=== PATIENT | male | born 1960 | race Caucasian/White ===

== ENCOUNTER → 2017-06-29 | Outpatient (CLI) | payer OTHER ==
[~2017-06-29] MED LIST: ASPI-435 PO; LOSA1TAB PO; MULTTAB45 PO; OMEG1CAP84 PO; QUET1TAB37 PO; SINCALIDE INJ 1.8 MCG in SODIUM CHLORIDE 0.9% 100ML 100 ML IV ONE
--- NOTE | 2017-06-29 15:47 | DIAGNOSTIC IMAGING REPORT ---
NUCLEAR MEDICINE HEPATOBILIARY SCAN WITH GALLBLADDER EJECTION FRACTION CLINICAL HISTORY: Right lower quadrant pain. Atypical chest pain. COMPARISON: None TECHNIQUE: 5.5 mCi of technetium 99m Choletec IV was injected at 1:00 PM on June 29, 2017. Immediately following injection, imaging of the abdomen was carried out for 60 minutes in the anterior projection. At this time, 1.8 mcg of Sincalide was injected IV as per protocol. Imaging was performed for an additional 45 minutes to estimate a gallbladder ejection fraction. FINDINGS: Hepatic uptake of radiotracer is prompt and homogeneous. Activity is identified within the common bile duct and the gallbladder at 10 minutes. Small bowel activity is also noted at 10 minutes. Following injection of sincalide, normal gallbladder emptying was noted with an ejection fraction of 96%. Normal is greater than 30-35%. IMPRESSION: 1. Normal hepatobiliary scan. No evidence for acute or chronic cholecystitis. 2. Normal gallbladder ejection fraction of 96%. Electronically signed by: Sigifredo Lucero M.D. 06/29/2017 3:45 PM Dictated Date/Time: 06/29/2017 3:44 PM
== END | disposition home or self-care (01) ==
LOC: C.NUCL 12:38
PROVIDERS: ATTEND Surgery
DX: R07.89 Other chest pain (principal); R10.31 Right lower quadrant pain

== ENCOUNTER 2019-11-07 09:22 | Inpatient (IN) ==
[2019-11-07] MEDS ORDERED: MULTI-VITAMIN INFUSION 10 ML, THIAMINE HCL 100 MG, FOLIC ACID 1 MG in SODIUM CHLORIDE 0... IV ONE (09:59)
--- NOTE | 2019-11-07 10:06 | Emergency Department Note ---
Impression & Plan SOB (shortness of breath), Anemia, Weakness, Acute hyperkalemia, Acute hyperglycemia, Abdominal contusion ED Provider Note NAME: ARABELLA HUBBARD AGE: 59 SEX: M : 1960 ARRIVES VIA: Walk-In INFORMANT: [Patient] ED PROVIDER(S): [Suman Otero MD] CHIEF COMPLAINT: Bruising, short of breath HISTORY OF PRESENT ILLNESS: The patient is a 59-year-old male who states that over the last week, he has had increasing bruising across the abdomen and both legs. He fell 3 days ago onto his knees but states that the bruising was present before the fall. The patient states that in addition, for the last 4 days or so, he has noticed that he is short of breath. He is weak. Standing makes him feel faint. He states exertion makes his shortness of breath worse. There has been no chest pain, no vomiting or diarrhea. He has not noticed any bloody stool, his stool is always black because he uses Pepto-Bismol a lot. The patient has not had fever. He has not had cough or congestion. He has no history of coagulopathy. He is not any blood thinners. This mercado never happened to him before. Of note, the patient does drink about 12 beers a day. He states he has not had a drink of alcohol today. The patient was seen at the [facility] outpatient office and referred to the ED given his findings. REVIEW OF SYSTEMS: See HPI for pertinent positives and negatives. A total of ten systems were reviewed and were otherwise negative. PMHx/PSHx: See Below SOCIAL HISTORY: See Below. PHYSICAL EXAM: GENERAL: Patient is in no acute distress. HEENT: No acute trauma, normocephalic atraumatic, mucous membranes moist, no nasal congestion, no scleral icterus. NECK: No stridor, no adenopathy, no meningismus, trachea is midline. LUNGS: Clear to auscultation bilaterally, no wheeze, no rhonchi, breath sounds equal. HEART: Very mildly tachycardic, regular rhythm, no murmurs. ABDOMEN: Soft, nontender, bowel sounds positive, no hernias, no peritonitis. EXTREMITIES: No cyanosis. Moderate bilateral pedal edema with contusions from the thighs to the ankles. There is some slight erythema to the right dorsal foot. NEUROLOGIC: Oriented x 3, no acute motor or sensory deficits, no focal weakness. SKIN: The patient has contusions about the anterior abdomen and to both lower extremities. DIFFERENTIAL DIAGNOSIS: Infection, dehydration, metabolic abnormality, hypo/hyperglycemia, coagulopathy, intra-abdominal or intracranial bleeding, liver disease, thrombocytopenia, electrolyte disturbance, anemia, hypoxia, cardiac sources, intracerebral event, toxicologic, neurologic, as well as other pathologies. EMERGENCY DEPARTMENT COURSE/PROCEDURES: ECG: Indication was shortness of breath. The ECG shows a sinus tachycardia with a rate of 101. The QTc is 446. There is no ST elevation, no PVCs. Continuous Cardiac Monitoring: An order was placed for continuous cardiac monitoring. The monitor shows a rate of 92 with normal sinus rhythm. Critical Care Note: I have personally spent greater than 52 minutes of critical care time in the direct management of this patient. This includes bedside care, interpretation of diagnostic studies, and testing, discussion with consultants, patient, and family members, and other required patient management activities. This 52 minutes is in excess of all separately billable procedures. MEDICAL DECISION MAKING: There is a mild leukocytosis, this is consistent with potential infection. Hemoglobin was low at 8.8. There was a normal platelet count. An INR elevation was noted, this suggests a coagulopathy-of note, the patient is not on Coumadin. Sodium was low in the 120s. There was an elevation to the creatinine consistent with dehydration/renal insufficiency. Glucose was quite high in the 300s. Potassium was quite high at 6.5-this was a critical value. There were s ome liver enzyme elevations present. ECG showed a sinus tachycardia, no acute ischemia. Cardiac enzyme testing x1 was not consistent with acute cardiac injury. BNP was not elevated. Chest film did not show pneumonia or CHF. No evidence for pancreatitis. TSH was slightly high, the T4 was normal. Blood type returned at O+. Brain CT showed no acute bleed or mass-effect. Abdominal and pelvis CT did not show any evidence for intra-abdominal hematoma or bleeding. On my exam, the patient was tachycardic. He had contusions across the anterior abdominal wall and both lower extremities. He seemed slightly short of breath. The patient was aggressively managed given his findings. He did receive a DuoNeb to try and reduce his potassium. He was given IV insulin to lower the blood sugar and to reduce the potassium. He received IV saline for hydration and to reduce potassium. He was given IV saline with multivitamins, thiamine and folate. He received a dose of IV Ativan when he began to demonstrate some early alcohol withdrawal. The patient's heart rate has improved, he seems more comfortable. He does require a hospital stay. He is quite anemic, this has led to his shortness of breath and dyspnea. He is hyperkalemic, hyperglycemic. His sodium is low. He has a coagulopathy which has led to the spontaneous soft tissue bleeding. During his ER stay, the patient began to demonstrate some mild alcohol withdrawal. The patient is aware of the need for hospitalization. I did speak with case management. The on-call hospitalist was consulted. Past Med/Surg History Medical History Depression Diabetes mellitus, type 2 DIET MANAGED-TAKEn OFF MEDS GERD (gastroesophageal reflux disease) Hypertension UNDER CONTROL-NO MEDS CURRENTLY Sleep apnea CPAP Surgical History History of bowel resection WITH COLOSTOMY-AND REVERSED History of open reduction and internal fixation (ORIF) procedure LEFT ANKLE Family History Mother Pancreatic cancer Father Coronary heart disease CHF (congestive heart failure) AAA (abdominal aortic aneurysm) Social History Smoking Status: Former smoker Tobacco Type: Cigarettes Second Hand Exposure: No; Do You Dip or Chew Tobacco: No; Tobacco Cessation Education Requested by Patient: No Hx Alcohol Use: Yes Alcohol type: beer Alcohol Intake Frequency: 4 or More x per/Week Alcohol Intake Frequency Comment: 12 beers daily Hx Substance Use: Yes Last Used Substance Other:: 10-15 years ago Preferred Language: Russian 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 Ability: 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 Required: No Beliefs That Will Affect Care: None Current Living Situation: Alone current occupational status: unemployed Other Information That Helps Us Care for You: No Feels Safe at Home: Yes Safety Concerns: Feels Safe At This Time Allergies Allergies Allergy/AdvReac Type Severity Reaction Status Date / Time esomeprazole [From Nexium] AdvReac Unknown RINGING IN Verified 11/07/19 10:26 EARS losartan AdvReac Unknown CONFUSED Verified 11/07/19 10:26 ,CHEST PAIN metformin AdvReac Unknown TONGUE Verified 11/07/19 10:26 SWELLING-PER MEDICAL RECORD omeprazole AdvReac Unknown RINGING IN Verified 11/07/19 10:26 EARS pantoprazole AdvReac Unknown RINGING IN Verified 11/07/19 10:26 EARS ranitidine AdvReac Unknown RINGING IN Verified 11/07/19 10:26 EARS Home Meds Home Medications Medication Instructions Recorded Confirmed quetiapine [Seroquel] 400 mg PO HS 09/20/18 11/07/19 Results & Data (ED) Vital Signs Vital Signs - 24 hr 11/07/19 09:30 11/07/19 11:00 11/07/19 11:02 Temperature Source Oral Pulse Rate 114 H 107 H Pulse Rate [Apical] Pulse Rate from SpO2 Sensor 106 H Respiratory Rate 24 26 H Respiratory Effort / Characteristics Blood Pressure 111/70 114/85 Blood Pressure Mean 83 90 Pulse Oximetry 97 95 Oxygen Delivery Method Room Air Room Air Room Air Sepsis Recent Fever Within 48 Hours No Sepsis New/Unexplained Change in Mental Status N/A Sepsis Action Taken by Nursing No Action Required 11/07/19 11:47 11/07/19 12:05 Temperature Source Pulse Rate 103 H Pulse Rate [Apical] 106 H Pulse Rate from SpO2 Sensor 104 H Respiratory Rate 16 21 Respiratory Effort / Characteristics Non-Labored Spontaneous Blood Pressure 128/103 H Blood Pressure Mean 108 Pulse Oximetry 99 99 Oxygen Delivery Method Room Air Room Air Sepsis Recent Fever Within 48 Hours Sepsis New/Unexplained Change in Mental Status Sepsis Action Taken by Usp Medications Current Medication List: was personally reviewed by me Laboratory Data Attestation: I reviewed the patient's lab results. Result diagrams: 11/07/19 16:45 11/07/19 16:45 Lab Results 11/07/19 11/07/19 11/07/19 Range/Units 10:10 10:10 10:10 WBC (4.8-10.8) K/uL RBC (4.7-6.1) M/uL Hgb (14.0-18.0) g/dL Hct (42-52) % MCV (80-100) fL MCH (25-34) pg MCHC (32-36) g/dL RDW Std Deviation (36.4-46.3) fL RDW Coeff of Brigida (11.5-14.5) % Plt Count (130-400) K/uL MPV (7.4-10.4) fL Immature Gran % (Auto) % Neut % (Auto) % Lymph % (Auto) % Gila % (Auto) % Eos % (Auto) % Baso % (Auto) % Neut # (Auto) (1.4-6.5) K/uL Lymph # (Auto) (1.2-3.4) K/uL Gila # (Auto) (0.11-0.59) K/uL Eos # (Auto) (0-0.5) K/uL Baso # (Auto) (0-0.2) K/uL Immature Gran # (Auto) (0.00-0.02) K/uL Absolute Nucleated RBC (0-0) K/uL Nucleated RBC % (auto) % PT 20.1 H (9.0-12.0) Seconds INR 2.0 H (0.9-1.1) APTT 33.0 H (21.0-31.0) Seconds PTT Ratio 1.2 Sodium 124 L (136-145) mmol/L Potassium 6.5 H* (3.5-5.1) mmol/L Chloride 97 L (98-107) mmol/L Carbon Dioxide 18 L (21-32) mmol/L Anion Gap 10.0 (3-11) BUN 25 H (7-18) mg/dl Creatinine 1.97 H (0.6-1.4) mg/dl Est Cr Clr Drug Dosing Not Reportable Est GFR ( Amer) 41.9 Est GFR (Non-Af Amer) 36.1 BUN/Creatinine Ratio 12.5 (10-20) Glucose 354 H* (70-99) mg/dl POC Glucose (70-99) mg/dl Osmolality (280-300) mOsm/kg Calcium 8.6 (8.5-10.1) mg/dl Magnesium 2.3 (1.8-2.4) mg/dl Total Bilirubin 2.7 H (0.2-1) mg/dl AST 50 H (15-37) U/L ALT 35 (12-78) U/L Alkaline Phosphatase 79 (45-117) U/L Total Creatine Kinase 469 H (39-308) U/L Troponin I < 0.015 (0-0.045) ng/ml NT-Pro-B Natriuret Pep 201 (0-900) pg/ml Total Protein 6.9 (6.4-8.2) gm/dl Albumin 2.9 L (3.4-5.0) gm/dl Globulin 4.0 (2.5-4.0) gm/dl Albumin/Globulin Ratio 0.7 L (0.9-2) Beta-Hydroxybutyric Acd 11.66 H (0.2-2.81) mg/dl TSH 6.190 H (0.300-4.500) uIu/ml Free T4 0.85 (0.8-1.6) ng/dl Specimen Hemolysis Blood Type O Positive Antibody Screen NEGATIVE Crossmatch See Detail 11/07/19 11/07/19 11/07/19 Range/Units 10:10 10:19 11:38 WBC 11.85 H (4.8-10.8) K/uL RBC 2.70 L (4.7-6.1) M/uL Hgb 8.8 L (14.0-18.0) g/dL Hct 26.1 L (42-52) % MCV 96.7 (80-100) fL MCH 32.6 (25-34) pg MCHC 33.7 (32-36) g/dL RDW Std Deviation 52.5 H (36.4-46.3) fL RDW Coeff of Brigida 15.7 H (11.5-14.5) % Plt Count 177 (130-400) K/uL MPV 10.9 H (7.4-10.4) fL Immature Gran % (Auto) 0.8 % Neut % (Auto) 81.8 % Lymph % (Auto) 8.9 % Gila % (Auto) 7.8 % Eos % (Auto) 0.4 % Baso % (Auto) 0.3 % Neut # (Auto) 9.69 H (1.4-6.5) K/uL Lymph # (Auto) 1.06 L (1.2-3.4) K/uL Gila # (Auto) 0.92 H (0.11-0.59) K/uL Eos # (Auto) 0.05 (0-0.5) K/uL Baso # (Auto) 0.04 (0-0.2) K/uL Immature Gran # (Auto) 0.09 H (0.00-0.02) K/uL Absolute Nucleated RBC 0.12 H (0-0) K/uL Nucleated RBC % (auto) 1.0 % PT (9.0-12.0) Seconds INR (0.9-1.1) APTT (21.0-31.0) Seconds PTT Ratio Sodium (136-145) mmol/L Potassium (3.5-5.1) mmol/L Chloride (98-107) mmol/L Carbon Dioxide (21-32) mmol/L Anion Gap (3-11) BUN (7-18) mg/dl Creatinine (0.6-1.4) mg/dl Est Cr Clr Drug Dosing Est GFR ( Amer) Est GFR (Non-Af Amer) BUN/Creatinine Ratio (10-20) Glucose (70-99) mg/dl POC Glucose 311 H* (70-99) mg/dl Osmolality 285 (280-300) mOsm/kg Calcium (8.5-10.1) mg/dl Magnesium (1.8-2.4) mg/dl Total Bilirubin (0.2-1) mg/dl AST (15-37) U/L ALT (12-78) U/L Alkaline Phosphatase (45-117) U/L Total Creatine Kinase (39-308) U/L Troponin I (0-0.045) ng/ml NT-Pro-B Natriuret Pep (0-900) pg/ml Total Protein (6.4-8.2) gm/dl Albumin (3.4-5.0) gm/dl Globulin (2.5-4.0) gm/dl Albumin/Globulin Ratio (0.9-2) Beta-Hydroxybutyric Acd (0.2-2.81) mg/dl TSH (0.300-4.500) uIu/ml Free T4 (0.8-1.6) ng/dl Specimen Hemolysis Blood Type Antibody Screen Crossmatch Administered Medications Folic Acid (Folic Acid 1 Mg Tab) 1 mg PO QAM [facility] Stop: 12/07/19 14:59 Last Admin: 11/07/19 16:05 Dose: 1 mg Documented by: [id number] Sodium Bicarbonate 75 meq/ (Sodium Chloride) 1,075 mls @ 80 mls/hr IV .[id number] [facility] Stop: 12/07/19 14:38 Last Admin: 11/07/19 16:04 Dose: 80 mls/hr Documented by: [id number] Insulin Aspart (Insulin Aspart 100 Units/Ml 3 Ml Pen) 0 units SC ACHS [facility] Stop: 12/07/19 16:29 Last Admin: 11/07/19 17:14 Dose: 10 units Documented by: [id number] Cosigned by: [id number] Thiamine HCl (Thiamine Hcl 100 Mg Tab) 100 mg PO QAM [place] Stop: 12/07/19 14:59 Last Admin: 11/07/19 16:06 Dose: 100 mg Documented by: [id number] Discontinued Medications Albuterol (Albut/Ipratrop 3mg/0.5mg Neb 3 Ml Vial) 3 ml NEB NOW STA Stop: 11/07/19 11:06 Last Admin: 11/07/19 11:45 Dose: 3 ml Documented by: [id number] Gabapentin (Gabapentin 600 Mg Tab) 1,200 mg PO NOW ONE Stop: 11/07/19 16:01 Last Admin: 11/07/19 16:05 Dose: 1,200 mg Documented by: [id number] Multivitamins 10 ml/ Thiamine HCl 100 mg/ Folic Acid 1 mg/Sodium Chloride 1,011.2 mls @ 1,011.2 mls/hr IV .Q1H ONE Stop: 11/07/19 10:58 Last Infusion: 11/07/19 12:30 Dose: 0 mls/hr Documented by: [id number] Admin: 11/07/19 10:43 Dose: 1,011.2 mls/hr Documented by: [id number] Lorazepam (Ativan) 1 mg in 2 mls @ 2 mls/min IV NOW STA Stop: 11/07/19 11:46 Last Admin: 11/07/19 12:02 Dose: 2 mls/min Documented by: [id number] Insulin Glargine (Insulin Glargine Solostar 100 Units/Ml 3 Ml Pen) 25 units SC TODAY@1600 ONE; Protocol Stop: 11/07/19 16:01 Last Admin: 11/07/19 17:13 Dose: 25 units Documented by: [id number] Cosigned by: [id number] Insulin Human Regular (Novolin-R Insulin Per Unit Charge) 10 units IV NOW STA Stop: 11/07/19 11:06 Last Admin: 11/07/19 11:13 Dose: 10 units Documented by: [id number] Cosigned by: [id number] Morphine Sulfate (Morphine Sulfate 4 Mg/Ml 1 Ml Carp\Vial) 4 mg IV NOW STA Stop: 11/07/19 12:31 Last Admin: 11/07/19 12:37 Dose: 4 mg Documented by: [id number] Imaging Data Radiologist's Impression: XR chest 1V portable CLINICAL HISTORY: weakness dyspnea COMPARISON STUDY: 06/01/2014 FINDINGS: The bones soft tissues and hemidiaphragms are normal. The cardiomediastinal silhouette is normal. The lungs are clear. The pulmonary vasculature is normal. IMPRESSION: Negative chest. CT head/brain wo con CT DOSE: HISTORY: Trauma. Pain. Mental status change. falling, bruising TECHNIQUE: Multiaxial CT images of the head were performed without the use of intravenous contrast. A dose lowering technique was utilized adhering to the principles of ALARA. Comparison: 06/01/2014 Findings: The paranasal sinuses and mastoid air cells are clear. The calvarium and skull base are intact. The ventricles and sulci are within normal limits. There is no mass, hematoma, midline shift, or acute infarct. Impression: No acute intracranial abnormality. CT SCAN OF THE ABDOMEN AND PELVIS WITHOUT IV CONTRAST CLINICAL HISTORY: Generalized weakness. Abdominal bruising. COMPARISON STUDY: Nuclear hepatobiliary scan dated 06/29/2017. TECHNIQUE: CT scan of the abdomen and pelvis is performed from the lung bases to the proximal femora. Images are reviewed in the axial, sagittal, and coronal planes. IV contrast was not administered for this examination as per the referring clinician. A dose lowering technique was utilized adhering to the principles of ALARA. CT DOSE: 2827.21 mGy.cm FINDINGS: Lung bases: The heart is normal in size and without pericardial effusion. There are coronary artery calcifications. A small hiatal hernia is noted. A 4 mm pleural-based nodule in the right lower lobe as seen on image #46. The lung bases are otherwise clear. Liver: The unenhanced liver is enlarged, measuring 24.6 cm in length. The liver demonstrates diffusely diminished attenuation consistent with hepatic steatosis. There is no intrahepatic biliary ductal dilatation. Gallbladder: Gallstones are suspected. There is no CT evidence of acute cholecystitis. Spleen: Normal in size and attenuation. Pancreas: The unenhanced pancreas is moderately atrophic and grossly unremarkable. Adrenal glands: Unremarkable. Kidneys: The unenhanced kidneys demonstrate mild cortical atrophy and are without hydronephrosis. There is a punctate nonobstructing left renal calculus. No right renal calculi are identified. There is no evidence of contour deforming renal mass lesion. There is a circumaortic left renal vein. Abdominal vasculature: The abdominal aorta is normal in course and caliber noting mild atherosclerotic calcification. Bowel: Residual enteric contrast is noted in the colon. No bowel obstruction is seen. The appendix is well-visualized and normal. Peritoneum/retroperitoneum: There is no intraperitoneal free air or abdominal ascites. There is no intraperitoneal or retroperitoneal hemorrhage. There is a fat-containing umbilical hernia. Induration is noted within the right ventral abdominal wall. Question a small intramuscular hemorrhage within the right lateral abdominal wall musculature anterior to the iliac crest seen on image #386. No organized soft tissue hematoma is identified. Lymphadenopathy: None. Pelvic viscera: The prostate gland is diminutive. The bladder and seminal vesicles are normal as imaged. Skeletal structures: No lytic or blastic lesions are seen. IMPRESSION: 1. There is induration identified within the subcutaneous fat of the right lower quadrant abdominal wall. This is consistent with the reported clinical history of bruising. No organized hematoma is identified. 2. Suspect a small intramuscular hemorrhage within the right lateral abdominal wall musculature anterior to the iliac crest. 3. No intraperitoneal or retroperitoneal hemorrhage is seen. 5. Hepatomegaly and severe hepatic steatosis. 6. Suspect cholelithiasis. 7. Additional findings as above. Blood Pressure Blood Pressure Findings: Elevated blood pressure Blood Pressure Disposition: further management by hospitalist Discharge Plan Visit Data Chief Complaint: Referred by Doctor Stated Complaint: RETAIN FLUID ED Provider: Suman Otero Discharge Problem: SOB (shortness of breath), Anemia, Weakness, Acute hyperkalemia, Acute hyperglycemia, Abdominal contusion Patient Disposition: Admitted As Inpatient Condition: Serious Discharge Instructions Interventions: ED Discharge Assessment Last Done: 11/07/19 12:58 Discharge Problem: Anemia Qualifiers: Anemia type: unspecified type Qualified Code(s): D64.9 - Anemia, unspecified Abdominal contusion Qualifiers: Encounter type: initial encounter Qualified Code(s): S30.1XXA - Contusion of abdominal wall, initial encounter
[2019-11-07 10:34] LABS: Basophils # (auto) 0.04 K/uL (0-0.2); Basophils % (auto) 0.3 %; Eosinophils # (auto) 0.05 K/uL (0-0.5); Eosinophils % (auto) 0.4 %; Hematocrit (blood only) 26.1 % (42-52); Hemoglobin 8.8 g/dL (14.0-18.0); Immature Granulocytes # (auto) 0.09 K/uL (0.00-0.02); Immature Granulocytes % (auto) 0.8 %; Lymphocytes # (auto) 1.06 K/uL (1.2-3.4); Lymphocytes % (auto) 8.9 %; Mean Corpuscular Hemoglobin 32.6 pg (25-34); Mean Corpuscular Hgb Conc 33.7 g/dL (32-36); Mean Corpuscular Volume 96.7 fL (80-100); Mean Platelet Volume 10.9 fL (7.4-10.4); Monocytes # (auto) 0.92 K/uL (0.11-0.59); Monocytes % (auto) 7.8 %; Neutrophils # (auto) 9.69 K/uL (1.4-6.5); Neutrophils % (auto) 81.8 %; Nucleated RBC # (auto) 0.12 K/uL (0-0); Platelet Count 177 K/uL (130-400); RDW Coefficient of Variation 15.7 % (11.5-14.5); RDW Standard Deviation 52.5 fL (36.4-46.3); White Blood Count 11.85 K/uL (4.8-10.8)
[2019-11-07 10:47] LABS: Partial Thromboplastin Ratio 1.2; Prothrombin Time 20.1 Seconds (9.0-12.0)
[2019-11-07 10:59] LABS: Alanine Aminotransferase 35 U/L (12-78); Albumin Level 2.9 gm/dl (3.4-5.0); Aspartate Aminotransferase 50 U/L (15-37); BUN Creatinine Ratio 12.5 (10-20); Blood Urea Nitrogen 25 mg/dl (7-18); Calcium 8.6 mg/dl (8.5-10.1); Carbon Dioxide 18 mmol/L (21-32); Chloride 97 mmol/L (98-107); Est GFR (African American) 41.9; Est GFR (Non-African American) 36.1; Glucose 354 mg/dl (70-99); Magnesium 2.3 mg/dl (1.8-2.4); Potassium 6.5 mmol/L (3.5-5.1); Sodium 124 mmol/L (136-145)
[2019-11-07] MEDS ORDERED: NovoLIN-R INSULIN PER UNIT CHARGE IV STA (11:05)
[2019-11-07] MEDS ORDERED: ALBUT/IPRATROP 3MG/0.5MG NEB 3 ML VIAL NEB STA (11:05)
[2019-11-07 11:08] LABS: Albumin Globulin Ratio 0.7 (0.9-2); Alkaline Phosphatase 79 U/L (45-117); Bilirubin,Total 2.7 mg/dl (0.2-1); Creatine Kinase 469 U/L (39-308); NT Pro B Type Natriuretic Pept 201 pg/ml (0-900); Total Protein 6.9 gm/dl (6.4-8.2); Troponin I < 0.015 ng/ml (0-0.045)
--- NOTE | 2019-11-07 11:08 | XRay Report ---
XR chest 1V portable CLINICAL HISTORY: weakness dyspnea COMPARISON STUDY: 06/01/2014 FINDINGS: The bones soft tissues and hemidiaphragms are normal. The cardiomediastinal silhouette is n ormal. The lungs are clear. The pulmonary vasculature is normal. IMPRESSION: Negative chest. ACT 112: Negative or not required by law. The above report was generated using voice recognition software. It may contain grammatical, syntax or spelling errors. Electronically signed by: Rashad Alvarez M.D. 11/07/2019 11:07 AM
[2019-11-07 11:17] LABS: Beta-Hydroxybutyrate 11.66 mg/dl (0.2-2.81)
[2019-11-07 11:24] LABS: T4 Free Thyroxine 0.85 ng/dl (0.8-1.6)
--- NOTE | 2019-11-07 11:35 | CT Scan Report ---
CT head/brain wo con CT DOSE: HISTORY: Trauma. Pain. Mental status change. falling, bruising TECHNIQUE: Multiaxial CT images of the head were performed without the use of intravenous contrast. A dose lowering technique was utilized adhering to the principles of ALARA. Comparison: 06/01/2014 Findings: The paranasal sinuses and mastoid air cells are clear. The calvarium and skull base are int act. The ventricles and sulci are within normal limits. There is no mass, hematoma, midline shift, or acute infarct. Impression: No acute intracranial abnormality. ACT 112: Negative or not required by law. The above report was generated using voice recognition software. It may contain grammatical, syntax or spelling errors. Electronically signed by: Rashad Alvarez M.D. 11/07/2019 11:34 AM
[2019-11-07] MEDS ORDERED: LORazepam 1 MG/2 ML VIAL IV STA (11:45)
--- NOTE | 2019-11-07 11:56 | CT Scan Report ---
CT SCAN OF THE ABDOMEN AND PELVIS WITHOUT IV CONTRAST CLINICAL HISTORY: Generalized weakness. Abdominal bruising. COMPARISON STUDY: Nuclear hepatobiliary scan dated 06/29/2017. TECHNIQUE: CT scan of the abdomen and pelvis is performed from the lung bases to the proximal femora. Images are reviewed in the axial, sagittal, and coronal planes. IV contrast was not administered for this examination as per the referring clinician. A dose lowering technique was utilized adhering to the principles of ALARA. CT DOSE: 2827.21 mGy.cm FINDINGS: Lung bases: The heart is normal in size and without pericardial effusion. There are coronary artery c alcifications. A small hiatal hernia is noted. A 4 mm pleural-based nodule in the right lower lobe as seen on image #46. The lung bases are otherwise clear. Liver: The unenhanced liver is enlarged, measuring 24.6 cm in length. The liver demonstrates diffusel y diminished attenuation consistent with hepatic steatosis. There is no intrahepatic biliary ductal d ilatation. Gallbladder: Gallstones are suspected. There is no CT evidence of acute cholecystitis. Spleen: Normal in size and attenuation. Pancreas: The unenhanced pancreas is moderately atrophic and grossly unremarkable. Adrenal glands: Unremarkable. Kidneys: The unenhanced kidneys demonstrate mild cortical atrophy and are without hydronephrosis. The re is a punctate nonobstructing left renal calculus. No right renal calculi are identified. There is no evidence of contour deforming renal mass lesion. There is a circumaortic left renal vein. Abdominal vasculature: The abdominal aorta is normal in course and caliber noting mild atheroscleroti c calcification. Bowel: Residual enteric contrast is noted in the colon. No bowel obstruction is seen. The appendix is well-visualized and normal. Peritoneum/retroperitoneum: There is no intraperitoneal free air or abdominal ascites. There is no in traperitoneal or retroperitoneal hemorrhage. There is a fat-containing umbilical hernia. Induration i s noted within the right ventral abdominal wall. Question a small intramuscular hemorrhage within the right lateral abdominal wall musculature anterior to the iliac crest seen on image #[id number]. No organize d soft tissue hematoma is identified. Lymphadenopathy: None. Pelvic viscera: The prostate gland is diminutive. The bladder and seminal vesicles are normal as imag ed. Skeletal structures: No lytic or blastic lesions are seen. IMPRESSION: 1. There is induration identified within the subcutaneous fat of the right lower quadrant abdominal w all. This is consistent with the reported clinical history of bruising. No organized hematoma is iden tified. 2. Suspect a small intramuscular hemorrhage within the right lateral abdominal wall musculature anter ior to the iliac crest. 3. No intraperitoneal or retroperitoneal hemorrhage is seen. 5. Hepatomegaly and severe hepatic steatosis. 6. Suspect cholelithiasis. 7. Additional findings as above. ACT 112: Negative or not required by law. Electronically signed by: Suman Escalante M.D. 11/07/2019 11:55 AM
[2019-11-07] MEDS ORDERED: MoRPHine SULFATE 4 MG/ML 1 ML CARP\\VIAL IV STA (12:30)
--- NOTE | 2019-11-07 12:57 | History & Physical Report ---
Date of Service November 07, 2019 Assessment & Plan (1) Spontaneous hematoma of abdominal wall: (2) Anemia: This is a 59 yr old M who has significant PMH of documented schizoaffective disorder, bipolar type, HTN, HLD, T2DM, GERD who presents to ED 2/2 2 and bruising to abdomen and lower extremities x3 days with associated dyspnea with exertion and weakness. In ED patient remained hemodynamically stable, but was mildly tachycardic. Significant lab abnormalities include H&H 8.8 and 26.1, WBC 11.85k, INR 2.0, corrected sodium 128, potassium 6.5, CO2 18, BUN 25, creatinine 1.97, glucose 354, total bili 2.7, AST 50, CK [address] were unremarkable. CT A/P: small intramuscular hemorrhage within the right lateral abdominal wall musculature anterior to the iliac crest, severe hepatic steatosis. In ED he received a banana bag, 1g IV lorazepam, 10mg IV Regular Insulin, and albuterol neb tx. admit to PCU Anemia likely in setting of blood loss from spontaneous hematoma with INR 2.[address] Paulino to discuss with Dr. Grant/Dr. Dominguez monitor h/h, transfuse hgb < 8.0 ? coagulopathy vs plt dysfxn vs blood dsycrasia pt with excessive pepto bismal use ? if adverse reaction playing role due to excessive use (3) Ecchymosis: pt with severe ecchymosis to abd wall and b/l lower extremity CT head and A/P + abd wall hematoma INR 2.0, ? coagulopathy vs platelet dysfunction in setting of alcohol use vs blood dyscrasia Pt reports excessive Pepto bismal use of 1 bottle + per day consult GI Dr. Paulino to discuss with hematology and pathology peripheral smear fibrinogen level, platelet analysis, salicylate level, ESR/CRP, EBC, CMV, APAP, Hep Panel, Lipase, drug tox supplement vit C bid (4) MAIRA (acute kidney injury): Baseline cr 1.0, last noted in EPIC 06/2017 bun/cr 25 and 1.97 consult nephrology repeat bmp q4h IVF 80cc/hr 1/2 NS + 75meq bicarb (5) Hyperkalemia: K 6.5, specimen hemolyzed repeat bmp received 10 units IV insulin in ED along with neb tx may be in setting of bleeding, MAIRA consult nephrology for electrolyte disturbance and MAIRA (6) Hyponatremia: corrected for hyperglycemia, 128 obtain serum osm, urine osm, urine na may be in setting of etoh abuse Received banana bag in ED continue IVF (7) Right knee pain: pt with severe R knee pain, reports fall to Knee ~ 1 week ago significant ecchymosis and swelling to R knee obtain xray ICE prn low threshold to consult ortho (8) Diabetes mellitus, type 2: with Hyperglycemia Last A1C in EPIC 04/23/17 5.6, prior high as 6.6 repeat a1c allergy to metformin place on Lantus/novolog per protocol consult glycemic pharmacy - appreciate their input (9) Alcohol abuse: pt drinks 12 beers daily AWSS protocol, Gabapentin taper, Prn IV Lorazepam encourage alcohol cessation (10) Elevated LFTs: GI consulted AST 50, total bili 2.1, INR 2.0, low albumin obtain dedicated RUQ liver US with venous doppler pt with noted hepatic steatosis and etoh abuse, MELD 28 (11) Tinnitus: pt reports severe tinnitus states made worse with PPI pt is taking significant amounts of pepto bismal which is also noted to cause tinnitus would recommend discontinuing pepto bismal (12) DVT prophylaxis: contraindicated in setting of severe ecchymosis and concern for coagulopathy auto anticoagulated with INR of 2.0 Disposition: admit to PCU Follow up: PCP Dr. Osorio upon discharge Pt was seen and examined in collaboration with Dr. Paulino, please see attending addendum for further details regarding physical exam findings and plan History of Present Illness Chief Complaint: Bruising to abdominal and legs x 3 days with associated SOB w/ exertion and weakness. Primary Care Provider: Robbi Osorio MD This is a 59 yr old M who has significant PMH of documented schizoaffective disorder, bipolar type, HTN, HLD, T2DM, GERD who presents to ED 2/2 2 and bruising to abdomen and lower extremities x3 days with associated dyspnea with exertion and weakness. Patient has been in his normal state of health until the past 3 days. Bruising initially started on anterior proximal thigh extending down bilateral lower legs and a significant bruise to his intra-abdominal wall. He also complains of significant right knee pain and difficulty walking and bending of the knee. He does admit to falling approximately 1 week ago onto her right knee but denies any other trauma or fall. He denies similar symptoms in the past. He also admits to feeling feverish and chilled, but no documented fever. Complains of lightheadedness with standing/movement, tinnitus, severe acid reflux for which he takes 1 bottle of pepto bismal daily. He does not tolerate PPI or [id number] due to tinnitus so states, "I drink pepto like water." He denies and URI sx including cough, rhinorrhea, sneezing. Further denies N/V/D, abdominal pain, melena, hematochezia, gum bleeding, hematuria or epistaxis. He only takes Seroquel at HS for, "sleep." He denies any psychiatric illness and does not see a psychologist. Per [facility] a dx of schizoaffective disorder is on his chart. He has known hx of HLD and T2DM in which pt has been "diet controlling" for past few years. Neighbor is at his bedside. He does not work, or use tobacco/drug products. He drinks 1/2 case a beer daily and has for many years. Prior hx of withdrawal after being in hospital and undergoing EGD. States he was tachycardiac. Appetite has been poor past 2-3 days due to severe reflux. Patient was seen and evaluated by PCP who referred to ED. In ED patient remained hemodynamically stable, but was mildly tachycardic. Significant lab abnormalities include H&H 8.8 and 26.1, WBC 11.85k, INR 2.0, corrected sodium 128, potassium 6.5, CO2 18, BUN 25, creatinine 1.97, glucose 354, total bili 2.7, AST 50, CK [address] were unremarkable. CT A/P: small intramuscular hemorrhage within the right lateral abdominal wall musculature anterior to the iliac crest, severe hepatic steatosis. In ED he received a banana bag, 1g IV lorazepam, 10mg IV Regular Insulin, and albuterol neb tx. Allergies Allergy/AdvReac Type Severity Reaction Status Date / Time esomeprazole [From Nexium] AdvReac Unknown RINGING IN Verified 11/07/19 10:26 EARS losartan AdvReac Unknown CONFUSED Verified 11/07/19 10:26 ,CHEST PAIN metformin AdvReac Unknown TONGUE Verified 11/07/19 10:26 SWELLING-PER MEDICAL RECORD omeprazole AdvReac Unknown RINGING IN Verified 11/07/19 10:26 EARS pantoprazole AdvReac Unknown RINGING IN Verified 11/07/19 10:26 EARS ranitidine AdvReac Unknown RINGING IN Verified 11/07/19 10:26 EARS Home Medications Home Medications Medication Instructions Recorded Confirmed Type quetiapine [Seroquel] 400 mg PO HS 09/20/18 11/07/19 History Past Med/Surg History Medical History Depression Diabetes mellitus, type 2 DIET MANAGED-TAKEn OFF MEDS GERD (gastroesophageal reflux disease) Hypertension UNDER CONTROL-NO MEDS CURRENTLY Sleep apnea CPAP Surgical History History of bowel resection WITH COLOSTOMY-AND REVERSED History of open reduction and internal fixation (ORIF) procedure LEFT ANKLE Family History Mother Pancreatic cancer Father Coronary heart disease CHF (congestive heart failure) AAA (abdominal aortic aneurysm) Social History Smoking Status: Former smoker Tobacco Type: Cigarettes Second Hand Exposure: No; Do You Dip or Chew Tobacco: No; Tobacco Cessation Education Requested by Patient: No Hx Alcohol Use: Yes Alcohol type: beer Alcohol Intake Frequency: 4 or More x per/Week Alcohol Intake Frequency Comment: 12 beers daily Hx Substance Use: Yes Last Used Substance Other:: 10-15 years ago Preferred Language: Divehi 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 Ability: Effective Paper Box Maker Required: No Beliefs That Will Affect Care: None Current Living Situation: Alone current occupational status: unemployed Other Information That Helps Us Care for You: No Feels Safe at Home: Yes Safety Concerns: Feels Safe At This Time Review of Systems Review of Systems: All systems reviewed & are unremarkable except as noted in HPI & below Physical Exam Physical Exam: Constitutional: Morbidly obese, M, vitals as above, appears uncomfortable, sitting up in bed, pleasant, conversing easily Head: Normocephalic, Atraumatic Eyes: PERRL, conjunctivae normal, anicteric sclerae ENMT: external ear and nose normal, oropharynx normal Neck: trachea midline, no thyromegaly normal visual inspection Respiratory: normal respiratory effort, Defer to attending addendum Cardiovascular: defer to attending addendum Chest: normal inspection of chest Abdomen: Anterior abdominal wall ecchymosis extending from epigastrum to suprapubic region, defer rest of exam to attending addendum Musculoskeletal: no cyanosis or clubbing, Decreased flex/ext to R knee, b/l anterior lower ext diffuse ecchymosis extended to dorsal aspect of feet Skin: warm and dry normal turgor Neurologic: PERRL, EOMI, accommodation nl, no face palsy, no dysarthria CN's II-XI intact bilaterally and moves all extremities Psychiatric: A+Ox3, euthymic affect Lymphatic: no cervical or axillary lymphadenopathy : deferred Results & Data Results & Data ([facility]) Vital Signs (Past 12 Hours) Vital Signs Pulse Pulse Resp BP Pulse Ox 11/07/19 11:47 106 H 16 99 11/07/19 11:02 107 H 26 H 114/85 95 11/07/19 09:30 114 H 24 111/70 97 Laboratory Results Short CBC 11/07/19 Range/Units 10:10 WBC 11.85 H (4.8-10.8) K/uL Hgb 8.8 L (14.0-18.0) g/dL Hct 26.1 L (42-52) % Plt Count 177 (130-400) K/uL BMP 11/07/19 10:10 Sodium 124 L Potassium 6.5 H* Chloride 97 L Carbon Dioxide 18 L BUN 25 H Creatinine 1.97 H Glucose 354 H* Calcium 8.6 Cardiac Enzymes 11/07/19 Range/Units 10:10 Total Creatine Kinase 469 H (39-308) U/L Troponin I < 0.015 (0-0.045) ng/ml Liver Function 11/07/19 Range/Units 10:10 Total Bilirubin 2.7 H (0.2-1) mg/dl AST 50 H (15-37) U/L ALT 35 (12-78) U/L Alkaline Phosphatase 79 (45-117) U/L Albumin 2.9 L (3.4-5.0) gm/dl Diagnostic Findings CT Abd/Pelvis: IMPRESSION: 1. There is induration identified within the subcutaneous fat of the right lower quadrant abdominal wall. This is consistent with the reported clinical history of bruising. No organized hematoma is identified. 2. Suspect a small intramuscular hemorrhage within the right lateral abdominal wall musculature anterior to the iliac crest. 3. No intraperitoneal or retroperitoneal hemorrhage is seen. 5. Hepatomegaly and severe hepatic steatosis. 6. Suspect cholelithiasis. 7. Additional findings as above. CXR: FINDINGS: The bones soft tissues and hemidiaphragms are normal. The cardiomediastinal silhouette is normal. The lungs are clear. The pulmonary vasculature is normal. IMPRESSION: Negative chest. Head CT: Impression: No acute intracranial abnormality. Medications Administered Discontinued Medications Albuterol (Albut/Ipratrop 3mg/0.5mg Neb 3 Ml Vial) 3 ml NEB NOW STA Stop: 11/07/19 11:06 Last Admin: 11/07/19 11:45 Dose: 3 ml Documented by: [id number] Multivitamins 10 ml/ Thiamine HCl 100 mg/ Folic Acid 1 mg/Sodium Chloride 1,011.2 mls @ 1,011.2 mls/hr IV .Q1H ONE Stop: 11/07/19 10:58 Last Infusion: 11/07/19 12:30 Dose: 0 mls/hr Documented by: [id number] Admin: 11/07/19 10:43 Dose: 1,011.2 mls/hr Documented by: [id number] Lorazepam (Ativan) 1 mg in 2 mls @ 2 mls/min IV NOW STA Stop: 11/07/19 11:46 Last Admin: 11/07/19 12:02 Dose: 2 mls/min Documented by: [id number] Insulin Human Regular (Novolin-R Insulin Per Unit Charge) 10 units IV NOW STA Stop: 11/07/19 11:06 Last Admin: 11/07/19 11:13 Dose: 10 units Documented by: [id number] Cosigned by: [id number] Morphine Sulfate (Morphine Sulfate 4 Mg/Ml 1 Ml Carp\\Vial) 4 mg IV NOW STA Stop: 11/07/19 12:31 Last Admin: 11/07/19 12:37 Dose: 4 mg Documented by: [id number] ECG Rhythm: sinus tachycardia Code Status & VTE Plan Code Status Full Code VTE Prophylaxis Plan VTE Prophylaxis will be ordered: No Supervising Physician Co-Signing Physician Notes I have seen and examined the patient and have discussed the case with the provider above. I agree with the assessment and plan as stated. 59 yo alcoholic man presented with 3 days of ecchymosis and autoanticoagulation with an INR of 2.0. Ecchymosis is significant involving abdomen, and the length of both legs. He is an alcoholic who also drinks Pepto-Bismol "like water" on a daily basis. 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 He denies eating normally and reports this is because he feels satiety early. My physical exam was in agreement of the exam noted above. No asterixis was present. Active issues: Autoanticoagulated with active bruising not on blood thinners Anemia-multifactorial including acute blood loss anemia in setting of bruising. Iron panel is normal, Retic count elevated, LDH is pending, H/H is stable. Bleeding/bruising-declines any issues with bleeding in the past. Reports no issues post-op in previous incidences. Discussed with Hematolgist that despite normal PLT numbers, Pepto- Bismol is a thrombocyte inhibitor and may be causing platelet dysfunction. Vitamin K given IV (5mg) to correct INR with possible vitamin K deficiency. Vitamin C supplements were started. Additionally, a PT mixing study normalized which prompts additional conversation with Dr. 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 Discussed the case with Dr. Grant. Alcohol abuse high risk for WD-alcohol withdraw protocol with Ativan PRN and gabapentin. DMII-uncontrolled. Placed on basal bolus insulin while hospitalized. Will nee to be placed on something at discharge. Hyponatremia- likely related to malnutrition 2/2 alcoholism. Nephro consulted Hyperkalemia-improved after intravenous insulin. Consult Nephro MAIRA and metabolic acidosis- defer management to Nephro. Tinnitis-stopped pepto and started TUMS PRN. 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 Per GI recs, currently he does not appear to have acute liver failure. However, should he become confused, somnolent or change status, develop additional lab abnormalities, it is prudent to consider immediate transfer to a liver transplant service at an outside hospital. Tierra Paulino DO [facility]
[2019-11-07 13:26] LABS: Basophils # (auto) 0.03 K/uL (0-0.2); Basophils % (auto) 0.3 %; Eosinophils # (auto) 0.06 K/uL (0-0.5); Eosinophils % (auto) 0.5 %; Hematocrit (blood only) 23.8 % (42-52); Hemoglobin 8.1 g/dL (14.0-18.0); Immature Granulocytes # (auto) 0.07 K/uL (0.00-0.02); Immature Granulocytes % (auto) 0.6 %; Lymphocytes # (auto) 1.48 K/uL (1.2-3.4); Lymphocytes % (auto) 12.9 %; Mean Corpuscular Hemoglobin 32.8 pg (25-34); Mean Corpuscular Volume 96.4 fL (80-100); Mean Platelet Volume 10.6 fL (7.4-10.4); Monocytes # (auto) 0.89 K/uL (0.11-0.59); Monocytes % (auto) 7.8 %; Neutrophils # (auto) 8.95 K/uL (1.4-6.5); Neutrophils % (auto) 77.9 %; Nucleated RBC # (auto) 0.13 K/uL (0-0); Nucleated RBC % (auto) 1.2 %; Platelet Count 146 K/uL (130-400); RDW Coefficient of Variation 15.6 % (11.5-14.5); RDW Standard Deviation 52.2 fL (36.4-46.3); Red Blood Count 2.47 M/uL (4.7-6.1); White Blood Count 11.48 K/uL (4.8-10.8)
[2019-11-07 13:33] LABS: Fibrinogen 424 mg/dl (184-400)
[2019-11-07] MEDS ORDERED: SODIUM CHLORIDE 0.9% 250 ML IV PRN (13:42)
[2019-11-07 13:44] LABS: Alanine Aminotransferase 33 U/L (12-78); Albumin Globulin Ratio 0.7 (0.9-2); Albumin Level 2.7 gm/dl (3.4-5.0); Alkaline Phosphatase 73 U/L (45-117); Aspartate Aminotransferase 47 U/L (15-37); Bilirubin,Total 2.4 mg/dl (0.2-1); Blood Urea Nitrogen 26 mg/dl (7-18); C Reactive Protein 4.06 mg/dl (0-0.29); Calcium 8.4 mg/dl (8.5-10.1); Carbon Dioxide 19 mmol/L (21-32); Chloride 100 mmol/L (98-107); Creatine Kinase 431 U/L (39-308); Est GFR (African American) 48.3; Est GFR (Non-African American) 41.7; Globulin 3.7 gm/dl (2.5-4.0); Glucose 238 mg/dl (70-99); Lipase 212 U/L (73-393); Potassium 5.3 mmol/L (3.5-5.1); Sodium 127 mmol/L (136-145); Total Protein 6.4 gm/dl (6.4-8.2)
[2019-11-07 13:52] LABS: Estimated Average Glucose 171 mg/dl; Hemoglobin A1C 7.6 % (4.5-5.6)
[2019-11-07 14:02] LABS: Hepatitis B Surface Antigen Neg (Neg)
[2019-11-07 14:04] LABS: Polychromasia 1+
--- NOTE | 2019-11-07 14:07 | Ultrasound Report ---
US abdomen limited HISTORY: Pain. Nausea. RUQ, liver. COMPARISON: None. FINDINGS: Pancreas: Poorly seen Liver: Fatty infiltration Gallbladder: No gallbladder wall thickening. No gallstones. CBD: 5 mm Right kidney: No hydronephrosis. IMPRESSION: 1. Fatty infiltration of liver. 2. Poor visibility of the pancreas due to overlying bowel content. 3. Otherwise normal exam. ACT 112: Negative or not required by law. The above report was generated using voice recognition software. It may contain grammatical, syntax or spelling errors. Electronically signed by: Rashad Alvarez M.D. 11/07/2019 2:06 PM
--- NOTE | 2019-11-07 14:08 | Ultrasound Report ---
US duplex portal hepatic veins CLINICAL HISTORY: r/o portal vein thrombosis COMPARISON STUDY: Abdomen and pelvis CT 11/07/2019. FINDINGS: Normal direction and flow of the hepatic and portal veins. The IVC is also patent. Splenic vein and superior mesenteric vein are not visualized due to overlying bowel gas. Hepatic artery demon strates normal velocities. IMPRESSION: Patent portal vein. ACT 112: Negative or not required by law. Electronically signed by: Srinivas Mandujano M.D. 11/07/2019 2:07 PM
[2019-11-07] MEDS ORDERED: CALCIUM CARBONATE 500 MG CHEWABLE TAB PO PRN ×2 (14:16→14:39)
--- NOTE | 2019-11-07 14:17 | XRay Report ---
XR knee RT 1 or 2V routine HISTORY: 59 years-old Male pain acute right knee pain COMPARISON: None TECHNIQUE: 2 views of the right knee FINDINGS: Mild medial and patella femoral compartment osteoarthritis. Probable trace joint effusion. No acute f racture, dislocation or opaque foreign body. No osteochondral defect. Arterial calcifications. Latera l soft tissue swelling. IMPRESSION: Lateral soft tissue swelling without acute fracture or dislocation. ACT 112: Negative or not required by law. The above report was generated using voice recognition software. It may contain grammatical, syntax o r spelling errors. Electronically signed by: Wilfredo Pyle M.D. 11/07/2019 2:16 PM
--- NOTE | 2019-11-07 14:21 | Gastrointestinal Consultation ---
Date of Consultation November 07, 2019 Assessment & Plan (1) Ecchymosis: (2) Elevated LFTs: (3) GERD (gastroesophageal reflux disease): (4) Alcohol abuse: (5) Anemia: Pt is a 59 y/o male presented to ED w bruising on abd and LE, admitted to having a fall last week, trauma to knee. On eval he is anemic, has signs of coagulopathy and several electrolyte derangement, signs of MAIRA, elevated LFTs w imaging studies showing fatty liver and hepatomegaly. Hx of ETOH abuse. No signs of biliary disease. Suspect his issues are mostly related to clotting disorders and some underlying ETOH liver disease. MELD: 29; Maddrey score: 39 - Recommend venous duplex study to r/o DVT on R leg - Pt is agreeable to retry Protonix 40mg IV BID - Trend LFTs. Consider Prednisolone administration for suspected ETOH hepatitis if LFTs do not trend down especially if worsening INR, Tbili, renal function and changes in mental status - Acute hepatitis panel, viral serologies pending. Will add autoimmune liver dz panel but suspect it'll likely be normal. - Consider Vit K to help w coagulopathy. Blood smear ordered by primary team and they are planning to discuss w Hematology to r/o blood dyscrasias issues. Correct electrolytes - Obtain urine drug profile, ETOH level, Acetaminophen level - Defer endoscopic evals for now but monitor s/s of GI bleeding and if any is present will consider EGD/Colonoscopy - ETOH cessation advised Supervising Physician Co-Signing Physician Notes I saw and evaluated the patient. Patient presented with several days of worsening shortness of breath and bruising. The patient has a history of alco holism drinking somewhere between 12 and 24 beers in a day. He denies having dark sticky stool, hematemesis or coffee-ground emesis. The patient denies having fevers chills sweats or Rigors Physical examination: Patient somewhat tremulous, obese Bilateral lower extremity edema noted derm: Diffuse bruising of the lower extremities bilaterally and on the abdomen Impression: Patient with a history of worsening shortness of breath in the setting of alcohol abuse. Wonder if the patient's anemia and elevated bilirubin is related to his diffuse bruising as noted throughout his body. Certainly p ossible that the patient has underlying liver disease given his history of alcohol abuse. We would recommend a dose of vitamin K in addition to watching for signs and symptoms of withdrawal. We would highly recommend replacement of B12 and folate as well. Recommendations Vitamin K 10 mg x 1 Daily CMP, consider a haptoglobin and LDH Consider replacement of Thiamine and Folate monitor magneisum levels watch for signs of alcohhol withdrawl Avoid use of NSAIDS History of Present Illness Reason for Consultation: Hepatic steatosis, elevated LFTs, INR Requesting Physician: Rona Levy PA-C Attending Physician: Dr. Derrick Franklin History of Present Illness Pt is a 59 y/o male w PMHx of schizoaffective disorder, bipolar, HTN, HLD, DM II, GERD who presented to ED w c/o bruising to abd, LE areas, also weakness, MCKEON for 3 days now. Hx of falling 1 week ago on R knee, and difficulty walking, and limited ROM on that knee. He admits to feeling feverish and having chills but afebrile. + light headedness. He reports issues w acid reflux, previously tried PPIx and H2 blockers w worsening of tinnitus and now taking Peptobismol consistently. He denies abd pain, n/v, changes in his bowel habits. Denies any signs of GI bleeding. Noted in ED he is tachycardic, BP w elevated DBP in 90s-100s. BP and HR improved now. He received banana bag, Lorazepam, insulin and Albuterol treatement in ED. Labs notable for mild leukocytosis 11K, H/H 8.8/26. Plt is normal at 146. PT/INR up 20/2.0. Na 126, K 6 -> 5.3. BUN/Cr up 26/1.7. TSH 6, CK 431, LFTs: Tbili 2.4, AST 47, ALT 33, Alk phose 73. - CT abd/pelvis showed signs of hepatic steatosis and hepatomegaly. There is induration identified within the subcutaneous fat of the right lower quadrant abdominal wall consistent with bruising but no hematoma. There is a also a suspected small intramuscular hemorrhage within the right lateral abdominal wall musculature anterior to the iliac crest. No intraperitoneal or retroperitoneal hemorrhage is seen. + cholelithiasis but no cholecystitis - Abd u/s w/o signs of biliary dilation , + fatty liver - Portal vein u/s: patent portal vein He drinks 1/2 case of beer daily. Denies APAP, NSAIDs. Denies tobacco. Hx of meth use 15 yrs ago. + tattoos Hx of abd surgery and colostomy creation/reversal from traumatic injury Denies family hx of AIH, Hemochromatosis or [place]'. Allergies Allergy/AdvReac Type Severity Reaction Status Date / Time esomeprazole [From Nexium] AdvReac Unknown RINGING IN Verified 11/07/19 10:26 EARS losartan AdvReac Unknown CONFUSED Verified 11/07/19 10:26 ,CHEST PAIN metformin AdvReac Unknown TONGUE Verified 11/07/19 10:26 SWELLING-PER MEDICAL RECORD omeprazole AdvReac Unknown RINGING IN Verified 11/07/19 10:26 EARS pantoprazole AdvReac Unknown RINGING IN Verified 11/07/19 10:26 EARS ranitidine AdvReac Unknown RINGING IN Verified 11/07/19 10:26 EARS Home Medications Home Medications Medication Instructions Recorded Confirmed Type quetiapine [Seroquel] 400 mg PO HS 09/20/18 11/07/19 History Patient History Medical History Depression Diabetes mellitus, type 2 DIET MANAGED-TAKEn OFF MEDS GERD (gastroesophageal reflux disease) Hypertension UNDER CONTROL-NO MEDS CURRENTLY Sleep apnea CPAP Surgical History History of bowel resection WITH COLOSTOMY-AND REVERSED History of open reduction and internal fixation (ORIF) procedure LEFT ANKLE Family History Mother Pancreatic cancer Father Coronary heart disease CHF (congestive heart failure) AAA (abdominal aortic aneurysm) Social History Smoking Status: Former smoker Tobacco Type: Cigarettes Second Hand Exposure: No; Do You Dip or Chew Tobacco: No; Tobacco Cessation Education Requested by Patient: No Hx Alcohol Use: Yes Alcohol type: beer Alcohol Intake Frequency: 4 or More x per/Week Alcohol Intake Frequency Comment: 12 beers daily Hx Substance Use: Yes Last Used Substance Other:: 10-15 years ago Preferred Language: Indonesian 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 Ability: Effective 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 Beliefs That Will Affect Care: None Current Living Situation: Alone current occupational status: unemployed Other Information That Helps Us Care for You: No Feels Safe at Home: Yes Safety Concerns: Feels Safe At This Time Review of Systems Review of Systems: All systems reviewed & are unremarkable except as noted in HPI & below Physical Exam Constitutional: WD/WN, vitals as above well groomed, cooperative and comfortable Eyes: PERRL, conjunctivae normal, anicteric sclerae ENMT: external ear and nose normal, oropharynx normal Respiratory: normal respiratory effort, lungs clear to auscultation Cardiovascular: RRR, no murmur, no edema Gastrointestinal (Abdomen): normal bowel sounds, soft, nontender, no hepatosplenomegaly Musculoskeletal: R leg swelling, warm to touch and calf tenderness present Skin: no jaundice Large brusing to abd area, and bilateral LE. Neurologic: Motor/Sensory: no asterixis Psychiatric: A+Ox3, euthymic affect Lymphatic: no lymphedema Results & Data ([facility]) Vital Signs (Past 12 Hours) Vital Signs Pulse Pulse Resp BP Pulse Ox 11/07/19 13:01 101 H 19 131/73 98 11/07/19 12:58 105 H 20 146/74 H 11/07/19 12:40 103 H 24 146/74 H 98 11/07/19 12:05 103 H 21 128/103 H 99 11/07/19 11:47 106 H 16 99 11/07/19 11:02 107 H 26 H 114/85 95 11/07/19 09:30 114 H 24 111/70 97
[2019-11-07 14:31] LABS: Hepatitis C IgG 13Yrs+Old_Rflx Neg (Neg)
[2019-11-07] MEDS ORDERED: GABAPENTIN 1200MG ALCOHOL WITHDRAWAL LOAD PO STA (14:39)
[2019-11-07] MEDS ORDERED: DEXTROSE 50% 50 ML SYRINGE IV PRN (14:39)
[2019-11-07] MEDS ORDERED: ONDANSETRON INJ 2 MG/ML 2 ML VIAL IV PRN (14:39)
[2019-11-07] MEDS ORDERED: POLYETHYLENE (MIRALAX) 17 GM PACK PO PRN (14:39)
[2019-11-07] MEDS ORDERED: LORazepam 1 MG/2 ML VIAL IV PRN (14:39)
[2019-11-07] MEDS ORDERED: GLUCOSE 10 TABS/TUBE PO PRN (14:39)
[2019-11-07] MEDS ORDERED: ATIVAN IV ALCOHOL WITHDRAWL IV PRN (14:39)
[2019-11-07] MEDS ORDERED: GLUCAGON FOR INJ 1 MG VIAL SQ PRN (14:39)
[2019-11-07] MEDS ORDERED: LORazepam 3 MG/6 ML VIAL IV PRN (14:39)
[2019-11-07] MEDS ORDERED: CARBOHYDRATES FOR HYPOGLYCEMIA PO PRN (14:39)
[2019-11-07] MEDS ORDERED: LORazepam 2 MG/4 ML VIAL IV PRN (14:39)
[2019-11-07] MEDS ORDERED: GLUCOSE 40% GEL 15 GM TUBE PO PRN (14:39)
[2019-11-07] MEDS ORDERED: PHARMACY GLYCEMIC MGMT CONSULT PRN (14:47)
[2019-11-07] MEDS ORDERED: PATIENT'S HEIGHT AND/OR WEIGHT NEEDED SCH (15:00)
--- NOTE | 2019-11-07 15:06 | Pharmacy Report ---
Glycemic Control Consultation - Date of Service November 07, 2019 - Scope Scope: Glycemic Pharmacist consulted for glycemic control and to write orders per [facility] inpatient glycemic control protocol. - Objective Weight: 117.6 kg Accuchecks BSG (last 24hrs): 11/07/19 11/07/19 11/07/19 10:10 11:38 12:22 Glucose 354 H* POC Glucose 311 H* 274 H 11/07/19 13:01 Glucose 238 H POC Glucose Laboratory Data (last 24hrs): 11/07/19 11/07/19 11/07/19 10:10 10:19 13:01 Potassium 6.5 H* 5.3 H D Carbon Dioxide 18 L 19 L Anion Gap 10.0 8.0 Creatinine 1.97 H 1.75 H Est Cr Clr Drug Dosing Not Reportable Not Reportable Osmolality 285 Beta-Hydroxybutyric Acd 11.66 H HbA1c: Hemoglobin A1c 7.6 % (4.5-5.6) H 11/07/19 13:01 - Recent Pertinent Medications Outpatient Anti-diabetic Regimen: * n/a * Diet controlled? - Assessment & Plan Assessment & Plan: ASSESSMENT: * 59yo T2DM male with near adequate outpatient control. Goal A1c based on age/co-morbidities is <7% Patient will likely need an oral antidiabetic agent at [place] to achieve this. * Pt admitted with severe hyperglycemia. Will initiate on weight based SQ basal bolus insulin regimen. Will start with slightly conservative dosing d/t MAIRA and liver dysfunction. Will use weight/stress of 2 * Titrate insulin based on BSG trends. * Goal is to maintain BSGs in the 110-140mg/dl range PLAN FOR INPATIENT GLYCEMIC CONTROL: * Basal insulin * Lantus 25 units SQ x 1 dose AMEYA, then, Lantus BID based on BSG scale * BSG < 140 --> 10 units * BSG 140-180 --> 15 units * BSG > 180 --> 20 units * Bolus insulin * NovoLog per scale ACHS or Q6hrs while NPO * Goal Range: Low 110 mg/dL - High 140 mg/dL * Correction Factor: 20 mg/dL/unit * Nutritional / Prandial insulin per carb ratio of 1 unit per 7 grams CHO consumed * Please note that the plan above was derived based on current level of insulin resistance and hospital stress. These recommendations are appropriate for inpatient admission only. Plan of care upon discharge will need to be reassessed to avoid potential outpatient hypo/hyperglycemia. Thank you.
[2019-11-07] MEDS ORDERED: INSULIN GLARGINE SOLOSTAR 100 UNITS/ML 3 ML PEN SC ONE (16:00)
[2019-11-07] MEDS ORDERED: GABAPENTIN 600 MG TAB PO ONE (16:00)
[2019-11-07] MEDS: SODIUM BICARBONATE 8.4% 75 MEQ in SODIUM CHLORIDE 0.45 % 1,000 ML IV SCH (16:04)
[2019-11-07] MEDS: FOLIC ACID 1 MG TAB PO SCH (16:05)
[2019-11-07] MEDS: THIAMINE HCL 100 MG TAB PO SCH (16:06)
[2019-11-07 17:05] LABS: Hematocrit (blood only) 24.2 % (42-52); Hemoglobin 8.1 g/dL (14.0-18.0); Reticulocyte % 11.1 % (0.5-2.0); Reticulocytes # 0.27 10^6/uL (0.02-0.10)
--- NOTE | 2019-11-07 17:10 | Ultrasound Report ---
RIGHT LOWER EXTREMITY VENOUS DOPPLER HISTORY: Right leg edema, pain COMPARISON STUDY: None. FINDINGS: There is normal compressibility, flow, and augmentation within the right lower extremity de ep venous system. IMPRESSION: No DVT within the right lower extremity ACT 112: Negative or not required by law. Electronically signed by: Srinivas Mandujano M.D. 11/07/2019 5:09 PM
[2019-11-07] MEDS: INSULIN ASPART 100 UNITS/ML 3 ML PEN SC SCH ×2 (17:14→22:16)
[2019-11-07 17:19] LABS: INR 1.7 (0.9-1.1); Partial Thromboplastin Ratio 1.1; Partial Thromboplastin Time 30.5 Seconds (21.0-31.0); Prothrombin Time 17.2 Seconds (9.0-12.0)
[2019-11-07 17:24] LABS: BUN Creatinine Ratio 15.6 (10-20); Calcium 8.2 mg/dl (8.5-10.1); Creatinine Clr Calc Pharmacy 53.9 ml/min; Est GFR (African American) 47.3; Est GFR (Non-African American) 40.8
[2019-11-07] MEDS ORDERED: PHYTONADIONE 5 MG in SODIUM CHLORIDE 0.9% 50 ML IV SCH (17:45)
[2019-11-07 20:00] LABS: Ferritin 313.6 ng/ml (8-388)
--- NOTE | 2019-11-07 20:15 | Nephrology Consultation ---
Date of Consultation November 07, 2019 Assessment & Plan (1) MAIRA (acute kidney injury): presenting creatinine on 11/06 2.0; down to 1.9 this evening. no clear cause for this but worrisome for ATN or prerenal process. also with both acute and chronic liver disease; no evidence of HRS currently though. mild volume overload and extensive bizaare /unexplained bruising without trauma. bp ok as are other hemodynamics for now. significant anemia and elevated INR; no thrombocytopenia. no acute indication for dialysis. not a coherent clinical picture yet. -strict I/O -repeat bmp 2300 then in am -despite bland sediment check urine prot/creat ordered -check PVR -f/u periph smear Present on Admission?: Yes (2) Hyperkalemia: presenting K 6.5; had IV insulin and down to 5 now. No clear cause for this elevation on his brief med list. ck not elevated -given his bruising and hx of a fall will check phos -recheck K ordered for 2300 -low K diet to continue Present on Admission?: Yes (3) Hyponatremia: 124 on presentation with BG 354, up to 128 on last check at 1700 wtih BG in 240s. suspect volume overload related to liver disease most likely. -would not use lasix here > monitor Present on Admission?: Yes History of Present Illness Reason for Consultation: Acute kidney injury and electrolyte disorders Requesting Physician: Dr Paulino Attending Physician: Tierra Paulino, DO History of Present Illness 59-year-old alcoholic with bipolar disorder, hypertension, diabetes, GERD presented to the ER for evaluation of bilateral lower extremity ecchymoses along with abdominal ecchymosis and some generalized weakness and exertional dyspnea whom I am asked to see for acute renal failure and hyperkalemia. He tells me that he fell a few days back on both knees but that his right knee has been particularly sore, "like an ice pick is in it". He drinks half case of beer daily. Drinks also he told the admitting team a bottle of Pepto-Bismol daily. Denies NSAID use. Should note that he takes only Seroquel as an outpatient and that his hypertension and diabetes are essentially untreated. His potassium was 6.5 on presentation with a creatinine of 2. He received IV insulin. Hemoglobin was 8.8 with platelets 146 at INR of 2.0. Also with elevated LFTs on presentation. He is following closely. Hepatitis panel sent along with urine drug profile and other toxin screens. Allergies Allergy/AdvReac Type Severity Reaction Status Date / Time esomeprazole [From Nexium] AdvReac Unknown RINGING IN Verified 11/07/19 10:26 EARS losartan AdvReac Unknown CONFUSED Verified 11/07/19 10:26 ,CHEST PAIN metformin AdvReac Unknown TONGUE Verified 11/07/19 10:26 SWELLING-PER MEDICAL RECORD omeprazole AdvReac Unknown RINGING IN Verified 11/07/19 10:26 EARS pantoprazole AdvReac Unknown RINGING IN Verified 11/07/19 10:26 EARS ranitidine AdvReac Unknown RINGING IN Verified 11/07/19 10:26 EARS Home Medications Home Medications Medication Instructions Recorded Confirmed Type quetiapine [Seroquel] 400 mg PO HS 09/20/18 11/07/19 History Patient History Medical History Depression Diabetes mellitus, type 2 DIET MANAGED-TAKEn OFF MEDS GERD (gastroesophageal reflux disease) Hypertension UNDER CONTROL-NO MEDS CURRENTLY Sleep apnea CPAP Surgical History History of bowel resection WITH COLOSTOMY-AND REVERSED History of open reduction and internal fixation (ORIF) procedure LEFT ANKLE Family History Mother Pancreatic cancer Father Coronary heart disease CHF (congestive heart failure) AAA (abdominal aortic aneurysm) Social History Smoking Status: Former smoker Tobacco Type: Cigarettes Second Hand Exposure: No; Do You Dip or Chew Tobacco: No; Tobacco Cessation Education Requested by Patient: No Hx Alcohol Use: Yes Alcohol type: beer Alcohol Intake Frequency: 4 or More x per/Week Alcohol Intake Frequency Comment: 12 beers daily Hx Substance Use: Yes Last Used Substance Other:: 10-15 years ago Preferred Language: Maltese 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 Ability: Effective 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 Beliefs That Will Affect Care: None Current Living Situation: Alone current occupational status: unemployed Other Information That Helps Us Care for You: No Feels Safe at Home: Yes Safety Concerns: Feels Safe At This Time Review of Systems Review of Systems: All systems reviewed & are unremarkable except as noted in HPI & below Gastrointestinal: no abdominal pain, no vomiting and no change in bowel habits Genitourinary: no dysuria and no difficulty urinating Musculoskeletal: + joint pain (Right knee) and + problem reported (Challenging to walk) Hematologic / Lymphatic: as per Subjective / HPI, + easy bruising and + coagulopathy Physical Exam Constitutional: well developed and + morbidly obese; no acute distress Eyes: EOM intact bilaterally ENMT: Ears: no external ear abnormality Nose: no external nose abnormality Mouth: + dry oral mucous membranes Neck: no nuchal rigidity Respiratory: normal respiratory effort Auscultation: + diminished lung sounds Cardiovascular: Rate/Rhythm: regular rate and regular rhythm Extremities: + edema (1-2+) Gastrointestinal (Abdomen): Inspection/Auscultation: normal bowel sounds and + abdominal wall ecchymosis (extensive most of R side) Percussion/Palpation: abdomen soft; abdomen nontender Musculoskeletal: Extremities: strength 5/5 throughout Skin: + rash (pustular L flank) and + ecchymosis (extensive BLE and R abd) Neurologic: li, fluent though limited speech, some tremor Psychiatric: Orientation: alert and oriented x 3 Affect: + flat affect Results & Data ([facility]) Vital Signs (Past 12 Hours) Vital Signs Temp Pulse Pulse Pulse Resp BP BP 11/07/19 19:26 36.3 C L 92 H 17 109/65 11/07/19 15:46 36.6 C 92 H 18 146/89 H 11/07/19 14:40 36.5 C 94 H 20 147/79 H 11/07/19 13:01 101 H 19 131/73 11/07/19 12:58 105 H 20 146/74 H 11/07/19 12:40 103 H 24 146/74 H 11/07/19 12:05 103 H 21 128/103 H 11/07/19 11:47 106 H 16 11/07/19 11:02 107 H 26 H 114/85 11/07/19 09:30 114 H 24 111/70 Pulse Ox 11/07/19 19:26 96 11/07/19 15:46 96 11/07/19 14:40 97 11/07/19 13:01 98 11/07/19 12:58 11/07/19 12:40 98 11/07/19 12:05 99 11/07/19 11:47 99 11/07/19 11:02 95 11/07/19 09:30 97 Laboratory Results 11/07/19 16:45 11/07/19 16:45 Diagnostic Findings doppler RLE > no dvt portal vein u/s > patent PV abd u/s/ . Fatty infiltration of liver. 2. Poor visibility of the pancreas due to overlying bowel content. 3. Otherwise normal exam CT abd/pelvis non con Lung bases: The heart is normal in size and without pericardial effusion. There are coronary artery calcifications. A small hiatal hernia is noted. A 4 mm pleural-based nodule in the right lower lobe as seen on image #46. The lung bases are otherwise clear. Liver: The unenhanced liver is enlarged, measuring 24.6 cm in length. The liver demonstrates diffusely diminished attenuation consistent with hepatic steatosis. There is no intrahepatic biliary ductal dilatation. Gallbladder: Gallstones are suspected. There is no CT evidence of acute cholecystitis. Spleen: Normal in size and attenuation. Pancreas: The unenhanced pancreas is moderately atrophic and grossly unremarkable. Adrenal glands: Unremarkable. Kidneys: The unenhanced kidneys demonstrate mild cortical atrophy and are without hydronephrosis. There is a punctate nonobstructing left renal calculus. No right renal calculi are identified. There is no evidence of contour deforming renal mass lesion. There is a circumaortic left renal vein. Abdominal vasculature: The abdominal aorta is normal in course and caliber noting mild atherosclerotic calcification. Bowel: Residual enteric contrast is noted in the colon. No bowel obstruction is seen. The appendix is well-visualized and normal. Peritoneum/retroperitoneum: There is no intraperitoneal free air or abdominal ascites. There is no intraperitoneal or retroperitoneal hemorrhage. There is a fat-containing umbilical hernia. Induration is noted within the right ventral abdominal wall. Question a small intramuscular hemorrhage within the right lateral abdominal wall musculature anterior to the iliac crest seen on image #[id number]. No organized soft tissue hematoma is identified. Lymphadenopathy: None. Pelvic viscera: The prostate gland is diminutive. The bladder and seminal vesicles are normal as imaged. Skeletal structures: No lytic or blastic lesions are seen. IMPRESSION: 1. There is induration identified within the subcutaneous fat of the right lower quadrant abdominal wall. This is consistent with the reported clinical history of bruising. No organized hematoma is identified. 2. Suspect a small intramuscular hemorrhage within the right lateral abdominal wall musculature anterior to the iliac crest. 3. No intraperitoneal or retroperitoneal hemorrhage is seen. 5. Hepatomegaly and severe hepatic steatosis. 6. Suspect cholelithiasis. 7. Additional findings as above.
[2019-11-07] MEDS: PANTOprazole 40 MG in SYRINGE 0 ML IV SCH (22:12)
[2019-11-07] MEDS: GABAPENTIN 600 MG TAB PO SCH (22:13)
[2019-11-07] MEDS: ASCORBIC ACID 500 MG TAB PO SCH (22:16)
[2019-11-07] MEDS: QUETIAPINE FUMARATE 200 MG TAB PO SCH (22:29)
[2019-11-07 22:45] LABS: Appearance Urine Clear (Clear); Blood Urine Negative (Negative); Color Urine Amber; Glucose Urine UA 1+ (Negative); Ketones Urine Trace (Negative); Leukocyte Esterase Urine Negative (Negative); Nitrite Urine Positive (Negative); Protein Urine Negative (Negative); Specific Gravity Urine 1.025 (1.000-1.030); Urobilinogen Urine Negative (Negative); pH Urine 5.5 (4.5-7.5)
[2019-11-07 22:51] LABS: Bilirubin Urine Negative (Negative); Ictotest Urine Negative (Negative)
[2019-11-07 23:06] LABS: Amphetamines+Metham, Urine Neg (Neg); Barbiturates, Urine Neg (Neg); Benzodiazepine, Urine Neg (Neg); Cocaine, Urine Neg (Neg); MDMA (Ecstacy), Urine Neg (Neg); Methadone, Urine Neg (Neg); Opiate, Urine Pos (Neg); Phencyclidine, Urine Neg (Neg)
[2019-11-07 23:07] LABS: Protein Creatinine Ratio Urine 0.1 (0-0.2)
[2019-11-07 23:09] LABS: Calcium 7.4 mg/dl (8.5-10.1); Creatinine Clr Calc Pharmacy 56.1 ml/min; Est GFR (African American) 49.7; Est GFR (Non-African American) 42.9; Potassium 4.3 mmol/L (3.5-5.1)
[2019-11-07 23:14] LABS: Epithelial Cell Urine 0-5 /lpf (0-5); RBC Urine 0-4 /hpf (0-4)
[2019-11-07 23:15] LABS: Bacteria Urine 1+ (Negative); WBC Urine 0-5 /hpf (0-5)
[2019-11-08] MEDS: GABAPENTIN 600 MG TAB PO SCH ×3 (04:23→19:49)
[2019-11-08] MEDS: SODIUM BICARBONATE 8.4% 75 MEQ in SODIUM CHLORIDE 0.45 % 1,000 ML IV SCH ×2 (04:24→17:11)
--- NOTE | 2019-11-08 06:58 | Electrocardiogram Report ---
Test Reason : Blood Pressure : / mmHG Vent. Rate : 101 BPM Atrial Rate : 101 BPM P-R Int : 150 ms QRS Dur : 098 ms QT Int : 344 ms P-R-T Axes : 045 029 088 degrees QTc Int : 446 ms Sinus tachycardia Nonspecific T wave abnormality When compared with ECG of 01-JUN-2014 10:45, No significant change was found Confirmed by Nic Jennings ([id number]) on 11/08/2019 6:57:53 AM Referred By: REFERRED SELF Confirmed By:Nic Jennings
[2019-11-08 07:42] LABS: Basophils # (auto) 0.02 K/uL (0-0.2); Basophils % (auto) 0.3 %; Eosinophils # (auto) 0.09 K/uL (0-0.5); Eosinophils % (auto) 1.5 %; Hemoglobin 7.7 g/dL (14.0-18.0); Immature Granulocytes # (auto) 0.05 K/uL (0.00-0.02); Immature Granulocytes % (auto) 0.9 %; Lymphocytes # (auto) 1.32 K/uL (1.2-3.4); Lymphocytes % (auto) 22.7 %; Mean Corpuscular Hemoglobin 33.3 pg (25-34); Mean Corpuscular Hgb Conc 33.5 g/dL (32-36); Mean Corpuscular Volume 99.6 fL (80-100); Mean Platelet Volume 10.4 fL (7.4-10.4); Monocytes # (auto) 0.43 K/uL (0.11-0.59); Monocytes % (auto) 7.4 %; Neutrophils % (auto) 67.2 %; Nucleated RBC # (auto) 0.15 K/uL (0-0); Nucleated RBC % (auto) 2.5 %; Platelet Count 117 K/uL (130-400); RDW Standard Deviation 54.9 fL (36.4-46.3); Red Blood Count 2.31 M/uL (4.7-6.1); White Blood Count 5.81 K/uL (4.8-10.8)
[2019-11-08 08:02] LABS: INR 1.2 (0.9-1.1); Prothrombin Time 12.6 Seconds (9.0-12.0)
[2019-11-08 08:08] LABS: Albumin Level 2.6 gm/dl (3.4-5.0); BUN Creatinine Ratio 19.7 (10-20); Calcium 8.2 mg/dl (8.5-10.1); Creatinine Clr Calc Pharmacy 60.4 ml/min; Est GFR (African American) 54.7; Est GFR (Non-African American) 47.2; Magnesium 2.5 mg/dl (1.8-2.4); Potassium 4.7 mmol/L (3.5-5.1)
[2019-11-08 08:10] LABS: Albumin Globulin Ratio 0.8 (0.9-2); Bilirubin,Total 2.8 mg/dl (0.2-1); Globulin 3.4 gm/dl (2.5-4.0)
[2019-11-08 08:15] LABS: Polychromasia 1+
[2019-11-08] MEDS: INSULIN ASPART 100 UNITS/ML 3 ML PEN SC SCH ×4 (08:47→20:16)
[2019-11-08] MEDS: INSULIN GLARGINE SOLOSTAR 100 UNITS/ML 3 ML PEN SC SCH ×2 (08:48→20:16)
[2019-11-08] MEDS: PANTOprazole 40 MG in SYRINGE 0 ML IV SCH ×2 (08:49→19:49)
[2019-11-08] MEDS: THIAMINE HCL 100 MG TAB PO SCH (08:49)
[2019-11-08] MEDS: FOLIC ACID 1 MG TAB PO SCH (08:49)
[2019-11-08] MEDS: ASCORBIC ACID 500 MG TAB PO SCH ×2 (08:49→19:49)
[2019-11-08] MEDS: TRAMADOL HCL 50 MG TABLET PO PRN (11:51)
--- NOTE | 2019-11-08 12:22 | Hospitalist Progress Note ---
Date of Service November 08, 2019 Assessment & Plan (1) Spontaneous hematoma of abdominal wall: (2) Anemia: This is a 59 yr old M who has significant PMH of documented schizoaffective disorder, bipolar type, HTN, HLD, T2DM, GERD who presents to ED 2/2 2 and bruising to abdomen and lower extremities x3 days with associated dyspnea with exertion and weakness. Lab on admission 8.8 and 26.1, WBC 11.85k, INR 2.0, corrected sodium 128, potassium 6.5, CO2 18, BUN 25, creatinine 1.97, glucose 354, total bili 2.7, AST 50, CK 469 CT abd/pelvis showed small intramuscular hemorrhage within the right lateral abdominal wall musculature anterior to the iliac crest, severe hepatic steatosis. In ED he received a banana bag, 1g IV lorazepam, 10mg IV Regular Insulin, and albuterol neb tx. Hgb dropped to 7.7 today Mixing study done and PT corrected - suggested a factor deficiency Received Vit K on admission Case discussed with Dr. Dominguez that recommended to continue monitor No need for transfusion for now since pt is stable as per hematologyu If hgb continue to drop, will transfuse. Continue monitor closely (3) Elevated INR: (4) Ecchymosis: Severe ecchymosis to abd wall and b/l lower extremity CT abd/pelvis showed abd wall hematoma Possible related to excessive amount Pepto bismal and and alcohol Mixing study done- PT corrected Received VIt K, INR 1.2 today Elevated LDH, Fibrinogen and CRP level case discussed with hematology- No evidence of DIC Peripheral smear showed no evidence of platelet abnormality (5) MAIRA (acute kidney injury): Baseline cr 1.0, last noted in [facility] 06/2017 Creatinine 1.9 on admission consult nephrology Received IVF, creatinine improved to 1.5 today IVF 80cc/hr 1/2 NS + 75meq bicarb Continue monitor BMP (6) Hyperkalemia: K 6.5, specimen hemolyzed Received 10 units IV insulin in ED On IVF with bicarb Potassium 4.7 today Continue monitor electrolytes (7) Hyponatremia: Na 124 on admission with Corrected for hyperglycemia, 128 Na 130 today Continue IVF Monitor BMP (8) Right knee pain: R knee xray showed lateral soft tissue swelling without acute fracture or dislocation. Continue tramadol for pain (9) Diabetes mellitus, type 2: Most recent Hba1c 7.6 Allergy to metformin Pharmacy on board for glycemic management On Lantus/novolog per protocol Continue monitor BS (10) Alcohol abuse: pt drinks 12 beers daily Continue alcohol withdrawal protocol with gabapentin and ativan Continue thiamine and folic acid Counseling on alcohol cessation Will continue monitor closely for withdrawal (11) Elevated LFTs: Mosty related to alcohol abuse Abd u/s showed fatty infiltration of liver. Poor visibility of the pancreas due to overlying bowel content. Portal Vein US showed Patent portal vein. AST 50, total bili 2.1, INR 2.0, low albumin on admisison Gastro on board AST 46, ALT 31 today No further testing needed as per GI (12) Edema: Doppler of LE showed No edema will monitor (13) Tinnitus: pt is taking significant amounts of pepto bismal which is also noted to cause tinnitus pepto bismal discontinued CT head No acute intracranial abnormality. (14) DVT prophylaxis: contraindicated in setting of severe ecchymosis and concern for coagulopathy auto anticoagulated with INR of 2.0 on admission Received Vit K, with INR 1.[address] [facility] Admission and Anticipated Discharge Date Admission Date: November 07, 2019 Subjective Pt was seen and examined Lying in bed with no distress Pt said that he is having right knee tenderness Pt said that he drinks about 12 beers daily Denies any chest pain, palpitation, dizziness and SOB Physical Exam Physical Exam: General- No acute distress Head- atraumatic Eyes- PERRL, EOMI, ENT- oropharynx clear Neck- supple, no JVD Lungs- clear to auscultation Heart- regular rhythm; no murmur Abdomen- normal bowel sounds, soft, nontender Extremities- no calf tenderness, +edema Neuro- alert, oriented x 3; PERRL, EOMI; no facial palsy; no dysarthria Skin- warm & dry, ecchymoses in abdominal wall, extremities Results & Data Results & Data ([facility]) Vital Signs (Past 12 Hours) Vital Signs Temp Pulse Pulse Pulse Resp BP Pulse Ox 11/08/19 12:00 36.5 C 107 H 20 123/70 95 11/08/19 09:08 99 H 11/08/19 07:12 36.8 C 98 H 20 121/71 97 11/08/19 03:35 36.3 C L 105 H 20 121/76 97 11/08/19 03:16 99 H 18 92 08/15/20 02:12 92
--- NOTE | 2019-11-08 15:29 | Nephrology Progress Note ---
Date of Service November 08, 2019 Assessment & Plan (1) MAIRA (acute kidney injury): presenting creatinine on 11/06 2.0; down to 1.6 this AM. most consistent with prerenal process. also with both acute and chronic liver disease; no evidence of HRS currently though. mild volume overload and extensive bizaare /unexplained bruising without trauma -- factor deficiency/liver synthetic malfunction. bp ok as are other hemodynamics for now. significant anemia and elevated INR; no thrombocytopenia. no acute indication for dialysis. not a coherent clinical picture yet. No proteinuria but 1+ glucose and trace ketones. Baseline creatinine 06/2018 is 1.1 -strict I/O -repeat bmp in am -cont current IVF >> permissive hypercarbia to keep K controlled (2) Hyperkalemia: presenting K 6.5; had IV insulin; on bicarb rich fluids and and down to 4.7 now. No clear cause for this elevation on his brief med list. ck not elevated -low K diet to continue (3) Hyponatremia: 124 on presentation with BG 354, up to 128 on last check at 1700 wtih BG in 240s. suspected at first volume overload related to liver disease most likely but he actually behaves clinically as hypervolemic hyponatremia. -IVF as above Admission and Anticipated Discharge Date Admission Date: November 07, 2019 Subjective sob with getting up to bathroom else no sob; mild edema not worsening; knee pain; no voiding concerns except endorses dark urin Review of Systems Review of Systems: All systems reviewed & are unremarkable except as noted in HPI & below Physical Exam Constitutional: well developed and + morbidly obese; no acute distress Eyes: EOM intact bilaterally ENMT: Ears: no external ear abnormality Nose: no external nose abnormality Mouth: + dry oral mucous membranes Neck: no nuchal rigidity Respiratory: normal respiratory effort Auscultation: + diminished lung sounds Cardiovascular: Rate/Rhythm: regular rate and regular rhythm Extremities: + edema (1-2+) Gastrointestinal (Abdomen): Inspection/Auscultation: normal bowel sounds and + abdominal wall ecchymosis (extensive most of R side) Percussion/Palpation: abdomen soft; abdomen nontender Musculoskeletal: Extremities: strength 5/5 throughout Skin: + ecchymosis (extensive BLE and R abd) Psychiatric: Orientation: alert and oriented x 3 Affect: + flat affect Results & Data ([facility]) Vital Signs (Past 12 Hours) Vital Signs Temp Pulse Pulse Pulse Resp BP Pulse Ox 11/08/19 12:00 36.5 C 107 H 20 123/70 95 11/08/19 09:08 99 H 11/08/19 07:12 36.8 C 98 H 20 121/71 97 11/08/19 03:35 36.3 C L 105 H 20 121/76 97 Laboratory Results 11/08/19 07:25 11/08/19 07:25
--- NOTE | 2019-11-08 16:24 | Gastroenterology Progress Note ---
Date of Service November 08, 2019 Assessment & Plan Admission and Anticipated Discharge Date Admission Date: November 07, 2019 Subjective I have seen and examined the patient today, he feels well, denies any abdominal pain. On exam abdomen is soft. Labs reviewed: Kidney function improved, Sodium normal INR 1.2 after Vitamin K. LFTs unchanged consistent with Alcoholic liver disease. Recommend: Diet as tolerated. Thiamin/ folic acid Alcohol cessation. Follow up as OP in GI office for liver disease. Recall GI if needed. Results & Data ([facility]) Vital Signs (Past 12 Hours) Vital Signs Temp Pulse Pulse Pulse Resp BP Pulse Ox 11/08/19 15:27 92 H 11/08/19 12:00 36.5 C 107 H 20 123/70 95 11/08/19 09:08 99 H 11/08/19 07:12 36.8 C 98 H 20 121/71 97
--- NOTE | 2019-11-08 18:58 | Consultation Report ---
DATE OF CONSULTATION: 11/08/2019 HISTORY OF PRESENT ILLNESS: This is a 59-year-old gentleman who was admitted to the hospital under medical service with multiple medical comorbidities and alcoholism. The patient had a fall on his knee and he had complaints of right knee pain and Orthopedics was consulted. The patient has no significant history of knee trauma or knee injury or knee surgery. He admits to falling on the knee with a hyperflexion type injury when he felt unsteady and dizzy. PAST MEDICAL HISTORY: Depression, diabetes mellitus type 2, gastroesophageal reflux disease, hypertension, morbid obesity, sleep apnea - uses a CPAP daily, alcoholism and psychiatric history. PAST SURGICAL HISTORY: History of bowel resection with colostomy and reversal, history of open reduction internal fixation left ankle. ALLERGIES: TO NEXIUM, RINGING IN THE EARS; LOSARTAN, CONFUSION AND CHEST PAIN; METFORMIN, TONGUE SWELLING PER MEDICAL RECORD; OMEPRAZOLE, RINGING IN EARS; PANTOPRAZOLE, RINGING IN EARS; RANITIDINE, RINGING IN EARS. MEDICATIONS: Seroquel 400 mg p.o. at bedtime. SOCIAL HISTORY: Former smoker of cigarettes. Denies chewing tobacco. He drinks approximately 12 beers daily. Denies any current substance abuse. He is unemployed. He lives alone and he is disabled. 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 PHYSICAL EXAMINATION: This is a 59-year-old gentleman lying supine in his hospital room bed with his sister present at bedside. He is awake and alert x3. Speech is clear and fluent. Affect is appropriate. He answers questions appropriately. Examination of the right knee demonstrates significant ecchymosis both proximal and distal to the knee joint with a moderate effusion of the right knee. He has tenderness to palpation over the medial collateral ligament and the posterior popliteal fossa as well as the medial joint line. He has minimal tenderness of the lateral collateral ligament. Ligamentous exam demonstrates no instability of the medial collateral, lateral collateral, ACL or PCL. He has discomfort with Mayco's testing; however, there is no catching, clicking or locking. Anterior drawer and posterior drawer testing is stable. No mid flexion instability. The extensor mechanism is intact. Diffuse nonspecific swelling in bilateral lower extremities, slightly more pronounced on the right and the periarticular region of the right knee. Radiographs reviewed demonstrating no obvious fractures, soft tissue swelling and moderate effusion is appreciated. No soft tissue defects. No evidence of chondrocalcinosis. IMPRESSION: 1. Right knee medial collateral ligament sprain, status post mechanical fall. 2. Moderate effusion. 3. Contusion. 4. Ecchymosis. RECOMMENDATION: Ice to the knee, use of a hinged knee brace which may be obtained from the Orthotics Department here at the hospital, use of a walker until mentation and metabolic derangement is stabilized here in the hospital and follow up as an outpatient in approximately [address] Melgar as necessary. Should symptoms resolve, he may follow up on a p.r.n. basis. Thank you for the opportunity to consult in care of this patient.
[2019-11-08] MEDS: QUETIAPINE FUMARATE 200 MG TAB PO SCH (19:49)
[2019-11-09] MEDS ORDERED: INSULIN ASPART 100 UNITS/ML 3 ML PEN SC SCH
[2019-11-09] MEDS: GABAPENTIN 600 MG TAB PO SCH ×2 (03:59→17:11)
[2019-11-09] MEDS: SODIUM BICARBONATE 8.4% 75 MEQ in SODIUM CHLORIDE 0.45 % 1,000 ML IV SCH (05:08)
[2019-11-09] MEDS: TRAMADOL HCL 50 MG TABLET PO PRN ×2 (06:22→22:19)
[2019-11-09] MEDS: FOLIC ACID 1 MG TAB PO SCH (08:08)
[2019-11-09] MEDS: PANTOprazole 40 MG in SYRINGE 0 ML IV SCH ×2 (08:08→20:43)
[2019-11-09] MEDS: ASCORBIC ACID 500 MG TAB PO SCH ×2 (08:08→20:43)
[2019-11-09] MEDS: THIAMINE HCL 100 MG TAB PO SCH (08:08)
[2019-11-09] MEDS: INSULIN GLARGINE SOLOSTAR 100 UNITS/ML 3 ML PEN SC SCH ×2 (08:08→20:45)
[2019-11-09] MEDS: INSULIN ASPART 100 UNITS/ML 3 ML PEN SC SCH ×4 (08:09→20:45)
[2019-11-09 09:16] LABS: Hematocrit (blood only) 21.2 % (42-52); Hemoglobin 7.2 g/dL (14.0-18.0); Mean Corpuscular Hemoglobin 33.6 pg (25-34); Mean Corpuscular Volume 99.1 fL (80-100); Mean Platelet Volume 10.2 fL (7.4-10.4); Nucleated RBC % (auto) 4.8 %; Platelet Count 113 K/uL (130-400); RDW Coefficient of Variation 16.2 % (11.5-14.5); RDW Standard Deviation 54.8 fL (36.4-46.3); Red Blood Count 2.14 M/uL (4.7-6.1); White Blood Count 4.26 K/uL (4.8-10.8)
[2019-11-09 09:54] LABS: Albumin Globulin Ratio 0.8 (0.9-2); Albumin Level 2.4 gm/dl (3.4-5.0); BUN Creatinine Ratio 17.4 (10-20); Bilirubin,Total 3.9 mg/dl (0.2-1); Calcium 7.5 mg/dl (8.5-10.1); Creatinine Clr Calc Pharmacy 82.6 ml/min; Est GFR (African American) 79.4; Est GFR (Non-African American) 68.5; Globulin 3.2 gm/dl (2.5-4.0); Total Protein 5.6 gm/dl (6.4-8.2)
[2019-11-09] MEDS ORDERED: SODIUM CHLORIDE 0.9% 250 ML IV PRN (12:32)
--- NOTE | 2019-11-09 13:44 | Nephrology Progress Note ---
Date of Service November 09, 2019 Assessment & Plan (1) MAIRA (acute kidney injury): prerenal MAIRA stage 1 in setting of prerenal and heavy salicylate use (had been drinking bottle of pepto bismol daily prior to admission); nonoliguric and improving. presenting creatinine on 11/06 2.0; down to 1.2 this AM. also with both acute and chronic liver disease; no evidence of HRS currently though. mild volume overload and extensive bizaare /unexplained bruising without trauma -- factor deficiency/liver synthetic malfunction. bp ok as are other hemodynamics for now. significant anemia worse today and for pRBC and at admission with elevated INR; no thrombocytopenia. no acute indication for dialysis. No proteinuria but 1+ glucose and trace ketones. Baseline creatinine 06/2018 is 1.1 -strict I/O -repeat bmp in am -stopped IVF > recommend f/u in CKD clinic [facility] Dr Castillo or CHARLES Albarran 1-2 weeks after hospital discharge, in person or video (d/c document updated) (2) Hyperkalemia: presenting K 6.5; had IV insulin; on bicarb rich fluids and and down to 4.7 now. No clear cause for this elevation on his brief med list. ck not elevated -stopped IVF and low K diet (3) Hyponatremia: 124 on presentation with BG 354, up to 134 today. suspected at first volume overload related to liver disease most likely but he actually behaves clinically as hypovolemic hyponatremia. -monitor; no specific therapy needed at this time Admission and Anticipated Discharge Date Admission Date: November 07, 2019 Subjective feeling mostly better but still with posterior calf swelling. no sob; no n/v; notes urinary frequency but not bothered by it Review of Systems Review of Systems: All systems reviewed & are unremarkable except as noted in HPI & below Physical Exam Constitutional: well developed and + morbidly obese; no acute distress lying flat on RA Eyes: EOM intact bilaterally ENMT: Ears: no external ear abnormality Nose: no external nose abnormality Mouth: + dry oral mucous membranes Neck: no nuchal rigidity Respiratory: normal respiratory effort Auscultation: + diminished lung sounds Cardiovascular: Rate/Rhythm: regular rate and regular rhythm Extremities: + edema (1-2+) Gastrointestinal (Abdomen): Inspection/Auscultation: normal bowel sounds and + abdominal wall ecchymosis (extensive most of R side) Percussion/Palpation: abdomen soft; abdomen nontender Musculoskeletal: Extremities: strength 5/5 throughout Skin: + ecchymosis (extensive BLE and R abd) Neurologic: li, fluent speech Psychiatric: Orientation: alert and oriented x 3 Affect: + flat affect Results & Data ([facility]) Vital Signs (Past 12 Hours) Vital Signs Temp Pulse Pulse Resp BP Pulse Ox 11/09/19 11:47 36.4 C L 94 H 17 116/64 96 11/09/19 08:15 36.6 C 94 H 18 110/58 L 96 11/09/19 03:53 36.5 C 99 H 19 135/79 94 Laboratory Results 11/09/19 06:58 11/09/19 06:58
[2019-11-09 14:23] LABS: Hematocrit (blood only) 23.4 % (42-52); Hemoglobin 7.8 g/dL (14.0-18.0)
--- NOTE | 2019-11-09 18:13 | Hospitalist Progress Note ---
Date of Service November 09, 2019 Assessment & Plan (1) Spontaneous hematoma of abdominal wall: (2) Anemia: This is a 59 yr old M who has significant PMH of documented schizoaffective disorder, bipolar type, HTN, HLD, T2DM, GERD who presents to ED 2/2 2 and bruising to abdomen and lower extremities x3 days with associated dyspnea with exertion and weakness. Lab on admission 8.8 and 26.1, WBC 11.85k, INR 2.0, corrected sodium 128, potassium 6.5, CO2 18, BUN 25, creatinine 1.97, glucose 354, total bili 2.7, AST 50, CK 469 CT abd/pelvis showed small intramuscular hemorrhage within the right lateral abdominal wall musculature anterior to the iliac crest, severe hepatic steatosis. In ED he received a banana bag, 1g IV lorazepam, 10mg IV Regular Insulin, and albuterol neb tx. Hgb dropped to 7.2 this morning but repeat hgb this afternoon 7.8 Mixing study done and PT corrected - suggested a factor deficiency Received Vit K on admission Case discussed with Dr. Dominguez that recommended to continue monitor No need for transfusion for now since pt is stable as per hematologyu Will transfuse if hgb drops below 7 Type and cross done and PRBC placed on hold Continue monitor closely (3) Elevated INR: (4) Ecchymosis: Severe ecchymosis to abd wall and b/l lower extremity CT abd/pelvis showed abd wall hematoma Possible related to excessive amount Pepto bismal and and alcohol Mixing study done- PT corrected Received VIt K, INR 1.2 Elevated LDH, Fibrinogen and CRP level case discussed with hematology- No evidence of DIC Peripheral smear showed no evidence of platelet abnormality (5) MAIRA (acute kidney injury): Baseline cr 1.0, last noted in EPIC 06/2017 Creatinine 1.9 on admission consult nephrology Received IVF, creatinine improved to 1.5 today IVF 80cc/hr 1/2 NS + 75meq bicarb, will d/c Continue monitor BMP (6) Hyperkalemia: K 6.5, specimen hemolyzed Received 10 units IV insulin in ED On IVF with bicarb Potassium 4.0 today Continue monitor electrolytes (7) Hyponatremia: Na 124 on admission with Corrected for hyperglycemia, 128 Na 134 today Continue IVF Monitor BMP (8) Right knee pain: R knee xray showed lateral soft tissue swelling without acute fracture or dislocation. Continue tramadol for pain Ortho on board recommended to apply Ice to the knee, use of a hinged knee brace Will consult orthotic Will need to use of a walker until stabilized here in the hospital (9) Diabetes mellitus, type 2: Most recent Hba1c 7.6 Allergy to metformin Pharmacy on board for glycemic management On Lantus/novolog per protocol Continue monitor BS (10) Alcohol abuse: pt drinks 12 beers daily Continue alcohol withdrawal protocol with gabapentin and ativan Continue thiamine and folic acid Counseling on alcohol cessation Will continue monitor closely for withdrawal (11) Elevated LFTs: Mosty related to alcohol abuse Abd u/s showed fatty infiltration of liver. Poor visibility of the pancreas due to overlying bowel content. Portal Vein US showed Patent portal vein. AST 50, total bili 2.1, INR 2.0, low albumin on admisison Gastro on board LFT normalized No further testing needed as per GI (12) Edema: Doppler of LE showed No edema will monitor (13) Tinnitus: pt is taking significant amounts of pepto bismal which is also noted to cause tinnitus pepto bismal discontinued CT head No acute intracranial abnormality. (14) DVT prophylaxis: contraindicated in setting of severe ecchymosis and concern for coagulopathy auto anticoagulated with INR of 2.0 on admission Received Vit K, with INR 1.2 Continue [facility] Admission and Anticipated Discharge Date Admission Date: November 07, 2019 Subjective Pt was seen and examined Lying in bed with no distress Pt said that pain slightly improves in the right knee He said that yesterday that he had a dark stool episode No BM so far today Denies any chest pain, palpitation, dizziness and SOB Physical Exam Physical Exam: General- No acute distress Head- atraumatic Eyes- PERRL, EOMI, ENT- oropharynx clear Neck- supple, no JVD Lungs- clear to auscultation Heart- regular rhythm; no murmur Abdomen- normal bowel sounds, soft, nontender Extremities- no calf tenderness, +edema Neuro- alert, oriented x 3; PERRL, EOMI; no facial palsy; no dysarthria Skin- warm & dry, ecchymoses in abdominal wall, extremities Results & Data Results & Data ([facility]) Vital Signs (Past 12 Hours) Vital Signs Temp Pulse Pulse Resp BP Pulse Ox 11/09/19 15:51 36.5 C 90 18 124/69 96 08/16/20 11:47 36.4 C L 94 H 17 116/64 96 11/09/19 08:15 36.6 C 94 H 18 110/58 L 96
[2019-11-09] MEDS: QUETIAPINE FUMARATE 200 MG TAB PO SCH (20:43)
[2019-11-10] MEDS: OXYCODONE HCL IR 5 MG TAB (IMMEDIATE RELEASE) PO PRN ×3 (01:46→22:54)
[2019-11-10] MEDS: GABAPENTIN 600 MG TAB PO SCH (03:53)
[2019-11-10 07:33] LABS: Codeine Urine NEGATIVE ng/mL (<50); Hydrocodone Urine NEGATIVE ng/mL (<50); Hydromor Urine NEGATIVE ng/mL (<50); Morphine Urine 3450 ng/mL (<50); Norhydrocodone Conf Ur NEGATIVE ng/mL (<50); Noroxycodone Urine NEGATIVE ng/mL (<50); Oxycodone Urine NEGATIVE ng/mL (<50); Oxymorph Urine NEGATIVE ng/mL (<50)
[2019-11-10 07:53] LABS: Hematocrit (blood only) 22.5 % (42-52); Hemoglobin 7.5 g/dL (14.0-18.0); Mean Corpuscular Hemoglobin 33.6 pg (25-34); Mean Corpuscular Hgb Conc 33.3 g/dL (32-36); Mean Corpuscular Volume 100.9 fL (80-100); Nucleated RBC % (auto) 2.7 %; Platelet Count 113 K/uL (130-400); RDW Coefficient of Variation 17.4 % (11.5-14.5); RDW Standard Deviation 57.9 fL (36.4-46.3); Red Blood Count 2.23 M/uL (4.7-6.1); White Blood Count 3.82 K/uL (4.8-10.8)
[2019-11-10 07:58] LABS: INR 1.1 (0.9-1.1); Prothrombin Time 11.7 Seconds (9.0-12.0)
[2019-11-10] MEDS: ASCORBIC ACID 500 MG TAB PO SCH ×2 (08:18→20:11)
[2019-11-10] MEDS: FOLIC ACID 1 MG TAB PO SCH (08:19)
[2019-11-10] MEDS: THIAMINE HCL 100 MG TAB PO SCH (08:19)
[2019-11-10] MEDS: PANTOprazole 40 MG in SYRINGE 0 ML IV SCH ×2 (08:19→20:12)
[2019-11-10] MEDS: INSULIN GLARGINE SOLOSTAR 100 UNITS/ML 3 ML PEN SC SCH ×2 (08:21→20:20)
[2019-11-10] MEDS: INSULIN ASPART 100 UNITS/ML 3 ML PEN SC SCH ×4 (08:22→20:20)
--- NOTE | 2019-11-10 10:54 | Nephrology Progress Note ---
Date of Service November 10, 2019 Assessment & Plan (1) MAIRA (acute kidney injury): prerenal MAIRA stage 1 in setting of prerenal and heavy salicylate use (had been drinking bottle of pepto bismol daily prior to admission); nonoliguric and improving. presenting creatinine on 11/06 2.0; down to 1.1 this AM. also with both acute and chronic liver disease; no evidence of HRS currently though. mild volume overload and extensive bruising in setting of falling at home. bp ok as are other hemodynamics for now. Baseline creatinine 06/2018 is 1.1 -strict I/O > recommend f/u in CKD clinic [facility] Dr Castillo or CHARLES Albarran 1-2 weeks after hospital discharge, in person or video (d/c document updated) (2) Hyperkalemia: presenting K 6.5; had IV insulin; K improved to 4 today. (3) Hyponatremia: 124 on presentation with BG 354, up to 134 today. suspected at first volume overload related to liver disease most likely but he actually behaves clinically as hypovolemic hyponatremia. -monitor; no specific therapy needed at this time Admission and Anticipated Discharge Date Admission Date: November 07, 2019 Subjective Patient feels better today denies any shortness of breath. Still has signifi cant bruises on the legs. He was doing physical therapy at the time of my visit. Review of Systems Review of Systems: All systems reviewed & are unremarkable except as noted in HPI & below Physical Exam Physical Exam: General exam: Appears comfortable, no acute distress HEENT: Pupils are equal and reactive to light Neck: No JVD, neck is supple trachea is midline Respiratory system: Clear breath sounds bilaterally. Gastrointestinal: Abdomen is soft, non distended, non tender, bowel sounds are present CVS: Regular rate and rhythm. No murmurs, rubs or gallops Musculoskeletal: No joint or muscle tenderness Extremities: Non tender, no edema, peripheral pulses are present Neuro: Oriented, no tremors, no focal neurological deficits Skin: No rashes, bruising on the abdomen, thighs and legs Results & Data ([facility]) Vital Signs (Past 12 Hours) Vital Signs Temp Pulse Resp BP Pulse Ox 11/10/19 08:12 36.5 C 99 H 20 127/72 97 11/10/19 03:40 37.0 C 80 19 130/67 96 Laboratory Results 11/09/19 06:58 11/10/19 07:01 WBC 3.82 L RBC 2.23 L MCV 100.9 H MCH 33.6 MCHC 33.3 RDW Std Deviation 57.9 H RDW Coeff of Brigida 17.4 H Plt Count 113 L MPV 10.0
[2019-11-10 13:28] LABS: EBV Virus Capsid Ag IgG Ab >750.00 U/mL
--- NOTE | 2019-11-10 13:41 | Hospitalist Progress Note ---
Date of Service November 10, 2019 Assessment & Plan (1) Spontaneous hematoma of abdominal wall: (2) Anemia: This is a 59 yr old M who has significant PMH of documented schizoaffective disorder, bipolar type, HTN, HLD, T2DM, GERD who presents to ED 2/2 2 and bruising to abdomen and lower extremities x3 days with associated dyspnea with exertion and weakness. Lab on admission 8.8 and 26.1, WBC 11.85k, INR 2.0, corrected sodium 128, potassium 6.5, CO2 18, BUN 25, creatinine 1.97, glucose 354, total bili 2.7, AST 50, CK 469 CT abd/pelvis showed small intramuscular hemorrhage within the right lateral abdominal wall musculature anterior to the iliac crest, severe hepatic steatosis. In ED he received a banana bag, 1g IV lorazepam, 10mg IV Regular Insulin, and albuterol neb tx. Hgb dropped to 7.2 this morning but repeat hgb this yesterday 7.8 Mixing study done and PT corrected - suggested a factor deficiency Received Vit K on admission Case discussed with Dr. Dominguez that recommended to continue monitor No need for transfusion for now since pt is stable as per hematology Hgb 7.5 today, will repeat hgb later Will transfuse if hgb drops below 7 Type and cross done and PRBC placed on hold Continue monitor closely (3) Elevated INR: (4) Ecchymosis: Severe ecchymosis to abd wall and b/l lower extremity CT abd/pelvis showed abd wall hematoma Possible related to excessive amount Pepto bismal and and alcohol Mixing study done- PT corrected Received VIt K, INR 1.2 Elevated LDH, Fibrinogen and CRP level case discussed with hematology- No evidence of DIC Peripheral smear showed no evidence of platelet abnormality (5) MAIRA (acute kidney injury): Baseline cr 1.0, last noted in EPIC 06/2017 Creatinine 1.9 on admission consult nephrology Received IVF, creatinine improved to 1.1 Continue monitor BMP (6) Hyperkalemia: K 6.5, specimen hemolyzed Received 10 units IV insulin in ED On IVF with bicarb Potassium 4.0 Continue monitor electrolytes (7) Hyponatremia: Na 124 on admission with Corrected for hyperglycemia, 128 Na 134 today IVF discontinued Monitor BMP (8) Right knee pain: R knee xray showed lateral soft tissue swelling without acute fracture or dislocation. Continue tramadol for pain Ortho on board recommended to apply Ice to the knee, use of a hinged knee brace Orthotic consulted for knee brace Continue to use of a walker until stabilized here in the hospital (9) Diabetes mellitus, type 2: Most recent Hba1c 7.6 Allergy to metformin Pharmacy on board for glycemic management On Lantus/novolog per protocol Continue monitor BS (10) Alcohol abuse: pt drinks 12 beers daily Continue alcohol withdrawal protocol with gabapentin and ativan Continue thiamine and folic acid Counseling on alcohol cessation Will continue monitor closely for withdrawal Consider alcohol rehab treatment (11) Elevated LFTs: Mosty related to alcohol abuse Abd u/s showed fatty infiltration of liver. Poor visibility of the pancreas due to overlying bowel content. Portal Vein US showed Patent portal vein. AST 50, total bili 2.1, INR 2.0, low albumin on admisison Gastro on board LFT normalized No further testing needed as per GI (12) Edema: Doppler of LE showed No edema will monitor (13) Tinnitus: pt is taking significant amounts of pepto bismal which is also noted to cause tinnitus pepto bismal discontinued CT head No acute intracranial abnormality. (14) DVT prophylaxis: contraindicated in setting of severe ecchymosis and concern for coagulopathy auto anticoagulated with INR of 2.0 on admission Received Vit K, with INR 1.2 Continue [facility] Admission and Anticipated Discharge Date Admission Date: November 07, 2019 Subjective Pt was seen and examined Sitting in bed with no distress eating lunch Pt said that he continues to have tenderness in his right knee Pt used a walker to ambulate with therapy today Pt is not interested inpatient alcohol rehab Denies any chest pain, palpitation, dizziness and SOB Physical Exam Physical Exam: General- No acute distress Head- atraumatic Eyes- PERRL, EOMI, ENT- oropharynx clear Neck- supple, no JVD Lungs- clear to auscultation Heart- regular rhythm; no murmur Abdomen- normal bowel sounds, soft, nontender Extremities- no calf tenderness, +edema Neuro- alert, oriented x 3; PERRL, EOMI; no facial palsy; no dysarthria Skin- warm & dry, ecchymoses in abdominal wall, extremities Results & Data Results & Data ([facility]) Vital Signs (Past 12 Hours) Vital Signs Temp Pulse Resp BP Pulse Ox 11/10/19 12:04 36.8 C 103 H 18 163/69 H 95 11/10/19 08:12 36.5 C 99 H 20 127/72 97 11/10/19 03:40 37.0 C 80 19 130/67 96
--- NOTE | 2019-11-10 15:40 | Pharmacy Report ---
Pharmacy Glycemic Short Note 2 - Date of Service November 10, 2019 - Glycemic Short BSG Results (Last 24 hours): 11/09/19 11/09/19 11/10/19 16:19 20:42 07:37 POC Glucose 174 H 135 H 182 H 11/10/19 11:32 POC Glucose 154 H ASSESSMENT: 11/09: * Patient received total of 44 units of insulin yesterday, of which 25 were basal insulin * BSGs throughout day slightly elevated / plan to adjust CF * Continue scale for Lantus BID PLAN FOR INPATIENT GLYCEMIC CONTROL: * Basal insulin * Lantus 20 this AM, then BID per scale 10-20 units * Bolus insulin * NovoLog per scale ACHS or Q6hrs while NPO * Goal Range: Low 110 mg/dL - High 140 mg/dL * Correction Factor: 12 mg/dL/unit * Nutritional / Prandial insulin per carb ratio of 1 unit per 7 grams CHO consumed PLAN FOR DISCHARGE: * A1C of 7.6% on admission, however may be unreliable due to various disease states (ex anemia) * Would recommend addition of an oral diabetic agent on discharge. Would avoid metformin due to allergy listed/also history of increased alcohol use * Also recommend self monitoring of BSGs on discharge 2-3xday to ensure BSGs not elevated / would recommend follow up with outpatient provider if BSGs trending up
[2019-11-10 17:11] LABS: Hematocrit (blood only) 25.1 % (42-52); Hemoglobin 8.3 g/dL (14.0-18.0)
[2019-11-10] MEDS: QUETIAPINE FUMARATE 200 MG TAB PO SCH (20:11)
[2019-11-11] MEDS ORDERED: GABAPENTIN 600 MG TAB PO SCH (04:00)
[2019-11-11] MEDS: OXYCODONE HCL IR 5 MG TAB (IMMEDIATE RELEASE) PO PRN ×3 (07:42→23:28)
[2019-11-11] MEDS: PANTOprazole 40 MG in SYRINGE 0 ML IV SCH ×2 (07:44→20:20)
[2019-11-11] MEDS: ASCORBIC ACID 500 MG TAB PO SCH ×2 (07:44→20:21)
[2019-11-11] MEDS: THIAMINE HCL 100 MG TAB PO SCH (07:45)
[2019-11-11] MEDS: FOLIC ACID 1 MG TAB PO SCH (07:45)
[2019-11-11] MEDS: INSULIN ASPART 100 UNITS/ML 3 ML PEN SC SCH ×4 (08:14→20:51)
[2019-11-11] MEDS: INSULIN GLARGINE SOLOSTAR 100 UNITS/ML 3 ML PEN SC SCH ×2 (08:15→20:53)
[2019-11-11 09:11] LABS: Hematocrit (blood only) 22.9 % (42-52); Hemoglobin 7.5 g/dL (14.0-18.0); Mean Corpuscular Hemoglobin 33.6 pg (25-34); Mean Corpuscular Hgb Conc 32.8 g/dL (32-36); Mean Corpuscular Volume 102.7 fL (80-100); Mean Platelet Volume 9.8 fL (7.4-10.4); Nucleated RBC # (auto) 0.03 K/uL (0-0); Platelet Count 105 K/uL (130-400); RDW Coefficient of Variation 18.4 % (11.5-14.5); RDW Standard Deviation 64.7 fL (36.4-46.3); Red Blood Count 2.23 M/uL (4.7-6.1); White Blood Count 3.35 K/uL (4.8-10.8)
[2019-11-11 09:32] LABS: Albumin Level 2.6 gm/dl (3.4-5.0); Calcium 8.2 mg/dl (8.5-10.1); Creatinine Clr Calc Pharmacy 101.5 ml/min; Est GFR (African American) 102.4; Est GFR (Non-African American) 88.4; Potassium 3.7 mmol/L (3.5-5.1)
[2019-11-11 09:36] LABS: Albumin Globulin Ratio 0.8 (0.9-2); Bilirubin,Total 3.1 mg/dl (0.2-1); Globulin 3.4 gm/dl (2.5-4.0)
--- NOTE | 2019-11-11 10:44 | Pharmacy Report ---
Pharmacy Glycemic Short Note 2 - Date of Service November 11, 2019 - Glycemic Short BSG Results (Last 24 hours): 11/10/19 11/10/19 11/10/19 11:32 16:28 20:17 Glucose POC Glucose 154 H 134 H 118 H 11/11/19 11/11/19 07:17 08:54 Glucose 167 H POC Glucose 139 H ASSESSMENT: 11/10: * Pt has received 52 units of insulin over the past 24hrs * 30 units of basal (Lantus) * 22 units of bolus (NovoLog) * BSGs [phone] * AM fasting BSG is in goal range at 139 mg/dl this AM --> no changes needed to basal insulin dosing; basal needs are likely around 30-35 units/day - will adjust BSG dosing scale to achieve this * Post prandial BSGs in goal range --> no changes needed to CF/CR;however, am going to remove the lowest option of the basal insulin dosing, therefore, less CF insulin will likely be needed. Will loosen CF slightly 11/09: * Patient received total of 44 units of insulin yesterday, of which 25 were basal insulin * BSGs throughout day slightly elevated / plan to adjust CF * Continue scale for Lantus BID PLAN FOR INPATIENT GLYCEMIC CONTROL: * Basal insulin * Lantus 15 this AM, then BID per scale 15-20 units * Bolus insulin * NovoLog per scale ACHS or Q6hrs while NPO * Goal Range: Low 110 mg/dL - High 140 mg/dL * Correction Factor: 15 mg/dL/unit * Nutritional / Prandial insulin per carb ratio of 1 unit per 7 grams CHO consumed PLAN FOR DISCHARGE: * A1C of 7.6% on admission, however may be unreliable due to various disease states (ex anemia) * Would recommend addition of an oral diabetic agent on discharge. Would avoid metformin due to allergy listed/also history of increased alcohol use * Also recommend self monitoring of BSGs on discharge 2-3xday to ensure BSGs not elevated / would recommend follow up with outpatient provider if BSGs trending up
[2019-11-11 14:11] LABS: CMV IgG Antibody <0.60 U/mL; CMV IgM Antibody <30.00 AU/mL; Hepatitis A Antibody IgM NON-REACTIVE (NON-REACTIVE); Hepatitis B Core Antibody IgM NON-REACTIVE (NON-REACTIVE)
--- NOTE | 2019-11-11 15:09 | Nephrology Progress Note ---
Date of Service November 11, 2019 Assessment & Plan (1) MAIRA (acute kidney injury): prerenal MAIRA stage 1 in setting of prerenal and heavy salicylate use (had been drinking bottle of pepto bismol daily prior to admission); nonoliguric and improving. presenting creatinine on 11/06 2.0; down to baseline. also with both acute and chronic liver disease; no evidence of HRS currently though. mild volume overload and extensive bruising in setting of falling at home. bp ok as are other hemodynamics for now. Baseline creatinine 06/2018 is 1.1 -strict I/O > recommend f/u in CKD clinic [facility] Dr Castillo or CHARLES Albarran 1-2 weeks after hospital discharge, in person or video (d/c document updated) (2) Hyperkalemia: presenting K 6.5; had IV insulin; K improved to 3.7 today. (3) Hyponatremia: 124 on presentation with BG 354, up to 135 today. suspected at first volume overload related to liver disease most likely but he actually behaves clinically as hypovolemic hyponatremia. -monitor; no specific therapy needed at this time -Renal will sign off. Please call if additional questions or concerns Admission and Anticipated Discharge Date Admission Date: November 07, 2019 Subjective Patient feels better today. No shortness of breath. Still has right knee pain. Able to ambulate with the knee brace. Sodium is better at 135 Review of Systems Review of Systems: All systems reviewed & are unremarkable except as noted in HPI & below Physical Exam Physical Exam: General exam: Appears comfortable, no acute distress HEENT: Pupils are equal and reactive to light Neck: No JVD, neck is supple trachea is midline Respiratory system: Clear breath sounds bilaterally. Gastrointestinal: Abdomen is soft, non distended, non tender, bowel sounds are present CVS: Regular rate and rhythm. No murmurs, rubs or gallops Musculoskeletal: No joint or muscle tenderness Extremities: Non tender, no edema, peripheral pulses are present Neuro: Oriented, no tremors, no focal neurological deficits Skin: No rashes, bruises on both legs and abdomen Results & Data ([facility]) Vital Signs (Past 12 Hours) Vital Signs Temp Pulse Resp BP BP Pulse Ox 11/11/19 12:02 36.7 C 90 18 124/66 96 11/11/19 08:26 36.4 C L 105 H 20 129/55 L 95 Laboratory Results 11/11/19 08:54 11/11/19 11/11/19 08:54 08:54 WBC 3.35 L RBC 2.23 L MCV 102.7 H MCH 33.6 MCHC 32.8 RDW Std Deviation 64.7 H RDW Coeff of Brigida 18.4 H Plt Count 105 L MPV 9.8 Albumin 2.6 L
[2019-11-11 16:03] LABS: Alpha 1 Antitrypsin 222 mg/dL (83-199); Anti Nuclear Antibody Screen NEGATIVE (NEGATIVE); Ceruloplasmin 35 mg/dL (18-36); Smooth Muscle Antibody POSITIVE (NEGATIVE)
--- NOTE | 2019-11-11 19:00 | Hospitalist Progress Note ---
Date of Service November 11, 2019 Assessment & Plan (1) Spontaneous hematoma of abdominal wall: (2) Anemia: This is a 59 yr old M who has significant PMH of documented schizoaffective disorder, bipolar type, HTN, HLD, T2DM, GERD who presents to ED 2/2 2 and bruising to abdomen and lower extremities x3 days with associated dyspnea with exertion and weakness. Lab on admission 8.8 and 26.1, WBC 11.85k, INR 2.0, corrected sodium 128, potassium 6.5, CO2 18, BUN 25, creatinine 1.97, glucose 354, total bili 2.7, AST 50, CK 469 CT abd/pelvis showed small intramuscular hemorrhage within the right lateral abdominal wall musculature anterior to the iliac crest, severe hepatic steatosis. In ED he received a banana bag, 1g IV lorazepam, 10mg IV Regular Insulin, and albuterol neb tx. Hgb 15.3 on 06/2018 Hgb dropped to 7.2 this morning but repeat hgb this yesterday 7.8 Mixing study done and PT corrected - suggested a factor deficiency Received Vit K on admission Case discussed with Dr. Dominguez that recommended to continue monitor No need for transfusion for now since pt is stable as per hematology Hgb 7.5 today, will repeat hgb in am Will transfuse if hgb drops below 7 Type and cross done and PRBC placed on hold Follow up with hematology outpatient Continue monitor closely (3) Elevated INR: (4) Ecchymosis: Severe ecchymosis to abd wall and b/l lower extremity CT abd/pelvis showed abd wall hematoma Possible related to excessive amount Pepto bismal and and alcohol Mixing study done- PT corrected Received VIt K, INR 1.1 Elevated LDH, Fibrinogen and CRP level case discussed with hematology- No evidence of DIC Peripheral smear showed no evidence of platelet abnormality Stable (5) MAIRA (acute kidney injury): Baseline cr 1.0, last noted in EPIC 06/2017 Creatinine 1.9 on admission consult nephrology Received IVF, creatinine improved to 0.94 Follow up nephrology outpatient with Avis in 1-2 weeks (6) Hyperkalemia: K 6.5, specimen hemolyzed Received 10 units IV insulin in ED received IV bicarb Potassium 3.7 today Continue monitor electrolytes (7) Hyponatremia: Na 124 on admission with Corrected for hyperglycemia, 128 Na 135 today IVF discontinued Monitor BMP (8) Right knee pain: R knee xray showed lateral soft tissue swelling without acute fracture or dislocation. Continue tramadol for pain Ortho on board recommended to apply Ice to the knee, use of a hinged knee brace Orthotic consulted for knee brace Continue to use of a walker until stabilized here in the hospital Continue to wear the knee brace Follow up with ortho outpatient (9) Diabetes mellitus, type 2: Most recent Hba1c 7.6 Allergy to metformin Pharmacy on board for glycemic management On Lantus/novolog per protocol Will start on glipizide on discharge tobacco educator on board and glucometer given Will give a Rx for OneTouch Verio test strips to check 1x/day and OneTouch Delica lancets to check 1x/day. Advised pt to continue monitor his BS and limited concentrated sweet intake Pt was advised to bring his BS log at his next appointment with his PCP (10) Alcohol abuse: pt drinks 12 beers daily Continue alcohol withdrawal protocol with gabapentin and ativan Continue thiamine and folic acid Counseling on alcohol cessation Will continue monitor closely for withdrawal Consider alcohol rehab treatment, but pt refused Stable (11) Elevated LFTs: Mosty related to alcohol abuse Abd u/s showed fatty infiltration of liver. Poor visibility of the pancreas due to overlying bowel content. Portal Vein US showed Patent portal vein. AST 57, total bili 2.1, INR 2.0, low albumin on admission Gastro on board No further testing needed as per GI Counseling on alcohol cessation (12) Edema: Doppler of LE showed No edema Advised pt to his leg elevate and follow a low salt diet (13) Tinnitus: pt is taking significant amounts of pepto bismal which is also noted to cause tinnitus pepto bismal discontinued CT head No acute intracranial abnormality. (14) DVT prophylaxis: contraindicated in setting of severe ecchymosis and concern for coagulopathy auto anticoagulated with INR of 2.0 on admission Received Vit K, with INR 1.1 Continue SCDs Disposition Discharge home tomorrow if hgb improves Admission and Anticipated Discharge Date Admission Date: November 07, 2019 Subjective Pt was seen and examined Lying in bed with no distress Pt said that he feels much better He said that he used the brace to walk today He said that he continues to have some pain in his right knee Updated provided to his sister in [place] Denies any chest pain, palpitation, dizziness and SOB Physical Exam Physical Exam: General- No acute distress Head- atraumatic Eyes- PERRL, EOMI, ENT- oropharynx clear Neck- supple, no JVD Lungs- clear to auscultation Heart- regular rhythm; no murmur Abdomen- normal bowel sounds, soft, nontender Extremities- no calf tenderness, +edema Neuro- alert, oriented x 3; PERRL, EOMI; no facial palsy; no dysarthria Skin- warm & dry, ecchymoses in abdominal wall, extremities Results & Data Results & Data ([facility]) Vital Signs (Past 12 Hours) Vital Signs Temp Pulse Resp BP BP Pulse Ox 11/11/19 15:33 36.6 C 84 18 119/68 96 11/11/19 12:02 36.7 C 90 18 124/66 96 11/11/19 08:26 36.4 C L 105 H 20 129/55 L 95
[2019-11-11] MEDS: QUETIAPINE FUMARATE 200 MG TAB PO SCH (20:21)
[2019-11-12] MEDS: TRAMADOL HCL 50 MG TABLET PO PRN (04:06)
[2019-11-12 06:41] LABS: Hematocrit (blood only) 23.3 % (42-52); Hemoglobin 7.6 g/dL (14.0-18.0); Mean Corpuscular Hemoglobin 33.6 pg (25-34); Mean Corpuscular Hgb Conc 32.6 g/dL (32-36); Mean Corpuscular Volume 103.1 fL (80-100); Mean Platelet Volume 9.8 fL (7.4-10.4); Nucleated RBC # (auto) 0.03 K/uL (0-0); Nucleated RBC % (auto) 0.9 %; Platelet Count 113 K/uL (130-400); RDW Coefficient of Variation 18.4 % (11.5-14.5); Red Blood Count 2.26 M/uL (4.7-6.1); White Blood Count 2.94 K/uL (4.8-10.8)
[2019-11-12] MEDS: PANTOprazole 40 MG in SYRINGE 0 ML IV SCH (08:04)
[2019-11-12] MEDS: THIAMINE HCL 100 MG TAB PO SCH (08:05)
[2019-11-12] MEDS: FOLIC ACID 1 MG TAB PO SCH (08:05)
[2019-11-12] MEDS: ASCORBIC ACID 500 MG TAB PO SCH (08:05)
[2019-11-12] MEDS: INSULIN ASPART 100 UNITS/ML 3 ML PEN SC SCH (08:07)
[2019-11-12] MEDS: INSULIN GLARGINE SOLOSTAR 100 UNITS/ML 3 ML PEN SC SCH (08:08)
[2019-11-12] MEDS: OXYCODONE HCL IR 5 MG TAB (IMMEDIATE RELEASE) PO PRN (08:19)
--- NOTE | 2019-11-12 08:26 | Pharmacy Report ---
Pharmacy Glycemic Short Note 2 - Date of Service November 12, 2019 - Glycemic Short BSG Results (Last 24 hours): 11/11/19 11/11/19 11/11/19 08:54 11:22 16:32 Glucose 167 H POC Glucose 168 H 137 H 11/11/19 11/12/19 20:17 07:26 Glucose POC Glucose 142 H 144 H ASSESSMENT: * Patient received 50 units of insulin yesterday * 30 units of basal, 20 units of prandial/correctional * BSGs very well-controlled, ranging 137-168 mg/dL over past 24 hours * Anticipating no changes needed to current basal/bolus regimen for today PLAN FOR INPATIENT GLYCEMIC CONTROL: * Basal insulin - continue * Lantus 15 this AM, then BID per scale 15-20 units * Bolus insulin - continue * NovoLog per scale ACHS or Q6hrs while NPO * Goal Range: Low 110 mg/dL - High 140 mg/dL * Correction Factor: 15 mg/dL/unit * Nutritional / Prandial insulin per carb ratio of 1 unit per 7 grams CHO consumed PLAN FOR DISCHARGE: * A1C of 7.6% on admission, however may be unreliable due to various disease states (ex anemia) * Would recommend addition of an oral diabetic agent on discharge. Would avoid metformin due to allergy listed/also history of increased alcohol use * No obvious compelling indications for a specific oral agent, MAIRA has resolved and should not be restricted by renal function * Agree with elementary educator assessment to consider initiation of sulfonylurea due to low cost * Suggest glipizide 2.5 mg PO daily 30 minutes before breakfast, may increase in 2.5-5 mg increments every couple of days (as determined by outpatient provider) * Recommend self monitoring of BSGs on discharge and would recommend prompt follow up with outpatient provider if BSGs trending up * Support Patient Self-Management * Healthy Lifestyle (diet, exercise, and smoking cessation) * Disease self-management (SMBG as mentioned above) * Prevention of complications (BP, Lipid goals, Immunizations) * Consider outpatient Diabetes Self-Management Education & Support
--- NOTE | 2019-11-12 09:45 | Hospitalist Progress Note ---
Date of Service November 12, 2019 Assessment & Plan (1) Spontaneous hematoma of abdominal wall: (2) Anemia: This is a 59 yr old M who has significant PMH of documented schizoaffective disorder, bipolar type, HTN, HLD, T2DM, GERD who presents to ED 2/2 2 and bruising to abdomen and lower extremities x3 days with associated dyspnea with exertion and weakness. Lab on admission 8.8 and 26.1, WBC 11.85k, INR 2.0, corrected sodium 128, potassium 6.5, CO2 18, BUN 25, creatinine 1.97, glucose 354, total bili 2.7, AST 50, CK 469 CT abd/pelvis showed small intramuscular hemorrhage within the right lateral abdominal wall musculature anterior to the iliac crest, severe hepatic steatosis. In ED he received a banana bag, 1g IV lorazepam, 10mg IV Regular Insulin, and albuterol neb tx. Hgb 15.3 on 06/2018 Hgb dropped to 7.2 this morning but repeat hgb this yesterday 7.8 Mixing study done and PT corrected - suggested a factor deficiency Received Vit K on admission Elevated LDH, Fibrinogen and CRP level Peripheral smear showed no evidence of platelet abnormality case discussed with hematology- No evidence of DIC Case discussed with Dr. Anupam Dominguez of hematology by Dr. Smith His Hemoglobin stabilized as 7.5 to 7.6 Patient also advised to follow with hematology [facility] [address], [place] [address] because of ecchymosis and anemia (3) Ecchymosis: Severe ecchymosis to abdominal wall and b/l lower extremity on admission with admission CT abd/pelvis showed abd wall hematoma Possible related to excessive amount Pepto bismal and and alcohol Hgb stabilized as above management as above (4) Elevated INR: auto anticoagulated with INR of 2.0 on admission Received Vit K on this admission and INR normalized (5) Elevated LFTs: related to alcohol abuse Abdominal ultrasound showed fatty infiltration of liver. Poor visibility of the pancreas due to overlying bowel content. Portal Vein US showed Patent portal vein. AST 57, total bili 2.1, INR 2.0, low albumin on admission No further testing needed as per Gastroenterology, patient was counseling on alcohol use (6) MAIRA (acute kidney injury): Baseline cr 1.0, last noted in EPIC 06/2017 Creatinine 1.9 on admission consult nephrology Received IVF on this admission and creatinine is baseline (7) Hyperkalemia: K 6.5, specimen hemolyzed Received 10 units IV insulin in ED received IV bicarb resolved on this admission with normalized serum potassium (8) Hyponatremia: Na 124 on admission with Corrected for hyperglycemia, 128 resolved on this admission with normalized serum sodium (9) Alcohol abuse: pt drinks 12 beers daily while in the hospital patient was on alcohol withdrawal protocol with gabapentin and ativan (no signs of delirium tremens), thiamine and folic acid patient advised to cut down on alcohol use to prevent futher liver porblems (10) Diabetes mellitus, type 2: Most recent Hba1c 7.6 Allergy to metformin Pharmacy on board for glycemic management while inpatient On Lantus/novolog per protocol was given on glipizide on discharge diabetes educator on board and glucometer given Will give a Rx for OneTouch Verio test strips to check 1x/day and OneTouch Delica lancets to check 1x/day. outpatient followup (11) Right knee pain: -In regard to the knee pain, patient was seen by orthopedics consult on 11/08/2019 -1.Right knee medial collateral ligament sprain, status post mechanical fall. 2. Moderate effusion. 3. Contusion. 4. Ecchymosis. RECOMMENDATION: "Ice to the knee, use of a hinged knee brace which may be obtained from the Orthotics Department here at the hospital, use of a walker until mentation and metabolic derangement is stabilized here in the hospital and follow up as an outpatient in approximately [address] Melgar as necessary. Should symptoms resolve, he may follow up on a p.r.n. basis." -[facility] is [address] [place] [address], [place] [address] and patient can call (12) Edema: No DVT within the right lower extremity Advised pt to his leg elevate and follow a low salt diet do no appreciate much edema on discharge day (13) Tinnitus: pt is taking significant amounts of pepto bismal which is also noted to cause tinnitus pepto bismal discontinued CT head No acute intracranial abnormality. (14) DVT prophylaxis: was given SCDs in the hospital as DVT prophylaxis Admission and Anticipated Discharge Date Admission Date: November 07, 2019 Subjective Patient reports the ecchymosis has improved. He feels ready to be discharged to home. no acute pain currently. The right leg in brace. he denies other symptoms Review of Systems Review of Systems: All systems reviewed & are unremarkable except as noted in Subjective Physical Exam Constitutional: + obese Eyes: PERRL, conjunctivae normal, anicteric sclerae EOM intact bilaterally ENMT: external ear and nose normal, oropharynx normal Neck: trachea midline, no thyromegaly normal visual inspection Respiratory: normal respiratory effort, lungs clear to auscultation Gastrointestinal (Abdomen): Inspection/Auscultation: normal bowel sounds Percussion/Palpation: abdomen soft Musculoskeletal: Head/Neck/Chest: normocephalic Knee: + knee abnormal to inspection (right leg in brace) Skin: + ecchymosis Neurologic: PERRL, EOMI, accommodation nl, no face palsy, no dysarthria CN's II-XI intact bilaterally Psychiatric: Orientation: alert, oriented x 3 and cooperative Results & Data Results & Data ([facility]) Vital Signs (Past 12 Hours) Vital Signs Temp Pulse Pulse Pulse Resp BP BP 11/12/19 08:04 36.4 C L 95 H 20 121/70 11/12/19 04:49 36.6 C 90 20 155/77 H 11/12/19 00:00 90 11/11/19 23:54 36.8 C 93 H 20 133/74 Pulse Ox 11/12/19 08:04 97 11/12/19 04:49 95 11/12/19 00:00 11/11/19 23:54 94
--- NOTE | 2019-11-12 10:03 | Discharge Summary ---
Date of Service November 12, 2019 Admission HPI Per Admitting Provider This is a 59 yr old M who has significant PMH of documented schizoaffective disorder, bipolar type, HTN, HLD, T2DM, GERD who presents to ED 2/2 2 and bruising to abdomen and lower extremities x3 days with associated dyspnea with exertion and weakness. Patient has been in his normal state of health until the past 3 days. Bruising initially started on anterior proximal thigh extending down bilateral lower legs and a significant bruise to his intra-abdominal wall. He also complains of significant right knee pain and difficulty walking and bending of the knee. He does admit to falling approximately 1 week ago onto her right knee but denies any other trauma or fall. He denies similar symptoms in the past. He also admits to feeling feverish and chilled, but no documented fever. Complains of lightheadedness with standing/movement, tinnitus, severe acid reflux for which he takes 1 bottle of pepto bismal daily. He does not tolerate PPI or [id number] due to tinnitus so states, "I drink pepto like water." He denies and URI sx including cough, rhinorrhea, sneezing. Further denies N/V/D, abdominal pain, melena, hematochezia, gum bleeding, hematuria or epistaxis. He only takes Seroquel at HS for, "sleep." He denies any psychiatric illness and does not see a psychologist. Per [facility] a dx of schizoaffective disorder is on his chart. He has known hx of HLD and T2DM in which pt has been "diet controlling" for past few years. Neighbor is at his bedside. He does not work, or use tobacco/drug products. He drinks 1/2 case a beer daily and has for many years. Prior hx of withdrawal after being in hospital and undergoing EGD. States he was tachycardiac. Appetite has been poor past 2-3 days due to severe reflux. Patient was seen and evaluated by PCP who referred to ED. In ED patient remained hemodynamically stable, but was mildly tachycardic. Significant lab abnormalities include H&H 8.8 and 26.1, WBC 11.85k, INR 2.0, corrected sodium 128, potassium 6.5, CO2 18, BUN 25, creatinine 1.97, glucose 354, total bili 2.7, AST 50, CK [address] were unremarkable. CT A/P: small intramuscular hemorrhage within the right lateral abdominal wall musculature anterior to the iliac crest, severe hepatic steatosis. In ED he received a banana bag, 1g IV lorazepam, 10mg IV Regular Insulin, and albuterol neb tx. Principal Diagnosis Spontaneous hematoma of abdominal wall: Elevated INR (resolved) Ecchymosis Anemia Hyperkalemia (resolved) Hyponatremia (resolved) Acute Kidney Injury (resolved) elevated liver function enzymes Diabetes mellitus type 2 without usp current use of insulin alcohol abuse history of Tinnitus Right knee pain Discharge Exam Constitutional + obese Eyes PERRL, conjunctivae normal, anicteric sclerae EOM intact bilaterally ENMT external ear and nose normal, oropharynx normal Neck trachea midline, no thyromegaly normal visual inspection Respiratory normal respiratory effort, lungs clear to auscultation Gastrointestinal (Abdomen) Inspection/Auscultation: normal bowel sounds Percussion/Palpation: abdomen soft Musculoskeletal Head/Neck/Chest: normocephalic Knee: + knee abnormal to inspection (right leg in brace) Skin + ecchymosis Neurologic PERRL, EOMI, accommodation nl, no face palsy, no dysarthria CN's II-XI intact bilaterally Psychiatric Orientation: alert, oriented x 3 and cooperative Discharge Data Allergies Allergy/AdvReac Type Severity Reaction Status Date / Time esomeprazole [From Nexium] AdvReac Unknown RINGING IN Verified 11/07/19 10:26 EARS losartan AdvReac Unknown CONFUSED Verified 11/07/19 10:26 ,CHEST PAIN metformin AdvReac Unknown TONGUE Verified 11/07/19 10:26 SWELLING-PER MEDICAL RECORD omeprazole AdvReac Unknown RINGING IN Verified 11/07/19 10:26 EARS pantoprazole AdvReac Unknown RINGING IN Verified 11/07/19 10:26 EARS ranitidine AdvReac Unknown RINGING IN Verified 11/07/19 10:26 EARS Consultations 11/07/19 11:22 ED Decision to Admit Stat 11/07/19 12:25 Consult Gastroenterology Routine Consult Nephrology Routine 11/07/19 14:39 Consult Case Management - Discharge Planning Routine Consult Orthopedic Surgery Routine Ordered Studies 11/07/19 09:59 CT head/brain wo con Stat 11/07/19 11:21 CT abd pelvis wo con Stat 11/07/19 12:21 US abdomen limited Stat 11/07/19 12:41 US duplex portal hepatic veins Stat 11/07/19 15:58 US venous doppler LE RT Urgent Hospital Course (1) Spontaneous hematoma of abdominal wall: (2) Anemia: This is a 59 yr old M who has significant PMH of documented schizoaffective disorder, bipolar type, HTN, HLD, T2DM, GERD who presents to ED 2/2 2 and bruising to abdomen and lower extremities x3 days with associated dyspnea with exertion and weakness. Lab on admission 8.8 and 26.1, WBC 11.85k, INR 2.0, corrected sodium 128, potassium 6.5, CO2 18, BUN 25, creatinine 1.97, glucose 354, total bili 2.7, AST 50, CK 469 CT abd/pelvis showed small intramuscular hemorrhage within the right lateral abdominal wall musculature anterior to the iliac crest, severe hepatic steatosis. In ED he received a banana bag, 1g IV lorazepam, 10mg IV Regular Insulin, and albuterol neb tx. Hgb 15.3 on 06/2018 Hgb dropped to 7.2 this morning but repeat hgb this yesterday 7.8 Mixing study done and PT corrected - suggested a factor deficiency Received Vit K on admission Elevated LDH, Fibrinogen and CRP level Peripheral smear showed no evidence of platelet abnormality case discussed with hematology- No evidence of DIC Case discussed with Dr. Anupam Dominguez of hematology by Dr. Smith His Hemoglobin stabilized as 7.5 to 7.6 Patient also advised to follow with hematology Dr. Anupam Dominguez [facility] [address], [place] [address] because of ecchymosis and anemia (3) Ecchymosis: Severe ecchymosis to abdominal wall and b/l lower extremity on admission with admission CT abd/pelvis showed abd wall hematoma Possible related to excessive amount Pepto bismal and and alcohol Hgb stabilized as above management as above (4) Elevated INR: auto anticoagulated with INR of 2.0 on admission Received Vit K on this admission and INR normalized (5) Elevated LFTs: related to alcohol abuse Abdominal ultrasound showed fatty infiltration of liver. Poor visibility of the pancreas due to overlying bowel content. Portal Vein US showed Patent portal vein. AST 57, total bili 2.1, INR 2.0, low albumin on admission No further testing needed as per Gastroenterology, patient was counseling on alcohol use (6) MAIRA (acute kidney injury): Baseline cr 1.0, last noted in EPIC 06/2017 Creatinine 1.9 on admission consult nephrology Received IVF on this admission and creatinine is baseline (7) Hyperkalemia: K 6.5, specimen hemolyzed Received 10 units IV insulin in ED received IV bicarb resolved on this admission with normalized serum potassium (8) Hyponatremia: Na 124 on admission with Corrected for hyperglycemia, 128 resolved on this admission with normalized serum sodium (9) Alcohol abuse: pt drinks 12 beers daily while in the hospital patient was on alcohol withdrawal protocol with gabapentin and ativan (no signs of delirium tremens), thiamine and folic acid patient advised to cut down on alcohol use to prevent futher liver porblems (10) Diabetes mellitus, type 2: Most recent Hba1c 7.6 Allergy to metformin Pharmacy on board for glycemic management while inpatient On Lantus/novolog per protocol was given on glipizide on discharge nurse informatics educator on board and glucometer given Will give a Rx for OneTouch Verio test strips to check 1x/day and OneTouch Delica lancets to check 1x/day. outpatient followup (11) Right knee pain: -In regard to the knee pain, patient was seen by orthopedics consult on 11/08/2019 -1.Right knee medial collateral ligament sprain, status post mechanical fall. 2. Moderate effusion. 3. Contusion. 4. Ecchymosis. RECOMMENDATION: "Ice to the knee, use of a hinged knee brace which may be obtained from the Orthotics Department here at the hospital, use of a walker until mentation and metabolic derangement is stabilized here in the hospital and follow up as an outpatient in approximately [address] Melgar as necessary. Should symptoms resolve, he may follow up on a p.r.n. basis." -[facility] is [address] [facility], [place] [address] and patient can call (12) Edema: No DVT within the right lower extremity Advised pt to his leg elevate and follow a low salt diet do no appreciate much edema on discharge day (13) Tinnitus: pt is taking significant amounts of pepto bismal which is also noted to cause tinnitus pepto bismal discontinued CT head No acute intracranial abnormality. (14) DVT prophylaxis: was given SCDs in the hospital as DVT prophylaxis Total Time Total Time Spent Total Time Spent (In Minutes): 40 minutes Total Time Includes: Examination of the Patient, Discharge Planning, Medication Reconciliation and 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 With Other Providers Discharge Plan Discharge Items Patient Disposition: Home - Self-Care Reason For Visit: MAIRA,HYPERKALEMIA,ANEMIA,COAGULOPATHY Discharge Diagnosis: Spontaneous hematoma of abdominal wall: Elevated INR (resolved) Ecchymosis Anemia Hyperkalemia (resolved) Hyponatremia (resolved) Acute Kidney Injury (resolved) elevated liver function enzymes Diabetes mellitus type 2 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 insulin alcohol abuse history of Tinnitus Right knee pain Condition on Discharge: Good Activity: Resume your previous activity Non-emergency contact: Primary Care Provider and Special Needs Babysitter Call non-emergency contact if: you have any medication questions Follow-up/Referrals: Robbi Osorio MD [Primary Care Provider] - 11/18/19 11:20 am Diet: Carb Consistent or DM2 and Low Sodium (2gm) Addtl Attending Provider Instructions: glipizide for diabetes are sent electronically [facility] [address] [place] [address] and patient was also provided diabetes testing supplies, also 5 day as needed prescription for acetaminophen for knee pain patient is advised to avoid alcohol. Patient should have follow up labs with outpatient doctors (hemoglobin is stable as 7.5 to 7.6 in recent hospital days, elevated creatinine and potassium and elevated INR are resolved on this admission, low serum sodium resolved on this admission) appointments 11/18/2019 11:20 AM Provider Robbi Osorio MD Department Internal Medicine [facility] 11/21/2019 2:20 PM Provider Shawn Padilla MD Department Nephrology, [facility] 01/22/2020 8:00 AM Provider Robbi Osorio MD Department Internal Medicine [facility] Patient also advised to follow with hematology Dr. Anupam Patino [address] , [place] [address] because of ecchymosis and anemia Addtl Head Cleaning Porter Provider Instructions: In regard to the knee pain, patient was seen by orthopedics consult on 11/08/2019 1.Right knee medial collateral ligament sprain, status post mechanical fall. 2. Moderate effusion. 3. Contusion. 4. Ecchymosis. RECOMMENDATION: "Ice to the knee, use of a hinged knee brace which may be obtained from the Orthotics Department here at the hospital, use of a walker until mentation and metabolic derangement is stabilized here in the hospital and follow up as an outpatient in approximately [address] Melgar as necessary. Should symptoms resolve, he may follow up on a p.r.n. basis." [facility] is [address] [facility], [place] [address] and patient can call Pending Studies at Discharge: No Stand-Alone Forms: My [facility] trinket, Smoking Cessation Medications and DC Order Prescriptions: New glipizide 5 mg tablet extended release 24hr 5 mg PO DAILY Qty: 30 RF: 0 acetaminophen 325 mg tablet 325 mg PO Q6H PRN (Reason: fever or pain) 5 Days Qty: 20 RF: 0 Continued quetiapine [Seroquel] 400 mg Tablet 400 mg PO HS RF: 0 Discharge Orders: Discharge Order (Routine); Ordered 11/12/19 Ordered By: Kristopher Pelletier Admission Data Admit Date/Time: 11/07/19 12:19 Attending Provider: Kristopher Pelletier Admit Provider: Tierra Paulino Primary Care Provider: Robbi Osorio Other Providers: Tierra Paulino ; Ricardo Melgar ; Yadira Castillo ; Ernesto Santizo
[2019-11-12] MEDS ORDERED: glipiZIDE 5 MG TAB PO ONE (11:57)
== END 2019-11-12 12:15 | disposition home or self-care (01) | DRG 813 ==
LOC: ED 09:22 → SUATTDRO 12:19 → 2S 12:19

== ENCOUNTER 2021-02-24 10:33 | Inpatient (IN) ==
--- NOTE | 2021-02-24 10:39 | Emergency Department Note ---
Impression & Plan Alcoholic liver failure, Hypertension, Alcohol abuse, Elevated LFTs, Pancytopenia, Hyponatremia, Hypokalemia, Hypomagnesemia, Coagulopathy, Diabetes mellitus, type 2 ED Provider Note NAME: ARABELLA HUBBARD AGE: 60 SEX: M : 1960 ARRIVES VIA: Ambulance INFORMANT: Patient, ED PROVIDER(S): Efrían Gonzalez MD Chief Complaint: Weakness, falls HPI: Patient does present due to concern for weakness falls and shortness of breath. The patient states he has been feeling weaker over the last weeks to months but this is gotten even worse. The patient is vaccinated for COVID-19 but does complain of orthopnea and dyspnea on exertion. Patient is a non-smoker but has significant drinking history drinking a case a day for many many years and most recently over the last 6 to 7 months was drinking about a half a bottle of vodka but recently stopped a month ago. Patient has had a recurrence of falls due to ambulatory dysfunction and weakness. The patient denies any head strike or LOC. The patient has a contusion to the right upper abdomen but has no pain. Patient states that he was checked before and had thin blood due to some bruising over the abdomen in the past. Patient denies any back or chest pa in. The patient denies any current abdominal pain or extremity pain. Patient denies any head or neck pain. Patient does not use blood thinners. ROS: See HPI for pertinent positives and negatives. A total of 10 systems were reviewed and otherwise negative. Past medical history: See below Surgical history: See below Social history: See below Physical Exam: GENERAL: Fatigued in appearance, significantly jaundiced. EYE EXAM: Jaundice conjunctive a. PERRL, no anisocoria and EOM's grossly intact w/o pain. NECK: Supple, no nuchal rigidity, no adenopathy, non-tender. No signs of meningismus. LUNGS: Clear to auscultation. Normal chest wall mechanics. HEART: NSR, no MRG. ABDOMEN: Abdomen soft, non-tender, normo-active bowel sounds, no masses, no rebound or guarding. BACK: No CVA TTP. SKIN: Ecchymosis to the right upper abdomen, significant jaundice. UPPER EXTREMITIES: Upper extremities are grossly normal. LOWER EXTREMITIES: Grossly normal, no edema. NEURO EXAM: A&O x3, cranial nerves II-XII grossly intact, normal speech, moves all 4 extremities on command w/o issue. Differential diagnoses: Infection, dehydration, metabolic abnormality, hypo/hyperglycemia, electrolyte disturbance, anemia, hypoxia, cardiac sources, intracerebral event, toxicologic, neurologic, as well as other pathologies. Course: Patient was seen and evaluated the bedside. Full history physical exam was performed. EKG interpreted by me Sinus, rate of 85, normal intervals, normal axis, no obvious ST changes. Imaging Studies: See Below Cardiac monitoring: An order was placed for continuous cardiac monitoring. The monitor shows a rate of 82 with sinus rhythm. MDM: Patient was seen due to concern for weakness and falls. Patient's blood work did show pancytopenia. Patient's hemoglobin is about baseline. Thrombocytopenia. New compared to prior but leukopenia is chronic. Patient does have an INR 1.6. The patient does have elevated bilirubin at 24 with elevated AST ALT and alk phos. I did speak with the on-call supervisor lump room Richard who recommended adding a Tylenol level and alcohol but the patient could be admitted here. I did speak with the on-call hospitalist SHARRON Mckinnon. Will add a lipase and CT abdomen pelvis. Patient CT head negative. Chest x-ray does not show any acute findings. CT abdomen pelvis does show hepatomegaly and severe hepatic steatosis with splenomegaly. May have some gallbladder sludge but no evidence of acute cholecystitis. Past Med/Surg History Medical History Depression Diabetes mellitus, type 2 DIET MANAGED-TAKEn OFF MEDS GERD (gastroesophageal reflux disease) Hypertension UNDER CONTROL-NO MEDS CURRENTLY Sleep apnea CPAP Spontaneous hematoma of abdominal wall Surgical History History of bowel resection WITH COLOSTOMY-AND REVERSED History of open reduction and internal fixation (ORIF) procedure LEFT ANKLE Family History Mother Pancreatic cancer Father Coronary heart disease CHF (congestive heart failure) AAA (abdominal aortic aneurysm) Social History Smoking Status: Never smoker Tobacco Type: Cigarettes Second Hand Exposure: No; Hx Alcohol Use: Yes Alcohol type: beer Alcohol Intake Frequency: 4 or More x per/Week Alcohol Intake Frequency Comment: 12 beers daily Hx Substance Use: Yes Last Used Substance Other:: 10-15 years ago Preferred Language: Slovak 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 Ability: Effective Political Organizer Required: No Beliefs That Will Affect Care: None marital status: Single Current Living Situation: Alone current occupational status: unemployed Feels Safe at Home: Yes Assistive Devices: Brace/Splint/Immobilizer Allergies Allergies Allergy/AdvReac Type Severity Reaction Status Date / Time esomeprazole [From Nexium] AdvReac Unknown RINGING IN Verified 02/24/21 12:34 EARS losartan AdvReac Unknown CONFUSED Verified 02/24/21 12:34 ,CHEST PAIN metformin AdvReac Unknown TONGUE Verified 02/24/21 12:34 SWELLING-PER MEDICAL RECORD omeprazole AdvReac Unknown RINGING IN Verified 02/24/21 12:34 EARS pantoprazole AdvReac Unknown RINGING IN Verified 02/24/21 12:34 EARS ranitidine AdvReac Unknown RINGING IN Verified 02/24/21 12:34 EARS Home Meds Home Medications Medication Instructions Recorded Confirmed quetiapine 400 mg tablet (Seroquel) 400 mg PO HS 09/20/18 02/24/21 Results & Data (ED) Vital Signs Vital Signs - 24 hr 02/24/21 10:47 02/24/21 10:48 02/24/21 10:50 Temperature 37.0 C Temperature Source Oral Pulse Rate 83 87 Pulse Rate [Right Finger] 84 Pulse Rhythm Regular Pulse Rhythm [Right Finger] Regular Pulse Strength [Right Finger] Normal Respiratory Rate 20 20 18 Respiratory Effort / Characteristics Non-Labored Respiratory Depth Normal Respiratory Pattern Regular Blood Pressure 107/62 Blood Pressure [Right Radial Artery] 107/62 Blood Pressure Mean 77 Blood Pressure Mean [Right Radial Artery] 77 Blood Pressure Position [Right Radial Artery] Lying Pulse Oximetry 96 96 97 Oxygen Delivery Method Room Air Room Air Room Air Sepsis Recent Fever Within 48 Hours No Sepsis New/Unexplained Change in Mental Status N/A Sepsis Action Taken by Nursing No Action Required 02/24/21 12:48 Temperature Temperature Source Pulse Rate Pulse Rate [Right Finger] 83 Pulse Rhythm Pulse Rhythm [Right Finger] Pulse Strength [Right Finger] Respiratory Rate 22 Respiratory Effort / Characteristics Non-Labored Respiratory Depth Normal Respiratory Pattern Regular Blood Pressure Blood Pressure [Right Radial Artery] 132/79 Blood Pressure Mean Blood Pressure Mean [Right Radial Artery] 96 Blood Pressure Position [Right Radial Artery] Lying Pulse Oximetry 95 Oxygen Delivery Method Room Air Sepsis Recent Fever Within 48 Hours Sepsis New/Unexplained Change in Mental Status Sepsis Action Taken by Longterm Medications Current Medication List: was personally reviewed by me Laboratory Data Attestation: I reviewed the patient's lab results. Result diagrams: 02/24/21 11:00 02/24/21 11:00 Lab Results 02/24/21 02/24/21 02/24/21 Range/Units 11:00 11:00 11:00 WBC (4.8-10.8) K/uL RBC (4.7-6.1) M/uL Hgb (14.0-18.0) g/dL Hct (42-52) % MCV (80-100) fL MCH (25-34) pg MCHC (32-36) g/dL RDW Std Deviation (36.4-46.3) fL RDW Coeff of Brigida (11.5-14.5) % Plt Count (130-400) K/uL MPV (7.4-10.4) fL Immature Gran % (Auto) % Neut % (Auto) % Lymph % (Auto) % [place] % (Auto) % Eos % (Auto) % Baso % (Auto) % Neut # (Auto) (1.4-6.5) K/uL Lymph # (Auto) (1.2-3.4) K/uL [place] # (Auto) (0.11-0.59) K/uL Eos # (Auto) (0-0.5) K/uL Baso # (Auto) (0-0.2) K/uL Immature Gran # (Auto) (0.00-0.02) K/uL Absolute Nucleated RBC (0-0) K/uL Nucleated RBC % (auto) % Platelet Estimate (Normal) Polychromasia Hypochromasia Microcytosis Spherocytes Schistocytes PT (9.0-12.0) Seconds INR (0.9-1.1) APTT (21.0-31.0) Seconds PTT Ratio Sodium 120 L (136-145) mmol/L Potassium 2.8 L (3.5-5.1) mmol/L Chloride 81 L (98-107) mmol/L Carbon Dioxide 27 (21-32) mmol/L Anion Gap 12.0 H (3-11) BUN 28 H (7-18) mg/dl Creatinine (0.6-1.4) mg/dl Est Cr Clr Drug Dosing Not Reportable Est GFR ( Amer) Not Reportable Est GFR (Non-Af Amer) Not Reportable BUN/Creatinine Ratio Not Reportable Glucose 154 H (70-99) mg/dl Calcium 7.5 L (8.5-10.1) mg/dl Magnesium 1.7 L (1.8-2.4) mg/dl Total Bilirubin 24.5 H (0.2-1) mg/dl AST 298 H (15-37) U/L ALT 140 H (12-78) U/L Alkaline Phosphatase 310 H (45-117) U/L Ammonia 24.0 (11-32) umol/L Troponin I < 0.015 (0-0.045) ng/ml Total Protein (6.4-8.2) gm/dl Albumin 1.6 L (3.4-5.0) gm/dl Globulin Not Reportable Albumin/Globulin Ratio Not Reportable Lipase (73-393) U/L TSH 5.680 H (0.300-4.500) uIu/ml Free T4 0.70 L (0.8-1.6) ng/dl Acetaminophen Ethyl Alcohol mg/dL (0-3) mg/dl SARS-CoV-2, RNA, NAAT (NEGATIVE) Blood Type O Positive Antibody Screen NEGATIVE 02/24/21 02/24/21 02/24/21 Range/Units 11:00 11:00 11:00 WBC 4.45 L (4.8-10.8) K/uL RBC 2.09 L (4.7-6.1) M/uL Hgb 7.0 L (14.0-18.0) g/dL Hct 19.7 L* (42-52) % MCV 94.3 (80-100) fL MCH 33.5 (25-34) pg MCHC 35.5 (32-36) g/dL RDW Std Deviation 50.9 H (36.4-46.3) fL RDW Coeff of Brigida 15.0 H (11.5-14.5) % Plt Count 33 L (130-400) K/uL MPV 11.9 H (7.4-10.4) fL Immature Gran % (Auto) 2.0 % Neut % (Auto) 82.1 % Lymph % (Auto) 12.4 % [place] % (Auto) 2.0 % Eos % (Auto) 1.1 % Baso % (Auto) 0.4 % Neut # (Auto) 3.65 (1.4-6.5) K/uL Lymph # (Auto) 0.55 L (1.2-3.4) K/uL [place] # (Auto) 0.09 L (0.11-0.59) K/uL Eos # (Auto) 0.05 (0-0.5) K/uL Baso # (Auto) 0.02 (0-0.2) K/uL Immature Gran # (Auto) 0.09 H (0.00-0.02) K/uL Absolute Nucleated RBC 0.06 H (0-0) K/uL Nucleated RBC % (auto) 1.3 % Platelet Estimate SIGNIFIC DECREASED (Normal) Polychromasia 1+ Hypochromasia Present Microcytosis Present Spherocytes 1+ Schistocytes 1+ PT 15.8 H (9.0-12.0) Seconds INR 1.6 H (0.9-1.1) APTT 34.7 H (21.0-31.0) Seconds PTT Ratio 1.3 Sodium (136-145) mmol/L Potassium (3.5-5.1) mmol/L Chloride (98-107) mmol/L Carbon Dioxide (21-32) mmol/L Anion Gap (3-11) BUN (7-18) mg/dl Creatinine (0.6-1.4) mg/dl Est Cr Clr Drug Dosing Est GFR ( Amer) Est GFR (Non-Af Amer) BUN/Creatinine Ratio Glucose (70-99) mg/dl Calcium (8.5-10.1) mg/dl Magnesium (1.8-2.4) mg/dl Total Bilirubin (0.2-1) mg/dl AST (15-37) U/L ALT (12-78) U/L Alkaline Phosphatase (45-117) U/L Ammonia (11-32) umol/L Troponin I (0-0.045) ng/ml Total Protein (6.4-8.2) gm/dl Albumin (3.4-5.0) gm/dl Globulin Albumin/Globulin Ratio Lipase 239 (73-393) U/L TSH (0.300-4.500) uIu/ml Free T4 (0.8-1.6) ng/dl Acetaminophen Ethyl Alcohol mg/dL (0-3) mg/dl SARS-CoV-2, RNA, NAAT (NEGATIVE) Blood Type Antibody Screen 02/24/21 02/24/21 02/24/21 Range/Units 12:05 12:50 12:50 WBC (4.8-10.8) K/uL RBC (4.7-6.1) M/uL Hgb (14.0-18.0) g/dL Hct (42-52) % MCV (80-100) fL MCH (25-34) pg MCHC (32-36) g/dL RDW Std Deviation (36.4-46.3) fL RDW Coeff of Brigida (11.5-14.5) % Plt Count (130-400) K/uL MPV (7.4-10.4) fL Immature Gran % (Auto) % Neut % (Auto) % Lymph % (Auto) % [place] % (Auto) % Eos % (Auto) % Baso % (Auto) % Neut # (Auto) (1.4-6.5) K/uL Lymph # (Auto) (1.2-3.4) K/uL [place] # (Auto) (0.11-0.59) K/uL Eos # (Auto) (0-0.5) K/uL Baso # (Auto) (0-0.2) K/uL Immature Gran # (Auto) (0.00-0.02) K/uL Absolute Nucleated RBC (0-0) K/uL Nucleated RBC % (auto) % Platelet Estimate (Normal) Polychromasia Hypochromasia Microcytosis Spherocytes Schistocytes PT (9.0-12.0) Seconds INR (0.9-1.1) APTT (21.0-31.0) Seconds PTT Ratio Sodium (136-145) mmol/L Potassium (3.5-5.1) mmol/L Chloride (98-107) mmol/L Carbon Dioxide (21-32) mmol/L Anion Gap (3-11) BUN (7-18) mg/dl Creatinine (0.6-1.4) mg/dl Est Cr Clr Drug Dosing Est GFR ( Amer) Est GFR (Non-Af Amer) BUN/Creatinine Ratio Glucose (70-99) mg/dl Calcium (8.5-10.1) mg/dl Magnesium (1.8-2.4) mg/dl Total Bilirubin (0.2-1) mg/dl AST (15-37) U/L ALT (12-78) U/L Alkaline Phosphatase (45-117) U/L Ammonia (11-32) umol/L Troponin I (0-0.045) ng/ml Total Protein (6.4-8.2) gm/dl Albumin (3.4-5.0) gm/dl Globulin Albumin/Globulin Ratio Lipase (73-393) U/L TSH (0.300-4.500) uIu/ml Free T4 (0.8-1.6) ng/dl Acetaminophen Cancelled Ethyl Alcohol mg/dL < 3.0 (0-3) mg/dl SARS-CoV-2, RNA, NAAT NEGATIVE (NEGATIVE) Blood Type Antibody Screen Administered Medications Ondansetron HCl (Ondansetron Inj 2 Mg/Ml 2 Ml Vial) 4 mg IV Q6H PRN PRN Reason: nausea Stop: 03/26/21 13:57 Last Admin: 02/24/21 16:09 Dose: 4 mg Documented by: [id number] Discontinued Medications Potassium Chloride (K Baudilio / Wtr) 10 meq in 100 mls @ 100 mls/hr IV Q1H BAYRON Stop: 02/24/21 17:54 Last Admin: 02/24/21 17:26 Dose: 100 mls/hr Documented by: [id number] Infusion: 02/24/21 17:09 Dose: 100 mls/hr Documented by: [id number] Admin: 02/24/21 16:09 Dose: 100 mls/hr Documented by: [id number] Magnesium Sulfate/Dextrose (Magnesium Sulfate / D5w) 1 gm in 100 mls @ 50 mls/hr IV ONE ONE Stop: 02/24/21 15:54 Last Admin: 02/24/21 16:10 Dose: 50 mls/hr Documented by: [id number] Potassium Chloride (Potassium Chloride Crtab 20 Meq Tabcr) 40 meq PO Q4H BAYRON Stop: 02/24/21 18:01 Last Admin: 02/24/21 17:27 Dose: Not Given Documented by: [id number] Imaging Data Radiologist's Impression: Head CT 02/24/21 10:46 CT head/brain wo con CLINICAL HISTORY: falls, liver dysfunction COMPARISON STUDY: 11/07/2019 CT DOSE: 687.98 mGy.cm TECHNIQUE: Standard CT of the Brain was performed without IV contrast. A dose lowering technique was utilized adhering to the principles of ALARA. FINDINGS: Extraaxial space: There is no evidence for subdural hematoma. There are no extra-axial fluid collections. Ventricles and cisterns: The ventricles are normal in size and configuration. There is no evidence for midline shift or mass effect. Parenchyma: There is no subarachnoid or intraparenchymal hemorrhage. There is no evidence for an acute infarct or cerebral edema. There is homogeneous attenuation of the brain parenchyma. There are no gross mass lesions. Osseous structures: There is no evidence for an acute fracture. The visualized paranasal sinuses are clear. The mastoid air cells are clear bilaterally. Soft tissues: There is no evidence for focal soft tissue swelling. IMPRESSION: No acute intracerebral pathology. ACT 112: Negative or not required by law. Electronically signed by: Siva Faye M.D. 02/24/2021 11:48 AM Chest X-Ray 02/24/21 10:47 XR chest 1V portable CLINICAL HISTORY: weakness. Evaluate cardiopulmonary status COMPARISON STUDY: No previous studies for comparison. TECHNIQUE: 1 view of the chest FINDINGS: Single frontal view of the chest demonstrates the cardiomediastinal silhouette to be within normal limits. There is a decreased inspiratory effort with elevation of the hemidiaphragms and crowding of the bronchovascular markings at the lung bases and centrally. The lungs are clear of alveolar opacities. There is no evidence for pleural effusion. There is no evidence for vascular congestion. There is no acute osseous pathology. IMPRESSION: There is a decreased inspiratory effort with otherwise no acute chest disease. ACT 112: Negative or not required by law. Electronically signed by: Siva Faye M.D. 02/24/2021 11:[address] 02/24/21 10:46 CT head/brain wo con CLINICAL HISTORY: falls, liver dysfunction COMPARISON STUDY: 11/07/2019 CT DOSE: 687.98 mGy.cm TECHNIQUE: Standard CT of the Brain was performed without IV contrast. A dose lowering technique was utilized adhering to the principles of ALARA. FINDINGS: Extraaxial space: There is no evidence for subdural hematoma. There are no extra-axial fluid collections. Ventricles and cisterns: The ventricles are normal in size and configuration. There is no evidence for midline shift or mass effect. Parenchyma: There is no subarachnoid or intraparenchymal hemorrhage. There is no evidence for an acute infarct or cerebral edema. There is homogeneous attenuation of the brain parenchyma. There are no gross mass lesions. Osseous structures: There is no evidence for an acute fracture. The visualized paranasal sinuses are clear. The mastoid air cells are clear bilaterally. Soft tissues: There is no evidence for focal soft tissue swelling. IMPRESSION: No acute intracerebral pathology. ACT 112: Negative or not required by law. Electronically signed by: Siva Faye M.D. 02/24/2021 11:48 AM Chest X-Ray 02/24/21 10:47 XR chest 1V portable CLINICAL HISTORY: weakness. Evaluate cardiopulmonary status COMPARISON STUDY: No previous studies for comparison. TECHNIQUE: 1 view of the chest FINDINGS: Single frontal view of the chest demonstrates the cardiomediastinal silhouette to be within normal limits. There is a decreased inspiratory effort with elevation of the hemidiaphragms and crowding of the bronchovascular markings at the lung bases and centrally. The lungs are clear of alveolar opacities. There is no evidence for pleural effusion. There is no evidence for vascular congestion. There is no acute osseous pathology. IMPRESSION: There is a decreased inspiratory effort with otherwise no acute chest disease. ACT 112: Negative or not required by law. Electronically signed by: Siva Faye M.D. 02/24/2021 11:[address] SCAN OF THE ABDOMEN AND PELVIS WITHOUT IV CONTRAST CLINICAL HISTORY: Liver failure. Generalized weakness. Fatigue. COMPARISON STUDY: Abdominal CT dated 11/07/2019. TECHNIQUE: CT scan of the abdomen and pelvis is performed from the lung bases to the proximal femora. Images are reviewed in the axial, sagittal, and coronal planes. IV contrast was not administered for this examination. Note that the examination was performed in suboptimal fashion without oral and IV contrast. A dose lowering technique was utilized adhering to the principles of ALARA. CT DOSE: 1115.62 mGycm FINDINGS: Lung bases: The heart is normal in size and without pericardial effusion. The coronary arteries are densely calcified. The lung bases are clear noting bibasilar scarring/atelectasis. There is a tiny hiatal hernia. Liver: The unenhanced liver is enlarged, measuring 27.6 cm in length. The liver demonstrates diffusely diminished attenuation consistent with severe hepatic st eatosis. More focal fatty infiltration is seen adjacent to the hilum. There is no intrahepatic biliary ductal dilatation. Gallbladder: The liver is filled with hyperdense material which may likely re presents gallstones and sludge. There is no CT evidence of acute cholecystitis. Spleen: The spleen is enlarged measuring 16.4 cm in length. Pancreas: Unremarkable. Adrenal glands: Unremarkable. Kidneys: The unenhanced kidneys are normal in size and without hydronephrosis. There is a punctate nonobstructing left renal calculus. No right renal calculi are identified. There is no evidence of contour deforming renal mass lesion. A circumaortic left renal vein is incidentally noted. Abdominal vasculature: The abdominal aorta is normal in course and caliber noting moderate to advanced atherosclerotic calcification. Bowel: There is mild to moderate colonic fecal retention. No bowel obstruction is seen. The appendix is well-visualized and normal. Peritoneum: There is trace perihepatic ascites. No intraperitoneal free air is seen. There is a fat-containing umbilical hernia. Lymphadenopathy: Mildly enlarged upper abdominal lymph nodes are nonspecific and likely related to chronic liver disease. A portacaval node on image #[id number] measures 2.6 cm in short axis. Gastrohepatic nodes measure up to 10 mm in short axis. Pelvic viscera: The prostate gland is diminutive and heterogeneous. The bladder is normal as visualized. Skeletal structures: No lytic or blastic lesions are seen. Soft tissues: Mild body wall edema. IMPRESSION: 1. Marked hepatomegaly and severe hepatic steatosis. 2. Splenomegaly. 3. Hyperdense material within the gallbladder likely represents stones/sludge. There is no CT evidence of acute cholecystitis. 4. Punctate nonobstructing left renal calculus. 5. Advanced coronary artery calcification. 6. Mildly enlarged upper abdominal lymph nodes are nonspecific and likely related to chronic liver disease. 7. Additional findings as above. ACT 112: Negative or not required by law. Electronically signed by: Suman Escalante M.D. 02/24/2021 2:32 PM Dictated:[id number]/[id number] Transcribed: 02/24/211424 Discharge Plan Visit Data Chief Complaint: Weakness Stated Complaint: WEAKNESS, UNABLE TO AMBULATE, SOB ED Provider: Efraín Gonzalez Discharge Problem: Alcoholic liver failure, Hypertension, Alcohol abuse, Elevated LFTs, Pancytopenia, Hyponatremia, Hypokalemia, Hypomagnesemia, Coagulopathy, Diabetes mellitus, type 2 Patient Disposition: Admitted As Inpatient Discharge Instructions Interventions: ED Discharge Assessment Last Done: 02/24/21 15:10
[2021-02-24 11:25] LABS: INR 1.6 (0.9-1.1); Partial Thromboplastin Ratio 1.3; Partial Thromboplastin Time 34.7 Seconds (21.0-31.0); Prothrombin Time 15.8 Seconds (9.0-12.0)
--- NOTE | 2021-02-24 11:49 | CT Scan Report ---
CT head/brain wo con CLINICAL HISTORY: falls, liver dysfunction COMPARISON STUDY: 11/07/2019 CT DOSE: 687.98 mGy.cm TECHNIQUE: Standard CT of the Brain was performed without IV contrast. A dose lowering technique was utilized adhering to the principles of ALARA. FINDINGS: Extraaxial space: There is no evidence for subdural hematoma. There are no extra-axial fluid collecti ons. Ventricles and cisterns: The ventricles are normal in size and configuration. There is no evidence f or midline shift or mass effect. Parenchyma: There is no subarachnoid or intraparenchymal hemorrhage. There is no evidence for an acu te infarct or cerebral edema. There is homogeneous attenuation of the brain parenchyma. There are no gross mass lesions. Osseous structures: There is no evidence for an acute fracture. The visualized paranasal sinuses are clear. The mastoid air cells are clear bilaterally. Soft tissues: There is no evidence for focal soft tissue swelling. IMPRESSION: No acute intracerebral pathology. ACT 112: Negative or not required by law. Electronically signed by: Siva Faye M.D. 02/24/2021 11:48 AM
--- NOTE | 2021-02-24 11:50 | XRay Report ---
XR chest 1V portable CLINICAL HISTORY: weakness. Evaluate cardiopulmonary status COMPARISON STUDY: No previous studies for comparison. TECHNIQUE: 1 view of the chest FINDINGS: Single frontal view of the chest demonstrates the cardiomediastinal silhouette to be within normal li mits. There is a decreased inspiratory effort with elevation of the hemidiaphragms and crowding of th e bronchovascular markings at the lung bases and centrally. The lungs are clear of alveolar opacities . There is no evidence for pleural effusion. There is no evidence for vascular congestion. There is n o acute osseous pathology. IMPRESSION: There is a decreased inspiratory effort with otherwise no acute chest disease. ACT 112: Negative or not required by law. Electronically signed by: Siva Faye M.D. 02/24/2021 11:49 AM
[2021-02-24 11:51] LABS: Mean Corpuscular Hgb Conc 35.5 g/dL (32-36)
[2021-02-24 12:15] LABS: Alanine Aminotransferase 140 U/L (12-78); Albumin Level 1.6 gm/dl (3.4-5.0); Alkaline Phosphatase 310 U/L (45-117); Aspartate Aminotransferase 298 U/L (15-37); Basophils # (auto) 0.02 K/uL (0-0.2); Basophils % (auto) 0.4 %; Bilirubin,Total 24.5 mg/dl (0.2-1); Blood Urea Nitrogen 28 mg/dl (7-18); Calcium 7.5 mg/dl (8.5-10.1); Carbon Dioxide 27 mmol/L (21-32); Chloride 81 mmol/L (98-107); Eosinophils # (auto) 0.05 K/uL (0-0.5); Eosinophils % (auto) 1.1 %; Glucose 154 mg/dl (70-99); Hematocrit (blood only) 19.7 % (42-52); Hypochromasia Present; Immature Granulocytes # (auto) 0.09 K/uL (0.00-0.02); Lymphocytes # (auto) 0.55 K/uL (1.2-3.4); Lymphocytes % (auto) 12.4 %; Magnesium 1.7 mg/dl (1.8-2.4); Mean Corpuscular Hemoglobin 33.5 pg (25-34); Mean Corpuscular Volume 94.3 fL (80-100); Mean Platelet Volume 11.9 fL (7.4-10.4); Microcytosis Present; Monocytes # (auto) 0.09 K/uL (0.11-0.59); Neutrophils # (auto) 3.65 K/uL (1.4-6.5); Neutrophils % (auto) 82.1 %; Nucleated RBC # (auto) 0.06 K/uL (0-0); Nucleated RBC % (auto) 1.3 %; Platelet Count 33 K/uL (130-400); Platelet Estimate SIGNIFIC DECREASED (Normal); Polychromasia 1+; Potassium 2.8 mmol/L (3.5-5.1); RDW Standard Deviation 50.9 fL (36.4-46.3); Red Blood Count 2.09 M/uL (4.7-6.1); Schistocytes 1+; Sodium 120 mmol/L (136-145); Spherocytes 1+; Troponin I < 0.015 ng/ml (0-0.045); White Blood Count 4.45 K/uL (4.8-10.8)
[2021-02-24] MEDS ORDERED: MAGNESIUM SULFATE / D5W 1 GM/100 ML BAG IV ONE (13:55)
--- NOTE | 2021-02-24 14:09 | History & Physical Report ---
Date of Service February 24, 2021 Assessment & Plan (1) Coagulopathy: (2) Elevated LFTs: Plan: -Admit to telemetry -Patient presenting from home with reports of generalized weakness and falls x 1 month -Patient with a longstanding history of alcohol abuse, last drink about 1 month ago -In the ED, found to have severe transaminitis with T bili 24.5, AST 298, ALT 140, alk phos 310. INR 1.6. -Suspect decompensation due to alcoholic cirrhosis, CT ABD/pelvis negative for obstructive causes. Check MRCP for further investigation. -Does not appear encephalopathic. Abdomen is distended but soft, no obvious ascites. -Hepatitis panel -DF score 42, per GI would hold on steroids until all infectious causes have been ruled out. Consider starting NAC. -GI consult, case discussed with Leeann MCDERMOTT (3) Hyponatremia: Plan: -Na+ 120 -Likely chronic/due to underlying liver disease -Patient reports drinking a large amount of water recently -will trial fluid restriction -Check urine and serum osmolality -Serial BMP -Nephrology consult (4) Anemia: (5) Thrombocytopenia: Plan: -Hgb 7.0, platelet 33K -Likely due to underlying liver disease, no obvious signs of bleeding. Does have scattered petechiae. -Would not transfuse unless Hgb <7.0 or symptomatic/bleeding (6) Alcohol abuse: Plan: -Patient reports longstanding history of alcohol abuse, last drink 1 month ago -Alcohol withdrawal protocol w/ prn Ativan for now (7) GERD (gastroesophageal reflux disease): Plan: -Patient reports increased reflux symptoms -will start PPI (8) Hypokalemia: (9) Hypomagnesemia: Plan: -Replace, follow electrolytes (10) DVT prophylaxis: Plan: -SCDs due to anemia, thrombocytopenia History of Present Illness Chief Complaint: Generalized weakness Primary Care Provider: Robbi Osorio MD 60-year-old male with PMH bipolar disorder, alcohol abuse, history of colostomy s/p reversal and other problems to below who presents to the ED for evaluation of generalized weakness. Patient reports that he has not felt well for the past 1 month. He has had progressive generalized weakness and has had a few falls. He has been lightheaded and dizzy however no syncopal event. Patient reports not drinking alcohol for the past 1 month, previously was drinking a half a bottle of vodka per day. Patient reports a longstanding history of alcohol abuse. Patient denies chest pain and shortness of breath. He has had a very poor appetite and reports increased reflux symptoms. No vomiting. Denies abdom inal pain or worsening abdominal distention. Patient is unsure of change in color stool. Reports urine has been brown. Denies dysuria. No fevers or chills. Patient is severely jaundiced however reports that he has not noticed. In the ED, labs show Hgb 7.0, platelets 33K, INR 1.6, sodium 120, K+ 2.8, transaminitis with total bilirubin 24.5, AST 298, ALT 140, alk phos 310. Alcohol level negative. Head CT negative for acute findings. Allergies Allergy/AdvReac Type Severity Reaction Status Date / Time esomeprazole [From Nexium] AdvReac Unknown RINGING IN Verified 02/24/21 12:34 EARS losartan AdvReac Unknown CONFUSED Verified 02/24/21 12:34 ,CHEST PAIN metformin AdvReac Unknown TONGUE Verified 02/24/21 12:34 SWELLING-PER MEDICAL RECORD omeprazole AdvReac Unknown RINGING IN Verified 02/24/21 12:34 EARS pantoprazole AdvReac Unknown RINGING IN Verified 02/24/21 12:34 EARS ranitidine AdvReac Unknown RINGING IN Verified 02/24/21 12:34 EARS Home Medications Medication Instructions Recorded Confirmed Type quetiapine 400 mg tablet (Seroquel) 400 mg PO HS 09/20/18 02/24/21 History Past Med/Surg History Medical History Depression Diabetes mellitus, type 2 DIET MANAGED-TAKEn OFF MEDS GERD (gastroesophageal reflux disease) Hypertension UNDER CONTROL-NO MEDS CURRENTLY Sleep apnea CPAP Spontaneous hematoma of abdominal wall Surgical History History of bowel resection WITH COLOSTOMY-AND REVERSED History of open reduction and internal fixation (ORIF) procedure LEFT ANKLE Family History Mother Pancreatic cancer Father Coronary heart disease CHF (congestive heart failure) AAA (abdominal aortic aneurysm) Social History Smoking Status: Never smoker Tobacco Type: Cigarettes Second Hand Exposure: No; Hx Alcohol Use: Yes Alcohol type: beer Alcohol Intake Frequency: 4 or More x per/Week Alcohol Intake Frequency Comment: 12 beers daily Hx Substance Use: Yes Last Used Substance Other:: 10-15 years ago Preferred Language: Martiniquais 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 Ability: Effective 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 Beliefs That Will Affect Care: None marital status: Single Current Living Situation: Alone current occupational status: unemployed Feels Safe at Home: Yes Assistive Devices: Brace/Splint/Immobilizer Review of Systems Review of Systems: ROS per HPI, all other systems reviewed and negative Physical Exam Constitutional: WD/WN, vitals as above + ill appearing; no acute distress Eyes: PERRL; no conjunctival abnormality Sclera icteric ENMT: external ear and nose normal, oropharynx normal Respiratory: normal respiratory effort, lungs clear to auscultation Cardiovascular: Rate/Rhythm: regular rate and regular rhythm Vessels: normal peripheral pulses Extremities: no edema Gastrointestinal (Abdomen): Inspection/Auscultation: + abdomen distended Percussion/Palpation: abdomen soft; abdomen nontender and no hepatosplenomegaly Musculoskeletal: no cyanosis or clubbing, extremities motor strength 5/5 Skin: no rashes, warm and dry + jaundice (Severe) Scattered petechiae; abrasions noted to left elbow and right knee Neurologic: PERRL, EOMI, accommodation nl, no face palsy, no dysarthria Psychiatric: Orientation: alert and oriented x 3 Affect: + depressed affect Results & Data Results & Data ([facility]) Vital Signs (Past 12 Hours) Vital Signs Temp Pulse Pulse Resp BP BP Pulse Ox 02/24/21 12:48 83 22 132/79 95 02/24/21 10:50 37.0 C 87 18 107/62 97 02/24/21 10:48 84 20 107/62 96 02/24/21 10:47 83 20 96 Laboratory Results Short CBC 02/24/21 02/24/21 02/24/21 Range/Units 11:00 11:00 11:00 WBC (4.8-10.8) K/uL RBC (4.7-6.1) M/uL Hgb (14.0-18.0) g/dL Hct (42-52) % MCV (80-100) fL MCH (25-34) pg MCHC (32-36) g/dL RDW Std Deviation (36.4-46.3) fL RDW Coeff of Brigida (11.5-14.5) % Plt Count (130-400) K/uL MPV (7.4-10.4) fL Immature Gran % (Auto) % Neut % (Auto) % Lymph % (Auto) % [place] % (Auto) % Eos % (Auto) % Baso % (Auto) % Neut # (Auto) (1.4-6.5) K/uL Lymph # (Auto) (1.2-3.4) K/uL [place] # (Auto) (0.11-0.59) K/uL Eos # (Auto) (0-0.5) K/uL Baso # (Auto) (0-0.2) K/uL Immature Gran # (Auto) (0.00-0.02) K/uL Absolute Nucleated RBC (0-0) K/uL Nucleated RBC % (auto) % Platelet Estimate (Normal) Polychromasia Hypochromasia Microcytosis Spherocytes Schistocytes PT (9.0-12.0) Seconds INR (0.9-1.1) APTT (21.0-31.0) Seconds PTT Ratio Sodium 120 L (136-145) mmol/L Potassium 2.8 L (3.5-5.1) mmol/L Chloride 81 L (98-107) mmol/L Carbon Dioxide 27 (21-32) mmol/L Anion Gap 12.0 H (3-11) BUN 28 H (7-18) mg/dl Creatinine (0.6-1.4) mg/dl Est Cr Clr Drug Dosing Not Reportable Est GFR ( Amer) Not Reportable Est GFR (Non-Af Amer) Not Reportable BUN/Creatinine Ratio Not Reportable Glucose 154 H (70-99) mg/dl Calcium 7.5 L (8.5-10.1) mg/dl Magnesium 1.7 L (1.8-2.4) mg/dl Total Bilirubin 24.5 H (0.2-1) mg/dl AST 298 H (15-37) U/L ALT 140 H (12-78) U/L Alkaline Phosphatase 310 H (45-117) U/L Ammonia 24.0 (11-32) umol/L Troponin I < 0.015 (0-0.045) ng/ml Total Protein (6.4-8.2) gm/dl Albumin 1.6 L (3.4-5.0) gm/dl Globulin Not Reportable Albumin/Globulin Ratio Not Reportable Lipase (73-393) U/L TSH 5.680 H (0.300-4.500) uIu/ml Free T4 0.70 L (0.8-1.6) ng/dl Acetaminophen Ethyl Alcohol mg/dL (0-3) mg/dl SARS-CoV-2, RNA, NAAT (NEGATIVE) Blood Type O Positive Antibody Screen NEGATIVE 02/24/21 02/24/21 02/24/21 Range/Units 11:00 11:00 11:00 WBC 4.45 L (4.8-10.8) K/uL RBC 2.09 L (4.7-6.1) M/uL Hgb 7.0 L (14.0-18.0) g/dL Hct 19.7 L* (42-52) % MCV 94.3 (80-100) fL MCH 33.5 (25-34) pg MCHC 35.5 (32-36) g/dL RDW Std Deviation 50.9 H (36.4-46.3) fL RDW Coeff of Brigida 15.0 H (11.5-14.5) % Plt Count 33 L (130-400) K/uL MPV 11.9 H (7.4-10.4) fL Immature Gran % (Auto) 2.0 % Neut % (Auto) 82.1 % Lymph % (Auto) 12.4 % [place] % (Auto) 2.0 % Eos % (Auto) 1.1 % Baso % (Auto) 0.4 % Neut # (Auto) 3.65 (1.4-6.5) K/uL Lymph # (Auto) 0.55 L (1.2-3.4) K/uL [place] # (Auto) 0.09 L (0.11-0.59) K/uL Eos # (Auto) 0.05 (0-0.5) K/uL Baso # (Auto) 0.02 (0-0.2) K/uL Immature Gran # (Auto) 0.09 H (0.00-0.02) K/uL Absolute Nucleated RBC 0.06 H (0-0) K/uL Nucleated RBC % (auto) 1.3 % Platelet Estimate SIGNIFIC DECREASED (Normal) Polychromasia 1+ Hypochromasia Present Microcytosis Present Spherocytes 1+ Schistocytes 1+ PT 15.8 H (9.0-12.0) Seconds INR 1.6 H (0.9-1.1) APTT 34.7 H (21.0-31.0) Seconds PTT Ratio 1.3 Sodium (136-145) mmol/L Potassium (3.5-5.1) mmol/L Chloride (98-107) mmol/L Carbon Dioxide (21-32) mmol/L Anion Gap (3-11) BUN (7-18) mg/dl Creatinine (0.6-1.4) mg/dl Est Cr Clr Drug Dosing Est GFR ( Amer) Est GFR (Non-Af Amer) BUN/Creatinine Ratio Glucose (70-99) mg/dl Calcium (8.5-10.1) mg/dl Magnesium (1.8-2.4) mg/dl Total Bilirubin (0.2-1) mg/dl AST (15-37) U/L ALT (12-78) U/L Alkaline Phosphatase (45-117) U/L Ammonia (11-32) umol/L Troponin I (0-0.045) ng/ml Total Protein (6.4-8.2) gm/dl Albumin (3.4-5.0) gm/dl Globulin Albumin/Globulin Ratio Lipase 239 (73-393) U/L TSH (0.300-4.500) uIu/ml Free T4 (0.8-1.6) ng/dl Acetaminophen Ethyl Alcohol mg/dL (0-3) mg/dl SARS-CoV-2, RNA, NAAT (NEGATIVE) Blood Type Antibody Screen 02/24/21 02/24/21 02/24/21 Range/Units 12:05 12:50 12:50 WBC (4.8-10.8) K/uL RBC (4.7-6.1) M/uL Hgb (14.0-18.0) g/dL Hct (42-52) % MCV (80-100) fL MCH (25-34) pg MCHC (32-36) g/dL RDW Std Deviation (36.4-46.3) fL RDW Coeff of Brigida (11.5-14.5) % Plt Count (130-400) K/uL MPV (7.4-10.4) fL Immature Gran % (Auto) % Neut % (Auto) % Lymph % (Auto) % [place] % (Auto) % Eos % (Auto) % Baso % (Auto) % Neut # (Auto) (1.4-6.5) K/uL Lymph # (Auto) (1.2-3.4) K/uL [place] # (Auto) (0.11-0.59) K/uL Eos # (Auto) (0-0.5) K/uL Baso # (Auto) (0-0.2) K/uL Immature Gran # (Auto) (0.00-0.02) K/uL Absolute Nucleated RBC (0-0) K/uL Nucleated RBC % (auto) % Platelet Estimate (Normal) Polychromasia Hypochromasia Microcytosis Spherocytes Schistocytes PT (9.0-12.0) Seconds INR (0.9-1.1) APTT (21.0-31.0) Seconds PTT Ratio Sodium (136-145) mmol/L Potassium (3.5-5.1) mmol/L Chloride (98-107) mmol/L Carbon Dioxide (21-32) mmol/L Anion Gap (3-11) BUN (7-18) mg/dl Creatinine (0.6-1.4) mg/dl Est Cr Clr Drug Dosing Est GFR ( Amer) Est GFR (Non-Af Amer) BUN/Creatinine Ratio Glucose (70-99) mg/dl Calcium (8.5-10.1) mg/dl Magnesium (1.8-2.4) mg/dl Total Bilirubin (0.2-1) mg/dl AST (15-37) U/L ALT (12-78) U/L Alkaline Phosphatase (45-117) U/L Ammonia (11-32) umol/L Troponin I (0-0.045) ng/ml Total Protein (6.4-8.2) gm/dl Albumin (3.4-5.0) gm/dl Globulin Albumin/Globulin Ratio Lipase (73-393) U/L TSH (0.300-4.500) uIu/ml Free T4 (0.8-1.6) ng/dl Acetaminophen Cancelled Ethyl Alcohol mg/dL < 3.0 (0-3) mg/dl SARS-CoV-2, RNA, NAAT NEGATIVE (NEGATIVE) Blood Type Antibody Screen [facility] 02/24/21 11:00 Sodium 120 L Potassium 2.8 L Chloride 81 L Carbon Dioxide 27 BUN 28 H Creatinine Glucose 154 H Calcium 7.5 L Cardiac Enzymes 02/24/21 Range/Units 11:00 Troponin I < 0.015 (0-0.045) ng/ml Liver Function 02/24/21 Range/Units 11:00 Total Bilirubin 24.5 H (0.2-1) mg/dl AST 298 H (15-37) U/L ALT 140 H (12-78) U/L Alkaline Phosphatase 310 H (45-117) U/L Albumin 1.6 L (3.4-5.0) gm/dl Diagnostic Findings Head CT 02/24/21 10:46 CT head/brain wo con CLINICAL HISTORY: falls, liver dysfunction COMPARISON STUDY: 11/07/2019 CT DOSE: 687.98 mGy.cm TECHNIQUE: Standard CT of the Brain was performed without IV contrast. A dose lowering technique was utilized adhering to the principles of ALARA. FINDINGS: Extraaxial space: There is no evidence for subdural hematoma. There are no ext ra-axial fluid collections. Ventricles and cisterns: The ventricles are normal in size and configuration. There is no evidence for midline shift or mass effect. Parenchyma: There is no subarachnoid or intraparenchymal hemorrhage. There is no evidence for an acute infarct or cerebral edema. There is homogeneous attenuation of the brain parenchyma. There are no gross mass lesions. Osseous structures: There is no evidence for an acute fracture. The visualized paranasal sinuses are clear. The mastoid air cells are clear bilaterally. Soft tissues: There is no evidence for focal soft tissue swelling. IMPRESSION: No acute intracerebral pathology. ACT 112: Negative or not required by law. Electronically signed by: Siva Faye M.D. 02/24/2021 11:48 AM Chest X-Ray 02/24/21 10:47 XR chest 1V portable CLINICAL HISTORY: weakness. Evaluate cardiopulmonary status COMPARISON STUDY: No previous studies for comparison. TECHNIQUE: 1 view of the chest FINDINGS: Single frontal view of the chest demonstrates the cardiomediastinal silhouette to be within normal limits. There is a decreased inspiratory effort with elevation of the hemidiaphragms and crowding of the bronchovascular markings at the lung bases and centrally. The lungs are clear of alveolar opacities. There is no evidence for pleural effusion. There is no evidence for vascular congestion. There is no acute osseous pathology. IMPRESSION: There is a decreased inspiratory effort with otherwise no acute chest disease. ACT 112: Negative or not required by law. Electronically signed by: Siva Faye M.D. 02/24/2021 11:49 AM Code Status & VTE Plan Code Status Patient is a DNR as per my discussion with him. VTE Prophylaxis Plan VTE Prophylaxis will be ordered: Yes Supervising Physician Co-Signing Physician Notes Attending addendum: The patient was seen and examined in the emergency room He is a 60-year-old obese patient with history of alcoholism, bipolar disorder and type 2 diabetes was brought into the emergency room with increasing weakness for the last month Apparently he is a heavy drinker and quit drinking for the last 1 month to Noted to be very jaundiced in the emergency room with a bilirubin of 24 He denies any fever and no chills, any nausea or vomiting and does not have any significant swelling of the legs On examination He has yellow discoloration of the whole body Hemodynamically stable Chestclear to auscultate bilaterally HeartS1, S2 regular Abdomendistended, tympanic, nontender, soft and bowel sounds present Extremities-trace edema bilaterally 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 Generally weak but no focal neuro deficit His admission labs, EKG and imaging studies reviewed Has obstructive liver disease likely secondary to cirrhosis due to heavy alcoholism Hyponatremia likely dilutional Pancytopenia with thrombocytopenia secondary to cirrhosis GI has been consulted Agree with assessment and plan as outlined above by Cristiana Vasques (1) Anemia Anemia type: unspecified type Qualified Code(s): D64.9 - Anemia, unspecified
--- NOTE | 2021-02-24 14:34 | Electrocardiogram Report ---
Test Reason : Blood Pressure : / mmHG Vent. Rate : 085 BPM Atrial Rate : 085 BPM P-R Int : 162 ms QRS Dur : 108 ms QT Int : 394 ms P-R-T Axes : 041 004 010 degrees QTc Int : 468 ms Sinus rhythm with Premature atrial complexes with Aberrant conduction Nonspecific T wave abnormality Prolonged QT Abnormal ECG When compared with ECG of 07-NOV-2019 10:10, Aberrant conduction is now Present Nonspecific T wave abnormality now evident in Inferior leads Nonspecific T wave abnormality, worse in Lateral leads Confirmed by Oniel Cornejo ([id number]) on 02/24/2021 2:34:16 PM Referred By: Confirmed By:Dontae Cornejo
--- NOTE | 2021-02-24 14:34 | CT Scan Report ---
CT SCAN OF THE ABDOMEN AND PELVIS WITHOUT IV CONTRAST CLINICAL HISTORY: Liver failure. Generalized weakness. Fatigue. COMPARISON STUDY: Abdominal CT dated 11/07/2019. TECHNIQUE: CT scan of the abdomen and pelvis is performed from the lung bases to the proximal femora. Images are reviewed in the axial, sagittal, and coronal planes. IV contrast was not administered for this examination. Note that the examination was performed in suboptimal fashion without oral and IV contrast. A dose lowering technique was utilized adhering to the principles of ALARA. CT DOSE: 1115.62 mGycm FINDINGS: Lung bases: The heart is normal in size and without pericardial effusion. The coronary arteries are d ensely calcified. The lung bases are clear noting bibasilar scarring/atelectasis. There is a tiny hia shay hernia. Liver: The unenhanced liver is enlarged, measuring 27.6 cm in length. The liver demonstrates diffusel y diminished attenuation consistent with severe hepatic steatosis. More focal fatty infiltration is s een adjacent to the hilum. There is no intrahepatic biliary ductal dilatation. Gallbladder: The liver is filled with hyperdense material which may likely represents gallstones and sludge. There is no CT evidence of acute cholecystitis. Spleen: The spleen is enlarged measuring 16.4 cm in length. Pancreas: Unremarkable. Adrenal glands: Unremarkable. Kidneys: The unenhanced kidneys are normal in size and without hydronephrosis. There is a punctate no nobstructing left renal calculus. No right renal calculi are identified. There is no evidence of cont our deforming renal mass lesion. A circumaortic left renal vein is incidentally noted. Abdominal vasculature: The abdominal aorta is normal in course and caliber noting moderate to advance d atherosclerotic calcification. Bowel: There is mild to moderate colonic fecal retention. No bowel obstruction is seen. The appendix is well-visualized and normal. Peritoneum: There is trace perihepatic ascites. No intraperitoneal free air is seen. There is a fat-c ontaining umbilical hernia. Lymphadenopathy: Mildly enlarged upper abdominal lymph nodes are nonspecific and likely related to ch ronic liver disease. A portacaval node on image #[id number] measures 2.6 cm in short axis. Gastrohepatic nod es measure up to 10 mm in short axis. Pelvic viscera: The prostate gland is diminutive and heterogeneous. The bladder is normal as visualiz ed. Skeletal structures: No lytic or blastic lesions are seen. Soft tissues: Mild body wall edema. IMPRESSION: 1. Marked hepatomegaly and severe hepatic steatosis. 2. Splenomegaly. 3. Hyperdense material within the gallbladder likely represents stones/sludge. There is no CT evidenc e of acute cholecystitis. 4. Punctate nonobstructing left renal calculus. 5. Advanced coronary artery calcification. 6. Mildly enlarged upper abdominal lymph nodes are nonspecific and likely related to chronic liver di sease. 7. Additional findings as above. ACT 112: Negative or not required by law. Electronically signed by: Suman Escalante M.D. 02/24/2021 2:32 PM
--- NOTE | 2021-02-24 15:04 | Gastrointestinal Consultation ---
Date of Consultation February 24, 2021 Assessment & Plan (1) Elevated LFTs: 60 year old male admitted w/ painless jaundice and weakness - Elevated LFTs - ETOH level neg - Send Tylenol level - Acute hep panel, CMV, EBV, GREG, AMA, ASMA - CTAP reviewed - MRCP recommended - Clinical concern for decompensated cirrhosis vs ETOH hep - HX etoh abuse, none in 1 month - OP records with normal LFTS, no reported history of cirrhosis - Would hold on steroids at this point - Infectious workup including blood cultures - Ok to use NAC - Trend MELD labs - If rising INR or clancy in mental status, concern transfer to tertiary care center given etiology of hepatic impairement unknown at this time - This was discussed with patient who notes he is unsure how aggressive he wants to be if his hepatic disease progresses Thank you for allowing us to participate in the care of this patient. Please call with any acute changes, questions or concerns. Please see addendum below with additional recommendation from my supervising physician. Supervising Physician Co-Signing Physician Notes Late entry: Patient was seen and examine don 02/24 with SHARRON Bolden whose note reflects our findings and plan. History of Present Illness Reason for Consultation: jaundice Requesting Physician: Layo Attending Physician: Baljeet Vasques MD History of Present Illness 60 year old male with history of dyslipidemia, Perez's, HTN, DM and others below presenting to the ED with weakness - GI asked to evaluation for jaundice. Pt was seen and evaluated in the ED. Chart reviewed. Notes that he has been using ETOH heavily for about 6 months. He suggests he started using ETOH after the of his dog. Suggests this was about 1/2 liter of liquor daily. Stopped using alcohol 1 month ago because he was feeling weak and dizzy. About 2 weeks ago started to notice dark urine and decreased appetite. No abd pain. No nausea, No vomiting. Bad GERD. Denies black or bloody stools. No fever, chills, CP, SOB. No ETOH in 1 month No herbals No new meds Denies other drug use Vitals stable PLT 33 INR 1.6 LFTs in 2019 WNL Now w/ TB 24, AST, 298, ALT 140, ALKP 310 Lipase WNL ETOH level negative CTAP reviewed. Hepatosplenomegaly. Fatty liver. Gallstones. Constipation. EGD 2019: Z-line regular, 40 cm from the incisors. - Normal esophagus. - Gastritis. - Normal duodenal bulb and second portion of the duodenum. - The ANDERSON pH capsule was positioned 34 cm from the incisors, which was 6 cm proximal to the GE junction. - No specimens collected EUS 2018: There was no sign of significant pathology in the entire pancreas. - There was no sign of significant pathology in the common bile duct. - The celiac trunk was endosonographically normal. - Hyperechoic material consistent with sludge was visualized endosonographically in the gallbladder body. - There was no evidence of significant pathology in the left lobe of the liver. - No specimens collected.: Allergies Allergy/AdvReac Type Severity Reaction Status Date / Time esomeprazole [From Nexium] AdvReac Unknown RINGING IN Verified 02/24/21 12:34 EARS losartan AdvReac Unknown CONFUSED Verified 02/24/21 12:34 ,CHEST PAIN metformin AdvReac Unknown TONGUE Verified 02/24/21 12:34 SWELLING-PER MEDICAL RECORD omeprazole AdvReac Unknown RINGING IN Verified 02/24/21 12:34 EARS pantoprazole AdvReac Unknown RINGING IN Verified 02/25/21 06:09 EARS ranitidine AdvReac Unknown RINGING IN Verified 02/24/21 12:34 EARS Home Medications Medication Instructions Recorded Confirmed Type quetiapine 400 mg tablet (Seroquel) 400 mg PO HS 09/20/18 02/24/21 History Patient History Medical History Depression Diabetes mellitus, type 2 DIET MANAGED-TAKEn OFF MEDS GERD (gastroesophageal reflux disease) Hypertension UNDER CONTROL-NO MEDS CURRENTLY Sleep apnea CPAP Spontaneous hematoma of abdominal wall Surgical History History of bowel resection WITH COLOSTOMY-AND REVERSED History of open reduction and internal fixation (ORIF) procedure LEFT ANKLE Family History Mother Pancreatic cancer Father Coronary heart disease CHF (congestive heart failure) AAA (abdominal aortic aneurysm) Social History Smoking Status: Former smoker Tobacco Type: Cigarettes Second Hand Exposure: No; Hx Alcohol Use: Yes Alcohol type: beer and hard liquor Alcohol Intake Frequency: 4 or More x per/Week Alcohol Intake Frequency Comment: 12 beers daily Hx Substance Use: Yes Last Used Substance Other:: 10-15 years ago Preferred Language: Kiswahili 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 Ability: Effective Rec Therapist Required: No Beliefs That Will Affect Care: None marital status: Single Current Living Situation: Alone current occupational status: unemployed Feels Safe at Home: Yes Safety Concerns: Feels Safe At This Time Assistive Devices: Walker Review of Systems Review of Systems: All systems reviewed & are unremarkable except as noted in HPI & below Physical Exam Constitutional: WD/WN, vitals as above Eyes: + scleral icterus Respiratory: normal respiratory effort, lungs clear to auscultation Cardiovascular: Rate/Rhythm: regular rate and regular rhythm Gastrointestinal (Abdomen): normal bowel sounds, soft, nontender, no hepatosplenomegaly Skin: + jaundice Results & Data ([facility]) Vital Signs (Past 12 Hours) Vital Signs Temp Pulse Pulse Resp BP BP Pulse Ox 02/24/21 12:48 83 22 132/79 95 02/24/21 10:50 37.0 C 87 18 107/62 97 02/24/21 10:48 84 20 107/62 96 02/24/21 10:47 83 20 96 Laboratory Results 02/24/21 02/24/21 02/24/21 Range/Units 12:50 12:50 12:50 WBC (4.8-10.8) K/uL RBC (4.7-6.1) M/uL Hgb (14.0-18.0) g/dL Hct (42-52) % MCV (80-100) fL MCH (25-34) pg MCHC (32-36) g/dL RDW Std Deviation (36.4-46.3) fL RDW Coeff of Brigida (11.5-14.5) % Plt Count (130-400) K/uL MPV (7.4-10.4) fL Immature Gran % (Auto) % Neut % (Auto) % Lymph % (Auto) % Talbot % (Auto) % Eos % (Auto) % Baso % (Auto) % Neut # (Auto) (1.4-6.5) K/uL Lymph # (Auto) (1.2-3.4) K/uL Talbot # (Auto) (0.11-0.59) K/uL Eos # (Auto) (0-0.5) K/uL Baso # (Auto) (0-0.2) K/uL Immature Gran # (Auto) (0.00-0.02) K/uL Absolute Nucleated RBC (0-0) K/uL Nucleated RBC % (auto) % Platelet Estimate (Normal) Polychromasia Hypochromasia Microcytosis Spherocytes Schistocytes PT (9.0-12.0) Seconds INR (0.9-1.1) APTT (21.0-31.0) Seconds PTT Ratio Sodium (136-145) mmol/L Potassium (3.5-5.1) mmol/L Chloride (98-107) mmol/L Carbon Dioxide (21-32) mmol/L Anion Gap (3-11) BUN (7-18) mg/dl Creatinine (0.6-1.4) mg/dl Est Cr Clr Drug Dosing Est GFR ( Amer) Est GFR (Non-Af Amer) BUN/Creatinine Ratio Glucose (70-99) mg/dl Calcium (8.5-10.1) mg/dl Magnesium (1.8-2.4) mg/dl Total Bilirubin (0.2-1) mg/dl AST (15-37) U/L ALT (12-78) U/L Alkaline Phosphatase (45-117) U/L Ammonia (11-32) umol/L Troponin I (0-0.045) ng/ml Total Protein (6.4-8.2) gm/dl Albumin (3.4-5.0) gm/dl Globulin Albumin/Globulin Ratio Lipase (73-393) U/L TSH (0.300-4.500) uIu/ml Free T4 (0.8-1.6) ng/dl Acetaminophen Cancelled Ethyl Alcohol mg/dL < 3.0 (0-3) mg/dl SARS-CoV-2, RNA, NAAT (NEGATIVE) Miscellaneous Test Pending Miscellaneous Test 2 Blood Type Antibody Screen 02/24/21 02/24/21 02/24/21 Range/Units 12:05 11:00 11:00 WBC (4.8-10.8) K/uL RBC (4.7-6.1) M/uL Hgb (14.0-18.0) g/dL Hct (42-52) % MCV (80-100) fL MCH (25-34) pg MCHC (32-36) g/dL RDW Std Deviation (36.4-46.3) fL RDW Coeff of Brigida (11.5-14.5) % Plt Count (130-400) K/uL MPV (7.4-10.4) fL Immature Gran % (Auto) % Neut % (Auto) % Lymph % (Auto) % Talbot % (Auto) % Eos % (Auto) % Baso % (Auto) % Neut # (Auto) (1.4-6.5) K/uL Lymph # (Auto) (1.2-3.4) K/uL Talbot # (Auto) (0.11-0.59) K/uL Eos # (Auto) (0-0.5) K/uL Baso # (Auto) (0-0.2) K/uL Immature Gran # (Auto) (0.00-0.02) K/uL Absolute Nucleated RBC (0-0) K/uL Nucleated RBC % (auto) % Platelet Estimate (Normal) Polychromasia Hypochromasia Microcytosis Spherocytes Schistocytes PT (9.0-12.0) Seconds INR (0.9-1.1) APTT (21.0-31.0) Seconds PTT Ratio Sodium (136-145) mmol/L Potassium (3.5-5.1) mmol/L Chloride (98-107) mmol/L Carbon Dioxide (21-32) mmol/L Anion Gap (3-11) BUN (7-18) mg/dl Creatinine (0.6-1.4) mg/dl Est Cr Clr Drug Dosing Est GFR ( Amer) Est GFR (Non-Af Amer) BUN/Creatinine Ratio Glucose (70-99) mg/dl Calcium (8.5-10.1) mg/dl Magnesium (1.8-2.4) mg/dl Total Bilirubin (0.2-1) mg/dl AST (15-37) U/L ALT (12-78) U/L Alkaline Phosphatase (45-117) U/L Ammonia (11-32) umol/L Troponin I (0-0.045) ng/ml Total Protein (6.4-8.2) gm/dl Albumin (3.4-5.0) gm/dl Globulin Albumin/Globulin Ratio Lipase 239 (73-393) U/L TSH (0.300-4.500) uIu/ml Free T4 (0.8-1.6) ng/dl Acetaminophen Ethyl Alcohol mg/dL (0-3) mg/dl SARS-CoV-2, RNA, NAAT NEGATIVE (NEGATIVE) Miscellaneous Test Pending Miscellaneous Test 2 Pending Blood Type Antibody Screen 02/24/21 02/24/21 02/24/21 Range/Units 11:00 11:00 11:00 WBC 4.45 L (4.8-10.8) K/uL RBC 2.09 L (4.7-6.1) M/uL Hgb 7.0 L (14.0-18.0) g/dL Hct 19.7 L* (42-52) % MCV 94.3 (80-100) fL MCH 33.5 (25-34) pg MCHC 35.5 (32-36) g/dL RDW Std Deviation 50.9 H (36.4-46.3) fL RDW Coeff of Brigida 15.0 H (11.5-14.5) % Plt Count 33 L (130-400) K/uL MPV 11.9 H (7.4-10.4) fL Immature Gran % (Auto) 2.0 % Neut % (Auto) 82.1 % Lymph % (Auto) 12.4 % Talbot % (Auto) 2.0 % Eos % (Auto) 1.1 % Baso % (Auto) 0.4 % Neut # (Auto) 3.65 (1.4-6.5) K/uL Lymph # (Auto) 0.55 L (1.2-3.4) K/uL Talbot # (Auto) 0.09 L (0.11-0.59) K/uL Eos # (Auto) 0.05 (0-0.5) K/uL Baso # (Auto) 0.02 (0-0.2) K/uL Immature Gran # (Auto) 0.09 H (0.00-0.02) K/uL Absolute Nucleated RBC 0.06 H (0-0) K/uL Nucleated RBC % (auto) 1.3 % Platelet Estimate SIGNIFIC DECREASED (Normal) Polychromasia 1+ Hypochromasia Present Microcytosis Present Spherocytes 1+ Schistocytes 1+ PT 15.8 H (9.0-12.0) Seconds INR 1.6 H (0.9-1.1) APTT 34.7 H (21.0-31.0) Seconds PTT Ratio 1.3 Sodium (136-145) mmol/L Potassium (3.5-5.1) mmol/L Chloride (98-107) mmol/L Carbon Dioxide (21-32) mmol/L Anion Gap (3-11) BUN (7-18) mg/dl Creatinine (0.6-1.4) mg/dl Est Cr Clr Drug Dosing Est GFR ( Amer) Est GFR (Non-Af Amer) BUN/Creatinine Ratio Glucose (70-99) mg/dl Calcium (8.5-10.1) mg/dl Magnesium (1.8-2.4) mg/dl Total Bilirubin (0.2-1) mg/dl AST (15-37) U/L ALT (12-78) U/L Alkaline Phosphatase (45-117) U/L Ammonia 24.0 (11-32) umol/L Troponin I (0-0.045) ng/ml Total Protein (6.4-8.2) gm/dl Albumin (3.4-5.0) gm/dl Globulin Albumin/Globulin Ratio Lipase (73-393) U/L TSH (0.300-4.500) uIu/ml Free T4 (0.8-1.6) ng/dl Acetaminophen Ethyl Alcohol mg/dL (0-3) mg/dl SARS-CoV-2, RNA, NAAT (NEGATIVE) Miscellaneous Test Miscellaneous Test 2 Blood Type Antibody Screen 02/24/21 02/24/21 Range/Units 11:00 11:00 WBC (4.8-10.8) K/uL RBC (4.7-6.1) M/uL Hgb (14.0-18.0) g/dL Hct (42-52) % MCV (80-100) fL MCH (25-34) pg MCHC (32-36) g/dL RDW Std Deviation (36.4-46.3) fL RDW Coeff of Brigida (11.5-14.5) % Plt Count (130-400) K/uL MPV (7.4-10.4) fL Immature Gran % (Auto) % Neut % (Auto) % Lymph % (Auto) % Talbot % (Auto) % Eos % (Auto) % Baso % (Auto) % Neut # (Auto) (1.4-6.5) K/uL Lymph # (Auto) (1.2-3.4) K/uL Talbot # (Auto) (0.11-0.59) K/uL Eos # (Auto) (0-0.5) K/uL Baso # (Auto) (0-0.2) K/uL Immature Gran # (Auto) (0.00-0.02) K/uL Absolute Nucleated RBC (0-0) K/uL Nucleated RBC % (auto) % Platelet Estimate (Normal) Polychromasia Hypochromasia Microcytosis Spherocytes Schistocytes PT (9.0-12.0) Seconds INR (0.9-1.1) APTT (21.0-31.0) Seconds PTT Ratio Sodium 120 L (136-145) mmol/L Potassium 2.8 L (3.5-5.1) mmol/L Chloride 81 L (98-107) mmol/L Carbon Dioxide 27 (21-32) mmol/L Anion Gap 12.0 H (3-11) BUN 28 H (7-18) mg/dl Creatinine (0.6-1.4) mg/dl Est Cr Clr Drug Dosing Not Reportable Est GFR ( Amer) Not Reportable Est GFR (Non-Af Amer) Not Reportable BUN/Creatinine Ratio Not Reportable Glucose 154 H (70-99) mg/dl Calcium 7.5 L (8.5-10.1) mg/dl Magnesium 1.7 L (1.8-2.4) mg/dl Total Bilirubin 24.5 H (0.2-1) mg/dl AST 298 H (15-37) U/L ALT 140 H (12-78) U/L Alkaline Phosphatase 310 H (45-117) U/L Ammonia (11-32) umol/L Troponin I < 0.015 (0-0.045) ng/ml Total Protein (6.4-8.2) gm/dl Albumin 1.6 L (3.4-5.0) gm/dl Globulin Not Reportable Albumin/Globulin Ratio Not Reportable Lipase (73-393) U/L TSH 5.680 H (0.300-4.500) uIu/ml Free T4 0.70 L (0.8-1.6) ng/dl Acetaminophen Ethyl Alcohol mg/dL (0-3) mg/dl SARS-CoV-2, RNA, NAAT (NEGATIVE) Miscellaneous Test Miscellaneous Test 2 Blood Type O Positive Antibody Screen NEGATIVE
[2021-02-24 15:54] LABS: Appearance Urine Clear (Clear); Bacteria Urine Automated Negative (Negative); Bilirubin Urine 3+ (Negative); Blood Urine Negative (Negative); Color Urine Dark Yellow; Epithelial Cell Urine Auto 0-5 /lpf (0-5); Glucose Urine UA Negative (Negative); Ketones Urine Negative (Negative); Leukocyte Esterase Urine Trace (Negative); Nitrite Urine Positive (Negative); Protein Urine Trace (Negative); RBC Urine Automated 0-4 /hpf (0-4); Specific Gravity Urine 1.012 (1.000-1.030); Urobilinogen Urine Negative (Negative)
[2021-02-24] MEDS: ONDANSETRON INJ 2 MG/ML 2 ML VIAL IV PRN (16:09)
[2021-02-24] MEDS: POTASSIUM CHLORIDE / WTR 10 MEQ/100 ML PLCT IV SCH ×4 (16:09→19:59)
[2021-02-24 16:44] LABS: Hepatitis B Surf Ag Rflx Conf Neg (Neg); Hepatitis C IgG 13Yrs+Old_Rflx Neg (Neg)
[2021-02-24] MEDS: POTASSIUM CHLORIDE CRTAB 20 MEQ TABCR PO SCH ×2 (17:27→19:11)
[2021-02-24] MEDS ORDERED: ACETYLCYSTEINE IV SCH ×2 (18:30→22:30)
[2021-02-24] MEDS ORDERED: DEXTROSE 5% IV SCH ×2 (18:30→22:30)
[2021-02-24] MEDS ORDERED: FLUARIX QUADRIVALENT 0.5 ML SYR IM ONE (18:41)
[2021-02-24 20:34] LABS: Blood Urea Nitrogen 25 mg/dl (7-18); Calcium 7.1 mg/dl (8.5-10.1); Carbon Dioxide 27 mmol/L (21-32); Chloride 85 mmol/L (98-107); Glucose 136 mg/dl (70-99); Potassium 3.2 mmol/L (3.5-5.1); Sodium 124 mmol/L (136-145)
[2021-02-25] MEDS: DEXTROSE 5% IV SCH ×2 (00:13→16:40)
[2021-02-25] MEDS: ACETYLCYSTEINE IV SCH ×2 (00:13→16:40)
[2021-02-25] MEDS: POTASSIUM CHLORIDE / WTR 10 MEQ/100 ML PLCT IV SCH ×7 (00:14→22:38)
[2021-02-25] MEDS: DICLOFENAC SOD 1% GEL 100 GM TUBE EXT SCH ×3 (00:14→20:04)
[2021-02-25] MEDS: QUEtiapine FUMARATE 200 MG TAB PO SCH ×2 (00:15→20:04)
[2021-02-25] MEDS ORDERED: ALBUMIN 25% 100 mL 25 GM/100 ML VIAL IV ONE (03:35)
[2021-02-25] MEDS ORDERED: ALBUMIN HUMAN 25% 12.5 GM/50 ML VIAL IV ONE (03:38)
--- NOTE | 2021-02-25 03:41 | 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 Note ---
Date of Service: February 25, 2021 Code torrie called around 3:50 AM. Patient became unresponsive on being seated up in preparation for transport down to MRI for MRCP. SBP 90s Patient subsequently responsive. No witnessed seizures. No chest pain, no S OB, no abdominal pain. IV albumin 1 dose given. Cefepime started for possible complicated UTI. Hg down to 6.7 from 7 admission. Rectal exam dark yellow stool heme positive. AP UGIB Cirrhotic patient IV PPI (trial dose to be given initially with history tinnitus ADR to Rx) Transfuse PRBC to maintain hemoglobin above 7 Transfuse platelets to maintain count greater than 50,000 K Will relay to AM provider.
[2021-02-25 03:46] LABS: INR 1.8 (0.9-1.1); Prothrombin Time 17.7 Seconds (9.0-12.0)
[2021-02-25] MEDS ORDERED: CEFEPIME 2,000 MG in SYRINGE 0 ML IV ONE (04:00)
[2021-02-25] MEDS ORDERED: THIAMINE HCL 100 MG in SYRINGE 9 ML IV ONE (04:00)
[2021-02-25 04:17] LABS: Alanine Aminotransferase 124 U/L (12-78); Albumin Level 1.3 gm/dl (3.4-5.0); Alkaline Phosphatase 261 U/L (45-117); Aspartate Aminotransferase 236 U/L (15-37); Bilirubin,Total 21.9 mg/dl (0.2-1); Blood Urea Nitrogen 27 mg/dl (7-18); Carbon Dioxide 27 mmol/L (21-32); Chloride 85 mmol/L (98-107); Glucose 152 mg/dl (70-99); Magnesium 1.8 mg/dl (1.8-2.4); Potassium 3.1 mmol/L (3.5-5.1); Sodium 123 mmol/L (136-145)
[2021-02-25 04:42] LABS: Hematocrit (blood only) 18.6 % (42-52); Hemoglobin 6.7 g/dL (14.0-18.0); Mean Corpuscular Hemoglobin 33.5 pg (25-34); Mean Platelet Volume 11.3 fL (7.4-10.4); Nucleated RBC # (auto) 0.09 K/uL (0-0); Nucleated RBC % (auto) 2.2 %; Platelet Count 26 K/uL (130-400); RDW Coefficient of Variation 15.1 % (11.5-14.5); RDW Standard Deviation 49.9 fL (36.4-46.3); White Blood Count 3.91 K/uL (4.8-10.8)
[2021-02-25 04:48] LABS: Basophils # (auto) 0.03 K/uL (0-0.2); Basophils % (auto) 0.8 %; Dohle Bodies 1+; Eosinophils # (auto) 0.05 K/uL (0-0.5); Eosinophils % (auto) 1.3 %; Immature Granulocytes # (auto) 0.09 K/uL (0.00-0.02); Immature Granulocytes % (auto) 2.3 %; Lymphocytes # (auto) 0.74 K/uL (1.2-3.4); Lymphocytes % (auto) 18.9 %; Monocytes # (auto) 0.15 K/uL (0.11-0.59); Monocytes % (auto) 3.8 %; Neutrophils # (auto) 2.85 K/uL (1.4-6.5); Neutrophils % (auto) 72.9 %; Platelet Estimate SIGNIFIC DECREASED (Normal); Poikilocytosis Present
[2021-02-25] MEDS ORDERED: SODIUM CHLORIDE 0.9% 250 ML IV PRN (05:44)
[2021-02-25] MEDS ORDERED: PHYTONADIONE 10 MG in SODIUM CHLORIDE 0.9% 50 ML IV ONE (06:00)
[2021-02-25] MEDS ORDERED: PANTOprazole 40 MG in SYRINGE 0 ML IV ONE (06:00)
[2021-02-25] MEDS ORDERED: POTASSIUM CHLORIDE CRTAB 20 MEQ TABCR PO ONE ×2 (06:10→19:50)
[2021-02-25] MEDS: PANTOprazole 40 MG in DEXTROSE 5% 100 ML IV SCH ×4 (06:42→21:47)
--- NOTE | 2021-02-25 08:57 | Gastroenterology Progress Note ---
Date of Service February 25, 2021 Assessment & Plan (1) Elevated LFTs: Plan: 60 year old male admitted w/ painless jaundice and weakness - Elevated LFTs - ETOH level neg - Send Tylenol level - Acute hep panel, CMV, EBV, GREG, AMA, ASMA - CTAP reviewed - MRCP recommended - Clinical concern for decompensated cirrhosis vs ETOH hep - HX etoh abuse, none in 1 month - OP records with normal LFTS, no reported history of cirrhosis - Would hold on steroids at this point - Infectious workup including blood cultures - Ok to use NAC - Trend MELD labs - If rising INR or clancy in mental status, concern transfer to tertiary care center given etiology of hepatic impairment unknown at this time - This was discussed with patient who notes he is unsure how aggressive he wants to be if his hepatic disease progresses Thank you for allowing us to participate in the care of this patient. Please call with any acute changes, questions or concerns. Please see addendum below with additional recommendation from my supervising physician. Admission and Anticipated Discharge Date Admission Date: February 24, 2021 Supervising Physician Co-Signing Physician Notes Late entry: Patient was seen and examine don 02/25 with SHARRON Bolden whose note reflects our findings and plan. Subjective Pt was seen and evaluated, chart reviewed. Sleepy today but answering questions appropriately. Denies abd pain, nausea, vomiting. No diarrhea,constipation. Denies having any coffee ground emesis, hematemesis, hematochezia or melena. MELD cannot be calculated due to inability to report DATA TRANSCRIBER DF 41.5 -->48 Review of Systems Review of Systems: All systems reviewed & are unremarkable except as noted in HPI & below Physical Exam Constitutional: WD/WN, vitals as above Respiratory: normal respiratory effort, lungs clear to auscultation Cardiovascular: Rate/Rhythm: regular rate and regular rhythm Gastrointestinal (Abdomen): normal bowel sounds, soft, nontender, no hepatosplenomegaly Results & Data ([facility]) Vital Signs (Past 12 Hours) Vital Signs Temp Pulse Pulse Resp BP BP BP 02/25/21 08:15 36.7 C 90 16 125/68 02/25/21 07:37 37 C 91 H 16 117/68 02/25/21 07:07 36.3 C L 91 H 16 122/69 02/25/21 06:52 36.3 C L 90 16 118/66 02/25/21 06:47 36.6 C 94 H 20 125/71 02/25/21 06:36 36.8 C 95 H 20 129/73 02/25/21 04:11 88 22 100/59 L 02/25/21 03:17 37.1 C 90 24 96/56 L 02/25/21 00:11 37.1 C 91 H 20 108/65 02/24/21 23:00 121/60 02/24/21 22:30 02/24/21 22:00 02/24/21 21:30 02/24/21 21:00 89 20 107/53 L Pulse Ox 02/25/21 08:15 94 02/25/21 07:37 95 02/25/21 07:07 96 02/25/21 06:52 95 02/25/21 06:47 94 02/25/21 06:36 93 02/25/21 04:11 96 02/25/21 03:17 90 02/25/21 00:11 93 02/24/21 23:00 93 02/24/21 22:30 95 02/24/21 22:00 89 L 02/24/21 21:30 93 02/24/21 21:00 92 Laboratory Results 02/25/21 02/25/21 02/25/21 Range/Units 03:53 03:47 03:26 WBC 3.91 L (4.8-10.8) K/uL RBC 2.00 L (4.7-6.1) M/uL Hgb 6.7 L* (14.0-18.0) g/dL Hct 18.6 L* (42-52) % MCV 93.0 (80-100) fL MCH 33.5 (25-34) pg MCHC 36.0 (32-36) g/dL RDW Std Deviation 49.9 H (36.4-46.3) fL RDW Coeff of Brigida 15.1 H (11.5-14.5) % Plt Count 26 L* (130-400) K/uL MPV 11.3 H (7.4-10.4) fL Immature Gran % (Auto) 2.3 % Neut % (Auto) 72.9 % Lymph % (Auto) 18.9 % [place] % (Auto) 3.8 % Eos % (Auto) 1.3 % Baso % (Auto) 0.8 % Neut # (Auto) 2.85 (1.4-6.5) K/uL Lymph # (Auto) 0.74 L (1.2-3.4) K/uL [place] # (Auto) 0.15 (0.11-0.59) K/uL Eos # (Auto) 0.05 (0-0.5) K/uL Baso # (Auto) 0.03 (0-0.2) K/uL Immature Gran # (Auto) 0.09 H (0.00-0.02) K/uL Absolute Nucleated RBC 0.09 H (0-0) K/uL Nucleated RBC % (auto) 2.2 % Dohle Bodies 1+ Platelet Estimate SIGNIFIC DECREASED (Normal) Polychromasia Hypochromasia Poikilocytosis Present Microcytosis Spherocytes Schistocytes PT (9.0-12.0) Seconds INR (0.9-1.1) APTT (21.0-31.0) Seconds PTT Ratio Sodium (136-145) mmol/L Potassium (3.5-5.1) mmol/L Chloride (98-107) mmol/L Carbon Dioxide (21-32) mmol/L Anion Gap (3-11) BUN (7-18) mg/dl Creatinine (0.6-1.4) mg/dl Est Cr Clr Drug Dosing Est GFR ( Amer) Est GFR (Non-Af Amer) BUN/Creatinine Ratio Glucose (70-99) mg/dl POC Glucose 173 H (70-99) mg/dl Osmolality (280-300) mOsm/kg Lactate 1.4 (0.4-2.0) mmol/L Calcium (8.5-10.1) mg/dl Magnesium (1.8-2.4) mg/dl Total Bilirubin (0.2-1) mg/dl AST (15-37) U/L ALT (12-78) U/L Alkaline Phosphatase (45-117) U/L Ammonia (11-32) umol/L Troponin I (0-0.045) ng/ml Total Protein (6.4-8.2) gm/dl Albumin (3.4-5.0) gm/dl Globulin Albumin/Globulin Ratio Lipase (73-393) U/L TSH (0.300-4.500) uIu/ml Free T4 (0.8-1.6) ng/dl Urine Color Urine Appearance (Clear) Urine pH (4.5-7.5) Ur Specific [place] (1.000-1.030) Urine Protein (Negative) Urine Glucose (UA) (Negative) Urine Ketones (Negative) Urine Blood (Negative) Urine Nitrite (Negative) Urine Bilirubin (Negative) Urine Urobilinogen (Negative) Ur Leukocyte Esterase (Negative) Urine WBC (Auto) (0-5) /hpf Urine RBC (Auto) (0-4) /hpf U Hyaline Cast (Auto) (0-5) /lpf U Epithel Cells (Auto) (0-5) /lpf Urine Bacteria (Auto) (Negative) Urine Crystals Other Crystals (None Prsent) Urine Osmolality (500-800) mOsm/kg Acetaminophen Ethyl Alcohol mg/dL (0-3) mg/dl GREG Screen Anti-Mitochondrial Ab Anti-Smooth Muscle Ab CMV IgM Ab CMV IgG Ab/TORCH EBV Capsid Ag IgG Ab EBV Capsid Ag IgM Ab Hepatitis A IgM Ab Hep Bs Antigen (Neg) Hep B Core IgM Ab Hepatitis C Antibody (Neg) SARS-CoV-2, RNA, NAAT (NEGATIVE) Miscellaneous Test Miscellaneous Test 2 Blood Type Antibody Screen Crossmatch 02/25/21 02/25/21 02/25/21 Range/Units 03:02 03:02 03:02 WBC (4.8-10.8) K/uL RBC (4.7-6.1) M/uL Hgb (14.0-18.0) g/dL Hct (42-52) % MCV (80-100) fL MCH (25-34) pg MCHC (32-36) g/dL RDW Std Deviation (36.4-46.3) fL RDW Coeff of Brigida (11.5-14.5) % Plt Count (130-400) K/uL MPV (7.4-10.4) fL Immature Gran % (Auto) % Neut % (Auto) % Lymph % (Auto) % [place] % (Auto) % Eos % (Auto) % Baso % (Auto) % Neut # (Auto) (1.4-6.5) K/uL Lymph # (Auto) (1.2-3.4) K/uL [place] # (Auto) (0.11-0.59) K/uL Eos # (Auto) (0-0.5) K/uL Baso # (Auto) (0-0.2) K/uL Immature Gran # (Auto) (0.00-0.02) K/uL Absolute Nucleated RBC (0-0) K/uL Nucleated RBC % (auto) % Dohle Bodies Platelet Estimate (Normal) Polychromasia Hypochromasia Poikilocytosis Microcytosis Spherocytes Schistocytes PT 17.7 H (9.0-12.0) Seconds INR 1.8 H (0.9-1.1) APTT (21.0-31.0) Seconds PTT Ratio Sodium 123 L Cancelled (136-145) mmol/L Potassium 3.1 L Cancelled (3.5-5.1) mmol/L Chloride 85 L Cancelled (98-107) mmol/L Carbon Dioxide 27 Cancelled (21-32) mmol/L Anion Gap 11.0 Cancelled (3-11) BUN 27 H Cancelled (7-18) mg/dl Creatinine Cancelled (0.6-1.4) mg/dl Est Cr Clr Drug Dosing Not Reportable Cancelled Est GFR ( Amer) Not Reportable Cancelled Est GFR (Non-Af Amer) Not Reportable Cancelled BUN/Creatinine Ratio Not Reportable Cancelled Glucose 152 H Cancelled (70-99) mg/dl POC Glucose (70-99) mg/dl Osmolality (280-300) mOsm/kg Lactate (0.4-2.0) mmol/L Calcium 7.0 L Cancelled (8.5-10.1) mg/dl Magnesium 1.8 (1.8-2.4) mg/dl Total Bilirubin 21.9 H (0.2-1) mg/dl AST 236 H (15-37) U/L ALT 124 H (12-78) U/L Alkaline Phosphatase 261 H (45-117) U/L Ammonia (11-32) umol/L Troponin I (0-0.045) ng/ml Total Protein (6.4-8.2) gm/dl Albumin 1.3 L (3.4-5.0) gm/dl Globulin Not Reportable Albumin/Globulin Ratio Not Reportable Lipase (73-393) U/L TSH (0.300-4.500) uIu/ml Free T4 (0.8-1.6) ng/dl Urine Color Urine Appearance (Clear) Urine pH (4.5-7.5) Ur Specific [place] (1.000-1.030) Urine Protein (Negative) Urine Glucose (UA) (Negative) Urine Ketones (Negative) Urine Blood (Negative) Urine Nitrite (Negative) Urine Bilirubin (Negative) Urine Urobilinogen (Negative) Ur Leukocyte Esterase (Negative) Urine WBC (Auto) (0-5) /hpf Urine RBC (Auto) (0-4) /hpf U Hyaline Cast (Auto) (0-5) /lpf U Epithel Cells (Auto) (0-5) /lpf Urine Bacteria (Auto) (Negative) Urine Crystals Other Crystals (None Prsent) Urine Osmolality (500-800) mOsm/kg Acetaminophen Ethyl Alcohol mg/dL (0-3) mg/dl GREG Screen Anti-Mitochondrial Ab Anti-Smooth Muscle Ab CMV IgM Ab CMV IgG Ab/TORCH EBV Capsid Ag IgG Ab EBV Capsid Ag IgM Ab Hepatitis A IgM Ab Hep Bs Antigen (Neg) Hep B Core IgM Ab Hepatitis C Antibody (Neg) SARS-CoV-2, RNA, NAAT (NEGATIVE) Miscellaneous Test Miscellaneous Test 2 Blood Type Antibody Screen Crossmatch 02/24/21 02/24/21 02/24/21 Range/Units 19:20 19:19 19:19 WBC (4.8-10.8) K/uL RBC (4.7-6.1) M/uL Hgb (14.0-18.0) g/dL Hct (42-52) % MCV (80-100) fL MCH (25-34) pg MCHC (32-36) g/dL RDW Std Deviation (36.4-46.3) fL RDW Coeff of Brigida (11.5-14.5) % Plt Count (130-400) K/uL MPV (7.4-10.4) fL Immature Gran % (Auto) % Neut % (Auto) % Lymph % (Auto) % [place] % (Auto) % Eos % (Auto) % Baso % (Auto) % Neut # (Auto) (1.4-6.5) K/uL Lymph # (Auto) (1.2-3.4) K/uL [place] # (Auto) (0.11-0.59) K/uL Eos # (Auto) (0-0.5) K/uL Baso # (Auto) (0-0.2) K/uL Immature Gran # (Auto) (0.00-0.02) K/uL Absolute Nucleated RBC (0-0) K/uL Nucleated RBC % (auto) % Dohle Bodies Platelet Estimate (Normal) Polychromasia Hypochromasia Poikilocytosis Microcytosis Spherocytes Schistocytes PT (9.0-12.0) Seconds INR (0.9-1.1) APTT (21.0-31.0) Seconds PTT Ratio Sodium 124 L (136-145) mmol/L Potassium 3.2 L (3.5-5.1) mmol/L Chloride 85 L (98-107) mmol/L Carbon Dioxide 27 (21-32) mmol/L Anion Gap 13.0 H (3-11) BUN 25 H (7-18) mg/dl Creatinine (0.6-1.4) mg/dl Est Cr Clr Drug Dosing TNP Est GFR ( Amer) TNP Est GFR (Non-Af Amer) TNP BUN/Creatinine Ratio Glucose 136 H (70-99) mg/dl POC Glucose (70-99) mg/dl Osmolality (280-300) mOsm/kg Lactate (0.4-2.0) mmol/L Calcium 7.1 L (8.5-10.1) mg/dl Magnesium (1.8-2.4) mg/dl Total Bilirubin (0.2-1) mg/dl AST (15-37) U/L ALT (12-78) U/L Alkaline Phosphatase (45-117) U/L Ammonia (11-32) umol/L Troponin I (0-0.045) ng/ml Total Protein (6.4-8.2) gm/dl Albumin (3.4-5.0) gm/dl Globulin Albumin/Globulin Ratio Lipase (73-393) U/L TSH (0.300-4.500) uIu/ml Free T4 (0.8-1.6) ng/dl Urine Color Urine Appearance (Clear) Urine pH (4.5-7.5) Ur Specific [place] (1.000-1.030) Urine Protein (Negative) Urine Glucose (UA) (Negative) Urine Ketones (Negative) Urine Blood (Negative) Urine Nitrite (Negative) Urine Bilirubin (Negative) Urine Urobilinogen (Negative) Ur Leukocyte Esterase (Negative) Urine WBC (Auto) (0-5) /hpf Urine RBC (Auto) (0-4) /hpf U Hyaline Cast (Auto) (0-5) /lpf U Epithel Cells (Auto) (0-5) /lpf Urine Bacteria (Auto) (Negative) Urine Crystals Other Crystals (None Prsent) Urine Osmolality (500-800) mOsm/kg Acetaminophen Ethyl Alcohol mg/dL (0-3) mg/dl GREG Screen Pending Anti-Mitochondrial Ab Pending Anti-Smooth Muscle Ab Pending CMV IgM Ab Pending CMV IgG Ab/TORCH Pending EBV Capsid Ag IgG Ab Pending EBV Capsid Ag IgM Ab Pending Hepatitis A IgM Ab Hep Bs Antigen (Neg) Hep B Core IgM Ab Hepatitis C Antibody (Neg) SARS-CoV-2, RNA, NAAT (NEGATIVE) Miscellaneous Test Pending Miscellaneous Test 2 Blood Type Antibody Screen Crossmatch 02/24/21 02/24/21 02/24/21 Range/Units 15:28 15:28 15:11 WBC (4.8-10.8) K/uL RBC (4.7-6.1) M/uL Hgb (14.0-18.0) g/dL Hct (42-52) % MCV (80-100) fL MCH (25-34) pg MCHC (32-36) g/dL RDW Std Deviation (36.4-46.3) fL RDW Coeff of Brigida (11.5-14.5) % Plt Count (130-400) K/uL MPV (7.4-10.4) fL Immature Gran % (Auto) % Neut % (Auto) % Lymph % (Auto) % [place] % (Auto) % Eos % (Auto) % Baso % (Auto) % Neut # (Auto) (1.4-6.5) K/uL Lymph # (Auto) (1.2-3.4) K/uL [place] # (Auto) (0.11-0.59) K/uL Eos # (Auto) (0-0.5) K/uL Baso # (Auto) (0-0.2) K/uL Immature Gran # (Auto) (0.00-0.02) K/uL Absolute Nucleated RBC (0-0) K/uL Nucleated RBC % (auto) % Dohle Bodies Platelet Estimate (Normal) Polychromasia Hypochromasia Poikilocytosis Microcytosis Spherocytes Schistocytes PT (9.0-12.0) Seconds INR (0.9-1.1) APTT (21.0-31.0) Seconds PTT Ratio Sodium (136-145) mmol/L Potassium (3.5-5.1) mmol/L Chloride (98-107) mmol/L Carbon Dioxide (21-32) mmol/L Anion Gap (3-11) BUN (7-18) mg/dl Creatinine (0.6-1.4) mg/dl Est Cr Clr Drug Dosing Est GFR ( Amer) Est GFR (Non-Af Amer) BUN/Creatinine Ratio Glucose (70-99) mg/dl POC Glucose (70-99) mg/dl Osmolality (280-300) mOsm/kg Lactate (0.4-2.0) mmol/L Calcium (8.5-10.1) mg/dl Magnesium (1.8-2.4) mg/dl Total Bilirubin (0.2-1) mg/dl AST (15-37) U/L ALT (12-78) U/L Alkaline Phosphatase (45-117) U/L Ammonia (11-32) umol/L Troponin I (0-0.045) ng/ml Total Protein (6.4-8.2) gm/dl Albumin (3.4-5.0) gm/dl Globulin Albumin/Globulin Ratio Lipase (73-393) U/L TSH (0.300-4.500) uIu/ml Free T4 (0.8-1.6) ng/dl Urine Color Dark Yellow Urine Appearance Clear (Clear) Urine pH 6.0 (4.5-7.5) Ur Specific [place] 1.012 (1.000-1.030) Urine Protein Trace H (Negative) Urine Glucose (UA) Negative (Negative) Urine Ketones Negative (Negative) Urine Blood Negative (Negative) Urine Nitrite Positive A (Negative) Urine Bilirubin 3+ H (Negative) Urine Urobilinogen Negative (Negative) Ur Leukocyte Esterase Trace H (Negative) Urine WBC (Auto) 1-5 (0-5) /hpf Urine RBC (Auto) 0-4 (0-4) /hpf U Hyaline Cast (Auto) 1-5 (0-5) /lpf U Epithel Cells (Auto) 0-5 (0-5) /lpf Urine Bacteria (Auto) Negative (Negative) Urine Crystals Not Reportable Other Crystals Ammonium Biurate A (None Prsent) Urine Osmolality 265 L (500-800) mOsm/kg Acetaminophen Ethyl Alcohol mg/dL (0-3) mg/dl GREG Screen Anti-Mitochondrial Ab Anti-Smooth Muscle Ab CMV IgM Ab CMV IgG Ab/TORCH EBV Capsid Ag IgG Ab EBV Capsid Ag IgM Ab Hepatitis A IgM Ab Pending Hep Bs Antigen (Neg) Hep B Core IgM Ab Pending Hepatitis C Antibody (Neg) SARS-CoV-2, RNA, NAAT (NEGATIVE) Miscellaneous Test Miscellaneous Test 2 Blood Type Antibody Screen Crossmatch 02/24/21 02/24/21 02/24/21 Range/Units 15:11 15:11 15:11 WBC (4.8-10.8) K/uL RBC (4.7-6.1) M/uL Hgb (14.0-18.0) g/dL Hct (42-52) % MCV (80-100) fL MCH (25-34) pg MCHC (32-36) g/dL RDW Std Deviation (36.4-46.3) fL RDW Coeff of Brigida (11.5-14.5) % Plt Count (130-400) K/uL MPV (7.4-10.4) fL Immature Gran % (Auto) % Neut % (Auto) % Lymph % (Auto) % [place] % (Auto) % Eos % (Auto) % Baso % (Auto) % Neut # (Auto) (1.4-6.5) K/uL Lymph # (Auto) (1.2-3.4) K/uL [place] # (Auto) (0.11-0.59) K/uL Eos # (Auto) (0-0.5) K/uL Baso # (Auto) (0-0.2) K/uL Immature Gran # (Auto) (0.00-0.02) K/uL Absolute Nucleated RBC (0-0) K/uL Nucleated RBC % (auto) % Dohle Bodies Platelet Estimate (Normal) Polychromasia Hypochromasia Poikilocytosis Microcytosis Spherocytes Schistocytes PT (9.0-12.0) Seconds INR (0.9-1.1) APTT (21.0-31.0) Seconds PTT Ratio Sodium (136-145) mmol/L Potassium (3.5-5.1) mmol/L Chloride (98-107) mmol/L Carbon Dioxide (21-32) mmol/L Anion Gap (3-11) BUN (7-18) mg/dl Creatinine (0.6-1.4) mg/dl Est Cr Clr Drug Dosing Est GFR ( Amer) Est GFR (Non-Af Amer) BUN/Creatinine Ratio Glucose (70-99) mg/dl POC Glucose (70-99) mg/dl Osmolality 264 L (280-300) mOsm/kg Lactate (0.4-2.0) mmol/L Calcium (8.5-10.1) mg/dl Magnesium (1.8-2.4) mg/dl Total Bilirubin (0.2-1) mg/dl AST (15-37) U/L ALT (12-78) U/L Alkaline Phosphatase (45-117) U/L Ammonia (11-32) umol/L Troponin I (0-0.045) ng/ml Total Protein (6.4-8.2) gm/dl Albumin (3.4-5.0) gm/dl Globulin Albumin/Globulin Ratio Lipase (73-393) U/L TSH (0.300-4.500) uIu/ml Free T4 (0.8-1.6) ng/dl Urine Color Urine Appearance (Clear) Urine pH (4.5-7.5) Ur Specific [place] (1.000-1.030) Urine Protein (Negative) Urine Glucose (UA) (Negative) Urine Ketones (Negative) Urine Blood (Negative) Urine Nitrite (Negative) Urine Bilirubin (Negative) Urine Urobilinogen (Negative) Ur Leukocyte Esterase (Negative) Urine WBC (Auto) (0-5) /hpf Urine RBC (Auto) (0-4) /hpf U Hyaline Cast (Auto) (0-5) /lpf U Epithel Cells (Auto) (0-5) /lpf Urine Bacteria (Auto) (Negative) Urine Crystals Other Crystals (None Prsent) Urine Osmolality (500-800) mOsm/kg Acetaminophen Cancelled Ethyl Alcohol mg/dL (0-3) mg/dl GREG Screen Anti-Mitochondrial Ab Anti-Smooth Muscle Ab CMV IgM Ab CMV IgG Ab/TORCH EBV Capsid Ag IgG Ab EBV Capsid Ag IgM Ab Hepatitis A IgM Ab Hep Bs Antigen Neg (Neg) Hep B Core IgM Ab Hepatitis C Antibody Neg (Neg) SARS-CoV-2, RNA, NAAT (NEGATIVE) Miscellaneous Test Miscellaneous Test 2 Blood Type Antibody Screen Crossmatch 02/24/21 02/24/21 02/24/21 Range/Units 12:50 12:50 12:50 WBC (4.8-10.8) K/uL RBC (4.7-6.1) M/uL Hgb (14.0-18.0) g/dL Hct (42-52) % MCV (80-100) fL MCH (25-34) pg MCHC (32-36) g/dL RDW Std Deviation (36.4-46.3) fL RDW Coeff of Brigida (11.5-14.5) % Plt Count (130-400) K/uL MPV (7.4-10.4) fL Immature Gran % (Auto) % Neut % (Auto) % Lymph % (Auto) % [place] % (Auto) % Eos % (Auto) % Baso % (Auto) % Neut # (Auto) (1.4-6.5) K/uL Lymph # (Auto) (1.2-3.4) K/uL [place] # (Auto) (0.11-0.59) K/uL Eos # (Auto) (0-0.5) K/uL Baso # (Auto) (0-0.2) K/uL Immature Gran # (Auto) (0.00-0.02) K/uL Absolute Nucleated RBC (0-0) K/uL Nucleated RBC % (auto) % Dohle Bodies Platelet Estimate (Normal) Polychromasia Hypochromasia Poikilocytosis Microcytosis Spherocytes Schistocytes PT (9.0-12.0) Seconds INR (0.9-1.1) APTT (21.0-31.0) Seconds PTT Ratio Sodium (136-145) mmol/L Potassium (3.5-5.1) mmol/L Chloride (98-107) mmol/L Carbon Dioxide (21-32) mmol/L Anion Gap (3-11) BUN (7-18) mg/dl Creatinine (0.6-1.4) mg/dl Est Cr Clr Drug Dosing Est GFR ( Amer) Est GFR (Non-Af Amer) BUN/Creatinine Ratio Glucose (70-99) mg/dl POC Glucose (70-99) mg/dl Osmolality (280-300) mOsm/kg Lactate (0.4-2.0) mmol/L Calcium (8.5-10.1) mg/dl Magnesium (1.8-2.4) mg/dl Total Bilirubin (0.2-1) mg/dl AST (15-37) U/L ALT (12-78) U/L Alkaline Phosphatase (45-117) U/L Ammonia (11-32) umol/L Troponin I (0-0.045) ng/ml Total Protein (6.4-8.2) gm/dl Albumin (3.4-5.0) gm/dl Globulin Albumin/Globulin Ratio Lipase (73-393) U/L TSH (0.300-4.500) uIu/ml Free T4 (0.8-1.6) ng/dl Urine Color Urine Appearance (Clear) Urine pH (4.5-7.5) Ur Specific [place] (1.000-1.030) Urine Protein (Negative) Urine Glucose (UA) (Negative) Urine Ketones (Negative) Urine Blood (Negative) Urine Nitrite (Negative) Urine Bilirubin (Negative) Urine Urobilinogen (Negative) Ur Leukocyte Esterase (Negative) Urine WBC (Auto) (0-5) /hpf Urine RBC (Auto) (0-4) /hpf U Hyaline Cast (Auto) (0-5) /lpf U Epithel Cells (Auto) (0-5) /lpf Urine Bacteria (Auto) (Negative) Urine Crystals Other Crystals (None Prsent) Urine Osmolality (500-800) mOsm/kg Acetaminophen Cancelled Ethyl Alcohol mg/dL < 3.0 (0-3) mg/dl GREG Screen Anti-Mitochondrial Ab Anti-Smooth Muscle Ab CMV IgM Ab CMV IgG Ab/TORCH EBV Capsid Ag IgG Ab EBV Capsid Ag IgM Ab Hepatitis A IgM Ab Hep Bs Antigen (Neg) Hep B Core IgM Ab Hepatitis C Antibody (Neg) SARS-CoV-2, RNA, NAAT (NEGATIVE) Miscellaneous Test Pending Miscellaneous Test 2 Blood Type Antibody Screen Crossmatch 02/24/21 02/24/21 02/24/21 Range/Units 12:05 11:00 11:00 WBC (4.8-10.8) K/uL RBC (4.7-6.1) M/uL Hgb (14.0-18.0) g/dL Hct (42-52) % MCV (80-100) fL MCH (25-34) pg MCHC (32-36) g/dL RDW Std Deviation (36.4-46.3) fL RDW Coeff of Brigida (11.5-14.5) % Plt Count (130-400) K/uL MPV (7.4-10.4) fL Immature Gran % (Auto) % Neut % (Auto) % Lymph % (Auto) % [place] % (Auto) % Eos % (Auto) % Baso % (Auto) % Neut # (Auto) (1.4-6.5) K/uL Lymph # (Auto) (1.2-3.4) K/uL [place] # (Auto) (0.11-0.59) K/uL Eos # (Auto) (0-0.5) K/uL Baso # (Auto) (0-0.2) K/uL Immature Gran # (Auto) (0.00-0.02) K/uL Absolute Nucleated RBC (0-0) K/uL Nucleated RBC % (auto) % Dohle Bodies Platelet Estimate (Normal) Polychromasia Hypochromasia Poikilocytosis Microcytosis Spherocytes Schistocytes PT (9.0-12.0) Seconds INR (0.9-1.1) APTT (21.0-31.0) Seconds PTT Ratio Sodium (136-145) mmol/L Potassium (3.5-5.1) mmol/L Chloride (98-107) mmol/L Carbon Dioxide (21-32) mmol/L Anion Gap (3-11) BUN (7-18) mg/dl Creatinine (0.6-1.4) mg/dl Est Cr Clr Drug Dosing Est GFR ( Amer) Est GFR (Non-Af Amer) BUN/Creatinine Ratio Glucose (70-99) mg/dl POC Glucose (70-99) mg/dl Osmolality (280-300) mOsm/kg Lactate (0.4-2.0) mmol/L Calcium (8.5-10.1) mg/dl Magnesium (1.8-2.4) mg/dl Total Bilirubin (0.2-1) mg/dl AST (15-37) U/L ALT (12-78) U/L Alkaline Phosphatase (45-117) U/L Ammonia (11-32) umol/L Troponin I (0-0.045) ng/ml Total Protein (6.4-8.2) gm/dl Albumin (3.4-5.0) gm/dl Globulin Albumin/Globulin Ratio Lipase 239 (73-393) U/L TSH (0.300-4.500) uIu/ml Free T4 (0.8-1.6) ng/dl Urine Color Urine Appearance (Clear) Urine pH (4.5-7.5) Ur Specific [place] (1.000-1.030) Urine Protein (Negative) Urine Glucose (UA) (Negative) Urine Ketones (Negative) Urine Blood (Negative) Urine Nitrite (Negative) Urine Bilirubin (Negative) Urine Urobilinogen (Negative) Ur Leukocyte Esterase (Negative) Urine WBC (Auto) (0-5) /hpf Urine RBC (Auto) (0-4) /hpf U Hyaline Cast (Auto) (0-5) /lpf U Epithel Cells (Auto) (0-5) /lpf Urine Bacteria (Auto) (Negative) Urine Crystals Other Crystals (None Prsent) Urine Osmolality (500-800) mOsm/kg Acetaminophen Ethyl Alcohol mg/dL (0-3) mg/dl GREG Screen Anti-Mitochondrial Ab Anti-Smooth Muscle Ab CMV IgM Ab CMV IgG Ab/TORCH EBV Capsid Ag IgG Ab EBV Capsid Ag IgM Ab Hepatitis A IgM Ab Hep Bs Antigen (Neg) Hep B Core IgM Ab Hepatitis C Antibody (Neg) SARS-CoV-2, RNA, NAAT NEGATIVE (NEGATIVE) Miscellaneous Test Pending Miscellaneous Test 2 Pending Blood Type Antibody Screen Crossmatch 02/24/21 02/24/21 02/24/21 Range/Units 11:00 11:00 11:00 WBC 4.45 L (4.8-10.8) K/uL RBC 2.09 L (4.7-6.1) M/uL Hgb 7.0 L (14.0-18.0) g/dL Hct 19.7 L* (42-52) % MCV 94.3 (80-100) fL MCH 33.5 (25-34) pg MCHC 35.5 (32-36) g/dL RDW Std Deviation 50.9 H (36.4-46.3) fL RDW Coeff of Brigida 15.0 H (11.5-14.5) % Plt Count 33 L (130-400) K/uL MPV 11.9 H (7.4-10.4) fL Immature Gran % (Auto) 2.0 % Neut % (Auto) 82.1 % Lymph % (Auto) 12.4 % [place] % (Auto) 2.0 % Eos % (Auto) 1.1 % Baso % (Auto) 0.4 % Neut # (Auto) 3.65 (1.4-6.5) K/uL Lymph # (Auto) 0.55 L (1.2-3.4) K/uL [place] # (Auto) 0.09 L (0.11-0.59) K/uL Eos # (Auto) 0.05 (0-0.5) K/uL Baso # (Auto) 0.02 (0-0.2) K/uL Immature Gran # (Auto) 0.09 H (0.00-0.02) K/uL Absolute Nucleated RBC 0.06 H (0-0) K/uL Nucleated RBC % (auto) 1.3 % Dohle Bodies Platelet Estimate SIGNIFIC DECREASED (Normal) Polychromasia 1+ Hypochromasia Present Poikilocytosis Microcytosis Present Spherocytes 1+ Schistocytes 1+ PT 15.8 H (9.0-12.0) Seconds INR 1.6 H (0.9-1.1) APTT 34.7 H (21.0-31.0) Seconds PTT Ratio 1.3 Sodium (136-145) mmol/L Potassium (3.5-5.1) mmol/L Chloride (98-107) mmol/L Carbon Dioxide (21-32) mmol/L Anion Gap (3-11) BUN (7-18) mg/dl Creatinine (0.6-1.4) mg/dl Est Cr Clr Drug Dosing Est GFR ( Amer) Est GFR (Non-Af Amer) BUN/Creatinine Ratio Glucose (70-99) mg/dl POC Glucose (70-99) mg/dl Osmolality (280-300) mOsm/kg Lactate (0.4-2.0) mmol/L Calcium (8.5-10.1) mg/dl Magnesium (1.8-2.4) mg/dl Total Bilirubin (0.2-1) mg/dl AST (15-37) U/L ALT (12-78) U/L Alkaline Phosphatase (45-117) U/L Ammonia 24.0 (11-32) umol/L Troponin I (0-0.045) ng/ml Total Protein (6.4-8.2) gm/dl Albumin (3.4-5.0) gm/dl Globulin Albumin/Globulin Ratio Lipase (73-393) U/L TSH (0.300-4.500) uIu/ml Free T4 (0.8-1.6) ng/dl Urine Color Urine Appearance (Clear) Urine pH (4.5-7.5) Ur Specific [place] (1.000-1.030) Urine Protein (Negative) Urine Glucose (UA) (Negative) Urine Ketones (Negative) Urine Blood (Negative) Urine Nitrite (Negative) Urine Bilirubin (Negative) Urine Urobilinogen (Negative) Ur Leukocyte Esterase (Negative) Urine WBC (Auto) (0-5) /hpf Urine RBC (Auto) (0-4) /hpf U Hyaline Cast (Auto) (0-5) /lpf U Epithel Cells (Auto) (0-5) /lpf Urine Bacteria (Auto) (Negative) Urine Crystals Other Crystals (None Prsent) Urine Osmolality (500-800) mOsm/kg Acetaminophen Ethyl Alcohol mg/dL (0-3) mg/dl GREG Screen Anti-Mitochondrial Ab Anti-Smooth Muscle Ab CMV IgM Ab CMV IgG Ab/TORCH EBV Capsid Ag IgG Ab EBV Capsid Ag IgM Ab Hepatitis A IgM Ab Hep Bs Antigen (Neg) Hep B Core IgM Ab Hepatitis C Antibody (Neg) SARS-CoV-2, RNA, NAAT (NEGATIVE) Miscellaneous Test Miscellaneous Test 2 Blood Type Antibody Screen Crossmatch 02/24/21 02/24/21 Range/Units 11:00 11:00 WBC (4.8-10.8) K/uL RBC (4.7-6.1) M/uL Hgb (14.0-18.0) g/dL Hct (42-52) % MCV (80-100) fL MCH (25-34) pg MCHC (32-36) g/dL RDW Std Deviation (36.4-46.3) fL RDW Coeff of Brigida (11.5-14.5) % Plt Count (130-400) K/uL MPV (7.4-10.4) fL Immature Gran % (Auto) % Neut % (Auto) % Lymph % (Auto) % [place] % (Auto) % Eos % (Auto) % Baso % (Auto) % Neut # (Auto) (1.4-6.5) K/uL Lymph # (Auto) (1.2-3.4) K/uL [place] # (Auto) (0.11-0.59) K/uL Eos # (Auto) (0-0.5) K/uL Baso # (Auto) (0-0.2) K/uL Immature Gran # (Auto) (0.00-0.02) K/uL Absolute Nucleated RBC (0-0) K/uL Nucleated RBC % (auto) % Dohle Bodies Platelet Estimate (Normal) Polychromasia Hypochromasia Poikilocytosis Microcytosis Spherocytes Schistocytes PT (9.0-12.0) Seconds INR (0.9-1.1) APTT (21.0-31.0) Seconds PTT Ratio Sodium 120 L (136-145) mmol/L Potassium 2.8 L (3.5-5.1) mmol/L Chloride 81 L (98-107) mmol/L Carbon Dioxide 27 (21-32) mmol/L Anion Gap 12.0 H (3-11) BUN 28 H (7-18) mg/dl Creatinine (0.6-1.4) mg/dl Est Cr Clr Drug Dosing Not Reportable Est GFR ( Amer) Not Reportable Est GFR (Non-Af Amer) Not Reportable BUN/Creatinine Ratio Not Reportable Glucose 154 H (70-99) mg/dl POC Glucose (70-99) mg/dl Osmolality (280-300) mOsm/kg Lactate (0.4-2.0) mmol/L Calcium 7.5 L (8.5-10.1) mg/dl Magnesium 1.7 L (1.8-2.4) mg/dl Total Bilirubin 24.5 H (0.2-1) mg/dl AST 298 H (15-37) U/L ALT 140 H (12-78) U/L Alkaline Phosphatase 310 H (45-117) U/L Ammonia (11-32) umol/L Troponin I < 0.015 (0-0.045) ng/ml Total Protein (6.4-8.2) gm/dl Albumin 1.6 L (3.4-5.0) gm/dl Globulin Not Reportable Albumin/Globulin Ratio Not Reportable Lipase (73-393) U/L TSH 5.680 H (0.300-4.500) uIu/ml Free T4 0.70 L (0.8-1.6) ng/dl Urine Color Urine Appearance (Clear) Urine pH (4.5-7.5) Ur Specific [place] (1.000-1.030) Urine Protein (Negative) Urine Glucose (UA) (Negative) Urine Ketones (Negative) Urine Blood (Negative) Urine Nitrite (Negative) Urine Bilirubin (Negative) Urine Urobilinogen (Negative) Ur Leukocyte Esterase (Negative) Urine WBC (Auto) (0-5) /hpf Urine RBC (Auto) (0-4) /hpf U Hyaline Cast (Auto) (0-5) /lpf U Epithel Cells (Auto) (0-5) /lpf Urine Bacteria (Auto) (Negative) Urine Crystals Other Crystals (None Prsent) Urine Osmolality (500-800) mOsm/kg Acetaminophen Ethyl Alcohol mg/dL (0-3) mg/dl GREG Screen Anti-Mitochondrial Ab Anti-Smooth Muscle Ab CMV IgM Ab CMV IgG Ab/TORCH EBV Capsid Ag IgG Ab EBV Capsid Ag IgM Ab Hepatitis A IgM Ab Hep Bs Antigen (Neg) Hep B Core IgM Ab Hepatitis C Antibody (Neg) SARS-CoV-2, RNA, NAAT (NEGATIVE) Miscellaneous Test Miscellaneous Test 2 Blood Type O Positive Antibody Screen NEGATIVE Crossmatch See Detail
[2021-02-25] MEDS: MULTIVITAMIN TAB PO SCH (09:13)
[2021-02-25] MEDS: FOLIC ACID 1 MG TAB PO SCH (09:13)
--- NOTE | 2021-02-25 13:00 | Consultation Report ---
NEPHROLOGY CONSULTATION NOTE DATE OF SERVICE: 02/25/2021 REASON FOR CONSULTATION: Hyponatremia in a patient with acute hepatic failure. HISTORY OF PRESENT ILLNESS: The patient is a 60-year-old male who was admitted yesterday through the Emergency Department where he presented with generalized weakness. The patient was not feeling well for the last 1 month and was getting progressively weak and also had some falls at home. The patien t has a history of alcohol abuse, but has not been drinking alcohol for the last 1 month. His blood work came back very abnormal with extremely elevated bilirubin as well as acute hepatic failure and s odium was low as well as potassium. At the time of admission, potassium was 2.8 and sodium was 120. Since then, it has gone up to 123. His bilirubin is so high that we cannot even calculate creatinine . Hemoglobin is low and he is getting blood transfusion. The patient was not eating much solid food and was drinking lots of liquid at home, but he claims he was not drinking any alcohol. It also fred ears the patient has a history of chronic hyponatremia because even last year when he was admitted in the hospital, he had hyponatremia. ALLERGIES: ALLERGY LIST WAS REVIEWED AND IS PER THE RECONCILIATION LIST. MEDICATIONS: Home medication list was reviewed and only includes Seroquel 400 mg at bedtime. PAST MEDICAL AND SURGICAL HISTORY: Includes depression with bipolar; type 2 diabetes - managed with diet only, no medication; hypertension, under control without medication; history of sleep apnea, on CPAP; GERD; history of bowel resection with colostomy and reversal; history of open reduction and int ernal fixation of left ankle. FAMILY HISTORY: Positive for pancreatic cancer in his mother. Father had congestive heart failure a nd heart disease. SOCIAL HISTORY: Never smoked. Heavy alcohol intake in the past, but says none for the last 1 month. He lives alone. He is unemployed. He is single. REVIEW OF SYSTEMS: As detailed in HPI; unless stated otherwise, 12 systems reviewed and negative. T he patient is not a great historian and talks very minimal, but he denies having any obvious nausea, vomiting, diarrhea, constipation, shortness of breath or orthopnea. He does not have any ascites on exam or any lower extremity edema. PHYSICAL EXAMINATION: GENERAL: A middle-aged white male who appears to be very, very jaundiced and appears very yellow. He is awake, alert, oriented x3. HEENT: Mucous membranes are moist, but very icteric. CHEST: Clear to auscultation. CARDIOVASCULAR: S1 and S2, regular. ABDOMEN: Soft, nontender. Did not appreciate any ascites. EXTREMITIES: Show no edema at all. NEUROLOGIC: He is awake, alert and oriented. Normal speech. No obvious focal deficit. VITAL SIGNS: Blood pressure is 125/79, pulse rate 86, temperature 36.7, 94% on 2 liter nasal cannula . LABORATORY TEST: Includes serum sodium was 120 at the time of admission, most recent is 123, potassi um is now 3.1, hemoglobin 6.7 and he is getting blood transfusion, platelet count is only 26,000. Ur ine osmolality 265. CT abdomen and pelvis did not show any ascites. Reported as marked hepatomegaly and severe hepatic steatosis, splenomegaly. Punctate nonobstructing left renal calculus. ASSESSMENT AND PLAN: A 60-year-old male with hyponatremia in the setting of severe abnormality of li juan antonio function, especially extremely elevated bilirubin. I have been consulted for hyponatremia. Hyponatremia: This is in the setting of liver failure, which almost always cause abnormal serum sodi um. He has a history of hyponatremia even last year. For the last few weeks, he has not really been eating anything solid food and was predominantly drinking lots of liquid. This can cause a signific ant mismatch, especially in a susceptible patient with liver failure. I do not know his kidney funct ion status as we cannot calculate creatinine at this time. RECOMMENDATIONS: 1. Fluid restriction to 1500 mL per day. 2. Does not appear to be hypervolemic, so I would not use any Lasix. 3. He is getting good bit of IV fluids between various medications as well as blood transfusion. So , I do not think we need to add any IV fluids. 4. Given severely abnormal liver function, I would not give urea. 5. Reviewed GI note regarding possible need of transfer. I will defer to them. 6. It is very unlikely for his serum sodium to improve without significant improvement in his liver function. We will continue to follow. Job ID: [id number]
[2021-02-25 13:30] LABS: Hematocrit (blood only) 20.2 % (42-52); Hemoglobin 7.1 g/dL (14.0-18.0)
--- NOTE | 2021-02-25 14:12 | Hospitalist Progress Note ---
Date of Service February 25, 2021 Assessment & Plan (1) Coagulopathy: (2) Elevated LFTs: Plan: Painless Jaundice Elevated LFTs DD: Decompensated cirrhosis Vs alcoholic hepatitis H/O alcohol abuse, last drink 1 month ago DF score 42 -CT ABD:Marked hepatomegaly and severe hepatic steatosis. Splenomegaly. Hyperdense material within the gallbladder likely represents stones/sludge. There is no CT evidence of acute cholecystitis. Punctate nonobstructing left renal calculus. Advanced coronary artery calcification. Mildly enlarged upper abdominal lymph nodes are nonspecific and likely related to chronic liver disease. -Neurological work-up acute hepatitis panel, CMV, EBV, GREG, AMA, ASMA pending -Obtain MRCP as able -Appreciate GI input -Trend LFTs, INR -Continue acetylcysteine -Avoid Hepatotoxic agents -R/O infection Suspected UTI Blood, urine culture pending On empiric cefepime Pancytopenia Likely secondary to Alcoholism, Liver failure S/P PRBC, Platelets Monitor CBC Suspected GI bleeding +FOBT checked by Safe Technician No plan for scope currently as per GI unless patient has active bleed Continue PPI drip for 72 hours and then transition to p.o. twice daily Monitor H&H GI on board (3) Hyponatremia: Plan: -Sodium 120>>123 -Likely chronic/due to underlying liver disease Plan to place on fluid restriction 1500 mL/day when started on diet Monitor sodium levels Appreciate Nephrology input (4) Anemia: (5) Thrombocytopenia: Plan: -Likely due to underlying liver disease Transfuse as needed Monitor (6) Alcohol abuse: Plan: -longstanding history of alcohol abuse, last drink 1 month ago -Continue thiamine, folic acid and (7) GERD (gastroesophageal reflux disease): Plan: -Continue PPI (8) Hypokalemia: (9) Hypomagnesemia: Plan: -Replace, follow electrolytes (10) DVT prophylaxis: Plan: -SCDs Re: Anemia, thrombocytopenia Admission and Anticipated Discharge Date Admission Date: February 24, 2021 Subjective Patient is seen and examined at bedside States having significant generalized weakness and tiredness Feels that his mental status is more clear today Discussed with GI today Currently getting blood transfusion this morning Denies any chest pain, shortness of breath, abdominal pain, dizziness, nausea No bleeding issues this morning Review of Systems Review of Systems: All systems reviewed & are unremarkable except as noted in Subjective Physical Exam Physical Exam: Physical Exam: Vitals signs as noted above General Appearance:Moderately built and nourished, no apparent distress Head: normocephalic, Atraumatic Eyes: normal inspection, EOMI,+Icteric Neck: supple, Trachea midline Respiratory/Chest: Normal breath sounds, CTA, No accessory muscle use Cardiovascular: S1, S2, No murmur Abdomen/GI:Soft, Non tender, distended, Bowel sounds present Extremities/Musculoskeletal:normal inspection, no edema Neurologic/Psych:AAOX3, grossly no focal neurological deficits Skin: normal color, warm, +Jaundiced Results & Data Results & Data ([facility]) Vital Signs (Past 12 Hours) Vital Signs Temp Pulse Pulse Resp BP BP BP 02/25/21 12:11 36.7 C 86 16 125/79 02/25/21 11:10 36.3 C L 86 18 111/71 02/25/21 10:10 36.6 C 83 18 112/69 02/25/21 09:40 36.5 C 89 18 111/69 02/25/21 09:25 36.6 C 91 H 16 113/71 02/25/21 09:24 36.2 C L 90 16 114/69 02/25/21 09:09 36.6 C 92 H 16 119/72 02/25/21 08:58 36.5 C 92 H 18 119/72 02/25/21 08:15 36.7 C 90 16 125/68 02/25/21 08:00 89 02/25/21 07:37 37 C 91 H 16 117/68 02/25/21 07:07 36.3 C L 91 H 16 122/69 02/25/21 06:52 36.3 C L 90 16 118/66 02/25/21 06:47 36.6 C 94 H 20 125/71 02/25/21 06:36 36.8 C 95 H 20 129/73 02/25/21 04:11 88 22 100/59 L 02/25/21 03:17 37.1 C 90 24 96/56 L Pulse Ox 02/25/21 12:11 94 02/25/21 11:10 95 02/25/21 10:10 95 02/25/21 09:40 94 02/25/21 09:25 94 02/25/21 09:24 94 02/25/21 09:09 93 02/25/21 08:58 95 02/25/21 08:15 94 02/25/21 08:00 02/25/21 07:37 95 02/25/21 07:07 96 02/25/21 06:52 95 02/25/21 06:47 94 02/25/21 06:36 93 02/25/21 04:11 96 02/25/21 03:17 90 Laboratory Results Short CBC 02/25/21 02/25/21 Range/Units 03:47 12:59 WBC 3.91 L (4.8-10.8) K/uL Hgb 6.7 L* 7.1 L (14.0-18.0) g/dL Hct 18.6 L* 20.2 L* (42-52) % Plt Count 26 L* (130-400) K/uL BMP 02/24/21 02/25/21 02/25/21 19:19 03:02 03:02 Sodium 124 L Cancelled 123 L Potassium 3.2 L Cancelled 3.1 L Chloride 85 L Cancelled 85 L Carbon Dioxide 27 Cancelled 27 BUN 25 H Cancelled 27 H Creatinine Cancelled Glucose 136 H Cancelled 152 H Calcium 7.1 L Cancelled 7.0 L Liver Function 02/25/21 Range/Units 03:02 Total Bilirubin 21.9 H (0.2-1) mg/dl AST 236 H (15-37) U/L ALT 124 H (12-78) U/L Alkaline Phosphatase 261 H (45-117) U/L Albumin 1.3 L (3.4-5.0) gm/dl Urine 02/24/21 Range/Units 15:28 Urine Color Dark Yellow Urine Appearance Clear (Clear) Urine pH 6.0 (4.5-7.5) Ur Specific [place] 1.012 (1.000-1.030) Urine Protein Trace H (Negative) Urine Glucose (UA) Negative (Negative) (1) Anemia Anemia type: unspecified type Qualified Code(s): D64.9 - Anemia, unspecified
[2021-02-25] MEDS ORDERED: DEXTROSE 50% 50 ML SYRINGE IV PRN (14:49)
[2021-02-25] MEDS ORDERED: GLUCOSE 40% GEL 15 GM TUBE PO PRN (14:49)
[2021-02-25] MEDS ORDERED: GLUCAGON FOR INJ 1 MG VIAL SQ PRN (14:49)
[2021-02-25] MEDS ORDERED: GLUCOSE 10 TABS/TUBE PO PRN (14:49)
[2021-02-25] MEDS ORDERED: CARBOHYDRATES FOR HYPOGLYCEMIA PO PRN (14:49)
--- NOTE | 2021-02-25 15:33 | Magnetic Resonance Report ---
MRCP CLINICAL HISTORY: Elevated hepatic transaminases. COMPARISON STUDY: Abdominal CT dated 02/24/2021. TECHNIQUE: Abdominal MRCP is performed utilizing various T2-weighted sequences in the axial and coron al planes. IV contrast was not administered for this examination. 3-D reformats are created and asses sed. The examination is compromised by motion artifact. FINDINGS: The gallbladder is normal in appearance, with no gallstones identified. There is no intra or extrahep atic biliary ductal dilatation. The common bile duct measures up to 4 mm diameter. No intraluminal fi lling defects are seen to suggest choledocholithiasis. The pancreatic duct is normal in caliber. The liver is enlarged, measuring 27.8 cm in length. The recent CT scan showed severe hepatic steatosi s. The spleen is enlarged measuring 15.8 cm in length. There is trace perihepatic ascites. Prominent upper abdominal lymph nodes are likely related to chronic liver disease. The unenhanced pancreas, adr enal glands, and kidneys are grossly unremarkable. The abdominal aorta is normal in caliber. There is no evidence of bowel obstruction. Trace pleural effusions are seen at the lung bases with dependent atelectasis. IMPRESSION: 1. Normal MRCP. 2. Hepatomegaly and severe hepatic steatosis. 3. Splenomegaly. 4. Trace abdominal ascites and trace pleural effusions. Dictated: 02/25/2021 2:55 PM Transcribed: 02/25/2021 3:19 PM Naty [id number] [email or web address] Electronically signed by: Suman Escalante M.D. 02/25/2021 3:31 PM
[2021-02-25] MEDS: CEFEPIME 2,000 MG in SYRINGE 0 ML IV SCH (16:02)
[2021-02-25 16:53] LABS: Calcium 7.1 mg/dl (8.5-10.1); Potassium 2.8 mmol/L (3.5-5.1)
[2021-02-25 17:00] LABS: Hematocrit (blood only) 20.5 % (42-52); Hemoglobin 7.3 g/dL (14.0-18.0); Mean Corpuscular Hemoglobin 32.4 pg (25-34); Mean Corpuscular Hgb Conc 35.6 g/dL (32-36); Mean Corpuscular Volume 91.1 fL (80-100); Mean Platelet Volume 9.5 fL (7.4-10.4); Nucleated RBC # (auto) 0.06 K/uL (0-0); Nucleated RBC % (auto) 1.1 %; Platelet Count 32 K/uL (130-400); RDW Coefficient of Variation 15.5 % (11.5-14.5); Red Blood Count 2.25 M/uL (4.7-6.1); White Blood Count 4.91 K/uL (4.8-10.8)
[2021-02-25 17:05] LABS: Platelet Estimate Decreased (Normal)
[2021-02-25] MEDS: INSULIN ASPART 100 UNITS/ML 3 ML PEN SC SCH ×2 (17:56→21:45)
[2021-02-26] MEDS: POTASSIUM CHLORIDE / WTR 10 MEQ/100 ML PLCT IV SCH (00:10)
[2021-02-26 01:36] LABS: Hematocrit (blood only) 20.1 % (42-52); Hemoglobin 7.1 g/dL (14.0-18.0)
[2021-02-26] MEDS: PANTOprazole 40 MG in DEXTROSE 5% 100 ML IV SCH ×6 (02:32→23:03)
[2021-02-26] MEDS: CEFEPIME 2,000 MG in SYRINGE 0 ML IV SCH ×2 (03:47→16:47)
[2021-02-26 06:19] LABS: Hepatitis A Antibody IgM NON-REACTIVE (NON-REACTIVE); Hepatitis B Core Antibody IgM NON-REACTIVE (NON-REACTIVE)
[2021-02-26 06:35] LABS: Mean Corpuscular Volume 91.3 fL (80-100); Mean Platelet Volume 10.6 fL (7.4-10.4); Nucleated RBC # (auto) 0.04 K/uL (0-0); Nucleated RBC % (auto) 0.9 %; Platelet Count 32 K/uL (130-400); RDW Coefficient of Variation 16.3 % (11.5-14.5); RDW Standard Deviation 53.7 fL (36.4-46.3); Red Blood Count 2.19 M/uL (4.7-6.1); White Blood Count 4.83 K/uL (4.8-10.8)
[2021-02-26] MEDS ORDERED: POLYETHYLENE (MIRALAX) 17 GM PACK PO STA (06:37)
[2021-02-26] MEDS ORDERED: POLYETHYLENE (MIRALAX) 17 GM PACK PO PRN (06:37)
[2021-02-26 06:39] LABS: INR 1.3 (0.9-1.1); Prothrombin Time 12.7 Seconds (9.0-12.0)
[2021-02-26 07:18] LABS: Alanine Aminotransferase 112 (12-78); Albumin Level 1.4 gm/dl (3.4-5.0); Alkaline Phosphatase 228 U/L (45-117); Aspartate Aminotransferase 217 U/L (15-37); Bilirubin,Total 23.7 mg/dl (0.2-1); Blood Urea Nitrogen 22 mg/dl (7-18); Calcium 7.1 mg/dl (8.5-10.1); Carbon Dioxide 25 mmol/L (21-32); Chloride 91 mmol/L (98-107); Glucose 140 mg/dl (70-99); Magnesium 1.7 mg/dl (1.8-2.4); Potassium 3.2 mmol/L (3.5-5.1); Sodium 129 mmol/L (136-145)
[2021-02-26 08:21] LABS: Estimated Average Glucose 134 mg/dl; Hemoglobin A1C 6.3 % (4.5-5.6)
[2021-02-26] MEDS: FOLIC ACID 1 MG TAB PO SCH (08:43)
[2021-02-26] MEDS: THIAMINE HCL 100 MG TAB PO SCH (08:43)
[2021-02-26] MEDS: DOCUSATE SODIUM/SENNA 50/8.6MG TAB PO SCH ×2 (08:43→11:55)
[2021-02-26] MEDS: DICLOFENAC SOD 1% GEL 100 GM TUBE EXT SCH ×2 (08:45→20:05)
[2021-02-26] MEDS: POTASSIUM CHLORIDE CRTAB 20 MEQ TABCR PO SCH ×2 (09:00→20:06)
[2021-02-26] MEDS: MULTIVITAMIN TAB PO SCH (09:00)
[2021-02-26] MEDS ORDERED: MAGNESIUM SULFATE / D5W 1 GM/100 ML BAG IV ONE (10:30)
[2021-02-26] MEDS: INSULIN ASPART 100 UNITS/ML 3 ML PEN SC SCH ×4 (10:42→20:05)
[2021-02-26] MEDS: DEXTROSE 5% IV SCH (11:04)
[2021-02-26] MEDS: ACETYLCYSTEINE IV SCH (11:04)
--- NOTE | 2021-02-26 11:12 | Nephrology Progress Note ---
Date of Service February 26, 2021 Assessment & Plan (1) Hyponatremia: Plan: Patient with hyponatremia likely due to syndrome of inappropriate ADH. Patient with decompensated liver cirrhosis. Sodium of 129 today. -Fluid restriction of 1.2 L daily -Daily sodium (2) Hypokalemia: Plan: Potassium is 3.2 today. We will give potassium chloride 40 mEq twice daily Admission and Anticipated Discharge Date Admission Date: February 24, 2021 Subjective Seen in follow-up for hyponatremia. He complains of weakness and anxiety. No shortness of breath. Abdomen is distended no leg swelling. Review of Systems Review of Systems: All other systems were reviewed and negative except as noted in HPI Physical Exam Physical Exam: General exam: Appears comfortable, no acute distress HEENT: Pupils are equal and reactive to light, deep jaundice Neck: No JVD, neck is supple trachea is midline Respiratory system: Clear breath sounds bilaterally. Gastrointestinal: Abdomen is soft, moderately distended, non tender, bowel sounds are present CVS: Regular rate and rhythm. No murmurs, rubs or gallops Musculoskeletal: No joint or muscle tenderness Extremities: Non tender, no edema, peripheral pulses are present Neuro: Oriented, no tremors, no focal neurological deficits Skin: No rashes, deep jaundice Results & Data ([facility]) Vital Signs (Past 12 Hours) Vital Signs Temp Pulse Pulse Resp BP BP Pulse Ox 02/26/21 04:21 36.7 C 85 20 108/64 96 02/26/21 01:52 55 L 02/26/21 01:24 86 02/26/21 00:00 36.7 C 84 21 102/60 96 Laboratory Results 02/26/21 06:03 02/25/21 02/26/21 02/26/21 16:15 06:03 06:03 WBC 4.91 4.83 RBC 2.25 L 2.19 L MCV 91.1 91.3 MCH 32.4 32.0 MCHC 35.6 35.0 RDW Std Deviation 52.0 H 53.7 H RDW Coeff of Brigida 15.5 H 16.3 H Plt Count 32 L 32 L MPV 9.5 10.6 H Albumin 1.4 L
[2021-02-26 14:56] LABS: Hematocrit (blood only) 19.8 % (42-52); Hemoglobin 6.9 g/dL (14.0-18.0)
[2021-02-26] MEDS ORDERED: SODIUM CHLORIDE 0.9% 250 ML IV PRN (16:13)
--- NOTE | 2021-02-26 19:50 | Hospitalist Progress Note ---
Date of Service February 26, 2021 Assessment & Plan (1) Coagulopathy: (2) Elevated LFTs: Plan: Painless Jaundice Elevated LFTs DD: Decompensated cirrhosis Vs alcoholic hepatitis H/O alcohol abuse, last drink 1 month ago DF score 42 -CT ABD:Marked hepatomegaly and severe hepatic steatosis. Splenomegaly. Hyperdense material within the gallbladder likely represents stones/sludge. There is no CT evidence of acute cholecystitis. Punctate nonobstructing left renal calculus. Advanced coronary artery calcification. Mildly enlarged upper abdominal lymph nodes are nonspecific and likely related to chronic liver disease. -Neurological work-up acute hepatitis panel, CMV, EBV, GREG, AMA, ASMA pending -MRCP:Normal MRCP. Hepatomegaly and severe hepatic steatosis. Splenomegaly. Trace abdominal ascites and trace pleural effusions. -Appreciate GI input -Trend LFTs, INR -Continue acetylcysteine -Avoid Hepatotoxic agents -R/O infection: Blood, urine culture negative to date -Will complete Acetylcysteine course tomorrow Suspected UTI--Ruled out Blood culture Negative to date Urine Culture: Negative to date On empiric cefepime Pancytopenia Likely secondary to Alcoholism, Liver failure S/P PRBC, Platelets Monitor CBC H/O DM II as per records Update HbA1C:6.3 (? Falsely low due to liver disease ) Continue ISS Suspected GI bleeding +FOBT checked by Psychometrist No plan for scope currently as per GI unless patient has active bleed Continue PPI drip for 72 hours and then transition to p.o. twice daily Monitor H&H GI on board (3) Hyponatremia: Plan: -Sodium 120>>123>129 -Likely chronic/due to underlying liver disease fluid restriction Monitor sodium levels Appreciate Nephrology input (4) Anemia: (5) Thrombocytopenia: Plan: -Likely due to underlying liver disease Transfuse as needed Monitor (6) Alcohol abuse: Plan: -longstanding history of alcohol abuse, last drink 1 month ago -Continue thiamine, folic acid and (7) GERD (gastroesophageal reflux disease): Plan: -Continue PPI (8) Hypokalemia: (9) Hypomagnesemia: Plan: -Replace, follow electrolytes (10) DVT prophylaxis: Plan: -SCDs Re: Anemia, thrombocytopenia Admission and Anticipated Discharge Date Admission Date: February 24, 2021 Subjective Patient is seen and examined at bedside " I feel more clear mentally " No new complaints Hemoglobin dropped to 6.9 Denies any chest pain, shortness of breath, abdominal pain, dizziness, nausea Denies any bleeding issues Review of Systems Review of Systems: All systems reviewed & are unremarkable except as noted in Subjective Physical Exam Physical Exam: Physical Exam: Vitals signs as noted above General Appearance:Moderately built and nourished, no apparent distress Head: normocephalic, Atraumatic Eyes: normal inspection, EOMI,+Icteric Neck: supple, Trachea midline Respiratory/Chest: Normal breath sounds, CTA, No accessory muscle use Cardiovascular: S1, S2, No murmur Abdomen/GI:Soft, Non tender, distended, Bowel sounds present Extremities/Musculoskeletal:normal inspection, no edema Neurologic/Psych:AAOX3, grossly no focal neurological deficits Skin: normal color, warm, +Jaundiced Results & Data Results & Data ([facility]) Vital Signs (Past 12 Hours) Vital Signs Temp Pulse Pulse Resp BP BP BP 02/26/21 18:28 36.6 C 99 H 18 110/72 02/26/21 17:58 36.7 C 96 H 18 116/72 02/26/21 17:43 36.6 C 97 H 18 115/74 02/26/21 17:23 36.6 C 96 H 18 105/61 02/26/21 15:49 36.8 C 94 H 19 121/74 02/26/21 13:59 37 C 92 H 18 02/26/21 13:34 36.6 C 18 L 18 02/26/21 12:34 36.6 C 94 H 18 02/26/21 12:04 36.6 C 92 H 18 02/26/21 12:03 36.8 C 100 H 19 120/78 02/26/21 11:49 36.6 C 90 18 02/26/21 11:32 36.5 C 83 18 112/70 02/26/21 10:00 91 H 02/26/21 08:00 36.8 C 90 18 108/67 Pulse Ox 02/26/21 18:28 95 02/26/21 17:58 92 02/26/21 17:43 96 02/26/21 17:23 91 02/26/21 15:49 92 02/26/21 13:59 96 02/26/21 13:34 96 02/26/21 12:34 94 02/26/21 12:04 95 02/26/21 12:03 95 02/26/21 11:49 96 02/26/21 11:32 91 02/26/21 10:00 02/26/21 08:00 Laboratory Results Short CBC 02/25/21 02/26/21 02/26/21 Range/Units 23:51 06:03 14:41 WBC 4.83 (4.8-10.8) K/uL Hgb 7.1 L 7.0 L 6.9 L* (14.0-18.0) g/dL Hct 20.1 L* 20.0 L* 19.8 L* (42-52) % Plt Count 32 L (130-400) K/uL BMP 02/26/21 06:03 Sodium 129 L Potassium 3.2 L Chloride 91 L Carbon Dioxide 25 BUN 22 H Creatinine Glucose 140 H Calcium 7.1 L Liver Function 02/26/21 Range/Units 06:03 Total Bilirubin 23.7 H (0.2-1) mg/dl AST 217 H (15-37) U/L ALT 112 H (12-78) Alkaline Phosphatase 228 H (45-117) U/L Albumin 1.4 L (3.4-5.0) gm/dl (1) Anemia Anemia type: unspecified type Qualified Code(s): D64.9 - Anemia, unspecified
[2021-02-26] MEDS: QUEtiapine FUMARATE 200 MG TAB PO SCH (20:06)
[2021-02-26 22:44] LABS: Hemoglobin 8.1 g/dL (14.0-18.0)
[2021-02-27] MEDS: ACETYLCYSTEINE IV SCH (03:27)
[2021-02-27] MEDS: CEFEPIME 2,000 MG in SYRINGE 0 ML IV SCH ×2 (03:27→16:28)
[2021-02-27] MEDS: PANTOprazole 40 MG in DEXTROSE 5% 100 ML IV SCH ×4 (03:27→21:42)
[2021-02-27] MEDS: DEXTROSE 5% IV SCH (03:27)
[2021-02-27 06:21] LABS: Hemoglobin 8.1 g/dL (14.0-18.0); Mean Corpuscular Hemoglobin 31.4 pg (25-34); Mean Corpuscular Hgb Conc 35.2 g/dL (32-36); Mean Corpuscular Volume 89.1 fL (80-100); Nucleated RBC # (auto) 0.07 K/uL (0-0); Nucleated RBC % (auto) 1.1 %; RDW Coefficient of Variation 17.8 % (11.5-14.5); RDW Standard Deviation 57.4 fL (36.4-46.3); Red Blood Count 2.58 M/uL (4.7-6.1)
[2021-02-27 06:33] LABS: INR 1.4 (0.9-1.1); Prothrombin Time 13.5 Seconds (9.0-12.0)
[2021-02-27 06:48] LABS: Mean Platelet Volume 10.3 fL (7.4-10.4); Platelet Count 37 K/uL (130-400)
[2021-02-27 07:07] LABS: Alanine Aminotransferase 108 (12-78); Albumin Level 1.4 gm/dl (3.4-5.0); Alkaline Phosphatase 248 U/L (45-117); Aspartate Aminotransferase 209 U/L (15-37); Bilirubin,Total 23.2 mg/dl (0.2-1); Blood Urea Nitrogen 21 mg/dl (7-18); Calcium 6.9 mg/dl (8.5-10.1); Carbon Dioxide 24 mmol/L (21-32); Chloride 94 mmol/L (98-107); Glucose 153 mg/dl (70-99); Magnesium 1.7 mg/dl (1.8-2.4); Potassium 3.4 mmol/L (3.5-5.1); Sodium 129 mmol/L (136-145)
[2021-02-27] MEDS: INSULIN ASPART 100 UNITS/ML 3 ML PEN SC SCH ×4 (08:17→21:15)
[2021-02-27] MEDS: DICLOFENAC SOD 1% GEL 100 GM TUBE EXT SCH ×2 (08:18→21:14)
[2021-02-27] MEDS: MULTIVITAMIN TAB PO SCH (08:19)
[2021-02-27] MEDS: THIAMINE HCL 100 MG TAB PO SCH (08:19)
[2021-02-27] MEDS: POTASSIUM CHLORIDE CRTAB 20 MEQ TABCR PO SCH ×2 (08:19→21:15)
[2021-02-27] MEDS: FOLIC ACID 1 MG TAB PO SCH (08:19)
[2021-02-27] MEDS: DOCUSATE SODIUM/SENNA 50/8.6MG TAB PO SCH (08:19)
[2021-02-27] MEDS ORDERED: MAGNESIUM SULFATE / D5W 1 GM/100 ML BAG IV ONE (09:46)
--- NOTE | 2021-02-27 10:31 | Nephrology Progress Note ---
Date of Service February 27, 2021 Assessment & Plan (1) Hyponatremia: Plan: Patient with hyponatremia likely due to syndrome of inappropriate ADH. Patient with decompensated liver cirrhosis. Sodium of 129 today. -Ask pharmacy in [place]-acetylcysteine can be given in saline instead of D5. -Fluid restriction of 1.2 L daily -Daily sodium (2) Hypokalemia: Plan: Potassium is 3.4 today. We will give potassium chloride 40 mEq twice daily Admission and Anticipated Discharge Date Admission Date: February 24, 2021 Subjective Seen in follow-up for hyponatremia. He feels better today. No nausea or vomiting Review of Systems Review of Systems: All other systems were reviewed and negative except as noted in HPI Physical Exam Physical Exam: General exam: Appears comfortable, no acute distress HEENT: Pupils are equal and reactive to light, deep jaundice Neck: No JVD, neck is supple trachea is midline Respiratory system: Clear breath sounds bilaterally. Gastrointestinal: Abdomen is soft, moderately distended, non tender, bowel sounds are present CVS: Regular rate and rhythm. No murmurs, rubs or gallops Musculoskeletal: No joint or muscle tenderness Extremities: Non tender, no edema, peripheral pulses are present Neuro: Oriented, no tremors, no focal neurological deficits Skin: No rashes, deep jaundice Results & Data ([facility]) Vital Signs (Past 12 Hours) Vital Signs Temp Pulse Resp BP BP Pulse Ox 02/27/21 07:13 36.2 C L 93 H 129/72 93 02/27/21 03:29 36.8 C 95 H 18 133/82 92 02/26/21 23:04 36.7 C 102 H 20 113/64 92
--- NOTE | 2021-02-27 18:01 | Hospitalist Progress Note ---
Date of Service February 27, 2021 Assessment & Plan (1) Coagulopathy: (2) Elevated LFTs: Plan: Painless Jaundice Elevated LFTs DD: Decompensated cirrhosis Vs alcoholic hepatitis H/O alcohol abuse, last drink 1 month ago DF score 42 -CT ABD:Marked hepatomegaly and severe hepatic steatosis. Splenomegaly. Hyperdense material within the gallbladder likely represents stones/sludge. There is no CT evidence of acute cholecystitis. Punctate nonobstructing left renal calculus. Advanced coronary artery calcification. Mildly enlarged upper abdominal lymph nodes are nonspecific and likely related to chronic liver disease. -Immunological/Serological work-up CMV, EBV, GREG, AMA, ASMA pending -MRCP:Normal MRCP. Hepatomegaly and severe hepatic steatosis. Splenomegaly. Trace abdominal ascites and trace pleural effusions. -Acute hepatitis panel negative -Appreciate GI input -Trend LFTs, INR -Avoid Hepatotoxic agents -R/O infection: Blood, urine culture negative to date -Will complete Acetylcysteine course today -LFTs slowly trending down Suspected UTI--Ruled out Blood culture Negative to date Urine Culture: Negative to date On empiric cefepime Will discontinue antibiotics if cultures remain negative tomorrow Pancytopenia Likely secondary to Alcoholism, Liver failure S/P PRBC, Platelets Monitor CBC H/O DM II as per records Update HbA1C:6.3 (? Falsely low due to liver disease ) Continue ISS Suspected GI bleeding +FOBT checked by Abseiling Instructor No plan for scope currently as per GI unless patient has active bleed Continue PPI drip for 72 hours and then transition to p.o. twice daily Monitor H&H GI on board Hb stable (3) Hyponatremia: Plan: -Sodium 120>>123>129 -Likely chronic/due to underlying liver disease fluid restriction Monitor sodium levels Appreciate Nephrology input (4) Anemia: (5) Thrombocytopenia: Plan: -Likely due to underlying liver disease Transfuse as needed Monitor (6) Alcohol abuse: Plan: -longstanding history of alcohol abuse, last drink 1 month ago -Continue thiamine, folic acid and (7) GERD (gastroesophageal reflux disease): Plan: -Continue PPI (8) Hypokalemia: Plan: Replace electrolytes as needed (9) Hypomagnesemia: Plan: -Replace, follow electrolytes (10) DVT prophylaxis: Plan: -SCDs Re: Anemia, thrombocytopenia Admission and Anticipated Discharge Date Admission Date: February 24, 2021 Subjective Patient is seen and examined at bedside States feeling better today Appetite slowly improving Denies any bleeding issues Reports having 1 loose bowel movement this morning Denies any chest pain, shortness of breath, abdominal pain, dizziness, nausea Hb stable Review of Systems Review of Systems: All systems reviewed & are unremarkable except as noted in Subjective Physical Exam Physical Exam: Physical Exam: Vitals signs as noted above General Appearance:Moderately built and nourished, no apparent distress Head: normocephalic, Atraumatic Eyes: normal inspection, EOMI,+Icteric Neck: supple, Trachea midline Respiratory/Chest: Normal breath sounds, CTA, No accessory muscle use Cardiovascular: S1, S2, No murmur Abdomen/GI:Soft, Non tender, distended, Bowel sounds present Extremities/Musculoskeletal:normal inspection, no edema Neurologic/Psych:AAOX3, grossly no focal neurological deficits Skin: normal color, warm, +Jaundiced Results & Data Results & Data ([facility]) Vital Signs (Past 12 Hours) Vital Signs Temp Pulse Resp BP BP Pulse Ox 02/27/21 15:02 36.7 C 87 18 114/78 94 02/27/21 11:34 36.5 C 91 H 18 125/78 92 02/27/21 07:13 36.2 C L 93 H 129/72 93 Laboratory Results Short CBC 02/26/21 02/27/21 Range/Units 22:27 06:02 WBC 6.20 (4.8-10.8) K/uL Hgb 8.1 L 8.1 L (14.0-18.0) g/dL Hct 23.0 L 23.0 L (42-52) % Plt Count 37 L (130-400) K/uL BMP 02/27/21 06:02 Sodium 129 L Potassium 3.4 L Chloride 94 L Carbon Dioxide 24 BUN 21 H Creatinine Glucose 153 H Calcium 6.9 L Liver Function 02/27/21 Range/Units 06:02 Total Bilirubin 23.2 H (0.2-1) mg/dl AST 209 H (15-37) U/L ALT 108 H (12-78) Alkaline Phosphatase 248 H (45-117) U/L Albumin 1.4 L (3.4-5.0) gm/dl (1) Anemia Anemia type: unspecified type Qualified Code(s): D64.9 - Anemia, unspecified
[2021-02-27] MEDS: QUEtiapine FUMARATE 200 MG TAB PO SCH (21:15)
[2021-02-27] MEDS: MAGNESIUM CHLORIDE 64MG DELAYED REL TAB PO SCH (21:16)
[2021-02-28] MEDS: CEFEPIME 2,000 MG in SYRINGE 0 ML IV SCH ×2 (03:23→16:38)
[2021-02-28] MEDS: PANTOprazole 40 MG in DEXTROSE 5% 100 ML IV SCH (03:23)
[2021-02-28 05:59] LABS: INR 1.3 (0.9-1.1); Prothrombin Time 13.3 Seconds (9.0-12.0)
[2021-02-28 06:07] LABS: Hematocrit (blood only) 22.1 % (42-52); Hemoglobin 7.8 g/dL (14.0-18.0); Mean Corpuscular Hemoglobin 31.6 pg (25-34); Mean Corpuscular Hgb Conc 35.3 g/dL (32-36); Mean Corpuscular Volume 89.5 fL (80-100); Nucleated RBC # (auto) 0.02 K/uL (0-0); Nucleated RBC % (auto) 0.3 %; RDW Coefficient of Variation 18.4 % (11.5-14.5); RDW Standard Deviation 59.4 fL (36.4-46.3); Red Blood Count 2.47 M/uL (4.7-6.1); White Blood Count 6.49 K/uL (4.8-10.8)
[2021-02-28 06:17] LABS: Mean Platelet Volume 11.6 fL (7.4-10.4); Platelet Count 46 K/uL (130-400)
[2021-02-28 06:40] LABS: Alanine Aminotransferase 115 (12-78); Albumin Level 1.3 gm/dl (3.4-5.0); Alkaline Phosphatase 275 U/L (45-117); Aspartate Aminotransferase 209 U/L (15-37); Blood Urea Nitrogen 23 mg/dl (7-18); Calcium 6.9 mg/dl (8.5-10.1); Carbon Dioxide 22 mmol/L (21-32); Chloride 91 mmol/L (98-107); Glucose 192 mg/dl (70-99); Magnesium 1.8 mg/dl (1.8-2.4); Potassium 3.7 mmol/L (3.5-5.1)
[2021-02-28 06:42] LABS: Sodium 122 mmol/L (136-145)
[2021-02-28] MEDS: INSULIN ASPART 100 UNITS/ML 3 ML PEN SC SCH ×4 (08:20→21:10)
[2021-02-28] MEDS: FOLIC ACID 1 MG TAB PO SCH (08:21)
[2021-02-28] MEDS: DICLOFENAC SOD 1% GEL 100 GM TUBE EXT SCH ×2 (08:21→21:07)
[2021-02-28] MEDS: DOCUSATE SODIUM/SENNA 50/8.6MG TAB PO SCH (08:22)
[2021-02-28] MEDS: POTASSIUM CHLORIDE CRTAB 20 MEQ TABCR PO SCH ×2 (08:22→21:08)
[2021-02-28] MEDS: MULTIVITAMIN TAB PO SCH (08:22)
[2021-02-28] MEDS: PANTOprazole 40 MG TAB PO SCH ×2 (08:22→21:08)
[2021-02-28] MEDS: MAGNESIUM CHLORIDE 64MG DELAYED REL TAB PO SCH ×2 (08:22→22:08)
[2021-02-28] MEDS: THIAMINE HCL 100 MG TAB PO SCH (08:22)
--- NOTE | 2021-02-28 10:47 | XRay Report ---
XR KUB/Abdomen 1 view CLINICAL HISTORY: abdominal distension. Abdominal pain COMPARISON STUDY: CT the abdomen from 02/24/2021 TECHNIQUE: Single view of the abdomen. FINDINGS: Compared to the CT examination, there are now mildly dilated loops of small bowel seen within the mid to upper abdomen. The small bowel loops within the pelvis are decompressed. Findings most likely rep resent ileus versus gastroenteritis. However, early partial small bowel obstruction cannot be complet laura excluded. If the patient's pain persists, follow-up is recommended. There is no evidence for orga nomegaly or gross intra-abdominal mass. No abnormal calcifications are seen along the course of the u rinary tracts bilaterally. No acute osseous pathology. IMPRESSION: 1.Interval development of mildly dilated loops of small bowel as described. The findings are most lik laura related to ileus versus gastroenteritis. If pain persists, follow-up is recommended. ACT 112: Negative or not required by law. Electronically signed by: Siva Faye M.D. 02/28/2021 10:46 AM
--- NOTE | 2021-02-28 11:29 | Gastroenterology Progress Note ---
Date of Service February 28, 2021 Assessment & Plan (1) Elevated LFTs: (2) Jaundice: Plan: Pt is a 60 y/o male, followed for ETOH hepatitis vs decompensated cirrhosis (severe hepatic steatosis seen, though noted he is thrombocytopenic and coagulopathic). Received NAC, LFTs trending down. NAC completed, INR 1.3 MELD unable to be calculated due to Cr not quantifiable (icteric specimen) Maddreys Discriminant Function score: 28 - Diet as tolerated - Obtain KUB, u/s for ascites check - Start Pentoxifylline 400mg TID - Defer electrolyte correction (hyponatremia) to primary team - Will arrange GI f/u after his DC Admission and Anticipated Discharge Date Admission Date: February 24, 2021 Supervising Physician Co-Signing Physician Notes Patient is alert and oriented to person/place/time. PE - multiple tattoos noted on his arm, jaundice noted Labs reviewed - 6.5/7.8/22.1/plt 46 na 122/k 37/cl91/co2/22/bun 23/cr could not be, INR 1.3, Alb 1.3 Agree with further plan of care as above. Subjective Pt tolerating diet w/o n/v. Does c/o mild upper abd discomfort. Review of Systems Review of Systems: All systems reviewed & are unremarkable except as noted in HPI & below Constitutional: as per Subjective / HPI Physical Exam Constitutional: WD/WN, vitals as above cooperative and comfortable Eyes: PERRLA, EOMs intact, icteric sclera ENMT: external ear and nose normal, oropharynx normal Respiratory: normal respiratory effort, lungs clear to auscultation Cardiovascular: RRR, no murmur, no edema Gastrointestinal (Abdomen): BS hypoactive, mildly distended abd, non tender Skin: no rashes, warm and dry + jaundice Neurologic: Motor/Sensory: no asterixis Psychiatric: A+Ox3, euthymic affect Lymphatic: no lymphedema Results & Data ([facility]) Vital Signs (Past 12 Hours) Vital Signs Temp Pulse Resp BP Pulse Ox 02/28/21 06:58 36.4 C L 94 H 19 120/67 94 02/28/21 03:22 36.6 C 91 H 20 89/54 L 91 02/28/21 00:00 37.0 C 96 H 18 125/65 95
--- NOTE | 2021-02-28 12:32 | Ultrasound Report ---
US abdomen ltd ascites CLINICAL HISTORY: assess for ascites TECHNIQUE: Real-time grayscale sonographic images of the 4 quadrants of the abdomen were obtained. Comparison: None available at the time of this dictation. FINDINGS: Only a small amount ascites is seen within the right lower quadrant. No other pockets of fl uid are identified. IMPRESSION: Small amount of ascitic fluid within the right lower quadrant. ACT 112: Negative or not required by law. Electronically signed by: Siva Faye M.D. 02/28/2021 12:30 PM
[2021-02-28 14:03] LABS: Blood Urea Nitrogen 22 mg/dl (7-18); Calcium 6.9 mg/dl (8.5-10.1); Carbon Dioxide 22 mmol/L (21-32); Chloride 93 mmol/L (98-107); Glucose 148 mg/dl (70-99); Sodium 124 mmol/L (136-145)
[2021-02-28] MEDS: PENTOXIFYLLINE 400MG EXT REL TAB PO SCH ×2 (14:14→21:08)
--- NOTE | 2021-02-28 17:32 | Nephrology Progress Note ---
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 Patient with decompensated liver cirrhosis. Sodium 122 today from 129 yesterday, improved to 124 by noon -- ?if from D5W yesterday w/ NAC? -tightened FR to 1.2L daily -if worse sNa on recheck this evening, give lasix 10 mg IV x 1 -low Na diet ordered -recheck 1800 ordered bmp (2) Hypokalemia: Plan: Potassium is 3.7 today. continue potassium chloride 40 mEq twice daily -ordered phos, mag for am Admission and Anticipated Discharge Date Admission Date: February 24, 2021 Subjective no interval events. pt w/ large drop in sNa 129>122 this am, 124 on recheck. could not calculate creat d/t icteric specimen. has abd soreness and belching if rolls on R side; else no n/v, no ambulation, no sob, no edema Review of Systems Review of Systems: All systems reviewed & are unremarkable except as noted in Subjective Physical Exam Constitutional: well developed, + ill appearing (chronically) and cooperative; no acute distress Eyes: EOM intact bilaterally; sclerae not anicteric ENMT: Ears: no external ear abnormality Nose: no external nose abnormality Mouth: + dry oral mucous membranes Neck: no nuchal rigidity Respiratory: normal respiratory effort Auscultation: + diminished lung sounds Cardiovascular: Rate/Rhythm: regular rhythm and + tachycardic Heart Sounds: normal S1 and normal S2 Extremities: no edema Gastrointestinal (Abdomen): Inspection/Auscultation: + abdomen distended and normal bowel sounds Percussion/Palpation: abdomen soft; abdomen nontender and no guarding Musculoskeletal: Extremities: strength 5/5 throughout Skin: no rashes, warm and dry + jaundice Neurologic: li, fluent speech, frequent limb tremors Results & Data ([facility]) Vital Signs (Past 12 Hours) Vital Signs Temp Pulse Resp BP BP Pulse Ox 02/28/21 16:09 36.6 C 94 H 18 137/76 95 02/28/21 11:29 36.6 C 86 19 133/72 94 02/28/21 06:58 36.4 C L 94 H 19 120/67 94 Laboratory Results 02/28/21 05:29 02/28/21 12:15
--- NOTE | 2021-02-28 19:05 | Hospitalist Progress Note ---
Date of Service February 28, 2021 Assessment & Plan (1) Coagulopathy: (2) Elevated LFTs: Plan: Painless Jaundice Elevated LFTs DD: Decompensated cirrhosis Vs alcoholic hepatitis H/O alcohol abuse, last drink 1 month ago DF score 42 -CT ABD:Marked hepatomegaly and severe hepatic steatosis. Splenomegaly. Hyperdense material within the gallbladder likely represents stones/sludge. There is no CT evidence of acute cholecystitis. Punctate nonobstructing left renal calculus. Advanced coronary artery calcification. Mildly enlarged upper abdominal lymph nodes are nonspecific and likely related to chronic liver disease. -Immunological/Serological work-up CMV, EBV, GREG, AMA, ASMA pending -MRCP:Normal MRCP. Hepatomegaly and severe hepatic steatosis. Splenomegaly. Trace abdominal ascites and trace pleural effusions. -Acute hepatitis panel negative -Appreciate GI input -Trend LFTs, INR -Avoid Hepatotoxic agents -R/O infection: Blood, urine culture negative to date -completed Acetylcysteine course -LFTs slowly trending down -Liver ultrasound showed small ascites within the right lower quadrant Started on pentoxifylline Needs follow-up with GI upon discharge Suspected ileus Repeat KUB tomorrow Continue bowel regimen Suspected UTI--Ruled out Blood culture Negative to date Urine Culture: Negative to date On empiric cefepime Will discontinue antibiotics if cultures remain negative tomorrow Pancytopenia Likely secondary to Alcoholism, Liver failure S/P PRBC, Platelets Monitor CBC H/O DM II as per records Update HbA1C:6.3 (? Falsely low due to liver disease ) Continue ISS Suspected GI bleeding +FOBT checked by Armor Officer No plan for scope currently as per GI unless patient has active bleed Continue PPI drip for 72 hours and then transition to p.o. twice daily Monitor H&H GI on board Hb 7.8 today (3) Hyponatremia: Plan: -Sodium 120>>123>124 -Likely chronic/due to underlying liver disease fluid restriction Monitor sodium levels Appreciate Nephrology input Trial of lasix (4) Anemia: (5) Thrombocytopenia: Plan: -Likely due to underlying liver disease Transfuse as needed Monitor (6) Alcohol abuse: Plan: -longstanding history of alcohol abuse, last drink 1 month ago -Continue thiamine, folic acid and (7) GERD (gastroesophageal reflux disease): Plan: -Continue PPI (8) Hypokalemia: Plan: Replace electrolytes as needed (9) Hypomagnesemia: Plan: -Replace, follow electrolytes (10) DVT prophylaxis: Plan: -SCDs Re: Anemia, thrombocytopenia Admission and Anticipated Discharge Date Admission Date: February 24, 2021 Subjective Patient is seen and examined at bedside States having minimal abdominal discomfort when he sits upright Discussed with GI today Denies any chest pain, shortness of breath, abdominal pain, dizziness, nausea Denies any bleeding issues Review of Systems Review of Systems: All systems reviewed & are unremarkable except as noted in Subjective Physical Exam Physical Exam: Physical Exam: Vitals signs as noted above General Appearance:Moderately built and nourished, no apparent distress Head: normocephalic, Atraumatic Eyes: normal inspection, EOMI,+Icteric Neck: supple, Trachea midline Respiratory/Chest: Normal breath sounds, CTA, No accessory muscle use Cardiovascular: S1, S2, No murmur Abdomen/GI:Soft, Non tender, distended, Bowel sounds present Extremities/Musculoskeletal:normal inspection, no edema Neurologic/Psych:AAOX3, grossly no focal neurological deficits Skin: normal color, warm, +Jaundiced Results & Data Results & Data ([facility]) Vital Signs (Past 12 Hours) Vital Signs Temp Pulse Resp BP BP Pulse Ox 02/28/21 16:09 36.6 C 94 H 18 137/76 95 02/28/21 11:29 36.6 C 86 19 133/72 94 Laboratory Results Short CBC 02/28/21 Range/Units 05:29 WBC 6.49 (4.8-10.8) K/uL Hgb 7.8 L (14.0-18.0) g/dL Hct 22.1 L (42-52) % Plt Count 46 L (130-400) K/uL BMP 02/28/21 02/28/21 05:29 12:15 Sodium 122 L D 124 L Potassium 3.7 4.0 Chloride 91 L 93 L Carbon Dioxide 22 22 BUN 23 H 22 H Creatinine Glucose 192 H 148 H Calcium 6.9 L 6.9 L Liver Function 02/28/21 Range/Units 05:29 Total Bilirubin 22.0 H (0.2-1) mg/dl AST 209 H (15-37) U/L ALT 115 H (12-78) Alkaline Phosphatase 275 H (45-117) U/L Albumin 1.3 L (3.4-5.0) gm/dl (1) Anemia Anemia type: unspecified type Qualified Code(s): D64.9 - Anemia, unspecified
[2021-02-28 19:06] LABS: Blood Urea Nitrogen 22 mg/dl (7-18); Calcium 7.1 mg/dl (8.5-10.1); Carbon Dioxide 22 mmol/L (21-32); Chloride 93 mmol/L (98-107); Glucose 143 mg/dl (70-99); Potassium 3.8 mmol/L (3.5-5.1); Sodium 124 mmol/L (136-145)
[2021-02-28] MEDS: QUEtiapine FUMARATE 200 MG TAB PO SCH (21:08)
[2021-03-01] MEDS: MELATONIN 3 MG TAB PO PRN ×2 (00:20→20:25)
[2021-03-01] MEDS: CEFEPIME 2,000 MG in SYRINGE 0 ML IV SCH ×2 (04:50→16:53)
[2021-03-01 06:15] LABS: Hematocrit (blood only) 25.7 % (42-52); Hemoglobin 8.9 g/dL (14.0-18.0); Mean Corpuscular Hemoglobin 31.2 pg (25-34); Mean Corpuscular Hgb Conc 34.6 g/dL (32-36); Mean Corpuscular Volume 90.2 fL (80-100); Nucleated RBC # (auto) 0.03 K/uL (0-0); Nucleated RBC % (auto) 0.2 %; RDW Coefficient of Variation 18.9 % (11.5-14.5); RDW Standard Deviation 60.4 fL (36.4-46.3); Red Blood Count 2.85 M/uL (4.7-6.1); White Blood Count 11.22 K/uL (4.8-10.8)
[2021-03-01 06:16] LABS: Mean Platelet Volume 10.8 fL (7.4-10.4); Platelet Count 59 K/uL (130-400)
[2021-03-01 06:23] LABS: INR 1.3 (0.9-1.1)
[2021-03-01] MEDS: INSULIN ASPART 100 UNITS/ML 3 ML PEN SC SCH ×4 (08:11→21:07)
[2021-03-01] MEDS: DICLOFENAC SOD 1% GEL 100 GM TUBE EXT SCH ×2 (08:12→20:27)
[2021-03-01] MEDS: POTASSIUM CHLORIDE CRTAB 20 MEQ TABCR PO SCH (08:12)
[2021-03-01] MEDS: PENTOXIFYLLINE 400MG EXT REL TAB PO SCH ×3 (08:12→20:27)
[2021-03-01] MEDS: MAGNESIUM CHLORIDE 64MG DELAYED REL TAB PO SCH ×2 (08:12→20:27)
[2021-03-01] MEDS: PANTOprazole 40 MG TAB PO SCH ×2 (08:12→20:27)
[2021-03-01] MEDS: FOLIC ACID 1 MG TAB PO SCH (08:13)
[2021-03-01] MEDS: THIAMINE HCL 100 MG TAB PO SCH (08:13)
[2021-03-01] MEDS: DOCUSATE SODIUM/SENNA 50/8.6MG TAB PO SCH (08:13)
[2021-03-01] MEDS: MULTIVITAMIN TAB PO SCH (08:13)
[2021-03-01] MEDS ORDERED: POLYETHYLENE (MIRALAX) 17 GM PACK PO SCH (09:00)
[2021-03-01 09:03] LABS: Blood Urea Nitrogen 22 mg/dl (7-18); Calcium 7.2 mg/dl (8.5-10.1); Carbon Dioxide 23 mmol/L (21-32); Chloride 93 mmol/L (98-107); Glucose 145 mg/dl (70-99); Phosphorus 0.7 mg/dl (2.5-4.9); Potassium 4.7 mmol/L (3.5-5.1); Sodium 124 mmol/L (136-145)
[2021-03-01] MEDS ORDERED: SODIUM PHOSPHATE 3 MMOL/1 ML INFUSION IV STA (09:18)
--- NOTE | 2021-03-01 09:19 | Nephrology Progress Note ---
Date of Service March 01, 2021 Assessment & Plan (1) Electrolyte and fluid disorder: Plan: >>>>critical hypophosphatemia -ordered 12 mmol sodium phosphate IV stat -started Kphos one tab qid -recheck bmp, phos for 1700 ordered >>>>>hyponatremia stable but still severe > > 129 on 02/27 >122>124 this AM, attributed initially to SIADH, hypervolemia from decompensated liver cirrhosis may apply better. ?if large drop from D5W 02/27 w/ NAC? -cont low Na diet and tightened FR 1.2L daily ->>will recheck serum osm since not clear how accurate sNa is with icteric specimen >>>>hypokalemia, resolved for now; Potassium is 4.7 today. -K supplements held -ordered phos, mag, bmp daily >>decompensated liver cirrhosis >> trying to minimize/ avoid lasix in pt for whom we essentially have no measure of creatinine since admission and who has high MAIRA risk Admission and Anticipated Discharge Date Admission Date: February 24, 2021 Subjective ROS essentially unchnaged when I saw him at about 1145am: c/o slight upper quadrant pain w/ rolling on L side; also today sob on L side as well Review of Systems Review of Systems: All systems reviewed & are unremarkable except as noted in Subjective Physical Exam Constitutional: well developed, + ill appearing (chronically) and cooperative; no acute distress lying on R side as on previous exam Eyes: EOM intact bilaterally; sclerae not anicteric ENMT: Ears: no external ear abnormality Nose: no external nose abnormality Mouth: + dry oral mucous membranes Neck: no nuchal rigidity Respiratory: normal respiratory effort Auscultation: + diminished lung sounds Cardiovascular: Rate/Rhythm: regular rhythm and + tachycardic Heart Sounds: normal S1 and normal S2 Extremities: no edema Gastrointestinal (Abdomen): Inspection/Auscultation: + abdomen distended and normal bowel sounds Percussion/Palpation: abdomen soft; abdomen nontender and no guarding Musculoskeletal: Extremities: strength 5/5 throughout Skin: no rashes, warm and dry + jaundice Neurologic: + tremor; li, fluent speech Results & Data ([facility]) Vital Signs (Past 12 Hours) Vital Signs Temp Pulse Pulse Resp BP Pulse Ox 03/01/21 07:04 36.5 C 98 H 19 149/78 H 95 03/01/21 03:47 36.6 C 102 H 18 123/78 95 02/28/21 23:50 36.9 C 94 H 22 127/75 93 02/28/21 23:20 83 Laboratory Results 03/01/21 05:54 03/01/21 05:54
[2021-03-01] MEDS ORDERED: LORazepam 0.5 MG TAB PO STA (09:23)
[2021-03-01] MEDS ORDERED: SODIUM PHOSPHATE 12 MMOL in SODIUM CHLORIDE 0.9% 250 ML IV ONE (09:45)
[2021-03-01] MEDS ORDERED: SODIUM PHOSPHATE 12 MMOL in DEXTROSE 5% 250 ML IV ONE (09:45)
[2021-03-01 10:57] LABS: Albumin Level 1.5 gm/dl (3.4-5.0); Bilirubin,Total 24.7 mg/dl (0.2-1)
--- NOTE | 2021-03-01 11:06 | Gastroenterology Progress Note ---
Date of Service March 01, 2021 Assessment & Plan (1) Elevated LFTs: (2) Jaundice: Plan: Pt is a 60 y/o male, followed for ETOH hepatitis vs decompensated cirrhosis (severe hepatic steatosis seen, though noted he is thrombocytopenic and coagulopathic). Received NAC, LFTs trending down. NAC completed, INR 1.3 MELD unable to be calculated due to Cr not quantifiable (icteric specimen) Madeys Discriminant Function score: 28 - Diet as tolerated - F/U KUB for ileus - Keep K >4, OOB, avoid narcotics/sedatives, repeat KUB in AM. Will increase Senna to 2 tabs daily + Miralax 17g BID - Continue Pentoxifylline 400mg TID - Defer electrolyte correction (hyponatremia) to primary team - Will arrange GI f/u after his DC Admission and Anticipated Discharge Date Admission Date: February 24, 2021 Supervising Physician Co-Signing Physician Notes 60 yo male with a history of alcoholic hepatitis (mdf less than 32), sup erimposed on severe fatty liver, ? cirrhosis given low platelets, admitted with painless jaundice. PE - jaundice male in nad, HEENT -perrla, Ext- multiple tatoos Anthony MELD if cirrhotic is in the high 20's Agree with with Pentoxyfylline Recent abd alma without evidence of significant ascites Agree with further plan of care as above. Subjective Pt reports having abd pain, denies n/v, not having much stools or flatus KUB pending Review of Systems Review of Systems: All systems reviewed & are unremarkable except as noted in HPI & below Physical Exam Constitutional: WD/WN, vitals as above cooperative and comfortable ENMT: Icteric sclera Respiratory: normal respiratory effort, lungs clear to auscultation Cardiovascular: RRR, no murmur, no edema Gastrointestinal (Abdomen): Distended, non tender, BS hypoactive Skin: no rashes, warm and dry + jaundice Neurologic: Motor/Sensory: no asterixis Psychiatric: A+Ox3, euthymic affect Lymphatic: no lymphedema Results & Data ([facility]) Vital Signs (Past 12 Hours) Vital Signs Temp Pulse Pulse Resp BP Pulse Ox 03/01/21 07:04 36.5 C 98 H 19 149/78 H 95 03/01/21 03:47 36.6 C 102 H 18 123/78 95 02/28/21 23:50 36.9 C 94 H 22 127/75 93 02/28/21 23:20 83
[2021-03-01 11:09] LABS: Bilirubin Direct 19.8 mg/dl (0-0.2)
--- NOTE | 2021-03-01 11:31 | XRay Report ---
XR KUB/Abdomen 1 view CLINICAL HISTORY: ? Ileus TECHNIQUE: 1 view of the abdomen was obtained. Comparison: Comparison is made to abdomen radiograph 02/28/2021 FINDINGS: Lungs are underinflated. The osseous structures are grossly unremarkable. Multiple gas-distended loop s of bowel are seen, including gas-distended loops of small bowel measuring up to 46 mm in diameter. Small stool burden is seen. IMPRESSION: Multiple gas-distended loops of large and small bowel likely representing ileus versus partial obstru ction. ACT 112: Negative or not required by law. Electronically signed by: Rudy Benitez M.D. 03/01/2021 11:30 AM
[2021-03-01] MEDS: POT PHOSPHATE MONOBASIC W/ SOD TAB PO SCH ×3 (12:30→20:27)
[2021-03-01 16:21] LABS: Anti Mitochondrial Antibody NEGATIVE (NEGATIVE); Anti Nuclear Antibody Screen NEGATIVE (NEGATIVE); CMV IgG Antibody <0.60 U/mL; CMV IgM Antibody <30.00 AU/mL; EBV Virus Capsid Ag IgG Ab >750.00 U/mL; Smooth Muscle Antibody NEGATIVE (NEGATIVE)
[2021-03-01] MEDS: hydrOXYzine HCl 10 MG TAB PO PRN (16:51)
--- NOTE | 2021-03-01 17:51 | Hospitalist Progress Note ---
Date of Service March 01, 2021 Assessment & Plan (1) Coagulopathy: (2) Elevated LFTs: Plan: Painless Jaundice Elevated LFTs DD: Decompensated cirrhosis Vs alcoholic hepatitis H/O alcohol abuse, last drink 1 month ago DF score 42 -CT ABD:Marked hepatomegaly and severe hepatic steatosis. Splenomegaly. Hyperdense material within the gallbladder likely represents stones/sludge. There is no CT evidence of acute cholecystitis. Punctate nonobstructing left renal calculus. Advanced coronary artery calcification. Mildly enlarged upper abdominal lymph nodes are nonspecific and likely related to chronic liver disease. -Immunological/Serological work-up CMV, EBV, GREG, AMA, ASMA pending -MRCP:Normal MRCP. Hepatomegaly and severe hepatic steatosis. Splenomegaly. Trace abdominal ascites and trace pleural effusions. -Acute hepatitis panel negative -Appreciate GI input -Trend LFTs, INR -Avoid Hepatotoxic agents -R/O infection: Blood, urine culture negative to date -completed Acetylcysteine course -LFTs slowly trending down -Liver ultrasound showed small ascites within the right lower quadrant Continue pentoxifylline Needs follow-up with GI upon discharge Persistent hyperbilirubinemia Suspected ileus Vs P.SBO Continue bowel regimen Consider surgical evaluation if needed Follow-up KUB tomorrow Suspected UTI--Ruled out Blood culture Negative to date Urine Culture: Negative to date On empiric cefepime--DCed Pancytopenia Likely secondary to Alcoholism, Liver failure S/P PRBC, Platelets Monitor CBC H/O DM II as per records Update HbA1C:6.3 (? Falsely low due to liver disease ) Continue ISS Suspected GI bleeding +FOBT checked by Publication Manager No plan for scope currently as per GI unless patient has active bleed Continue PPI drip for 72 hours and then transition to p.o. twice daily Monitor H&H GI on board Hb 8.9 today (3) Hyponatremia: Plan: -Sodium 120>>123>124 -Likely chronic/due to underlying liver disease fluid restriction Monitor sodium levels Appreciate Nephrology input (4) Anemia: (5) Thrombocytopenia: Plan: -Likely due to underlying liver disease Transfuse as needed Monitor (6) Alcohol abuse: Plan: -longstanding history of alcohol abuse, last drink 1 month ago -Continue thiamine, folic acid and (7) GERD (gastroesophageal reflux disease): Plan: -Continue PPI (8) Hypokalemia: Plan: Replace electrolytes as needed (9) Hypomagnesemia: Plan: -Replace, follow electrolytes (10) DVT prophylaxis: Plan: -SCDs Re: Anemia, thrombocytopenia Admission and Anticipated Discharge Date Admission Date: February 24, 2021 Subjective Patient is seen and examined at bedside States feeling shaky and anxious Poor appetite Hyperbilirubinemia persists Denies any chest pain, shortness of breath, abdominal pain, dizziness, nausea Review of Systems Review of Systems: All systems reviewed & are unremarkable except as noted in Subjective Physical Exam Physical Exam: Physical Exam: Vitals signs as noted above General Appearance:Moderately built and nourished, no apparent distress Head: normocephalic, Atraumatic Eyes: normal inspection, EOMI,+Icteric Neck: supple, Trachea midline Respiratory/Chest: Normal breath sounds, CTA, No accessory muscle use Cardiovascular: S1, S2, No murmur Abdomen/GI:Soft, Non tender, distended, Bowel sounds present Extremities/Musculoskeletal:normal inspection, no edema Neurologic/Psych:AAOX3, grossly no focal neurological deficits Skin: normal color, warm, +Jaundiced Results & Data Results & Data ([facility]) Vital Signs (Past 12 Hours) Vital Signs Temp Pulse Resp BP Pulse Ox 03/01/21 15:49 36.6 C 97 H 20 141/66 H 94 03/01/21 11:29 36.4 C L 91 H 20 137/79 94 03/01/21 07:04 36.5 C 98 H 19 149/78 H 95 Laboratory Results Short CBC 03/01/21 Range/Units 05:54 WBC 11.22 H (4.8-10.8) K/uL Hgb 8.9 L (14.0-18.0) g/dL Hct 25.7 L (42-52) % Plt Count 59 L (130-400) K/uL BMP 02/28/21 03/01/21 18:12 05:54 Sodium 124 L 124 L Potassium 3.8 4.7 D Chloride 93 L 93 L Carbon Dioxide 22 23 BUN 22 H 22 H Creatinine Glucose 143 H 145 H Calcium 7.1 L 7.2 L Liver Function 03/01/21 Range/Units 05:54 Total Bilirubin 24.7 H (0.2-1) mg/dl Direct Bilirubin 19.8 H (0-0.2) mg/dl AST 225 H (15-37) U/L ALT 123 H (12-78) Alkaline Phosphatase 324 H D (45-117) U/L Albumin 1.5 L (3.4-5.0) gm/dl (1) Anemia Anemia type: unspecified type Qualified Code(s): D64.9 - Anemia, unspecified
[2021-03-01 18:05] LABS: Blood Urea Nitrogen 20 mg/dl (7-18); Carbon Dioxide 22 mmol/L (21-32); Chloride 97 mmol/L (98-107); Glucose 143 mg/dl (70-99); Phosphorus 1.1 mg/dl (2.5-4.9); Potassium 4.5 mmol/L (3.5-5.1); Sodium 128 mmol/L (136-145)
[2021-03-01] MEDS: ONDANSETRON INJ 2 MG/ML 2 ML VIAL IV PRN (20:25)
[2021-03-01] MEDS: POLYETHYLENE (MIRALAX) 17 GM PACK PO SCH (20:27)
[2021-03-01] MEDS: QUEtiapine FUMARATE 200 MG TAB PO SCH (20:27)
[2021-03-02] MEDS: hydrOXYzine HCl 10 MG TAB PO PRN ×2 (03:37→11:48)
[2021-03-02 07:37] LABS: Hematocrit (blood only) 24.6 % (42-52); Hemoglobin 8.4 g/dL (14.0-18.0); Mean Corpuscular Hemoglobin 31.6 pg (25-34); Mean Corpuscular Hgb Conc 34.1 g/dL (32-36); Mean Corpuscular Volume 92.5 fL (80-100); RDW Coefficient of Variation 19.1 % (11.5-14.5); RDW Standard Deviation 63.7 fL (36.4-46.3); Red Blood Count 2.66 M/uL (4.7-6.1); White Blood Count 9.49 K/uL (4.8-10.8)
[2021-03-02 07:39] LABS: INR 1.3 (0.9-1.1); Prothrombin Time 13.3 Seconds (9.0-12.0)
[2021-03-02 07:50] LABS: Mean Platelet Volume 11.6 fL (7.4-10.4); Platelet Count 73 K/uL (130-400)
[2021-03-02] MEDS: DICLOFENAC SOD 1% GEL 100 GM TUBE EXT SCH ×2 (08:08→20:06)
[2021-03-02] MEDS: INSULIN ASPART 100 UNITS/ML 3 ML PEN SC SCH ×4 (08:08→20:36)
[2021-03-02] MEDS: DOCUSATE SODIUM/SENNA 50/8.6MG TAB PO SCH (08:09)
[2021-03-02] MEDS: PANTOprazole 40 MG TAB PO SCH ×2 (08:10→20:08)
[2021-03-02] MEDS: FOLIC ACID 1 MG TAB PO SCH (08:10)
[2021-03-02] MEDS: PENTOXIFYLLINE 400MG EXT REL TAB PO SCH ×3 (08:10→20:08)
[2021-03-02] MEDS: MULTIVITAMIN TAB PO SCH (08:10)
[2021-03-02] MEDS: MAGNESIUM CHLORIDE 64MG DELAYED REL TAB PO SCH ×2 (08:10→20:08)
[2021-03-02] MEDS: THIAMINE HCL 100 MG TAB PO SCH (08:11)
[2021-03-02] MEDS: POLYETHYLENE (MIRALAX) 17 GM PACK PO SCH ×2 (08:12→20:08)
--- NOTE | 2021-03-02 08:58 | Gastroenterology Progress Note ---
Date of Service March 02, 2021 Assessment & Plan (1) Elevated LFTs: (2) Jaundice: Plan: Pt is a 60 y/o male, followed for ETOH hepatitis vs decompensated cirrhosis (severe hepatic steatosis seen, though noted he is thrombocytopenic and coagulopathic). Received NAC, LFTs trending down. NAC completed, INR 1.3 MELD unable to be calculated due to Cr not quantifiable (icteric specimen) Maddreys Discriminant Function score: 28 - CL diet - F/U KUB for ileus - Replete Phosphate. Keep K >4, OOB, avoid narcotics/sedatives, repeat KUB daily until ileus resolves. Bowel regimen: Senna to 2 tabs daily + Miralax 17g BID - Continue Pentoxifylline 400mg TID ; LFTs pending this AM, will f/u - [place] per Nephro for hyponatremia - Will arrange GI f/u after his DC Admission and Anticipated Discharge Date Admission Date: February 24, 2021 Supervising Physician Co-Signing Physician Notes Patient with improved abdominal pain this am PE - jaundiced appearing, multiple tattoos, abd soft nt Agree with further plan of care as above. Suspected alcoholic hepatitis superimposed on underlying severe fatty liver/early cirrhosis. Subjective Pt had 2 BMs this AM. States abd not as painful. He denies n/v. Review of Systems Review of Systems: All systems reviewed & are unremarkable except as noted in HPI & below Physical Exam Constitutional: WD/WN, vitals as above cooperative and comfortable Eyes: Icteric sclera ENMT: external ear and nose normal, oropharynx normal Respiratory: normal respiratory effort, lungs clear to auscultation Cardiovascular: RRR, no murmur, no edema Gastrointestinal (Abdomen): Abd distended, non tender, BS hypoactive Skin: no rashes, warm and dry + jaundice Neurologic: Motor/Sensory: no asterixis Psychiatric: A+Ox3, euthymic affect Lymphatic: no lymphedema Results & Data ([facility]) Vital Signs (Past 12 Hours) Vital Signs Temp Pulse Resp BP Pulse Ox 03/02/21 08:14 36.4 C L 93 H 18 146/79 H 94 03/02/21 04:22 36.5 C 100 H 18 131/71 94 03/01/21 22:58 36.4 C L 107 H 22 135/73 94
[2021-03-02 09:11] LABS: Alanine Aminotransferase 128 (12-78); Albumin Level 1.5 gm/dl (3.4-5.0); Alkaline Phosphatase 333 U/L (45-117); Aspartate Aminotransferase 226 U/L (15-37); Bilirubin,Total 23.1 mg/dl (0.2-1); Blood Urea Nitrogen 17 mg/dl (7-18); Carbon Dioxide 23 mmol/L (21-32); Chloride 96 mmol/L (98-107); Glucose 110 mg/dl (70-99); Magnesium 1.7 mg/dl (1.8-2.4); Phosphorus 1.7 mg/dl (2.5-4.9); Potassium 4.2 mmol/L (3.5-5.1); Sodium 128 mmol/L (136-145)
[2021-03-02] MEDS: POT PHOSPHATE MONOBASIC W/ SOD TAB PO SCH ×4 (09:29→20:08)
--- NOTE | 2021-03-02 11:19 | XRay Report ---
KUB CLINICAL HISTORY: Ileus COMPARISON STUDY: CT of the abdomen and pelvis February 24, 2021. KUB March 01, 2021. FINDINGS: Multiple loops of moderately dilated small bowel are noted. These measure up to 5.6 cm in c aliber. Although sensitivity is diminished on this supine exam, there is no evidence for free air. Th ere is a paucity of colonic gas. IMPRESSION: Persistent moderate small bowel dilatation. This could reflect a partial small bowel obs truction or ileus. ACT 112: Negative or not required by law. Electronically signed by: Sigifredo Lucero M.D. 03/02/2021 11:17 AM
[2021-03-02] MEDS ORDERED: SODIUM PHOSPHATE 3 MMOL/1 ML INFUSION IV STA (11:25)
--- NOTE | 2021-03-02 11:29 | Hospitalist Progress Note ---
Date of Service March 02, 2021 Assessment & Plan (1) Coagulopathy: (2) Elevated LFTs: Plan: Painless Jaundice Elevated LFTs DD: Decompensated cirrhosis Vs alcoholic hepatitis H/O alcohol abuse, last drink 1 month ago DF score 42 -CT ABD:Marked hepatomegaly and severe hepatic steatosis. Splenomegaly. Hyperdense material within the gallbladder likely represents stones/sludge. There is no CT evidence of acute cholecystitis. Punctate nonobstructing left renal calculus. Advanced coronary artery calcification. Mildly enlarged upper abdominal lymph nodes are nonspecific and likely related to chronic liver disease. -Immunological/Serological work-up CMV, EBV, GREG, AMA, ASMA pending -MRCP:Normal MRCP. Hepatomegaly and severe hepatic steatosis. Splenomegaly. Trace abdominal ascites and trace pleural effusions. -Acute hepatitis panel negative -Appreciate GI input -Trend LFTs, INR -Avoid Hepatotoxic agents -R/O infection: Blood, urine culture negative to date -completed Acetylcysteine course -LFTs slowly trending down -Liver ultrasound showed small ascites within the right lower quadrant Continue pentoxifylline Needs follow-up with GI upon discharge Persistent hyperbilirubinemia Suspected ileus vs P.SBO Continue bowel regimen Consider surgical evaluation if needed Follow-up KUB 03/02 patient had 2 BMs today, continue to monitor closely Replace electrolytes Continue only clear liquid diet Suspected UTI--Ruled out Blood culture Negative to date Urine Culture: Negative to date On empiric cefepime--DCed Pancytopenia Likely secondary to Alcoholism, Liver failure S/P PRBC, Platelets Monitor CBC H/O DM II as per records Update HbA1C:6.3 (? Falsely low due to liver disease ) Continue ISS Suspected GI bleeding +FOBT checked by Surgery Scheduling Coordinator No plan for scope currently as per GI unless patient has active bleed Continue PPI drip for 72 hours and then transition to p.o. twice daily Monitor H&H GI on board Hb 8.9 on 03/01 Hb 8.4 on 03/02 stable (3) Hyponatremia: Plan: -Sodium 120>>123>124 -Likely chronic/due to underlying liver disease fluid restriction Monitor sodium levels Appreciate Nephrology input (4) Anemia: (5) Thrombocytopenia: Plan: -Likely due to underlying liver disease Transfuse as needed Monitor (6) Alcohol abuse: Plan: -longstanding history of alcohol abuse, last drink 1 month ago -Continue thiamine, folic acid and (7) GERD (gastroesophageal reflux disease): Plan: -Continue PPI (8) Hypokalemia: Plan: Replace electrolytes as needed (9) Hypomagnesemia: Plan: -Replace, follow electrolytes (10) DVT prophylaxis: Plan: -SCDs Re: Anemia, thrombocytopenia Admission and Anticipated Discharge Date Admission Date: February 24, 2021 Subjective Patient is seen in follow-up of liver cirrhosis, hyperbilirubinemia, abdominal pain Says he had a bowel movement, abdominal pain, at r upper quadrant mostly Hyperbilirubinemia persists Denies any chest pain, shortness of breath, abdominal pain, dizziness, nausea GI following closely Review of Systems Review of Systems: All systems reviewed & are unremarkable except as noted in Subjective Physical Exam Physical Exam: General Appearance: Obese M , no apparent distress Head: normocephalic, Atraumatic Eyes: normal inspection, EOMI,+Icteric Neck: supple, Trachea midline Respiratory/Chest: Normal breath sounds, CTA, No accessory muscle use Cardiovascular: S1, S2, No murmur Abdomen/GI:Soft, distended, Bowel sounds present, + some TTP at upper quadrants Extremities/Musculoskeletal: normal inspection, no edema Neurologic/Psych: AAOX3, speech fluent, moves extremities Skin: normal color, warm, +Jaundiced Results & Data Results & Data ([facility]) Vital Signs (Past 12 Hours) Vital Signs Temp Pulse Resp BP Pulse Ox 03/02/21 08:14 36.4 C L 93 H 18 146/79 H 94 03/02/21 04:22 36.5 C 100 H 18 131/71 94 Laboratory Results 03/02/21 03/02/21 03/02/21 Range/Units 07:24 07:14 07:14 WBC (4.8-10.8) K/uL RBC (4.7-6.1) M/uL Hgb (14.0-18.0) g/dL Hct (42-52) % MCV (80-100) fL MCH (25-34) pg MCHC (32-36) g/dL RDW Std Deviation (36.4-46.3) fL RDW Coeff of Brigida (11.5-14.5) % Plt Count (130-400) K/uL MPV (7.4-10.4) fL PT 13.3 H (9.0-12.0) Seconds INR 1.3 H (0.9-1.1) Sodium (136-145) mmol/L Potassium (3.5-5.1) mmol/L Chloride (98-107) mmol/L Carbon Dioxide (21-32) mmol/L Anion Gap (3-11) BUN (7-18) mg/dl Creatinine (0.6-1.4) mg/dl Est Cr Clr Drug Dosing Est GFR ( Amer) Est GFR (Non-Af Amer) BUN/Creatinine Ratio Glucose (70-99) mg/dl POC Glucose 123 H (70-99) mg/dl Osmolality (280-300) mOsm/kg Calcium (8.5-10.1) mg/dl Phosphorus (2.5-4.9) mg/dl Magnesium (1.8-2.4) mg/dl Total Bilirubin (0.2-1) mg/dl AST (15-37) U/L ALT (12-78) Alkaline Phosphatase (45-117) U/L Total Protein (6.4-8.2) gm/dl Albumin (3.4-5.0) gm/dl Globulin Albumin/Globulin Ratio GREG Screen (NEGATIVE) Anti-Mitochondrial Ab (NEGATIVE) Anti-Smooth Muscle Ab (NEGATIVE) CMV IgM Ab AU/mL CMV IgG Ab/TORCH U/mL EBV Capsid Ag IgG Ab U/mL EBV Capsid Ag IgM Ab U/mL Miscellaneous Test Pending Miscellaneous Test 2 Pending 03/02/21 03/02/21 03/01/21 Range/Units 07:14 07:14 20:53 WBC 9.49 (4.8-10.8) K/uL RBC 2.66 L (4.7-6.1) M/uL Hgb 8.4 L (14.0-18.0) g/dL Hct 24.6 L (42-52) % MCV 92.5 (80-100) fL MCH 31.6 (25-34) pg MCHC 34.1 (32-36) g/dL RDW Std Deviation 63.7 H (36.4-46.3) fL RDW Coeff of Brigida 19.1 H (11.5-14.5) % Plt Count 73 L (130-400) K/uL MPV 11.6 H (7.4-10.4) fL PT (9.0-12.0) Seconds INR (0.9-1.1) Sodium 128 L (136-145) mmol/L Potassium 4.2 (3.5-5.1) mmol/L Chloride 96 L (98-107) mmol/L Carbon Dioxide 23 (21-32) mmol/L Anion Gap 9.0 (3-11) BUN 17 (7-18) mg/dl Creatinine (0.6-1.4) mg/dl Est Cr Clr Drug Dosing Not Reportable Est GFR ( Amer) Not Reportable Est GFR (Non-Af Amer) Not Reportable BUN/Creatinine Ratio Not Reportable Glucose 110 H (70-99) mg/dl POC Glucose 163 H (70-99) mg/dl Osmolality (280-300) mOsm/kg Calcium 7.0 L (8.5-10.1) mg/dl Phosphorus 1.7 L (2.5-4.9) mg/dl Magnesium 1.7 L (1.8-2.4) mg/dl Total Bilirubin 23.1 H (0.2-1) mg/dl AST 226 H (15-37) U/L ALT 128 H (12-78) Alkaline Phosphatase 333 H (45-117) U/L Total Protein (6.4-8.2) gm/dl Albumin 1.5 L (3.4-5.0) gm/dl Globulin Not Reportable Albumin/Globulin Ratio Not Reportable GREG Screen (NEGATIVE) Anti-Mitochondrial Ab (NEGATIVE) Anti-Smooth Muscle Ab (NEGATIVE) CMV IgM Ab AU/mL CMV IgG Ab/TORCH U/mL EBV Capsid Ag IgG Ab U/mL EBV Capsid Ag IgM Ab U/mL Miscellaneous Test Miscellaneous Test 2 03/01/21 03/01/21 03/01/21 Range/Units 16:52 16:52 16:52 WBC (4.8-10.8) K/uL RBC (4.7-6.1) M/uL Hgb (14.0-18.0) g/dL Hct (42-52) % MCV (80-100) fL MCH (25-34) pg MCHC (32-36) g/dL RDW Std Deviation (36.4-46.3) fL RDW Coeff of Brigida (11.5-14.5) % Plt Count (130-400) K/uL MPV (7.4-10.4) fL PT (9.0-12.0) Seconds INR (0.9-1.1) Sodium 128 L (136-145) mmol/L Potassium 4.5 (3.5-5.1) mmol/L Chloride 97 L (98-107) mmol/L Carbon Dioxide 22 (21-32) mmol/L Anion Gap 9.0 (3-11) BUN 20 H (7-18) mg/dl Creatinine (0.6-1.4) mg/dl Est Cr Clr Drug Dosing TNP Est GFR ( Amer) TNP Est GFR (Non-Af Amer) TNP BUN/Creatinine Ratio TNP Glucose 143 H (70-99) mg/dl POC Glucose (70-99) mg/dl Osmolality 268 L (280-300) mOsm/kg Calcium 7.0 L (8.5-10.1) mg/dl Phosphorus 1.1 L* (2.5-4.9) mg/dl Magnesium (1.8-2.4) mg/dl Total Bilirubin (0.2-1) mg/dl AST (15-37) U/L ALT (12-78) Alkaline Phosphatase (45-117) U/L Total Protein (6.4-8.2) gm/dl Albumin (3.4-5.0) gm/dl Globulin Albumin/Globulin Ratio GREG Screen (NEGATIVE) Anti-Mitochondrial Ab (NEGATIVE) Anti-Smooth Muscle Ab (NEGATIVE) CMV IgM Ab AU/mL CMV IgG Ab/TORCH U/mL EBV Capsid Ag IgG Ab U/mL EBV Capsid Ag IgM Ab U/mL Miscellaneous Test Pending Miscellaneous Test 2 03/01/21 03/01/21 03/01/21 Range/Units 16:24 11:16 05:54 WBC (4.8-10.8) K/uL RBC (4.7-6.1) M/uL Hgb (14.0-18.0) g/dL Hct (42-52) % MCV (80-100) fL MCH (25-34) pg MCHC (32-36) g/dL RDW Std Deviation (36.4-46.3) fL RDW Coeff of Brigida (11.5-14.5) % Plt Count (130-400) K/uL MPV (7.4-10.4) fL PT (9.0-12.0) Seconds INR (0.9-1.1) Sodium (136-145) mmol/L Potassium (3.5-5.1) mmol/L Chloride (98-107) mmol/L Carbon Dioxide (21-32) mmol/L Anion Gap (3-11) BUN (7-18) mg/dl Creatinine (0.6-1.4) mg/dl Est Cr Clr Drug Dosing Est GFR ( Amer) Est GFR (Non-Af Amer) BUN/Creatinine Ratio Glucose (70-99) mg/dl POC Glucose 148 H 183 H (70-99) mg/dl Osmolality (280-300) mOsm/kg Calcium (8.5-10.1) mg/dl Phosphorus (2.5-4.9) mg/dl Magnesium (1.8-2.4) mg/dl Total Bilirubin (0.2-1) mg/dl AST (15-37) U/L ALT (12-78) Alkaline Phosphatase (45-117) U/L Total Protein (6.4-8.2) gm/dl Albumin (3.4-5.0) gm/dl Globulin Albumin/Globulin Ratio GREG Screen (NEGATIVE) Anti-Mitochondrial Ab (NEGATIVE) Anti-Smooth Muscle Ab (NEGATIVE) CMV IgM Ab AU/mL CMV IgG Ab/TORCH U/mL EBV Capsid Ag IgG Ab U/mL EBV Capsid Ag IgM Ab U/mL Miscellaneous Test Pending Miscellaneous Test 2 REPORT 02/28/21 02/24/21 Range/Units 12:15 19:20 WBC (4.8-10.8) K/uL RBC (4.7-6.1) M/uL Hgb (14.0-18.0) g/dL Hct (42-52) % MCV (80-100) fL MCH (25-34) pg MCHC (32-36) g/dL RDW Std Deviation (36.4-46.3) fL RDW Coeff of Brigida (11.5-14.5) % Plt Count (130-400) K/uL MPV (7.4-10.4) fL PT (9.0-12.0) Seconds INR (0.9-1.1) Sodium (136-145) mmol/L Potassium (3.5-5.1) mmol/L Chloride (98-107) mmol/L Carbon Dioxide (21-32) mmol/L Anion Gap (3-11) BUN (7-18) mg/dl Creatinine (0.6-1.4) mg/dl Est Cr Clr Drug Dosing Est GFR ( Amer) Est GFR (Non-Af Amer) BUN/Creatinine Ratio Glucose (70-99) mg/dl POC Glucose (70-99) mg/dl Osmolality (280-300) mOsm/kg Calcium (8.5-10.1) mg/dl Phosphorus (2.5-4.9) mg/dl Magnesium (1.8-2.4) mg/dl Total Bilirubin (0.2-1) mg/dl AST (15-37) U/L ALT (12-78) Alkaline Phosphatase (45-117) U/L Total Protein (6.4-8.2) gm/dl Albumin (3.4-5.0) gm/dl Globulin Albumin/Globulin Ratio GREG Screen NEGATIVE (NEGATIVE) Anti-Mitochondrial Ab NEGATIVE (NEGATIVE) Anti-Smooth Muscle Ab NEGATIVE (NEGATIVE) CMV IgM Ab <30.00 AU/mL CMV IgG Ab/TORCH <0.60 U/mL EBV Capsid Ag IgG Ab >750.00 H U/mL EBV Capsid Ag IgM Ab <36.00 U/mL Miscellaneous Test REPORT Miscellaneous Test 2 Medications Administered Current Inpatient Medications Dextrose (Dextrose 50% 50 Ml Syringe) 25 - 50 ml IV UD PRN; Protocol PRN Reason: Hypoglycemia Protocol Stop: 03/27/21 14:48 Diclofenac Sodium (Diclofenac Sod 1% Gel 100 Gm Tube) 2 gm EXT BID [facility] Stop: 03/26/21 20:59 Last Admin: 03/02/21 08:08 Dose: 2 gm Documented by: Folic Acid (Folic Acid 1 Mg Tab) 1 mg PO QAM [facility] Stop: 03/27/21 08:59 Last Admin: 03/02/21 08:10 Dose: 1 mg Documented by: Glucagon (Glucagon For Inj 1 Mg Vial) 1 mg SQ UD PRN; Protocol PRN Reason: Hypoglycemia Protocol Stop: 03/27/21 14:48 Glucose (Glucose 10 Tabs/Tube) 4 - 8 tabs PO UD PRN; Protocol PRN Reason: Hypoglycemia Protocol Stop: 03/27/21 14:48 Glucose (Glucose 40% Gel 15 Gm Tube) 15 - 30 gm PO UD PRN; Protocol PRN Reason: Hypoglycemia Protocol Stop: 03/27/21 14:48 Hydroxyzine HCl (Hydroxyzine Hcl 10 Mg Tab) 10 mg PO Q8H PRN PRN Reason: Anxiety Stop: 03/31/21 15:39 Last Admin: 03/02/21 03:37 Dose: 10 mg Documented by: Magnesium Sulfate/Dextrose (Magnesium Sulfate / D5w) 1 gm in 100 mls @ 50 mls/hr IV ONE ONE Stop: 03/02/21 13:44 Sodium Phosphate 12 mmol/ (Sodium Chloride) 254 mls @ 88 mls/hr IV ONE ONE Stop: 03/02/21 14:23 Insulin Aspart (Insulin Aspart 100 Units/Ml 3 Ml Pen) 0 units SC ACHS [facility] Stop: 03/27/21 16:29 Last Admin: 03/02/21 08:08 Dose: Not Given Documented by: Magnesium Chloride (Magnesium Chloride 64mg Delayed Rel Tab) 64 mg PO BID [facility] Stop: 03/29/21 20:59 Last Admin: 03/02/21 08:10 Dose: 64 mg Documented by: Melatonin (Melatonin 3 Mg Tab) 3 mg PO HS PRN PRN Reason: Sleep Stop: 03/30/21 23:52 Last Admin: 03/01/21 20:25 Dose: 3 mg Documented by: Miscellaneous (Carbohydrates For Hypoglycemia ) 15 - 30 gm PO UD PRN PRN Reason: Hypoglycemia Protocol Stop: 03/27/21 14:48 Multivitamins (Multivitamin Tab) 1 tab PO QAM [facility] Stop: 03/27/21 08:59 Last Admin: 03/02/21 08:10 Dose: 1 tab Documented by: Ondansetron HCl (Ondansetron Inj 2 Mg/Ml 2 Ml Vial) 4 mg IV Q6H PRN PRN Reason: nausea Stop: 03/26/21 13:57 Last Admin: 03/01/21 20:25 Dose: 4 mg Documented by: Pantoprazole Sodium (Pantoprazole 40 Mg Tab) 40 mg PO BID [facility] Stop: 03/30/21 08:59 Last Admin: 03/02/21 08:10 Dose: 40 mg Documented by: Pentoxifylline (Pentoxifylline 400mg Ext Rel Tab) 400 mg PO TID [facility] Stop: 03/30/21 13:59 Last Admin: 03/02/21 08:10 Dose: 400 mg Documented by: Polyethylene Glycol (Polyethylene (Miralax) 17 Gm Pack) 17 gm PO DAILY PRN PRN Reason: Constipation Stop: 03/28/21 06:36 Polyethylene Glycol (Polyethylene (Miralax) 17 Gm Pack) 17 gm PO BID [facility] Stop: 03/31/21 20:59 Last Admin: 03/02/21 08:12 Dose: 17 gm Documented by: Potassium Phosphate (Pot Phosphate Monobasic W/ Sod Tab) 1 tab PO QID [facility] Stop: 03/31/21 12:59 Last Admin: 03/02/21 09:29 Dose: 1 tab Documented by: Quetiapine Fumarate (Quetiapine Fumarate 200 Mg Tab) 400 mg PO HS [facility] Stop: 03/26/21 20:59 Last Admin: 03/01/21 20:27 Dose: 400 mg Documented by: Senna/Docusate Sodium (Docusate Sodium/Senna 50/8.6mg Tab) 2 tab PO QAM [facility] Stop: 04/01/21 08:59 Last Admin: 03/02/21 08:09 Dose: 2 tab Documented by: Thiamine HCl (Thiamine Hcl 100 Mg Tab) 100 mg PO QAM [facility] Stop: 03/28/21 08:59 Last Admin: 03/02/21 08:11 Dose: 100 mg Documented by: (1) Anemia Anemia type: unspecified type Qualified Code(s): D64.9 - Anemia, unspecified
[2021-03-02] MEDS ORDERED: SODIUM PHOSPHATE 12 MMOL in SODIUM CHLORIDE 0.9% 250 ML IV ONE (11:30)
[2021-03-02] MEDS ORDERED: MAGNESIUM SULFATE / D5W 1 GM/100 ML BAG IV ONE (11:45)
--- NOTE | 2021-03-02 14:50 | Nephrology Progress Note ---
Date of Service March 02, 2021 Assessment & Plan (1) Electrolyte and fluid disorder: Plan: >>>>critical hypophosphatemia resolved but still low -cont neutraphos one tab qid >>>>>hypervolemic hyponatremia improving > > 129 on 02/27 >122>124 > 128 this AM, attributed initially to SIADH, hypervolemia from decompensated liver cirrhosis may apply better. ?if large drop from D5W 02/27 w/ NAC?; sOsms 268 -cont low Na diet and FR 1.2L daily >>>>hypokalemia, resolved for now; Potassium is 4.2 today. -K supplements held, likely need to resume in am ->>>ordered phos, mag, bmp daily >>decompensated liver cirrhosis >> trying to minimize/ avoid lasix in pt for whom we essentially have no measure of creatinine since admission and who has high MAIRA risk Admission and Anticipated Discharge Date Admission Date: February 24, 2021 Subjective got out of bed today w/ PT and sbp 130s> 90s w/ sx adn tachycardia. feels a bit more sob today though states it's from abd distension. needs f/u KUB for ileus. Review of Systems Review of Systems: All systems reviewed & are unremarkable except as noted in Subjective Physical Exam 2 Constitutional: well developed, + ill appearing (chronically) and cooperative; no acute distress Eyes: EOM intact bilaterally; sclerae not anicteric ENMT: Ears: no external ear abnormality Nose: no external nose abnormality Mouth: + dry oral mucous membranes Neck: no nuchal rigidity Respiratory: normal respiratory effort Auscultation: + diminished lung sounds Cardiovascular: Rate/Rhythm: regular rhythm and + tachycardic Heart Sounds: normal S1 and normal S2 Extremities: no edema Gastrointestinal (Abdomen): Inspection/Auscultation: + abdomen distended and normal bowel sounds Percussion/Palpation: abdomen soft; abdomen nontender and no guarding Musculoskeletal: Extremities: strength 5/5 throughout Skin: no rashes, warm and dry + jaundice Neurologic: li, fluent speech, +tremor Results & Data ([facility]) Vital Signs (Past 12 Hours) Vital Signs Temp Pulse Resp BP Pulse Ox 03/02/21 11:53 36.5 C 97 H 18 119/69 96 03/02/21 08:14 36.4 C L 93 H 18 146/79 H 94 03/02/21 04:22 36.5 C 100 H 18 131/71 94 Laboratory Results 03/02/21 07:14 03/02/21 07:14
[2021-03-02] MEDS: MELATONIN 3 MG TAB PO PRN (20:06)
[2021-03-02] MEDS: QUEtiapine FUMARATE 200 MG TAB PO SCH (20:08)
[2021-03-03] MEDS: hydrOXYzine HCl 10 MG TAB PO PRN ×3 (04:18→21:11)
[2021-03-03 05:53] LABS: Hematocrit (blood only) 24.6 % (42-52); Hemoglobin 8.4 g/dL (14.0-18.0)
[2021-03-03 06:54] LABS: Alanine Aminotransferase 124 (12-78); Albumin Level 1.6 gm/dl (3.4-5.0); Alkaline Phosphatase 337 U/L (45-117); Aspartate Aminotransferase 215 U/L (15-37); Bilirubin,Total 23.7 mg/dl (0.2-1); Blood Urea Nitrogen 17 mg/dl (7-18); Calcium 6.9 mg/dl (8.5-10.1); Carbon Dioxide 23 mmol/L (21-32); Chloride 97 mmol/L (98-107); Glucose 107 mg/dl (70-99); Magnesium 1.9 mg/dl (1.8-2.4); Phosphorus 2.2 mg/dl (2.5-4.9); Potassium 3.8 mmol/L (3.5-5.1); Sodium 127 mmol/L (136-145)
--- NOTE | 2021-03-03 09:01 | XRay Report ---
KUB HISTORY: Follow up study in a patient with reported ileus follow up COMPARISON: KUB 03/02/2021, CT abdomen and pelvis 02/24/2021 FINDINGS: Mild gaseous distention of the stomach. There is persistent dilation involving several loop s of small bowel which measures up to approximately 5.4 cm, generally stable from prior. Air is also noted within the large bowel. No renal calculi. No ureteral calculi. No pneumoperitoneum or pneumato sis. No fracture. IMPRESSION: Persistent small bowel distention suggestive of ileus versus partial small bowel obstruction. Continu ed follow-up recommended. ACT 112: Negative or not required by law. The above report was generated using voice recognition software. It may contain grammatical, syntax o r spelling errors. Electronically signed by: Glenn Pyle M.D. 03/03/2021 9:00 AM
[2021-03-03] MEDS: INSULIN ASPART 100 UNITS/ML 3 ML PEN SC SCH ×4 (09:06→21:02)
[2021-03-03] MEDS: THIAMINE HCL 100 MG TAB PO SCH (09:07)
[2021-03-03] MEDS: MAGNESIUM CHLORIDE 64MG DELAYED REL TAB PO SCH ×2 (09:07→21:10)
[2021-03-03] MEDS: PANTOprazole 40 MG TAB PO SCH ×2 (09:07→21:10)
[2021-03-03] MEDS: MULTIVITAMIN TAB PO SCH (09:07)
[2021-03-03] MEDS: FOLIC ACID 1 MG TAB PO SCH (09:07)
[2021-03-03] MEDS: PENTOXIFYLLINE 400MG EXT REL TAB PO SCH ×3 (09:08→21:09)
[2021-03-03] MEDS: POT PHOSPHATE MONOBASIC W/ SOD TAB PO SCH ×4 (09:08→21:09)
[2021-03-03] MEDS: DICLOFENAC SOD 1% GEL 100 GM TUBE EXT SCH ×2 (09:09→21:00)
[2021-03-03] MEDS: POLYETHYLENE (MIRALAX) 17 GM PACK PO SCH ×2 (09:10→21:12)
[2021-03-03] MEDS: DOCUSATE SODIUM/SENNA 50/8.6MG TAB PO SCH (09:10)
--- NOTE | 2021-03-03 09:11 | Gastroenterology Progress Note ---
Date of Service March 03, 2021 Assessment & Plan (1) Elevated LFTs: Plan: Secondary to ETOH hepatitis, no evidence of obstrution. (2) Alcoholic hepatitis: Plan: Will continue to follow LFTs, coags. Low salt diet (for now clear liquids due to ileus). Stressed need for complete, permanent ETOH cessation. Discussed severity of illness with the pt and according to initial DR of 42, a high likelihood of in the next 6 months if continues to drink alcohol. Pt motivated to abstain. (3) Alcoholic cirrhosis of liver with ascites: Plan: Cirrhosis vs. severe steatosis. Will need OP GI f/u. (4) Ileus: Plan: Will recheck a KUB. Will advance diet when less distention. Admission and Anticipated Discharge Date Admission Date: February 24, 2021 Supervising Physician Co-Signing Physician Notes Slight complaints of increased difficulty breathing today which is new. No use of accessory muscles of respiration. Abd is slightly distended today. Reports he is passing gas and having bowel movement PE - alert and oriented to person/place/time HEENT -perrla Abd- slightly distended, jaundiced appearing, Labs reviewed - still with continued elevation in tb Consider abd alma to evaluate for ascites. Recent kub shows mild small bowel distension cw ileus versus partial sbo but clinically he reports he is passing gas and having bm's No current signs of infection, was treated for a uti early in the course of his admission with cefipime Currently on trental for alcoholic hepatitis given concerns he had an infection on admission. Subjective 60 yr male, admitted 02/24 with ETOH hepatitis and early cirrhosis (severe hepatic steatosis,w thrombocytopenia and elevated INR). Tells me last alcohol approx 2 wks prior to admission, so approx 21 days ago. Has had periods of sobriety in the past. On disability for mental illness. NAC completed T bili max was 24.7 on 03/01 ->23.1 yesterday ->23.7 today. Transaminases slowly tending down. MELD unable to be calculated due to Cr not quantifiable (icteric specimen) Peter's Discriminant Function score today : 29.7. However, this was calculated with yesterday's PT/INR. DF prior to starting Trental was 42. Pt awake, alert. Mild nausea. KUB with ileus. No abd pain, unless he lays on his left side or back in which case he has diffuse upper/mid abdomen pain and also a feels a little SOB when laying on left side or back. Review of Systems Review of Systems: ROS: Gen: + weakness; feels faint/dizzy if stands; no fevers Eyes: + yellow eyes. No eye redness, or pain, no recent vision changes Resp: + mild SOB if lays on left side or back, otherwise no SOB. No cough Cardio: No palpitations/irregular beats, no chest pain GI: + diffuse upper abd pain if lays on left side/back, otherwise no pain; 2-3 loose stools/day; mild nausea/no vomiting. : Denies pain on urination or frequent urination Skin: + jaundice, No itching Neuro: mild tremor, improved; alert, oriented, normal thought processes. Psych: Denies current sadness/hopelessness or hallucinations Physical Exam Constitutional: well developed, + ill appearing, + obese and cooperative Eyes: PERRL icterus Respiratory: normal respiratory effort, lungs clear to auscultation normal respiratory effort and able to speak in complete sentences; no respiratory distress, no labored breathing, does not use accessory muscles and no cough Cardiovascular: RRR, no murmur, no edema Gastrointestinal (Abdomen): Inspection/Auscultation: + abdomen distended (moderate ascites) and + hypoactive bowel sounds Percussion/Palpation: abdomen soft; abdomen nontender no palpable masses Skin: + jaundice, + multiple tattoos, scab on left elbow, no other lesions. Neurologic: PERRL, EOMI, accommodation nl, no face palsy, no dysarthria awake; not confused Psychiatric: A+Ox3, euthymic affect Orientation: alert, oriented x 3 and cooperative Judgement: good judgement Results & Data ([facility]) Vital Signs (Past 12 Hours) Vital Signs Temp Pulse Resp BP Pulse Ox 03/03/21 07:18 36.4 C L 98 H 18 123/72 95 03/03/21 04:24 36.5 C 104 H 18 136/75 95 03/02/21 23:16 37.2 C 109 H 20 127/75 94 Laboratory Results T Bili 23.7, AST 215, ALT 124, ALk Phos 337, Hb 8.4, Hct 24.6, Na 127, K 3.8, Cl 97, CO2 23, BUN 17, cr - unable to measure due to icterus, glucose 107 Yesterday's coags: PT 13.3, INR 1.3 Diagnostic Findings US 02/24: small amt of ascites MRCP 02/25: Normal bile ducts. Hepatomegaly and severe hepatic steatosis. Splenomegaly. Trace abdominal ascites/trace pleural effusions. Non contrast CTAP 02/24/21: . Marked hepatomegaly and severe hepatic steatosis. Splenomegaly. Gallbladder stones/sludge. No acute cholecystitis. Mildly enlarged upper abdominal lymph nodes likely related to chronic liver disease.
--- NOTE | 2021-03-03 10:17 | Nephrology Progress Note ---
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 ?if large drop from D5W 02/27 w/ NAC?; sOsms 268 -cont low Na diet and FR 1.2L daily -hold lasix if possible >>>>hypokalemia, resolved for now; Potassium is 3.8 today. -resumed K supplements 10 mEq bid >> had 5 BM yesterday ->>>ordered phos, mag, bmp daily >>decompensated liver cirrhosis >> trying to minimize/ avoid lasix in pt for whom we essentially have no measure of creatinine since admission and who has high MAIRA risk >>>>SOB more this AM >> ordered CXR Admission and Anticipated Discharge Date Admission Date: February 24, 2021 Subjective c/o more sob lying on back and on L side slight than yesterday. lots bm Review of Systems Review of Systems: All systems reviewed & are unremarkable except as noted in Subjective Physical Exam Constitutional: well developed, + ill appearing (chronically) and cooperative; no acute distress Eyes: EOM intact bilaterally; sclerae not anicteric ENMT: Ears: no external ear abnormality Nose: no external nose abnormality Mouth: + dry oral mucous membranes Neck: no nuchal rigidity Respiratory: normal respiratory effort Auscultation: + diminished lung sounds Cardiovascular: Rate/Rhythm: regular rhythm and + tachycardic Heart Sounds: normal S1 and normal S2 Extremities: no edema Gastrointestinal (Abdomen): Inspection/Auscultation: + abdomen distended and normal bowel sounds Percussion/Palpation: abdomen soft; abdomen nontender and no guarding Musculoskeletal: Extremities: strength 5/5 throughout Skin: no rashes, warm and dry + jaundice Neurologic: a&o x 3, li, fluent speech, +tremor Results & Data ([facility]) Vital Signs (Past 12 Hours) Vital Signs Temp Pulse Resp BP Pulse Ox 03/03/21 07:18 36.4 C L 98 H 18 123/72 95 03/03/21 04:24 36.5 C 104 H 18 136/75 95 03/02/21 23:16 37.2 C 109 H 20 127/75 94 Laboratory Results 03/03/21 05:23 03/03/21 05:23
--- NOTE | 2021-03-03 10:17 | Hospitalist Progress Note ---
Date of Service March 03, 2021 Assessment & Plan (1) Coagulopathy: (2) Elevated LFTs: Plan: Painless Jaundice Elevated LFTs DD: Decompensated cirrhosis Vs alcoholic hepatitis H/O alcohol abuse, last drink 1 month ago DF score 42 -CT ABD:Marked hepatomegaly and severe hepatic steatosis. Splenomegaly. Hyperdense material within the gallbladder likely represents stones/sludge. There is no CT evidence of acute cholecystitis. Punctate nonobstructing left renal calculus. Advanced coronary artery calcification. Mildly enlarged upper abdominal lymph nodes are nonspecific and likely related to chronic liver disease. -Immunological/Serological work-up CMV, EBV, GREG, AMA, ASMA pending -MRCP:Normal MRCP. Hepatomegaly and severe hepatic steatosis. Splenomegaly. Trace abdominal ascites and trace pleural effusions. -Acute hepatitis panel negative -Appreciate GI input -Trend LFTs, INR -Avoid Hepatotoxic agents -R/O infection: Blood, urine culture negative to date -completed Acetylcysteine course -LFTs slowly trending down -Liver ultrasound showed small ascites within the right lower quadrant Continue pentoxifylline Needs follow-up with GI upon discharge Persistent hyperbilirubinemia 03/03 -repeat KUB, chest x-ray, abdominal ultrasound Ileus on KUB versus small bowel obstruction, however patient is having bowel movements Continue clear liquid diet Chest x-ray unchanged, abdominal ultrasound pending Suspected ileus vs P.SBO Continue bowel regimen Consider surgical evaluation if needed Follow-up KUB 03/02 patient had 2 BMs today, continue to monitor closely Replace electrolytes Continue only clear liquid diet 03/03 -patient had several bowel movements overnight and this morning Suspected UTI--Ruled out Blood culture Negative to date Urine Culture: Negative to date On empiric cefepime--DCed Pancytopenia Likely secondary to Alcoholism, Liver failure S/P PRBC, Platelets Monitor CBC H/O DM II as per records Update HbA1C:6.3 (? Falsely low due to liver disease ) Continue ISS Suspected GI bleeding +FOBT checked by [employer] No plan for scope currently as per GI unless patient has active bleed Continue PPI drip for 72 hours and then transition to p.o. twice daily Monitor H&H GI on board Hb 8.9 on 03/01 Hb 8.4 on 03/02 stable Hb 8.4 on 03/03 stable (3) Hyponatremia: Plan: -Sodium 120>>123>124 -Likely chronic/due to underlying liver disease fluid restriction Monitor sodium levels Appreciate Nephrology input (4) Anemia: (5) Thrombocytopenia: Plan: -Likely due to underlying liver disease Transfuse as needed Monitor (6) Alcohol abuse: Plan: -longstanding history of alcohol abuse, last drink 1 month ago -Continue thiamine, folic acid and (7) GERD (gastroesophageal reflux disease): Plan: -Continue PPI (8) Hypokalemia: Plan: Replace electrolytes as needed (9) Hypomagnesemia: Plan: -Replace, follow electrolytes (10) DVT prophylaxis: Plan: -SCDs Re: Anemia, thrombocytopenia Admission and Anticipated Discharge Date Admission Date: February 24, 2021 Subjective Patient is seen in follow-up of liver cirrhosis, hyperbilirubinemia, abdominal pain Patient reports any abdominal pain when he lies on his left side, currently lying on his back, and feeling better Had several BMs overnight and this morning However reports more shortness of breath with laying in bed When work with PT this morning, heart rate elevated into 170s upon standing up Hyperbilirubinemia persists Denies any chest pain,nausea/vomiting GI following closely - Abd. US pending KUB and CXR obtained Review of Systems Review of Systems: All systems reviewed & are unremarkable except as noted in Subjective Physical Exam Physical Exam: General Appearance: Obese M , no apparent distress Head: normocephalic, Atraumatic Eyes: normal inspection, EOMI,+Icteric Neck: supple, Trachea midline Respiratory/Chest: Normal breath sounds, CTA, No accessory muscle use Cardiovascular: S1, S2, No murmur Abdomen/GI:Soft, distended, Bowel sounds present but sluggish, + some TTP at upper quadrants Extremities/Musculoskeletal: normal inspection, no edema Neurologic/Psych: AAOX3, speech fluent, moves extremities Skin: normal color, warm, +Jaundiced Results & Data Results & Data ([facility]) Vital Signs (Past 12 Hours) Vital Signs Temp Pulse Resp BP Pulse Ox 03/03/21 07:18 36.4 C L 98 H 18 123/72 95 03/03/21 04:24 36.5 C 104 H 18 136/75 95 03/02/21 23:16 37.2 C 109 H 20 127/75 94 Laboratory Results 03/03/21 03/03/21 03/03/21 Range/Units 07:23 05:23 05:23 Hgb 8.4 L (14.0-18.0) g/dL Hct 24.6 L (42-52) % Sodium (136-145) mmol/L Potassium (3.5-5.1) mmol/L Chloride (98-107) mmol/L Carbon Dioxide (21-32) mmol/L Anion Gap (3-11) BUN (7-18) mg/dl Creatinine (0.6-1.4) mg/dl Est Cr Clr Drug Dosing Est GFR ( Amer) Est GFR (Non-Af Amer) BUN/Creatinine Ratio Glucose (70-99) mg/dl POC Glucose 135 H (70-99) mg/dl Calcium (8.5-10.1) mg/dl Phosphorus (2.5-4.9) mg/dl Magnesium (1.8-2.4) mg/dl Total Bilirubin (0.2-1) mg/dl AST (15-37) U/L ALT (12-78) Alkaline Phosphatase (45-117) U/L Total Protein (6.4-8.2) gm/dl Albumin (3.4-5.0) gm/dl Globulin Albumin/Globulin Ratio Miscellaneous Test Pending Miscellaneous Test 2 Pending 03/03/21 03/02/21 03/02/21 Range/Units 05:23 20:25 16:13 Hgb (14.0-18.0) g/dL Hct (42-52) % Sodium 127 L (136-145) mmol/L Potassium 3.8 (3.5-5.1) mmol/L Chloride 97 L (98-107) mmol/L Carbon Dioxide 23 (21-32) mmol/L Anion Gap 7.0 (3-11) BUN 17 (7-18) mg/dl Creatinine (0.6-1.4) mg/dl Est Cr Clr Drug Dosing Not Reportable Est GFR ( Amer) Not Reportable Est GFR (Non-Af Amer) Not Reportable BUN/Creatinine Ratio Not Reportable Glucose 107 H (70-99) mg/dl POC Glucose 126 H 143 H (70-99) mg/dl Calcium 6.9 L (8.5-10.1) mg/dl Phosphorus 2.2 L (2.5-4.9) mg/dl Magnesium 1.9 (1.8-2.4) mg/dl Total Bilirubin 23.7 H (0.2-1) mg/dl AST 215 H (15-37) U/L ALT 124 H (12-78) Alkaline Phosphatase 337 H (45-117) U/L Total Protein (6.4-8.2) gm/dl Albumin 1.6 L (3.4-5.0) gm/dl Globulin Not Reportable Albumin/Globulin Ratio Not Reportable Miscellaneous Test Miscellaneous Test 2 03/02/21 03/02/21 03/01/21 Range/Units 11:21 07:14 16:52 Hgb (14.0-18.0) g/dL Hct (42-52) % Sodium (136-145) mmol/L Potassium (3.5-5.1) mmol/L Chloride (98-107) mmol/L Carbon Dioxide (21-32) mmol/L Anion Gap (3-11) BUN (7-18) mg/dl Creatinine (0.6-1.4) mg/dl Est Cr Clr Drug Dosing Est GFR ( Amer) Est GFR (Non-Af Amer) BUN/Creatinine Ratio Glucose (70-99) mg/dl POC Glucose 137 H (70-99) mg/dl Calcium (8.5-10.1) mg/dl Phosphorus (2.5-4.9) mg/dl Magnesium (1.8-2.4) mg/dl Total Bilirubin (0.2-1) mg/dl AST (15-37) U/L ALT (12-78) Alkaline Phosphatase (45-117) U/L Total Protein (6.4-8.2) gm/dl Albumin (3.4-5.0) gm/dl Globulin Albumin/Globulin Ratio Miscellaneous Test REPORT REPORT Miscellaneous Test 2 REPORT 02/28/21 Range/Units 18:12 Hgb (14.0-18.0) g/dL Hct (42-52) % Sodium (136-145) mmol/L Potassium (3.5-5.1) mmol/L Chloride (98-107) mmol/L Carbon Dioxide (21-32) mmol/L Anion Gap (3-11) BUN (7-18) mg/dl Creatinine (0.6-1.4) mg/dl Est Cr Clr Drug Dosing Est GFR ( Amer) Est GFR (Non-Af Amer) BUN/Creatinine Ratio Glucose (70-99) mg/dl POC Glucose (70-99) mg/dl Calcium (8.5-10.1) mg/dl Phosphorus (2.5-4.9) mg/dl Magnesium (1.8-2.4) mg/dl Total Bilirubin (0.2-1) mg/dl AST (15-37) U/L ALT (12-78) Alkaline Phosphatase (45-117) U/L Total Protein (6.4-8.2) gm/dl Albumin (3.4-5.0) gm/dl Globulin Albumin/Globulin Ratio Miscellaneous Test Cancelled Miscellaneous Test 2 Medications Administered Current Inpatient Medications Dextrose (Dextrose 50% 50 Ml Syringe) 25 - 50 ml IV UD PRN; Protocol PRN Reason: Hypoglycemia Protocol Stop: 03/27/21 14:48 Diclofenac Sodium (Diclofenac Sod 1% Gel 100 Gm Tube) 2 gm EXT BID [facility] Stop: 03/26/21 20:59 Last Admin: 03/03/21 09:09 Dose: 2 gm Documented by: Folic Acid (Folic Acid 1 Mg Tab) 1 mg PO QAM [facility] Stop: 03/27/21 08:59 Last Admin: 03/03/21 09:07 Dose: 1 mg Documented by: Glucagon (Glucagon For Inj 1 Mg Vial) 1 mg SQ UD PRN; Protocol PRN Reason: Hypoglycemia Protocol Stop: 03/27/21 14:48 Glucose (Glucose 10 Tabs/Tube) 4 - 8 tabs PO UD PRN; Protocol PRN Reason: Hypoglycemia Protocol Stop: 03/27/21 14:48 Glucose (Glucose 40% Gel 15 Gm Tube) 15 - 30 gm PO UD PRN; Protocol PRN Reason: Hypoglycemia Protocol Stop: 03/27/21 14:48 Hydroxyzine HCl (Hydroxyzine Hcl 10 Mg Tab) 10 mg PO Q8H PRN PRN Reason: Anxiety Stop: 03/31/21 15:39 Last Admin: 03/03/21 04:18 Dose: 10 mg Documented by: Insulin Aspart (Insulin Aspart 100 Units/Ml 3 Ml Pen) 0 units SC ACHS [facility] Stop: 03/27/21 16:29 Last Admin: 03/03/21 09:06 Dose: Not Given Documented by: Magnesium Chloride (Magnesium Chloride 64mg Delayed Rel Tab) 64 mg PO BID [facility] Stop: 03/29/21 20:59 Last Admin: 03/03/21 09:07 Dose: 64 mg Documented by: Melatonin (Melatonin 3 Mg Tab) 3 mg PO HS PRN PRN Reason: Sleep Stop: 03/30/21 23:52 Last Admin: 03/02/21 20:06 Dose: 3 mg Documented by: Miscellaneous (Carbohydrates For Hypoglycemia ) 15 - 30 gm PO UD PRN PRN Reason: Hypoglycemia Protocol Stop: 03/27/21 14:48 Multivitamins (Multivitamin Tab) 1 tab PO QAM [facility] Stop: 03/27/21 08:59 Last Admin: 03/03/21 09:07 Dose: 1 tab Documented by: Ondansetron HCl (Ondansetron Inj 2 Mg/Ml 2 Ml Vial) 4 mg IV Q6H PRN PRN Reason: nausea Stop: 03/26/21 13:57 Last Admin: 03/01/21 20:25 Dose: 4 mg Documented by: Pantoprazole Sodium (Pantoprazole 40 Mg Tab) 40 mg PO BID [place] Stop: 03/30/21 08:59 Last Admin: 03/03/21 09:07 Dose: 40 mg Documented by: Pentoxifylline (Pentoxifylline 400mg Ext Rel Tab) 400 mg PO TID [facility] Stop: 03/30/21 13:59 Last Admin: 03/03/21 09:08 Dose: 400 mg Documented by: Polyethylene Glycol (Polyethylene (Miralax) 17 Gm Pack) 17 gm PO DAILY PRN PRN Reason: Constipation Stop: 03/28/21 06:36 Polyethylene Glycol (Polyethylene (Miralax) 17 Gm Pack) 17 gm PO BID [place] Stop: 03/31/21 20:59 Last Admin: 03/03/21 09:10 Dose: Not Given Documented by: Potassium Phosphate (Pot Phosphate Monobasic W/ Sod Tab) 1 tab PO QID [facility] Stop: 03/31/21 12:59 Last Admin: 03/03/21 09:08 Dose: 1 tab Documented by: Quetiapine Fumarate (Quetiapine Fumarate 200 Mg Tab) 400 mg PO HS [facility] Stop: 03/26/21 20:59 Last Admin: 03/02/21 20:08 Dose: 400 mg Documented by: Senna/Docusate Sodium (Docusate Sodium/Senna 50/8.6mg Tab) 2 tab PO QAM [facility] Stop: 04/01/21 08:59 Last Admin: 03/03/21 09:10 Dose: Not Given Documented by: Thiamine HCl (Thiamine Hcl 100 Mg Tab) 100 mg PO QAM [facility] Stop: 03/28/21 08:59 Last Admin: 03/03/21 09:07 Dose: 100 mg Documented by: (1) Anemia Anemia type: unspecified type Qualified Code(s): D64.9 - Anemia, unspecified
--- NOTE | 2021-03-03 10:49 | XRay Report ---
XR chest 1V portable HISTORY: 60 years-old Male worsening sob, orthopnea acute shortness of breath COMPARISON: Chest radiograph 02/24/2021 TECHNIQUE: Portable AP view of the chest FINDINGS: The cardiomediastinal and hilar silhouettes are unchanged. Unchanged right hemidiaphragmatic elevatio n. Mild linear right lung base opacity. No pneumothorax, large pleural effusion or overt pulmonary ed rosibel. No acute fracture. IMPRESSION: Unchanged right hemidiaphragmatic elevation with mild right basilar atelectasis. ACT 112: Negative or not required by law. The above report was generated using voice recognition software. It may contain grammatical, syntax o r spelling errors. Electronically signed by: Glenn Pyle M.D. 03/03/2021 10:48 AM
[2021-03-03] MEDS: POTASSIUM CHLORIDE 10 MEQ TABCR PO SCH ×2 (11:06→21:07)
--- NOTE | 2021-03-03 14:43 | Ultrasound Report ---
US abdomen ltd ascites CLINICAL HISTORY: enlarging abdominal girth ? ascites TECHNIQUE: Real-time grayscale sonographic images of the abdominal cavity were obtained. Comparison: Comparison is made to abdominal ultrasound 02/28/2021 FINDINGS/IMPRESSION: Moderate ascites is seen, which appears slightly increased from prior exam. ACT 112: Negative or not required by law. Electronically signed by: Rudy Benitez M.D. 03/03/2021 2:42 PM
[2021-03-03] MEDS: QUEtiapine FUMARATE 200 MG TAB PO SCH (21:09)
[2021-03-04] MEDS: hydrOXYzine HCl 10 MG TAB PO PRN ×3 (04:53→20:18)
[2021-03-04 07:44] LABS: Hematocrit (blood only) 24.1 % (42-52); Hemoglobin 8.1 g/dL (14.0-18.0)
[2021-03-04 07:52] LABS: INR 1.2 (0.9-1.1); Prothrombin Time 12.4 Seconds (9.0-12.0)
--- NOTE | 2021-03-04 08:00 | Gastroenterology Progress Note ---
Date of Service March 04, 2021 Assessment & Plan (1) Elevated LFTs: Plan: Secondary to ETOH hepatitis, no evidence of obstrution. (2) Alcoholic hepatitis: Plan: Will continue to follow LFTs, coags. Low salt diet, regular consistency. Good nutrition is the treatment of alcoholic hepatitis. Stressed need for complete, permanent ETOH cessation. Discussed severity of illness with the pt and according to initial DR of 42, a high likelihood of in the next 6 months if continues to drink alcohol. Pt motivated to abstain. (3) Alcoholic cirrhosis of liver with ascites: Plan: Paracentesis up to 6L; 25Gm of albumin before and after. Cirrhosis vs. severe steatosis. Will need OP GI f/u. (4) Ileus: Plan: Passing gas, BMs, so does not appear to be a significant ileus and not obstruction. Has developed diarrhea from the laxatives, will change to prn. Will advance diet. Admission and Anticipated Discharge Date Admission Date: February 24, 2021 Supervising Physician Co-Signing Physician Notes I performed a history and physical examination of the patient today, including specifically on physical exam - soft abdomen. I have discussed the patient's management with the advanced practitioner. Please refer to the nurse practitioner's note for the documented findings and plan of care. Alcoholic hepatitis with normal INR. Moving bowel hence can advance feeding, typically nutritional support is the mckeon treatment for alcoholic hepatitis. Follow up as OP with Liver clinic. Recall if needed. Subjective 60 yr male, admitted 02/24 with ETOH hepatitis and early cirrhosis (severe hepatic steatosis,w thrombocytopenia and elevated INR). Tells me last alcohol approx 2 wks prior to admission, so approx 21 days ago. Has had periods of sobriety in the past. On disability for mental illness. NAC completed T bili max was 24.7 on 03/01 ->23.5 today. Transaminases slowly tending down. MELD unable to be calculated due to Cr not quantifiable (icteric specimen) Maddrey's Discriminant Function score today 25.3. DF prior to starting Trental was 42. Ascites developed this week. US yesterday with moderate ascites KUB has suggested ileus but pt passing BMs. Has diarrhea on laxatives. Review of Systems Review of Systems: ROS: Gen: + weakness; feels faint/dizzy if stands; no fevers Eyes: + yellow eyes. No eye redness, or pain, no recent vision changes Resp: + mild SOB if lays on left side or back, otherwise no SOB. No cough Cardio: No palpitations/irregular beats, no chest pain GI: + diffuse upper abd pain if lays on left side/back, otherwise no pain; 2-3 loose stools/day; mild nausea/no vomiting. : Denies pain on urination or frequent urination Skin: + jaundice, No itching Neuro: mild tremor, improved; alert, oriented, normal thought processes. Psych: Denies current sadness/hopelessness or hallucinations Constitutional: as per Subjective / HPI Physical Exam Constitutional: well developed, + ill appearing, + obese and cooperative Eyes: PERRL Respiratory: normal respiratory effort, lungs clear to auscultation normal respiratory effort and able to speak in complete sentences; no respiratory distress, no labored breathing, does not use accessory muscles and no cough Cardiovascular: RRR, no murmur, no edema Gastrointestinal (Abdomen): Inspection/Auscultation: + abdomen distended ( moderate ascites) and + hypoactive bowel sounds Percussion/Palpation: abdomen soft; abdomen nontender Neurologic: PERRL, EOMI, accommodation nl, no face palsy, no dysarthria awake; not confused Psychiatric: A+Ox3, euthymic affect Orientation: alert, oriented x 3 and cooperative Judgement: good judgement Results & Data ([facility]) Vital Signs (Past 12 Hours) Vital Signs Temp Pulse Resp BP Pulse Ox 03/04/21 07:06 36.5 C 90 19 142/73 H 94 03/04/21 04:24 37 C 99 H 20 137/71 94 03/04/21 00:15 36.8 C 60 20 135/81 95 Laboratory Results WBC 10, Hb 8.1, Hct 25, plts 403, INR 1.2, Na 130, K 4.1, BUN 20. Cr - unable to test due to icteric sample. T Bili 23.5, AST 203, ALT 119, Alk Phos 325
[2021-03-04] MEDS ORDERED: ALBUMIN 25% 100 mL 25 GM/100 ML VIAL IV ONE ×2 (08:02→12:00)
[2021-03-04] MEDS: ONDANSETRON INJ 2 MG/ML 2 ML VIAL IV PRN (08:07)
[2021-03-04] MEDS: INSULIN ASPART 100 UNITS/ML 3 ML PEN SC SCH ×4 (08:11→20:12)
--- NOTE | 2021-03-04 08:19 | Hospitalist Progress Note ---
Date of Service March 04, 2021 Assessment & Plan (1) Coagulopathy: (2) Elevated LFTs: Plan: Painless Jaundice Elevated LFTs DD: Decompensated cirrhosis Vs alcoholic hepatitis H/O alcohol abuse, last drink 1 month ago DF score 42 -CT ABD:Marked hepatomegaly and severe hepatic steatosis. Splenomegaly. Hyperdense material within the gallbladder likely represents stones/sludge. There is no CT evidence of acute cholecystitis. Punctate nonobstructing left renal calculus. Advanced coronary artery calcification. Mildly enlarged upper abdominal lymph nodes are nonspecific and likely related to chronic liver disease. -Immunological/Serological work-up CMV, EBV, GREG, AMA, ASMA pending -MRCP:Normal MRCP. Hepatomegaly and severe hepatic steatosis. Splenomegaly. Trace abdominal ascites and trace pleural effusions. -Acute hepatitis panel negative -Appreciate GI input -Trend LFTs, INR -Avoid Hepatotoxic agents -R/O infection: Blood, urine culture negative to date -completed Acetylcysteine course -LFTs slowly trending down -Liver ultrasound showed small ascites within the right lower quadrant Continue pentoxifylline Needs follow-up with GI upon discharge Persistent hyperbilirubinemia 03/03 -repeat KUB, chest x-ray, abdominal ultrasound Ileus on KUB versus small bowel obstruction, however patient is having bowel movements Continue clear liquid diet Chest x-ray unchanged, abdominal ultrasound pending 03/04 -patient underwent paracentesis today, now feeling much better, abdominal distention resolved and abdominal pain much improved as well He is having bowel movements Patient's sister at the bedside and updated Suspected ileus vs P.SBO Continue bowel regimen Consider surgical evaluation if needed Follow-up KUB 03/02 patient had 2 BMs today, continue to monitor closely Replace electrolytes Continue only clear liquid diet 03/03 -patient had several bowel movements overnight and this morning 03/04 continues to have BMs Suspected UTI--Ruled out Blood culture Negative to date Urine Culture: Negative to date On empiric cefepime--DCed Pancytopenia Likely secondary to Alcoholism, Liver failure S/P PRBC, Platelets Monitor CBC H/O DM II as per records Update HbA1C:6.3 (? Falsely low due to liver disease ) Continue ISS Suspected GI bleeding +FOBT checked by [employer] No plan for scope currently as per GI unless patient has active bleed Continue PPI drip for 72 hours and then transition to p.o. twice daily Monitor H&H GI on board Hb 8.9 on 03/01 Hb 8.4 on 03/02 stable Hb 8.4 on 03/03 stable (3) Hyponatremia: Plan: -Sodium 120>>123>124 -Likely chronic/due to underlying liver disease fluid restriction Monitor sodium levels Appreciate Nephrology input (4) Anemia: (5) Thrombocytopenia: Plan: -Likely due to underlying liver disease Transfuse as needed Monitor (6) Alcohol abuse: Plan: -longstanding history of alcohol abuse, last drink 1 month ago -Continue thiamine, folic acid and (7) GERD (gastroesophageal reflux disease): Plan: -Continue PPI (8) Hypokalemia: Plan: Replace electrolytes as needed (9) Hypomagnesemia: Plan: -Replace, follow electrolytes (10) DVT prophylaxis: Plan: -SCDs Re: Anemia, thrombocytopenia Admission and Anticipated Discharge Date Admission Date: February 24, 2021 Subjective Patient is seen in follow-up of liver cirrhosis, hyperbilirubinemia, abdominal pain Currently laying in bed, in no acute distress, abdomen feels much better, underwent paracentesis earlier today several BMs Shortness of breath much improved Hyperbilirubinemia persists Denies any chest pain,nausea/vomiting Patient sister currently at the bedside, updated. She plans to take him home with her in the [facility] once patient discharged Review of Systems Review of Systems: All systems reviewed & are unremarkable except as noted in Subjective Physical Exam Physical Exam: General Appearance: Obese M , no apparent distress Head: normocephalic, Atraumatic Eyes: normal inspection, EOMI,+Icteric Neck: supple, Trachea midline Respiratory/Chest: Normal breath sounds, CTA, No accessory muscle use Cardiovascular: S1, S2, No murmur Abdomen/GI:Soft, mildly distended (improved), Bowel sounds present, nontender to palp (resolved) Extremities/Musculoskeletal: normal inspection, no edema Neurologic/Psych: AAOX3, speech fluent, moves extremities Skin: normal color, warm, +Jaundiced Results & Data Results & Data ([facility]) Vital Signs (Past 12 Hours) Vital Signs Temp Pulse Resp BP Pulse Ox 03/04/21 07:06 36.5 C 90 19 142/73 H 94 03/04/21 04:24 37 C 99 H 20 137/71 94 03/04/21 00:15 36.8 C 60 20 135/81 95 (1) Anemia Anemia type: unspecified type Qualified Code(s): D64.9 - Anemia, unspecified
[2021-03-04 08:24] LABS: Alanine Aminotransferase 119 (12-78); Albumin Level 1.6 gm/dl (3.4-5.0); Alkaline Phosphatase 325 U/L (45-117); Aspartate Aminotransferase 203 U/L (15-37); Bilirubin,Total 23.5 mg/dl (0.2-1); Blood Urea Nitrogen 20 mg/dl (7-18); Calcium 6.6 mg/dl (8.5-10.1); Carbon Dioxide 22 mmol/L (21-32); Chloride 99 mmol/L (98-107); Glucose 117 mg/dl (70-99); Magnesium 1.9 mg/dl (1.8-2.4); Phosphorus 2.5 mg/dl (2.5-4.9); Potassium 4.1 mmol/L (3.5-5.1); Sodium 130 mmol/L (136-145)
[2021-03-04] MEDS: DICLOFENAC SOD 1% GEL 100 GM TUBE EXT SCH ×2 (08:44→20:14)
[2021-03-04] MEDS: FOLIC ACID 1 MG TAB PO SCH (08:46)
[2021-03-04] MEDS: DOCUSATE SODIUM/SENNA 50/8.6MG TAB PO SCH (08:46)
[2021-03-04] MEDS: MULTIVITAMIN TAB PO SCH (08:47)
[2021-03-04] MEDS: MAGNESIUM CHLORIDE 64MG DELAYED REL TAB PO SCH ×2 (08:47→20:15)
[2021-03-04] MEDS: PANTOprazole 40 MG TAB PO SCH ×2 (08:48→20:14)
[2021-03-04] MEDS: PENTOXIFYLLINE 400MG EXT REL TAB PO SCH ×3 (08:48→20:16)
[2021-03-04] MEDS: POT PHOSPHATE MONOBASIC W/ SOD TAB PO SCH ×4 (08:50→20:13)
[2021-03-04] MEDS: THIAMINE HCL 100 MG TAB PO SCH (08:51)
[2021-03-04] MEDS: POTASSIUM CHLORIDE 10 MEQ TABCR PO SCH ×2 (08:51→20:16)
[2021-03-04] MEDS: POLYETHYLENE (MIRALAX) 17 GM PACK PO SCH (08:51)
--- NOTE | 2021-03-04 10:55 | Nephrology Progress Note ---
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 ?if large drop from D5W 02/27 w/ NAC?; sOsms 268 -cont low Na diet and FR 1.2L daily -hold lasix if possible >>>>hypokalemia, resolved for now; Potassium is 4.1 today. -cont K supplements 10 mEq bid >> had 10 BM yesterday ->>>pls check phos, mag, bmp daily >>decompensated liver cirrhosis >> trying to minimize/ avoid lasix in pt for whom we essentially have no measure of creatinine since admission and who has high MAIRA risk >>>>SOB more this AM >> 03/03 CXR clear Will follow peripherally for now. Admission and Anticipated Discharge Date Admission Date: February 24, 2021 Subjective seen on rounds at 0700 this am; hoping we can lower lactulose d/t high frequency BM; some HB/chest pain w/ taking pills he states; no n/v; no worsening sob Review of Systems Review of Systems: All systems reviewed & are unremarkable except as noted in Subjective Physical Exam Constitutional: well developed, + ill appearing (chronically) and cooperative; no acute distress Eyes: EOM intact bilaterally; sclerae not anicteric ENMT: Ears: no external ear abnormality Nose: no external nose abnormality Mouth: + dry oral mucous membranes Neck: no nuchal rigidity Respiratory: normal respiratory effort Auscultation: + diminished lung sounds Cardiovascular: Rate/Rhythm: regular rhythm and + tachycardic Heart Sounds: normal S1 and normal S2 Extremities: no edema Gastrointestinal (Abdomen): Inspection/Auscultation: + abdomen distended and normal bowel sounds Percussion/Palpation: abdomen soft; abdomen nontender and no guarding Musculoskeletal: Extremities: strength 5/5 throughout Skin: no rashes, warm and dry + jaundice Neurologic: li, fluent speech, + tremor Psychiatric: A& 0 x 3, euthymic affect Results & Data ([facility]) Vital Signs (Past 12 Hours) Vital Signs Temp Pulse Pulse Resp BP Pulse Ox 03/04/21 10:12 36.6 C 87 16 137/79 96 03/04/21 08:00 36.7 C 91 H 16 130/76 95 03/04/21 07:30 91 H 03/04/21 07:06 36.5 C 90 19 142/73 H 94 03/04/21 04:24 37 C 99 H 20 137/71 94 03/04/21 00:15 36.8 C 60 20 135/81 95
--- NOTE | 2021-03-04 14:18 | XRay Report ---
KUB HISTORY: Abdominal distention. follow up ileus COMPARISON: KUB 03/03/2021. FINDINGS: Multiple dilated loops of gas-filled small bowel are again noted throughout the abdomen. Th suzanna measure up to 5.3 cm in diameter. This is similar to the prior study. Mild gaseous distention of the stomach also persists. No renal calculi. No ureteral calculi. No pneumoperitoneum or pneumatosis . A few gas-filled loops of nondilated colon are also noted. IMPRESSION: No significant change in the dilated gas-filled loops of small bowel seen throughout the abdomen. Thi s could represent an ileus versus partial small bowel obstruction. ACT 112: Negative or not required by law. Electronically signed by: Srinivas Mandujano M.D. 03/04/2021 2:17 PM
[2021-03-04 14:50] LABS: Appearance Peritoneal Fluid CLEAR; Basophils, Fluid 0 %; Color Peritoneal Fluid YELLOW; Eosinophils, Fluid 0 %; Lymphocytes, Fluid 13 %; Mono,Macrophage,Mesothelial 63 %; Neutrophils, Fluid 24 %; RBC Peritoneal Fluid (A) < 3000 /uL; WBC Peritoneal Fluid (A) 72 /ul (0-300)
--- NOTE | 2021-03-04 16:24 | Ultrasound Report ---
PROCEDURE: US paracentesis abd w/image CLINICAL HISTORY: alcoholic hepatitis and cirrhosis with ascites. COMPARISON: None. FINDINGS: The entire procedure was explained to the patient including the risks, expected benefits, alternatives and potential complications. Written informed consent had been obtained. Limited sonography of the abdomen demonstrates ascites. A site for puncture was marked. The patient w as prepped with chloro prep. Sterile technique was utilized. Sterile drapes were applied to the patie nt. 1% lidocaine local anesthesia was administered. A paracentesis needle and catheter was advanced i nto the peritoneal cavity. The catheter was advanced into the peritoneal cavity and the needle was re moved. A total of 1.6 L of clear straw-colored fluid was obtained. The catheter was removed and a ban dage was placed over the punctured site. The patient tolerated the procedure well. There were no imme diate complications. IMPRESSION: Technically successful ultrasound-guided paracentesis. ACT 112: Negative or not required by law. Electronically signed by: Siva Faye M.D. 03/04/2021 4:23 PM
[2021-03-04] MEDS: QUEtiapine FUMARATE 200 MG TAB PO SCH (20:16)
[2021-03-04] MEDS: MELATONIN 3 MG TAB PO PRN (20:19)
[2021-03-05] MEDS: hydrOXYzine HCl 10 MG TAB PO PRN ×3 (06:38→21:00)
[2021-03-05 06:58] LABS: Hematocrit (blood only) 22.4 % (42-52); Hemoglobin 7.7 g/dL (14.0-18.0)
[2021-03-05 07:22] LABS: INR 1.3 (0.9-1.1); Prothrombin Time 12.7 Seconds (9.0-12.0)
--- NOTE | 2021-03-05 08:07 | Hospitalist Progress Note ---
Date of Service March 05, 2021 Assessment & Plan (1) Coagulopathy: (2) Elevated LFTs: Plan: Painless Jaundice Elevated LFTs DD: Decompensated cirrhosis Vs alcoholic hepatitis H/O alcohol abuse, last drink 1 month ago DF score 42 -CT ABD:Marked hepatomegaly and severe hepatic steatosis. Splenomegaly. Hyperdense material within the gallbladder likely represents stones/sludge. There is no CT evidence of acute cholecystitis. Punctate nonobstructing left renal calculus. Advanced coronary artery calcification. Mildly enlarged upper abdominal lymph nodes are nonspecific and likely related to chronic liver disease. -Immunological/Serological work-up CMV, EBV, GREG, AMA, ASMA pending -MRCP:Normal MRCP. Hepatomegaly and severe hepatic steatosis. Splenomegaly. Trace abdominal ascites and trace pleural effusions. -Acute hepatitis panel negative -Appreciate GI input -Trend LFTs, INR -Avoid Hepatotoxic agents -R/O infection: Blood, urine culture negative to date -completed Acetylcysteine course -LFTs slowly trending down -Liver ultrasound showed small ascites within the right lower quadrant Continue pentoxifylline Needs follow-up with GI upon discharge Persistent hyperbilirubinemia 03/03 -repeat KUB, chest x-ray, abdominal ultrasound Ileus on KUB versus small bowel obstruction, however patient is having bowel movements Continue clear liquid diet Chest x-ray unchanged, abdominal ultrasound pending 03/04 -patient underwent paracentesis - 1.6L of straw-colored fluid removed, now feeling much better, abdominal distention resolved and abdominal pain much improved as well He is having bowel movements Patient's sister at the bedside and updated 03/05 -continues to feel well, shortness of breath improved, abdominal distention and pain much improved as well -Continues to have bowel movements, no blood in the stool, no complaints Suspected ileus vs P.SBO Continue bowel regimen Consider surgical evaluation if needed Follow-up KUB 03/02 patient had 2 BMs today, continue to monitor closely Replace electrolytes Continue only clear liquid diet 03/03 -patient had several bowel movements overnight and this morning 03/04 continues to have BMs Suspected UTI--Ruled out Blood culture Negative to date Urine Culture: Negative to date On empiric cefepime--DCed Pancytopenia Likely secondary to Alcoholism, Liver failure S/P PRBC, Platelets Monitor CBC H/O DM II as per records Update HbA1C:6.3 (? Falsely low due to liver disease ) Continue ISS Suspected GI bleeding +FOBT checked by [employer] No plan for scope currently as per GI unless patient has active bleed Continue PPI drip for 72 hours and then transition to p.o. twice daily Monitor H&H GI on board Hb 8.9 on 03/01 Hb 8.4 on 03/02 stable Hb 8.4 on 03/03 stable Hb 7.7 on 03/05 - cont. to monitor -no blood in stool reported (3) Hyponatremia: Plan: -Sodium 120>>123>124 --> 134 -Likely chronic/due to underlying liver disease fluid restriction Monitor sodium levels Current Na 134 (03/05) Appreciate Nephrology input (4) Anemia: (5) Thrombocytopenia: Plan: -Likely due to underlying liver disease Transfuse as needed Monitor (6) Alcohol abuse: Plan: -longstanding history of alcohol abuse, last drink 1 month ago -Continue thiamine, folic acid and (7) GERD (gastroesophageal reflux disease): Plan: -Continue PPI (8) Hypokalemia: Plan: Replace electrolytes as needed (9) Hypomagnesemia: Plan: -Replace, follow electrolytes (10) DVT prophylaxis: Plan: -SCDs Re: Anemia, thrombocytopenia Admission and Anticipated Discharge Date Admission Date: February 24, 2021 Subjective Patient is seen in follow-up of liver cirrhosis, hyperbilirubinemia, abdominal pain Currently laying in bed, in no acute distress, abdomen feels much better, underwent paracentesis yesterday several BMs, no blood in the stool reported Shortness of breath much improved Hyperbilirubinemia persists Denies any chest pain,nausea/vomiting Patient's sister present at the bedside yesterday, updated. She plans to take him home with her in the [facility] once patient discharged. Patient only complains about being hungry today. Review of Systems Review of Systems: All systems reviewed & are unremarkable except as noted in Subjective Physical Exam Physical Exam: General Appearance: Obese M , no apparent distress Head: normocephalic, Atraumatic Eyes: normal inspection, EOMI,+Icteric Neck: supple, Trachea midline Respiratory/Chest: Normal breath sounds, CTA, No accessory muscle use Cardiovascular: S1, S2, No murmur Abdomen/GI:Soft, mildly distended (improved), Bowel sounds present, nontender to palp (resolved) Extremities/Musculoskeletal: normal inspection, no edema Neurologic/Psych: AAOX3, speech fluent, moves extremities Skin: normal color, warm, +Jaundiced Results & Data Results & Data ([facility]) Vital Signs (Past 12 Hours) Vital Signs Temp Pulse Resp BP Pulse Ox 03/05/21 06:55 36.8 C 92 H 18 136/80 94 03/05/21 03:10 36.5 C 92 H 125/68 95 03/04/21 22:46 37.2 C 96 H 18 147/81 H 94 Laboratory Results 03/05/21 03/05/21 03/05/21 Range/Units 07:12 05:54 05:54 Hgb (14.0-18.0) g/dL Hct (42-52) % PT (9.0-12.0) Seconds INR (0.9-1.1) Sodium 134 L (136-145) mmol/L Potassium 3.6 (3.5-5.1) mmol/L Chloride 103 (98-107) mmol/L Carbon Dioxide 21 (21-32) mmol/L Anion Gap 9.0 (3-11) BUN 21 H (7-18) mg/dl Creatinine (0.6-1.4) mg/dl Est Cr Clr Drug Dosing Pending Est GFR ( Amer) Pending Est GFR (Non-Af Amer) Pending BUN/Creatinine Ratio TNP Glucose 92 (70-99) mg/dl POC Glucose 109 H (70-99) mg/dl Calcium 6.9 L (8.5-10.1) mg/dl Total Bilirubin 24.5 H (0.2-1) mg/dl AST 178 H (15-37) U/L ALT 106 H (12-78) Alkaline Phosphatase 292 H (45-117) U/L Total Protein (6.4-8.2) gm/dl Albumin 1.9 L (3.4-5.0) gm/dl Globulin TNP Albumin/Globulin Ratio TNP Fluid Neutrophils % % Fluid Lymphocytes % % Fluid Eosinophils % % Fluid Basophils % % Fluid Meso/Macro/[place] % % Fluid Comment Peritoneal Color Peritoneal Appearance Peritoneal WBC (0-300) /ul Peritoneal RBC /uL Peritoneal Tot Protein g/dl Peritoneal Albumin g/dl Miscellaneous Test Pending Miscellaneous Test 2 Pending 03/05/21 03/05/21 03/04/21 Range/Units 05:53 05:53 Unknown Hgb 7.7 L (14.0-18.0) g/dL Hct 22.4 L (42-52) % PT 12.7 H (9.0-12.0) Seconds INR 1.3 H (0.9-1.1) Sodium (136-145) mmol/L Potassium (3.5-5.1) mmol/L Chloride (98-107) mmol/L Carbon Dioxide (21-32) mmol/L Anion Gap (3-11) BUN (7-18) mg/dl Creatinine (0.6-1.4) mg/dl Est Cr Clr Drug Dosing Est GFR ( Amer) Est GFR (Non-Af Amer) BUN/Creatinine Ratio Glucose (70-99) mg/dl POC Glucose (70-99) mg/dl Calcium (8.5-10.1) mg/dl Total Bilirubin (0.2-1) mg/dl AST (15-37) U/L ALT (12-78) Alkaline Phosphatase (45-117) U/L Total Protein (6.4-8.2) gm/dl Albumin (3.4-5.0) gm/dl Globulin Albumin/Globulin Ratio Fluid Neutrophils % % Fluid Lymphocytes % % Fluid Eosinophils % % Fluid Basophils % % Fluid Meso/Macro/[place] % % Fluid Comment Peritoneal Color Peritoneal Appearance Peritoneal WBC (0-300) /ul Peritoneal RBC /uL Peritoneal Tot Protein 1.0 g/dl Peritoneal Albumin g/dl Miscellaneous Test Miscellaneous Test 2 03/04/21 03/04/21 03/04/21 Range/Units Unknown Unknown 19:59 Hgb (14.0-18.0) g/dL Hct (42-52) % PT (9.0-12.0) Seconds INR (0.9-1.1) Sodium (136-145) mmol/L Potassium (3.5-5.1) mmol/L Chloride (98-107) mmol/L Carbon Dioxide (21-32) mmol/L Anion Gap (3-11) BUN (7-18) mg/dl Creatinine (0.6-1.4) mg/dl Est Cr Clr Drug Dosing Est GFR ( Amer) Est GFR (Non-Af Amer) BUN/Creatinine Ratio Glucose (70-99) mg/dl POC Glucose 123 H (70-99) mg/dl Calcium (8.5-10.1) mg/dl Total Bilirubin (0.2-1) mg/dl AST (15-37) U/L ALT (12-78) Alkaline Phosphatase (45-117) U/L Total Protein (6.4-8.2) gm/dl Albumin (3.4-5.0) gm/dl Globulin Albumin/Globulin Ratio Fluid Neutrophils % 24 % Fluid Lymphocytes % 13 % Fluid Eosinophils % 0 % Fluid Basophils % 0 % Fluid Meso/Macro/[place] % 63 % Fluid Comment Peritoneal Color YELLOW Peritoneal Appearance CLEAR Peritoneal WBC 72 (0-300) /ul Peritoneal RBC < 3000 /uL Peritoneal Tot Protein g/dl Peritoneal Albumin < 0.6 g/dl Miscellaneous Test Miscellaneous Test 2 03/04/21 03/04/21 03/04/21 Range/Units 16:16 11:11 06:41 Hgb (14.0-18.0) g/dL Hct (42-52) % PT (9.0-12.0) Seconds INR (0.9-1.1) Sodium (136-145) mmol/L Potassium (3.5-5.1) mmol/L Chloride (98-107) mmol/L Carbon Dioxide (21-32) mmol/L Anion Gap (3-11) BUN (7-18) mg/dl Creatinine (0.6-1.4) mg/dl Est Cr Clr Drug Dosing Est GFR ( Amer) Est GFR (Non-Af Amer) BUN/Creatinine Ratio Glucose (70-99) mg/dl POC Glucose 109 H 135 H (70-99) mg/dl Calcium (8.5-10.1) mg/dl Total Bilirubin (0.2-1) mg/dl AST (15-37) U/L ALT (12-78) Alkaline Phosphatase (45-117) U/L Total Protein (6.4-8.2) gm/dl Albumin (3.4-5.0) gm/dl Globulin Albumin/Globulin Ratio Fluid Neutrophils % % Fluid Lymphocytes % % Fluid Eosinophils % % Fluid Basophils % % Fluid Meso/Macro/[place] % % Fluid Comment Peritoneal Color Peritoneal Appearance Peritoneal WBC (0-300) /ul Peritoneal RBC /uL Peritoneal Tot Protein g/dl Peritoneal Albumin g/dl Miscellaneous Test REPORT Miscellaneous Test 2 REPORT Medications Administered Current Inpatient Medications Dextrose (Dextrose 50% 50 Ml Syringe) 25 - 50 ml IV UD PRN; Protocol PRN Reason: Hypoglycemia Protocol Stop: 03/27/21 14:48 Diclofenac Sodium (Diclofenac Sod 1% Gel 100 Gm Tube) 2 gm EXT BID [facility] Stop: 03/26/21 20:59 Last Admin: 03/04/21 20:14 Dose: 2 gm Documented by: Folic Acid (Folic Acid 1 Mg Tab) 1 mg PO QAM [place] Stop: 03/27/21 08:59 Last Admin: 03/04/21 08:46 Dose: 1 mg Documented by: Glucagon (Glucagon For Inj 1 Mg Vial) 1 mg SQ UD PRN; Protocol PRN Reason: Hypoglycemia Protocol Stop: 03/27/21 14:48 Glucose (Glucose 10 Tabs/Tube) 4 - 8 tabs PO UD PRN; Protocol PRN Reason: Hypoglycemia Protocol Stop: 03/27/21 14:48 Glucose (Glucose 40% Gel 15 Gm Tube) 15 - 30 gm PO UD PRN; Protocol PRN Reason: Hypoglycemia Protocol Stop: 03/27/21 14:48 Hydroxyzine HCl (Hydroxyzine Hcl 10 Mg Tab) 10 mg PO Q8H PRN PRN Reason: Anxiety Stop: 03/31/21 15:39 Last Admin: 03/05/21 06:38 Dose: 10 mg Documented by: Insulin Aspart (Insulin Aspart 100 Units/Ml 3 Ml Pen) 0 units SC ACHS [facility] Stop: 03/27/21 16:29 Last Admin: 03/04/21 20:12 Dose: Not Given Documented by: Magnesium Chloride (Magnesium Chloride 64mg Delayed Rel Tab) 64 mg PO BID [facility] Stop: 03/29/21 20:59 Last Admin: 03/04/21 20:15 Dose: 64 mg Documented by: Melatonin (Melatonin 3 Mg Tab) 3 mg PO HS PRN PRN Reason: Sleep Stop: 03/30/21 23:52 Last Admin: 03/04/21 20:19 Dose: 3 mg Documented by: Miscellaneous (Carbohydrates For Hypoglycemia ) 15 - 30 gm PO UD PRN PRN Reason: Hypoglycemia Protocol Stop: 03/27/21 14:48 Multivitamins (Multivitamin Tab) 1 tab PO QAM [facility] Stop: 03/27/21 08:59 Last Admin: 03/04/21 08:47 Dose: 1 tab Documented by: Ondansetron HCl (Ondansetron Inj 2 Mg/Ml 2 Ml Vial) 4 mg IV Q6H PRN PRN Reason: nausea Stop: 03/26/21 13:57 Last Admin: 03/04/21 08:07 Dose: 4 mg Documented by: Pantoprazole Sodium (Pantoprazole 40 Mg Tab) 40 mg PO BID [facility] Stop: 03/30/21 08:59 Last Admin: 03/04/21 20:14 Dose: 40 mg Documented by: Pentoxifylline (Pentoxifylline 400mg Ext Rel Tab) 400 mg PO TID [facility] Stop: 03/30/21 13:59 Last Admin: 03/04/21 20:16 Dose: 400 mg Documented by: Polyethylene Glycol (Polyethylene (Miralax) 17 Gm Pack) 17 gm PO DAILY PRN PRN Reason: Constipation Stop: 03/28/21 06:36 Last Admin: 03/03/21 15:23 Dose: 17 gm Documented by: Potassium Chloride (Potassium Chloride 10 Meq Tabcr) 10 meq PO BID [facility] Stop: 04/02/21 10:29 Last Admin: 03/04/21 20:16 Dose: 10 meq Documented by: Potassium Phosphate (Pot Phosphate Monobasic W/ Sod Tab) 1 tab PO QID [facility] Stop: 03/31/21 12:59 Last Admin: 03/04/21 20:13 Dose: 1 tab Documented by: Quetiapine Fumarate (Quetiapine Fumarate 200 Mg Tab) 400 mg PO HS [facility] Stop: 03/26/21 20:59 Last Admin: 03/04/21 20:16 Dose: 400 mg Documented by: Senna/Docusate Sodium (Docusate Sodium/Senna 50/8.6mg Tab) 2 tab PO QAM [facility] Stop: 04/01/21 08:59 Last Admin: 03/04/21 08:46 Dose: 2 tab Documented by: Thiamine HCl (Thiamine Hcl 100 Mg Tab) 100 mg PO QAM [facility] Stop: 03/28/21 08:59 Last Admin: 03/04/21 08:51 Dose: 100 mg Documented by: (1) Anemia Anemia type: unspecified type Qualified Code(s): D64.9 - Anemia, unspecified
[2021-03-05] MEDS: MAGNESIUM CHLORIDE 64MG DELAYED REL TAB PO SCH ×2 (08:22→20:52)
[2021-03-05] MEDS: MULTIVITAMIN TAB PO SCH (08:22)
[2021-03-05] MEDS: PENTOXIFYLLINE 400MG EXT REL TAB PO SCH ×3 (08:22→20:53)
[2021-03-05] MEDS: THIAMINE HCL 100 MG TAB PO SCH (08:22)
[2021-03-05] MEDS: POTASSIUM CHLORIDE 10 MEQ TABCR PO SCH ×2 (08:22→20:55)
[2021-03-05] MEDS: FOLIC ACID 1 MG TAB PO SCH (08:23)
[2021-03-05] MEDS: POT PHOSPHATE MONOBASIC W/ SOD TAB PO SCH ×4 (08:23→20:54)
[2021-03-05] MEDS: DOCUSATE SODIUM/SENNA 50/8.6MG TAB PO SCH (08:23)
[2021-03-05] MEDS: PANTOprazole 40 MG TAB PO SCH ×2 (08:23→20:53)
[2021-03-05] MEDS: DICLOFENAC SOD 1% GEL 100 GM TUBE EXT SCH ×2 (08:25→20:38)
[2021-03-05] MEDS: INSULIN ASPART 100 UNITS/ML 3 ML PEN SC SCH ×4 (08:26→20:50)
[2021-03-05 09:20] LABS: Alanine Aminotransferase 106 (12-78); Albumin Level 1.9 gm/dl (3.4-5.0); Alkaline Phosphatase 292 U/L (45-117); Aspartate Aminotransferase 178 U/L (15-37); Bilirubin,Total 24.5 mg/dl (0.2-1); Blood Urea Nitrogen 21 mg/dl (7-18); Calcium 6.9 mg/dl (8.5-10.1); Carbon Dioxide 21 mmol/L (21-32); Chloride 103 mmol/L (98-107); Glucose 92 mg/dl (70-99); Potassium 3.6 mmol/L (3.5-5.1); Sodium 134 mmol/L (136-145)
[2021-03-05] MEDS ORDERED: POTASSIUM CHLORIDE CRTAB 20 MEQ TABCR PO STA (09:51)
[2021-03-05] MEDS: QUEtiapine FUMARATE 200 MG TAB PO SCH (20:55)
[2021-03-05] MEDS: MELATONIN 3 MG TAB PO PRN (20:59)
[2021-03-06 06:03] LABS: Hematocrit (blood only) 22.5 % (42-52); Hemoglobin 7.7 g/dL (14.0-18.0)
[2021-03-06] MEDS: hydrOXYzine HCl 10 MG TAB PO PRN ×4 (06:05→22:15)
[2021-03-06 06:12] LABS: INR 1.3 (0.9-1.1); Prothrombin Time 12.8 Seconds (9.0-12.0)
[2021-03-06 06:57] LABS: Alanine Aminotransferase 109 (12-78); Albumin Level 1.8 gm/dl (3.4-5.0); Alkaline Phosphatase 303 U/L (45-117); Aspartate Aminotransferase 181 U/L (15-37); Bilirubin,Total 23.9 mg/dl (0.2-1); Blood Urea Nitrogen 26 mg/dl (7-18); Carbon Dioxide 21 mmol/L (21-32); Chloride 105 mmol/L (98-107); Glucose 116 mg/dl (70-99); Potassium 3.7 mmol/L (3.5-5.1); Sodium 134 mmol/L (136-145)
[2021-03-06] MEDS: INSULIN ASPART 100 UNITS/ML 3 ML PEN SC SCH ×4 (08:00→20:01)
--- NOTE | 2021-03-06 08:20 | Hospitalist Progress Note ---
Date of Service March 06, 2021 Assessment & Plan (1) Coagulopathy: (2) Elevated LFTs: Plan: Painless Jaundice Elevated LFTs DD: Decompensated cirrhosis Vs alcoholic hepatitis H/O alcohol abuse, last drink 1 month ago DF score 42 -CT ABD:Marked hepatomegaly and severe hepatic steatosis. Splenomegaly. Hyperdense material within the gallbladder likely represents stones/sludge. There is no CT evidence of acute cholecystitis. Punctate nonobstructing left renal calculus. Advanced coronary artery calcification. Mildly enlarged upper abdominal lymph nodes are nonspecific and likely related to chronic liver disease. -Immunological/Serological work-up CMV, EBV, GREG, AMA, ASMA pending -MRCP:Normal MRCP. Hepatomegaly and severe hepatic steatosis. Splenomegaly. Trace abdominal ascites and trace pleural effusions. -Acute hepatitis panel negative -Appreciate GI input -Trend LFTs, INR -Avoid Hepatotoxic agents -R/O infection: Blood, urine culture negative to date -completed Acetylcysteine course -LFTs slowly trending down -Liver ultrasound showed small ascites within the right lower quadrant Continue pentoxifylline Needs follow-up with GI upon discharge Persistent hyperbilirubinemia 03/03 -repeat KUB, chest x-ray, abdominal ultrasound Ileus on KUB versus small bowel obstruction, however patient is having bowel movements Continue clear liquid diet Chest x-ray unchanged, abdominal ultrasound pending 03/04 -patient underwent paracentesis - 1.6L of straw-colored fluid removed, now feeling much better, abdominal distention resolved and abdominal pain much improved as well He is having bowel movements Patient's sister at the bedside and updated 03/05 -continues to feel well, shortness of breath improved, abdominal distention and pain much improved as well -Continues to have bowel movements, no blood in the stool, no complaints Suspected ileus vs P.SBO Continue bowel regimen Consider surgical evaluation if needed Follow-up KUB 03/02 patient had 2 BMs today, continue to monitor closely Replace electrolytes Continue only clear liquid diet 03/03 -patient had several bowel movements overnight and this morning 03/04 continues to have BMs Suspected UTI--Ruled out Blood culture Negative to date Urine Culture: Negative to date On empiric cefepime--DCed Pancytopenia Likely secondary to Alcoholism, Liver failure S/P PRBC, Platelets Monitor CBC H/O DM II as per records Update HbA1C:6.3 (? Falsely low due to liver disease ) Continue ISS Suspected GI bleeding +FOBT checked by Sole Layer Hand No plan for scope currently as per GI unless patient has active bleed Continue PPI drip for 72 hours and then transition to p.o. twice daily Monitor H&H GI on board Hb 8.9 on 03/01 Hb 8.4 on 03/02 stable Hb 8.4 on 03/03 stable Hb 7.7 on 03/05 - cont. to monitor -no blood in stool reported (3) Hyponatremia: Plan: -Sodium 120>>123>124 --> 134 -Likely chronic/due to underlying liver disease fluid restriction Monitor sodium levels Current Na 134 (03/05) Appreciate Nephrology input (4) Anemia: (5) Thrombocytopenia: Plan: -Likely due to underlying liver disease Transfuse as needed Monitor (6) Alcohol abuse: Plan: -longstanding history of alcohol abuse, last drink 1 month ago -Continue thiamine, folic acid and (7) GERD (gastroesophageal reflux disease): Plan: -Continue PPI (8) Hypokalemia: Plan: Replace electrolytes as needed (9) Hypomagnesemia: Plan: -Replace, follow electrolytes (10) DVT prophylaxis: Plan: -SCDs Re: Anemia, thrombocytopenia Admission and Anticipated Discharge Date Admission Date: February 24, 2021 Subjective Patient is seen in follow-up of liver cirrhosis, hyperbilirubinemia, abdominal pain Currently laying in bed, in no acute distress, abdomen feels much better, underwent paracentesis couple of days ago several BMs, no blood in the stool reported Shortness of breath much improved Hyperbilirubinemia persists Denies any chest pain,nausea/vomiting Patient's sister present at the bedside 2 days ag, updated. She plans to take him home with her in the [facility] area once patient discharged. Patient tells me the sister now left to [facility], and will be back sometimes next week Review of Systems Review of Systems: All systems reviewed & are unremarkable except as noted in Subjective Physical Exam Physical Exam: General Appearance: Obese M , no apparent distress Head: normocephalic, Atraumatic Eyes: normal inspection, EOMI,+Icteric Neck: supple, Trachea midline Respiratory/Chest: Normal breath sounds, CTA, No accessory muscle use Cardiovascular: S1, S2, No murmur Abdomen/GI:Soft, mildly distended (improved), Bowel sounds present, nontender to palp (resolved) Extremities/Musculoskeletal: normal inspection, no edema Neurologic/Psych: AAOX3, speech fluent, moves extremities Skin: normal color, warm, +Jaundiced Results & Data Results & Data ([facility]) Vital Signs (Past 12 Hours) Vital Signs Temp Pulse Pulse Resp BP BP Pulse Ox 03/06/21 07:48 91 H 03/06/21 07:00 36.6 C 93 H 20 137/73 95 03/06/21 03:49 36.7 C 90 19 129/69 94 03/05/21 23:52 36.8 C 76 17 108/96 95 Laboratory Results 03/06/21 03/06/21 03/06/21 Range/Units 07:02 05:43 05:43 Hgb (14.0-18.0) g/dL Hct (42-52) % PT 12.8 H (9.0-12.0) Seconds INR 1.3 H (0.9-1.1) Sodium (136-145) mmol/L Potassium (3.5-5.1) mmol/L Chloride (98-107) mmol/L Carbon Dioxide (21-32) mmol/L Anion Gap (3-11) BUN (7-18) mg/dl Creatinine (0.6-1.4) mg/dl Est Cr Clr Drug Dosing Est GFR ( Amer) Est GFR (Non-Af Amer) BUN/Creatinine Ratio Glucose (70-99) mg/dl POC Glucose 124 H (70-99) mg/dl Calcium (8.5-10.1) mg/dl Total Bilirubin (0.2-1) mg/dl AST (15-37) U/L ALT (12-78) Alkaline Phosphatase (45-117) U/L Total Protein (6.4-8.2) gm/dl Albumin (3.4-5.0) gm/dl Globulin Albumin/Globulin Ratio Miscellaneous Test Pending Miscellaneous Test 2 Pending 03/06/21 03/06/21 03/05/21 Range/Units 05:43 05:43 20:01 Hgb 7.7 L (14.0-18.0) g/dL Hct 22.5 L (42-52) % PT (9.0-12.0) Seconds INR (0.9-1.1) Sodium 134 L (136-145) mmol/L Potassium 3.7 (3.5-5.1) mmol/L Chloride 105 (98-107) mmol/L Carbon Dioxide 21 (21-32) mmol/L Anion Gap 8.0 (3-11) BUN 26 H (7-18) mg/dl Creatinine (0.6-1.4) mg/dl Est Cr Clr Drug Dosing Not Reportable Est GFR ( Amer) Not Reportable Est GFR (Non-Af Amer) Not Reportable BUN/Creatinine Ratio Not Reportable Glucose 116 H (70-99) mg/dl POC Glucose 142 H (70-99) mg/dl Calcium 7.0 L (8.5-10.1) mg/dl Total Bilirubin 23.9 H (0.2-1) mg/dl AST 181 H (15-37) U/L ALT 109 H (12-78) Alkaline Phosphatase 303 H (45-117) U/L Total Protein (6.4-8.2) gm/dl Albumin 1.8 L (3.4-5.0) gm/dl Globulin Not Reportable Albumin/Globulin Ratio Not Reportable Miscellaneous Test Miscellaneous Test 2 03/05/21 03/05/21 03/05/21 Range/Units 16:17 11:25 05:54 Hgb (14.0-18.0) g/dL Hct (42-52) % PT (9.0-12.0) Seconds INR (0.9-1.1) Sodium (136-145) mmol/L Potassium (3.5-5.1) mmol/L Chloride (98-107) mmol/L Carbon Dioxide (21-32) mmol/L Anion Gap (3-11) BUN (7-18) mg/dl Creatinine (0.6-1.4) mg/dl Est Cr Clr Drug Dosing Est GFR ( Amer) Est GFR (Non-Af Amer) BUN/Creatinine Ratio Glucose (70-99) mg/dl POC Glucose 119 H 115 H (70-99) mg/dl Calcium (8.5-10.1) mg/dl Total Bilirubin (0.2-1) mg/dl AST (15-37) U/L ALT (12-78) Alkaline Phosphatase (45-117) U/L Total Protein (6.4-8.2) gm/dl Albumin (3.4-5.0) gm/dl Globulin Albumin/Globulin Ratio Miscellaneous Test REPORT Miscellaneous Test 2 REPORT 03/05/21 Range/Units 05:54 Hgb (14.0-18.0) g/dL Hct (42-52) % PT (9.0-12.0) Seconds INR (0.9-1.1) Sodium 134 L (136-145) mmol/L Potassium 3.6 (3.5-5.1) mmol/L Chloride 103 (98-107) mmol/L Carbon Dioxide 21 (21-32) mmol/L Anion Gap 9.0 (3-11) BUN 21 H (7-18) mg/dl Creatinine (0.6-1.4) mg/dl Est Cr Clr Drug Dosing Not Reportable Est GFR ( Amer) Not Reportable Est GFR (Non-Af Amer) Not Reportable BUN/Creatinine Ratio TNP Glucose 92 (70-99) mg/dl POC Glucose (70-99) mg/dl Calcium 6.9 L (8.5-10.1) mg/dl Total Bilirubin 24.5 H (0.2-1) mg/dl AST 178 H (15-37) U/L ALT 106 H (12-78) Alkaline Phosphatase 292 H (45-117) U/L Total Protein (6.4-8.2) gm/dl Albumin 1.9 L (3.4-5.0) gm/dl Globulin TNP Albumin/Globulin Ratio TNP Miscellaneous Test Miscellaneous Test 2 Medications Administered Current Inpatient Medications Dextrose (Dextrose 50% 50 Ml Syringe) 25 - 50 ml IV UD PRN; Protocol PRN Reason: Hypoglycemia Protocol Stop: 03/27/21 14:48 Diclofenac Sodium (Diclofenac Sod 1% Gel 100 Gm Tube) 2 gm EXT BID [facility] Stop: 03/26/21 20:59 Last Admin: 03/05/21 20:38 Dose: 2 gm Documented by: Folic Acid (Folic Acid 1 Mg Tab) 1 mg PO QAM [facility] Stop: 03/27/21 08:59 Last Admin: 03/05/21 08:23 Dose: 1 mg Documented by: Glucagon (Glucagon For Inj 1 Mg Vial) 1 mg SQ UD PRN; Protocol PRN Reason: Hypoglycemia Protocol Stop: 03/27/21 14:48 Glucose (Glucose 10 Tabs/Tube) 4 - 8 tabs PO UD PRN; Protocol PRN Reason: Hypoglycemia Protocol Stop: 03/27/21 14:48 Glucose (Glucose 40% Gel 15 Gm Tube) 15 - 30 gm PO UD PRN; Protocol PRN Reason: Hypoglycemia Protocol Stop: 03/27/21 14:48 Hydroxyzine HCl (Hydroxyzine Hcl 10 Mg Tab) 10 mg PO Q8H PRN PRN Reason: Anxiety Stop: 03/31/21 15:39 Last Admin: 03/06/21 06:05 Dose: 10 mg Documented by: Insulin Aspart (Insulin Aspart 100 Units/Ml 3 Ml Pen) 0 units SC ACHS [facility] Stop: 03/27/21 16:29 Last Admin: 03/05/21 20:50 Dose: Not Given Documented by: Magnesium Chloride (Magnesium Chloride 64mg Delayed Rel Tab) 64 mg PO BID [facility] Stop: 03/29/21 20:59 Last Admin: 03/05/21 20:52 Dose: 64 mg Documented by: Melatonin (Melatonin 3 Mg Tab) 3 mg PO HS PRN PRN Reason: Sleep Stop: 03/30/21 23:52 Last Admin: 03/05/21 20:59 Dose: 3 mg Documented by: Miscellaneous (Carbohydrates For Hypoglycemia ) 15 - 30 gm PO UD PRN PRN Reason: Hypoglycemia Protocol Stop: 03/27/21 14:48 Multivitamins (Multivitamin Tab) 1 tab PO QAM [facility] Stop: 03/27/21 08:59 Last Admin: 03/05/21 08:22 Dose: 1 tab Documented by: Ondansetron HCl (Ondansetron Inj 2 Mg/Ml 2 Ml Vial) 4 mg IV Q6H PRN PRN Reason: nausea Stop: 03/26/21 13:57 Last Admin: 03/04/21 08:07 Dose: 4 mg Documented by: Pantoprazole Sodium (Pantoprazole 40 Mg Tab) 40 mg PO BID [facility] Stop: 03/30/21 08:59 Last Admin: 03/05/21 20:53 Dose: 40 mg Documented by: Pentoxifylline (Pentoxifylline 400mg Ext Rel Tab) 400 mg PO TID [facility] Stop: 03/30/21 13:59 Last Admin: 03/05/21 20:53 Dose: 400 mg Documented by: Polyethylene Glycol (Polyethylene (Miralax) 17 Gm Pack) 17 gm PO DAILY PRN PRN Reason: Constipation Stop: 03/28/21 06:36 Last Admin: 03/03/21 15:23 Dose: 17 gm Documented by: Potassium Chloride (Potassium Chloride 10 Meq Tabcr) 10 meq PO BID [facility] Stop: 04/02/21 10:29 Last Admin: 03/05/21 20:55 Dose: 10 meq Documented by: Potassium Phosphate (Pot Phosphate Monobasic W/ Sod Tab) 1 tab PO QID [facility] Stop: 03/31/21 12:59 Last Admin: 03/05/21 20:54 Dose: 1 tab Documented by: Quetiapine Fumarate (Quetiapine Fumarate 200 Mg Tab) 400 mg PO HS [facility] Stop: 03/26/21 20:59 Last Admin: 03/05/21 20:55 Dose: 400 mg Documented by: Senna/Docusate Sodium (Docusate Sodium/Senna 50/8.6mg Tab) 2 tab PO QAM [facility] Stop: 04/01/21 08:59 Last Admin: 03/05/21 08:23 Dose: Not Given Documented by: Thiamine HCl (Thiamine Hcl 100 Mg Tab) 100 mg PO QAM [facility] Stop: 03/28/21 08:59 Last Admin: 03/05/21 08:22 Dose: 100 mg Documented by: (1) Anemia Anemia type: unspecified type Qualified Code(s): D64.9 - Anemia, unspecified
[2021-03-06] MEDS: THIAMINE HCL 100 MG TAB PO SCH (08:27)
[2021-03-06] MEDS: POTASSIUM CHLORIDE 10 MEQ TABCR PO SCH ×2 (08:27→20:03)
[2021-03-06] MEDS: FOLIC ACID 1 MG TAB PO SCH (08:27)
[2021-03-06] MEDS: PANTOprazole 40 MG TAB PO SCH ×2 (08:27→20:02)
[2021-03-06] MEDS: MAGNESIUM CHLORIDE 64MG DELAYED REL TAB PO SCH ×2 (08:27→20:01)
[2021-03-06] MEDS: PENTOXIFYLLINE 400MG EXT REL TAB PO SCH ×3 (08:27→20:02)
[2021-03-06] MEDS: MULTIVITAMIN TAB PO SCH (08:27)
[2021-03-06] MEDS: POT PHOSPHATE MONOBASIC W/ SOD TAB PO SCH ×4 (08:28→20:03)
[2021-03-06] MEDS: DOCUSATE SODIUM/SENNA 50/8.6MG TAB PO SCH (08:28)
[2021-03-06] MEDS: DICLOFENAC SOD 1% GEL 100 GM TUBE EXT SCH ×2 (08:28→20:00)
[2021-03-06] MEDS: ONDANSETRON INJ 2 MG/ML 2 ML VIAL IV PRN (15:41)
[2021-03-06] MEDS: QUEtiapine FUMARATE 200 MG TAB PO SCH (20:03)
[2021-03-06] MEDS: MELATONIN 3 MG TAB PO PRN (20:08)
[2021-03-07] MEDS: DICLOFENAC SOD 1% GEL 100 GM TUBE EXT SCH ×2 (08:43→20:02)
[2021-03-07] MEDS: INSULIN ASPART 100 UNITS/ML 3 ML PEN SC SCH ×4 (08:43→20:01)
[2021-03-07] MEDS: POT PHOSPHATE MONOBASIC W/ SOD TAB PO SCH ×4 (08:44→20:03)
[2021-03-07] MEDS: hydrOXYzine HCl 10 MG TAB PO PRN ×2 (08:44→20:04)
[2021-03-07] MEDS: PANTOprazole 40 MG TAB PO SCH ×2 (08:44→20:03)
[2021-03-07] MEDS: MAGNESIUM CHLORIDE 64MG DELAYED REL TAB PO SCH ×2 (08:44→20:03)
[2021-03-07] MEDS: PENTOXIFYLLINE 400MG EXT REL TAB PO SCH ×3 (08:44→20:03)
[2021-03-07] MEDS: POTASSIUM CHLORIDE 10 MEQ TABCR PO SCH ×2 (08:44→20:04)
[2021-03-07] MEDS: FOLIC ACID 1 MG TAB PO SCH (08:45)
[2021-03-07] MEDS: DOCUSATE SODIUM/SENNA 50/8.6MG TAB PO SCH (08:45)
[2021-03-07] MEDS: THIAMINE HCL 100 MG TAB PO SCH (08:45)
[2021-03-07] MEDS: MULTIVITAMIN TAB PO SCH (08:45)
--- NOTE | 2021-03-07 09:37 | Hospitalist Progress Note ---
Date of Service March 07, 2021 Assessment & Plan (1) Coagulopathy: (2) Elevated LFTs: Plan: Painless Jaundice Elevated LFTs DD: Decompensated cirrhosis Vs alcoholic hepatitis H/O alcohol abuse, last drink 1 month ago DF score 42 -CT ABD:Marked hepatomegaly and severe hepatic steatosis. Splenomegaly. Hyperdense material within the gallbladder likely represents stones/sludge. There is no CT evidence of acute cholecystitis. Punctate nonobstructing left renal calculus. Advanced coronary artery calcification. Mildly enlarged upper abdominal lymph nodes are nonspecific and likely related to chronic liver disease. -Immunological/Serological work-up CMV, EBV, GREG, AMA, ASMA pending -MRCP:Normal MRCP. Hepatomegaly and severe hepatic steatosis. Splenomegaly. Trace abdominal ascites and trace pleural effusions. -Acute hepatitis panel negative -Appreciate GI input -Trend LFTs, INR -Avoid Hepatotoxic agents -R/O infection: Blood, urine culture negative to date -completed Acetylcysteine course -LFTs slowly trending down/stable -Liver ultrasound showed small ascites within the right lower quadrant Continue pentoxifylline Needs follow-up with GI upon discharge Persistent hyperbilirubinemia 03/03 -repeat KUB, chest x-ray, abdominal ultrasound Ileus on KUB versus small bowel obstruction, however patient is having bowel movements Continue clear liquid diet Chest x-ray unchanged, abdominal ultrasound pending 03/04 -patient underwent paracentesis - 1.6L of straw-colored fluid removed, now feeling much better, abdominal distention resolved and abdominal pain much improved as well He is having bowel movements Patient's sister at the bedside and updated 03/05 -continues to feel well, shortness of breath improved, abdominal distention and pain much improved as well -Continues to have bowel movements, no blood in the stool, no complaints Hyperbilirubinemia -persistent -Tbili max 24.7 on March 01, then trended down, now on March 07, bilirubin 24.9 Alcoholic hepatitis with normal INR - DF on admission 42, trended down below 30 03/06 - discussed with GI, patient could be discharged on [place], for a total of 4 weeks, follow-up with GI in 1 to 2 weeks Suspected ileus vs P.SBO Continue bowel regimen Consider surgical evaluation if needed Follow-up KUB 03/02 patient had 2 BMs today, continue to monitor closely Replace electrolytes Continue only clear liquid diet 03/03 -patient had several bowel movements overnight and this morning 03/04 continues to have BMs Suspected UTI--Ruled out Blood culture Negative to date Urine Culture: Negative to date On empiric cefepime--DCed Pancytopenia Likely secondary to Alcoholism, Liver failure S/P PRBC, Platelets Monitor CBC H/O DM II as per records Update HbA1C:6.3 (? Falsely low due to liver disease ) Continue ISS Suspected GI bleeding +FOBT checked by Library Clerk No plan for scope currently as per GI unless patient has active bleed Continue PPI drip for 72 hours and then transition to p.o. twice daily Monitor H&H GI on board Hb 8.9 on 03/01 Hb 8.4 on 03/02 stable Hb 8.4 on 03/03 stable Hb 7.7 on 03/05 - cont. to monitor -no blood in stool reported Hb 7.7 on 03/06 - stable (likely down from frequent blod draws) (3) Hyponatremia: Plan: -Sodium 120>>123>124 --> 134 > 136 -Likely chronic/due to underlying liver disease fluid restriction Monitor sodium levels Current Na 136 (03/07) Appreciate Nephrology input (4) Anemia: (5) Thrombocytopenia: Plan: -Likely due to underlying liver disease Transfuse as needed Monitor (6) Alcohol abuse: Plan: -longstanding history of alcohol abuse, last drink 1 month ago -Continue thiamine, folic acid and (7) GERD (gastroesophageal reflux disease): Plan: -Continue PPI (8) Hypokalemia: Plan: Replace electrolytes as needed (9) Hypomagnesemia: Plan: -Replace, follow electrolytes (10) DVT prophylaxis: Plan: -SCDs Re: Anemia, thrombocytopenia Admission and Anticipated Discharge Date Admission Date: February 24, 2021 Subjective Patient is seen in follow-up of liver cirrhosis, hyperbilirubinemia, abdominal pain Currently laying in bed, in no acute distress, abdomen feels much better, underwent paracentesis couple of days ago several BMs, no blood in the stool reported Shortness of breath much improved Hyperbilirubinemia persists Denies any chest pain,nausea/vomiting Patient's sister plans to take him home with her in the [facility] once patient discharged. Discussed with GI, patient should follow-up with GI in 1 to 2 weeks. Review of Systems Review of Systems: All systems reviewed & are unremarkable except as noted in Subjective Physical Exam Physical Exam: General Appearance: Obese M , no apparent distress Head: normocephalic, Atraumatic Eyes: normal inspection, EOMI,+Icteric Neck: supple, Trachea midline Respiratory/Chest: Normal breath sounds, CTA, No accessory muscle use Cardiovascular: S1, S2, No murmur Abdomen/GI:Soft, mildly distended (improved), Bowel sounds present, nontender to palp (resolved) Extremities/Musculoskeletal: normal inspection, no edema Neurologic/Psych: AAOX3, speech fluent, moves extremities Skin: normal color, warm, +Jaundiced Results & Data Results & Data ([facility]) Vital Signs (Past 12 Hours) Vital Signs Temp Pulse Pulse Resp BP Pulse Ox 03/07/21 07:41 101 H 03/07/21 06:54 36.6 C 95 H 19 125/72 96 03/07/21 02:46 36.5 C 89 16 123/71 92 03/06/21 23:10 89 03/06/21 22:49 36.6 C 90 14 120/69 95 Laboratory Results 03/07/21 03/07/21 03/07/21 Range/Units 11:12 07:56 07:56 Sodium 136 (136-145) mmol/L Potassium 3.8 (3.5-5.1) mmol/L Chloride 105 (98-107) mmol/L Carbon Dioxide 20 L (21-32) mmol/L Anion Gap 11.0 (3-11) BUN 29 H (7-18) mg/dl Creatinine TNP Est Cr Clr Drug Dosing TNP Est GFR ( Amer) TNP Est GFR (Non-Af Amer) TNP BUN/Creatinine Ratio TNP Glucose 122 H (70-99) mg/dl POC Glucose 124 H (70-99) mg/dl Calcium 7.0 L (8.5-10.1) mg/dl Total Bilirubin 24.9 H (0.2-1) mg/dl AST 212 H (15-37) U/L ALT 121 H (12-78) Alkaline Phosphatase 306 H (45-117) U/L Total Protein TNP Albumin 1.7 L (3.4-5.0) gm/dl Globulin TNP Albumin/Globulin Ratio TNP Miscellaneous Test Pending Miscellaneous Test 2 Pending 03/07/21 03/06/21 03/06/21 Range/Units 07:12 19:51 16:20 Sodium (136-145) mmol/L Potassium (3.5-5.1) mmol/L Chloride (98-107) mmol/L Carbon Dioxide (21-32) mmol/L Anion Gap (3-11) BUN (7-18) mg/dl Creatinine Est Cr Clr Drug Dosing Est GFR ( Amer) Est GFR (Non-Af Amer) BUN/Creatinine Ratio Glucose (70-99) mg/dl POC Glucose 99 112 H 129 H (70-99) mg/dl Calcium (8.5-10.1) mg/dl Total Bilirubin (0.2-1) mg/dl AST (15-37) U/L ALT (12-78) Alkaline Phosphatase (45-117) U/L Total Protein Albumin (3.4-5.0) gm/dl Globulin Albumin/Globulin Ratio Miscellaneous Test Miscellaneous Test 2 03/06/21 Range/Units 11:16 Sodium (136-145) mmol/L Potassium (3.5-5.1) mmol/L Chloride (98-107) mmol/L Carbon Dioxide (21-32) mmol/L Anion Gap (3-11) BUN (7-18) mg/dl Creatinine Est Cr Clr Drug Dosing Est GFR ( Amer) Est GFR (Non-Af Amer) BUN/Creatinine Ratio Glucose (70-99) mg/dl POC Glucose 147 H (70-99) mg/dl Calcium (8.5-10.1) mg/dl Total Bilirubin (0.2-1) mg/dl AST (15-37) U/L ALT (12-78) Alkaline Phosphatase (45-117) U/L Total Protein Albumin (3.4-5.0) gm/dl Globulin Albumin/Globulin Ratio Miscellaneous Test Miscellaneous Test 2 Medications Administered Current Inpatient Medications Dextrose (Dextrose 50% 50 Ml Syringe) 25 - 50 ml IV UD PRN; Protocol PRN Reason: Hypoglycemia Protocol Stop: 03/27/21 14:48 Diclofenac Sodium (Diclofenac Sod 1% Gel 100 Gm Tube) 2 gm EXT BID [facility] Stop: 03/26/21 20:59 Last Admin: 03/07/21 08:43 Dose: 2 gm Documented by: Folic Acid (Folic Acid 1 Mg Tab) 1 mg PO QAM [facility] Stop: 03/27/21 08:59 Last Admin: 03/07/21 08:45 Dose: 1 mg Documented by: Glucagon (Glucagon For Inj 1 Mg Vial) 1 mg SQ UD PRN; Protocol PRN Reason: Hypoglycemia Protocol Stop: 03/27/21 14:48 Glucose (Glucose 10 Tabs/Tube) 4 - 8 tabs PO UD PRN; Protocol PRN Reason: Hypoglycemia Protocol Stop: 03/27/21 14:48 Glucose (Glucose 40% Gel 15 Gm Tube) 15 - 30 gm PO UD PRN; Protocol PRN Reason: Hypoglycemia Protocol Stop: 03/27/21 14:48 Hydroxyzine HCl (Hydroxyzine Hcl 10 Mg Tab) 10 mg PO Q8H PRN PRN Reason: Anxiety Stop: 03/31/21 15:39 Last Admin: 03/07/21 08:44 Dose: 10 mg Documented by: Insulin Aspart (Insulin Aspart 100 Units/Ml 3 Ml Pen) 0 units SC ACHS [facility] Stop: 03/27/21 16:29 Last Admin: 03/07/21 08:43 Dose: 1 units Documented by: Magnesium Chloride (Magnesium Chloride 64mg Delayed Rel Tab) 64 mg PO BID [facility] Stop: 03/29/21 20:59 Last Admin: 03/07/21 08:44 Dose: 64 mg Documented by: Melatonin (Melatonin 3 Mg Tab) 3 mg PO HS PRN PRN Reason: Sleep Stop: 03/30/21 23:52 Last Admin: 03/06/21 20:08 Dose: 3 mg Documented by: Miscellaneous (Carbohydrates For Hypoglycemia ) 15 - 30 gm PO UD PRN PRN Reason: Hypoglycemia Protocol Stop: 03/27/21 14:48 Multivitamins (Multivitamin Tab) 1 tab PO QAM [facility] Stop: 03/27/21 08:59 Last Admin: 03/07/21 08:45 Dose: 1 tab Documented by: Ondansetron HCl (Ondansetron Inj 2 Mg/Ml 2 Ml Vial) 4 mg IV Q6H PRN PRN Reason: nausea Stop: 03/26/21 13:57 Last Admin: 03/06/21 15:41 Dose: 4 mg Documented by: Pantoprazole Sodium (Pantoprazole 40 Mg Tab) 40 mg PO BID [facility] Stop: 03/30/21 08:59 Last Admin: 03/07/21 08:44 Dose: 40 mg Documented by: Pentoxifylline (Pentoxifylline 400mg Ext Rel Tab) 400 mg PO TID [facility] Stop: 03/30/21 13:59 Last Admin: 03/07/21 08:44 Dose: 400 mg Documented by: Polyethylene Glycol (Polyethylene (Miralax) 17 Gm Pack) 17 gm PO DAILY PRN PRN Reason: Constipation Stop: 03/28/21 06:36 Last Admin: 03/03/21 15:23 Dose: 17 gm Documented by: Potassium Chloride (Potassium Chloride 10 Meq Tabcr) 10 meq PO BID [facility] Stop: 04/02/21 10:29 Last Admin: 03/07/21 08:44 Dose: 10 meq Documented by: Potassium Phosphate (Pot Phosphate Monobasic W/ Sod Tab) 1 tab PO QID [facility] Stop: 03/31/21 12:59 Last Admin: 03/07/21 08:44 Dose: 1 tab Documented by: Quetiapine Fumarate (Quetiapine Fumarate 200 Mg Tab) 400 mg PO HS [facility] Stop: 03/26/21 20:59 Last Admin: 03/06/21 20:03 Dose: 400 mg Documented by: Senna/Docusate Sodium (Docusate Sodium/Senna 50/8.6mg Tab) 2 tab PO QAM [facility] Stop: 04/01/21 08:59 Last Admin: 03/07/21 08:45 Dose: 2 tab Documented by: Thiamine HCl (Thiamine Hcl 100 Mg Tab) 100 mg PO QAM [facility] Stop: 03/28/21 08:59 Last Admin: 03/07/21 08:45 Dose: 100 mg Documented by: (1) Anemia Anemia type: unspecified type Qualified Code(s): D64.9 - Anemia, unspecified
[2021-03-07 09:50] LABS: Alanine Aminotransferase 121 (12-78); Albumin Level 1.7 gm/dl (3.4-5.0); Alkaline Phosphatase 306 U/L (45-117); Aspartate Aminotransferase 212 U/L (15-37); Bilirubin,Total 24.9 mg/dl (0.2-1); Blood Urea Nitrogen 29 mg/dl (7-18); Carbon Dioxide 20 mmol/L (21-32); Chloride 105 mmol/L (98-107); Glucose 122 mg/dl (70-99); Potassium 3.8 mmol/L (3.5-5.1); Sodium 136 mmol/L (136-145)
[2021-03-07] MEDS: QUEtiapine FUMARATE 200 MG TAB PO SCH (20:05)
--- NOTE | 2021-03-07 22:49 | Nephrology Progress Note ---
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 ?if large drop from D5W 02/27 w/ NAC?; sOsms 268 -cont low Na diet and FR 1.2L daily -if he stays in this range can look tomorrow to cautiously resume diuretics >>>>hypokalemia, resolved for now; Potassium is 3.8 today. -cont K supplements 10 mEq bid >> had 4 BM yesterday ->>>pls check phos, mag, bmp daily >>decompensated liver cirrhosis >> trying to minimize/ avoid lasix in pt for whom we essentially have no measure of creatinine since admission and who has high MAIRA risk >>>>SOB intermittently >> 03/03 CXR clear Will follow peripherally for now. Admission and Anticipated Discharge Date Admission Date: February 24, 2021 Subjective seen on rounds at 0930 this am; no interval events. states his breathing is a bit worse today; worries fluid reaccumulating in his abdomen after 1.6L tap on 03/04 Review of Systems Review of Systems: All systems reviewed & are unremarkable except as noted in Subjective Physical Exam Constitutional: well developed, + ill appearing (chronically) and cooperative; no acute distress Eyes: EOM intact bilaterally; sclerae not anicteric ENMT: Ears: no external ear abnormality Nose: no external nose abnormality Mouth: + dry oral mucous membranes Neck: no nuchal rigidity Respiratory: normal respiratory effort Auscultation: + diminished lung sounds Cardiovascular: Rate/Rhythm: regular rhythm and + tachycardic Heart Sounds: normal S1 and normal S2 Extremities: no edema Gastrointestinal (Abdomen): Inspection/Auscultation: + abdomen distended and normal bowel sounds Percussion/Palpation: abdomen soft; abdomen nontender and no guarding Musculoskeletal: Extremities: strength 5/5 throughout Skin: no rashes, warm and dry + jaundice Results & Data ([facility]) Vital Signs (Past 12 Hours) Vital Signs Temp Pulse Pulse Resp BP Pulse Ox 03/07/21 19:36 36.4 C L 90 18 135/71 95 03/07/21 15:11 36.6 C 90 19 103/60 94 03/07/21 14:55 93 H 03/07/21 11:36 36.6 C 101 H 19 101/69 96 Laboratory Results 03/06/21 05:43 03/07/21 07:56
[2021-03-08] MEDS: hydrOXYzine HCl 10 MG TAB PO PRN ×3 (05:12→20:50)
[2021-03-08] MEDS: DOCUSATE SODIUM/SENNA 50/8.6MG TAB PO SCH (08:12)
[2021-03-08] MEDS: PANTOprazole 40 MG TAB PO SCH ×2 (08:12→20:49)
[2021-03-08] MEDS: MULTIVITAMIN TAB PO SCH (08:12)
[2021-03-08] MEDS: FOLIC ACID 1 MG TAB PO SCH (08:12)
[2021-03-08] MEDS: POTASSIUM CHLORIDE 10 MEQ TABCR PO SCH ×2 (08:13→20:50)
[2021-03-08] MEDS: POT PHOSPHATE MONOBASIC W/ SOD TAB PO SCH ×4 (08:13→20:50)
[2021-03-08] MEDS: THIAMINE HCL 100 MG TAB PO SCH (08:13)
[2021-03-08] MEDS: DICLOFENAC SOD 1% GEL 100 GM TUBE EXT SCH ×2 (08:15→20:48)
[2021-03-08 08:16] LABS: INR 1.3 (0.9-1.1)
[2021-03-08] MEDS: INSULIN ASPART 100 UNITS/ML 3 ML PEN SC SCH ×4 (08:17→20:48)
[2021-03-08] MEDS: MAGNESIUM CHLORIDE 64MG DELAYED REL TAB PO SCH ×2 (08:19→20:48)
[2021-03-08] MEDS: PENTOXIFYLLINE 400MG EXT REL TAB PO SCH ×3 (08:19→20:50)
[2021-03-08 08:56] LABS: Alanine Aminotransferase 128 (12-78); Albumin Level 1.8 gm/dl (3.4-5.0); Alkaline Phosphatase 312 U/L (45-117); Aspartate Aminotransferase 213 U/L (15-37); Bilirubin,Total 24.8 mg/dl (0.2-1); Blood Urea Nitrogen 33 mg/dl (7-18); Calcium 7.3 mg/dl (8.5-10.1); Carbon Dioxide 20 mmol/L (21-32); Glucose 109 mg/dl (70-99); Potassium 3.7 mmol/L (3.5-5.1); Sodium 137 mmol/L (136-145)
[2021-03-08 09:27] LABS: Chloride 106 mmol/L (98-107)
--- NOTE | 2021-03-08 12:12 | Hospitalist Progress Note ---
Date of Service March 08, 2021 Assessment & Plan (1) Coagulopathy: (2) Elevated LFTs: Plan: Painless Jaundice Elevated LFTs DD: Decompensated cirrhosis Vs alcoholic hepatitis H/O alcohol abuse, last drink 1 month ago DF score 42 -CT ABD:Marked hepatomegaly and severe hepatic steatosis. Splenomegaly. Hyperdense material within the gallbladder likely represents stones/sludge. There is no CT evidence of acute cholecystitis. Punctate nonobstructing left renal calculus. Advanced coronary artery calcification. Mildly enlarged upper abdominal lymph nodes are nonspecific and likely related to chronic liver disease. -Immunological/Serological work-up CMV, EBV, GREG, AMA, ASMA pending -MRCP:Normal MRCP. Hepatomegaly and severe hepatic steatosis. Splenomegaly. Trace abdominal ascites and trace pleural effusions. -Acute hepatitis panel negative -Appreciate GI input -Trend LFTs, INR -Avoid Hepatotoxic agents -R/O infection: Blood, urine culture negative to date -completed Acetylcysteine course -LFTs slowly trending down/stable -Liver ultrasound showed small ascites within the right lower quadrant Continue pentoxifylline - total of 4 weeks Needs follow-up with GI upon discharge in 1-2 weeks Persistent hyperbilirubinemia 03/03 -repeat KUB, chest x-ray, abdominal ultrasound Ileus on KUB versus small bowel obstruction, however patient is having bowel movements Continue clear liquid diet Chest x-ray unchanged, abdominal ultrasound pending 03/04 -patient underwent paracentesis - 1.6L of straw-colored fluid removed, now feeling much better, abdominal distention resolved and abdominal pain much improved as well He is having bowel movements Patient's sister at the bedside and updated 03/05 -continues to feel well, shortness of breath improved, abdominal distention and pain much improved as well -Continues to have bowel movements, no blood in the stool, no complaints Hyperbilirubinemia -persistent -Tbili max 24.7 on March 01, then trended down, now on March 07, bilirubin 24.9 Alcoholic hepatitis with normal INR - DF on admission 42, trended down below 30 03/06 - discussed with GI, patient could be discharged on [place], for a total of 4 weeks, follow-up with GI in 1 to 2 weeks Suspected ileus vs P.SBO Continue bowel regimen Consider surgical evaluation if needed Follow-up KUB 03/02 patient had 2 BMs today, continue to monitor closely Replace electrolytes Continue only clear liquid diet 03/03 -patient had several bowel movements overnight and this morning 03/04 continues to have BMs Suspected UTI--Ruled out Blood culture Negative to date Urine Culture: Negative to date On empiric cefepime--DCed Pancytopenia Likely secondary to Alcoholism, Liver failure S/P PRBC, Platelets Monitor CBC H/O DM II as per records Update HbA1C:6.3 (? Falsely low due to liver disease ) Continue ISS Suspected GI bleeding +FOBT checked by Support Services Specialist No plan for scope currently as per GI unless patient has active bleed Continue PPI drip for 72 hours and then transition to p.o. twice daily Monitor H&H GI on board Hb 8.9 on 03/01 Hb 8.4 on 03/02 stable Hb 8.4 on 03/03 stable Hb 7.7 on 03/05 - cont. to monitor -no blood in stool reported Hb 7.7 on 03/06 - stable (likely down from frequent blood draws) (3) Hyponatremia: Plan: -Sodium 120>>123>124 --> 134 > 136 -Likely chronic/due to underlying liver disease fluid restriction Monitor sodium levels Na 136 (03/07) Appreciate Nephrology input (4) Anemia: (5) Thrombocytopenia: Plan: -Likely due to underlying liver disease Transfuse as needed Monitor (6) Alcohol abuse: Plan: -longstanding history of alcohol abuse, last drink 1 month ago -Continue thiamine, folic acid and (7) GERD (gastroesophageal reflux disease): Plan: -Continue PPI (8) Hypokalemia: Plan: Replace electrolytes as needed (9) Hypomagnesemia: Plan: -Replace, follow electrolytes (10) DVT prophylaxis: Plan: -SCDs Re: Anemia, thrombocytopenia Admission and Anticipated Discharge Date Admission Date: February 24, 2021 Subjective Patient is seen in follow-up of liver cirrhosis, hyperbilirubinemia, abdominal pain Currently laying in bed, in no acute distress, abdomen feels much better underwent paracentesis couple of days ago several BMs, no blood in the stool reported Shortness of breath much improved Hyperbilirubinemia persists Denies any chest pain,nausea/vomiting Patient's sister plans to take him home with her in the [facility] once patient discharged. Updated sister over the phone yesterday, plan for discharge on , would appreciate prescription for Seroquel and other medications to be sent to [facility] [place] [address] ([address]) Discussed with GI, patient should follow-up with GI in 1 to 2 weeks. Review of Systems Review of Systems: All systems reviewed & are unremarkable except as noted in Subjective Physical Exam Physical Exam: General Appearance: Obese M , no apparent distress Head: normocephalic, Atraumatic Eyes: normal inspection, EOMI,+Icteric Neck: supple, Trachea midline Respiratory/Chest: Normal breath sounds, CTA, No accessory muscle use Cardiovascular: S1, S2, No murmur Abdomen/GI:Soft, mildly distended (improved), Bowel sounds present, nontender to palp (resolved) Extremities/Musculoskeletal: normal inspection, no edema Neurologic/Psych: AAOX3, speech fluent, moves extremities Skin: normal color, warm, +Jaundiced Results & Data Results & Data ([facility]) Vital Signs (Past 12 Hours) Vital Signs Temp Pulse Pulse Resp BP Pulse Ox 03/08/21 11:00 36.7 C 92 H 19 127/70 94 03/08/21 08:00 104 H 03/08/21 06:50 37.1 C 92 H 17 129/72 95 03/08/21 04:04 36.6 C 94 H 15 138/74 94 03/08/21 03:04 36.8 C 96 H 18 124/66 95 03/08/21 00:59 101 H Laboratory Results 03/08/21 03/08/21 03/08/21 Range/Units 11:17 07:20 07:18 PT (9.0-12.0) Seconds INR (0.9-1.1) Sodium (136-145) mmol/L Potassium (3.5-5.1) mmol/L Chloride (98-107) mmol/L Carbon Dioxide (21-32) mmol/L Anion Gap (3-11) BUN (7-18) mg/dl Creatinine (0.6-1.4) mg/dl Est Cr Clr Drug Dosing Est GFR ( Amer) Est GFR (Non-Af Amer) BUN/Creatinine Ratio Glucose (70-99) mg/dl POC Glucose 138 H 121 H (70-99) mg/dl Calcium (8.5-10.1) mg/dl Total Bilirubin (0.2-1) mg/dl AST (15-37) U/L ALT (12-78) Alkaline Phosphatase (45-117) U/L Total Protein (6.4-8.2) gm/dl Albumin (3.4-5.0) gm/dl Globulin Albumin/Globulin Ratio Miscellaneous Test Pending Miscellaneous Test 2 Pending 03/08/21 03/08/21 03/07/21 Range/Units 07:18 07:18 20:00 PT 13.0 H (9.0-12.0) Seconds INR 1.3 H (0.9-1.1) Sodium 137 (136-145) mmol/L Potassium 3.7 (3.5-5.1) mmol/L Chloride 106 (98-107) mmol/L Carbon Dioxide 20 L (21-32) mmol/L Anion Gap 11.0 (3-11) BUN 33 H (7-18) mg/dl Creatinine (0.6-1.4) mg/dl Est Cr Clr Drug Dosing Not Reportable Est GFR ( Amer) Not Reportable Est GFR (Non-Af Amer) Not Reportable BUN/Creatinine Ratio Not Reportable Glucose 109 H (70-99) mg/dl POC Glucose 111 H (70-99) mg/dl Calcium 7.3 L (8.5-10.1) mg/dl Total Bilirubin 24.8 H (0.2-1) mg/dl AST 213 H (15-37) U/L ALT 128 H (12-78) Alkaline Phosphatase 312 H (45-117) U/L Total Protein (6.4-8.2) gm/dl Albumin 1.8 L (3.4-5.0) gm/dl Globulin Not Reportable Albumin/Globulin Ratio Not Reportable Miscellaneous Test Miscellaneous Test 2 03/07/21 03/07/21 03/06/21 Range/Units 16:12 07:56 05:43 PT (9.0-12.0) Seconds INR (0.9-1.1) Sodium (136-145) mmol/L Potassium (3.5-5.1) mmol/L Chloride (98-107) mmol/L Carbon Dioxide (21-32) mmol/L Anion Gap (3-11) BUN (7-18) mg/dl Creatinine (0.6-1.4) mg/dl Est Cr Clr Drug Dosing Est GFR ( Amer) Est GFR (Non-Af Amer) BUN/Creatinine Ratio Glucose (70-99) mg/dl POC Glucose 117 H (70-99) mg/dl Calcium (8.5-10.1) mg/dl Total Bilirubin (0.2-1) mg/dl AST (15-37) U/L ALT (12-78) Alkaline Phosphatase (45-117) U/L Total Protein (6.4-8.2) gm/dl Albumin (3.4-5.0) gm/dl Globulin Albumin/Globulin Ratio Miscellaneous Test REPORT REPORT Miscellaneous Test 2 REPORT REPORT Medications Administered Current Inpatient Medications Dextrose (Dextrose 50% 50 Ml Syringe) 25 - 50 ml IV UD PRN; Protocol PRN Reason: Hypoglycemia Protocol Stop: 03/27/21 14:48 Diclofenac Sodium (Diclofenac Sod 1% Gel 100 Gm Tube) 2 gm EXT BID [facility] Stop: 03/26/21 20:59 Last Admin: 03/08/21 08:15 Dose: 2 gm Documented by: Folic Acid (Folic Acid 1 Mg Tab) 1 mg PO QAM [facility] Stop: 03/27/21 08:59 Last Admin: 03/08/21 08:12 Dose: 1 mg Documented by: Glucagon (Glucagon For Inj 1 Mg Vial) 1 mg SQ UD PRN; Protocol PRN Reason: Hypoglycemia Protocol Stop: 03/27/21 14:48 Glucose (Glucose 10 Tabs/Tube) 4 - 8 tabs PO UD PRN; Protocol PRN Reason: Hypoglycemia Protocol Stop: 03/27/21 14:48 Glucose (Glucose 40% Gel 15 Gm Tube) 15 - 30 gm PO UD PRN; Protocol PRN Reason: Hypoglycemia Protocol Stop: 03/27/21 14:48 Hydroxyzine HCl (Hydroxyzine Hcl 10 Mg Tab) 10 mg PO Q8H PRN PRN Reason: Anxiety Stop: 03/31/21 15:39 Last Admin: 03/08/21 05:12 Dose: 10 mg Documented by: Insulin Aspart (Insulin Aspart 100 Units/Ml 3 Ml Pen) 0 units SC ACHS [facility] Stop: 03/27/21 16:29 Last Admin: 03/08/21 11:42 Dose: 1 units Documented by: Magnesium Chloride (Magnesium Chloride 64mg Delayed Rel Tab) 64 mg PO BID [facility] Stop: 03/29/21 20:59 Last Admin: 03/08/21 08:19 Dose: 64 mg Documented by: Melatonin (Melatonin 3 Mg Tab) 3 mg PO HS PRN PRN Reason: Sleep Stop: 03/30/21 23:52 Last Admin: 03/06/21 20:08 Dose: 3 mg Documented by: Miscellaneous (Carbohydrates For Hypoglycemia ) 15 - 30 gm PO UD PRN PRN Reason: Hypoglycemia Protocol Stop: 03/27/21 14:48 Multivitamins (Multivitamin Tab) 1 tab PO QAM [facility] Stop: 03/27/21 08:59 Last Admin: 03/08/21 08:12 Dose: 1 tab Documented by: Ondansetron HCl (Ondansetron Inj 2 Mg/Ml 2 Ml Vial) 4 mg IV Q6H PRN PRN Reason: nausea Stop: 03/26/21 13:57 Last Admin: 03/06/21 15:41 Dose: 4 mg Documented by: Pantoprazole Sodium (Pantoprazole 40 Mg Tab) 40 mg PO BID [facility] Stop: 03/30/21 08:59 Last Admin: 03/08/21 08:12 Dose: 40 mg Documented by: Pentoxifylline (Pentoxifylline 400mg Ext Rel Tab) 400 mg PO TID [facility] Stop: 03/30/21 13:59 Last Admin: 03/08/21 08:19 Dose: 400 mg Documented by: Polyethylene Glycol (Polyethylene (Miralax) 17 Gm Pack) 17 gm PO DAILY PRN PRN Reason: Constipation Stop: 03/28/21 06:36 Last Admin: 03/03/21 15:23 Dose: 17 gm Documented by: Potassium Chloride (Potassium Chloride 10 Meq Tabcr) 10 meq PO BID [facility] Stop: 04/02/21 10:29 Last Admin: 03/08/21 08:13 Dose: 10 meq Documented by: Potassium Phosphate (Pot Phosphate Monobasic W/ Sod Tab) 1 tab PO QID [facility] Stop: 03/31/21 12:59 Last Admin: 03/08/21 08:13 Dose: 1 tab Documented by: Quetiapine Fumarate (Quetiapine Fumarate 200 Mg Tab) 400 mg PO HS [facility] Stop: 03/26/21 20:59 Last Admin: 03/07/21 20:05 Dose: 400 mg Documented by: Senna/Docusate Sodium (Docusate Sodium/Senna 50/8.6mg Tab) 2 tab PO QAM [facility] Stop: 04/01/21 08:59 Last Admin: 03/08/21 08:12 Dose: 2 tab Documented by: Thiamine HCl (Thiamine Hcl 100 Mg Tab) 100 mg PO QAM [facility] Stop: 03/28/21 08:59 Last Admin: 03/08/21 08:13 Dose: 100 mg Documented by: (1) Anemia Anemia type: unspecified type Qualified Code(s): D64.9 - Anemia, unspecified
--- NOTE | 2021-03-08 16:01 | Nephrology Progress Note ---
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 ?if large drop from D5W 02/27 w/ NAC?; sOsms 268 At this point will sign off. Recommend ->>>>cont low Na diet and FR 1.2L daily -continue phos, mag, K supplements - wean as tolerated -ordered recheck phos, mag x 3 days more >>decompensated liver cirrhosis >> trying to minimize/ avoid lasix in pt for whom we essentially have no measure of creatinine since admission and who has high MAIRA risk -no need for nephro f/u as OP unless electrolyte issues recur Admission and Anticipated Discharge Date Admission Date: February 24, 2021 Subjective seen on rounds at 0800; no interval clinical events.SOB is stable. Review of Systems Review of Systems: All systems reviewed & are unremarkable except as noted in Subjective Physical Exam Constitutional: well developed, + ill appearing (chronically) and cooperative; no acute distress Eyes: EOM intact bilaterally; sclerae not anicteric ENMT: Ears: no external ear abnormality Nose: no external nose abnormality Mouth: + dry oral mucous membranes Neck: no nuchal rigidity Respiratory: normal respiratory effort Auscultation: + diminished lung sounds Cardiovascular: RRR, no murmur, no edema Heart Sounds: normal S1 and normal S2 Extremities: no edema Gastrointestinal (Abdomen): Inspection/Auscultation: + abdomen distended and normal bowel sounds Percussion/Palpation: abdomen soft; abdomen nontender and no guarding Musculoskeletal: Extremities: strength 5/5 throughout Skin: no rashes, warm and dry + jaundice Psychiatric: Orientation: alert and oriented x 3 Speech: normal rat e/rhythm/volume of speech Results & Data ([facility]) Vital Signs (Past 12 Hours) Vital Signs Temp Pulse Pulse Resp BP Pulse Ox 03/08/21 15:17 36.5 C 84 18 109/63 95 03/08/21 11:00 36.7 C 92 H 19 127/70 94 03/08/21 08:00 104 H 03/08/21 06:50 37.1 C 92 H 17 129/72 95 03/08/21 04:04 36.6 C 94 H 15 138/74 94 Laboratory Results 03/06/21 05:43 03/08/21 07:18
[2021-03-08] MEDS: QUEtiapine FUMARATE 200 MG TAB PO SCH (20:49)
[2021-03-08] MEDS: MELATONIN 3 MG TAB PO PRN (20:54)
[2021-03-09 06:35] LABS: INR 1.3 (0.9-1.1); Prothrombin Time 13.2 Seconds (9.0-12.0)
[2021-03-09 07:51] LABS: Alanine Aminotransferase 127 (12-78); Albumin Level 1.7 gm/dl (3.4-5.0); Alkaline Phosphatase 306 U/L (45-117); Aspartate Aminotransferase 204 U/L (15-37); Bilirubin,Total 24.5 mg/dl (0.2-1); Blood Urea Nitrogen 40 mg/dl (7-18); Calcium 7.4 mg/dl (8.5-10.1); Carbon Dioxide 22 mmol/L (21-32); Chloride 106 mmol/L (98-107); Glucose 106 mg/dl (70-99); Magnesium 2.1 mg/dl (1.8-2.4); Phosphorus 3.9 mg/dl (2.5-4.9); Potassium 3.6 mmol/L (3.5-5.1); Sodium 137 mmol/L (136-145)
[2021-03-09] MEDS: INSULIN ASPART 100 UNITS/ML 3 ML PEN SC SCH ×4 (08:15→21:12)
[2021-03-09] MEDS: PENTOXIFYLLINE 400MG EXT REL TAB PO SCH ×3 (08:16→21:11)
[2021-03-09] MEDS: DICLOFENAC SOD 1% GEL 100 GM TUBE EXT SCH ×2 (08:17→21:12)
[2021-03-09] MEDS: PANTOprazole 40 MG TAB PO SCH ×2 (08:17→21:11)
[2021-03-09] MEDS: MAGNESIUM CHLORIDE 64MG DELAYED REL TAB PO SCH ×2 (08:17→21:11)
[2021-03-09] MEDS: MULTIVITAMIN TAB PO SCH (08:18)
[2021-03-09] MEDS: FOLIC ACID 1 MG TAB PO SCH (08:18)
[2021-03-09] MEDS: THIAMINE HCL 100 MG TAB PO SCH (08:19)
[2021-03-09] MEDS: POT PHOSPHATE MONOBASIC W/ SOD TAB PO SCH ×4 (08:19→21:11)
[2021-03-09] MEDS: POTASSIUM CHLORIDE 10 MEQ TABCR PO SCH ×2 (08:19→21:11)
[2021-03-09] MEDS: DOCUSATE SODIUM/SENNA 50/8.6MG TAB PO SCH (08:19)
--- NOTE | 2021-03-09 18:21 | Hospitalist Progress Note ---
Date of Service March 09, 2021 Assessment & Plan (1) Coagulopathy: (2) Elevated LFTs: Plan: Painless Jaundice Elevated LFTs DD: Decompensated cirrhosis Vs alcoholic hepatitis H/O alcohol abuse, last drink 1 month ago DF score 42 -CT ABD:Marked hepatomegaly and severe hepatic steatosis. Splenomegaly. Hyperdense material within the gallbladder likely represents stones/sludge. There is no CT evidence of acute cholecystitis. Punctate nonobstructing left renal calculus. Advanced coronary artery calcification. Mildly enlarged upper abdominal lymph nodes are nonspecific and likely related to chronic liver disease. -Immunological/Serological work-up CMV, EBV, GREG, AMA, ASMA Negative -MRCP:Normal MRCP. Hepatomegaly and severe hepatic steatosis. Splenomegaly. Trace abdominal ascites and trace pleural effusions. -Acute hepatitis panel negative -Appreciate GI input -Trend LFTs, INR -Avoid Hepatotoxic agents -Ruled out Infection: Blood, urine culture negative -completed Acetylcysteine course -Continue pentoxifylline for total of 4 weeks as per GI -Persistent hyperbilirubinemia -Needs Follow up with GI upon discharge -S/P abdominal paracentesis -DF trended down from 42 to 30 Ileus Vs P.SBO Resolved Monitor Suspected UTI--Ruled out Blood culture Negative Urine Culture: Negative On empiric cefepime--DCed Pancytopenia Likely secondary to Alcoholism, Liver failure S/P PRBC, Platelets Monitor CBC H/O DM II as per records Update HbA1C:6.3 (? Falsely low due to liver disease ) Continue ISS Suspected GI bleeding +FOBT No plan for scope currently as per GI unless patient has active bleed Received PPI drip for 72 hours and then transition to p.o. twice daily Monitor H&H Appreciate GI Input (3) Hyponatremia: Plan: -Sodium 120>123>124 >134 > 136>137 -Likely chronic/due to underlying liver disease fluid restriction Monitor sodium levels Appreciate Nephrology input (4) Anemia: (5) Thrombocytopenia: Plan: -Likely due to underlying liver disease Transfuse as needed Monitor (6) Alcohol abuse: Plan: -longstanding history of alcohol abuse, last drink 1 month ago prior to admission -Continue thiamine, folic acid and (7) GERD (gastroesophageal reflux disease): Plan: -Continue PPI (8) Hypokalemia: Plan: Replace electrolytes as needed (9) Hypomagnesemia: Plan: -Replace, follow electrolytes (10) DVT prophylaxis: Plan: -SCDs Re: Anemia, thrombocytopenia Admission and Anticipated Discharge Date Admission Date: February 24, 2021 Subjective Patient is seen and examined at bedside States having intermittent mild dizziness Denies any nausea, vomiting, abdominal pain, chest pain, dyspnea Offers no other complaints Review of Systems Review of Systems: All systems reviewed & are unremarkable except as noted in Subjective Physical Exam Physical Exam: Physical Exam: Vitals signs as noted above General Appearance:Moderately built and nourished, no apparent distress Head: normocephalic, Atraumatic Eyes: normal inspection, EOMI,+Icteric Neck: supple, Trachea midline Respiratory/Chest: Normal breath sounds, CTA Cardiovascular: S1, S2, No murmur Abdomen/GI:Soft, Non tender, distended, Bowel sounds present Extremities/Musculoskeletal:normal inspection, no edema Neurologic/Psych:AAOX3, grossly no focal neurological deficits Skin: normal color, warm, +Jaundiced Results & Data Results & Data ([facility]) Vital Signs (Past 12 Hours) Vital Signs Temp Pulse Pulse Resp BP Pulse Ox 03/09/21 16:10 36.6 C 93 H 18 96/59 L 94 03/09/21 14:55 96 H 03/09/21 12:23 36.6 C 100 H 18 90/56 L 97 03/09/21 07:23 85 03/09/21 06:30 36.7 C 94 H 18 156/81 H 94 Laboratory Results [facility] 03/09/21 05:59 Sodium 137 Potassium 3.6 Chloride 106 Carbon Dioxide 22 BUN 40 H Creatinine Glucose 106 H Calcium 7.4 L Liver Function 03/09/21 Range/Units 05:59 Total Bilirubin 24.5 H (0.2-1) mg/dl AST 204 H (15-37) U/L ALT 127 H (12-78) Alkaline Phosphatase 306 H (45-117) U/L Albumin 1.7 L (3.4-5.0) gm/dl (1) Anemia Anemia type: unspecified type Qualified Code(s): D64.9 - Anemia, unspecified
[2021-03-09] MEDS: hydrOXYzine HCl 10 MG TAB PO PRN (21:10)
[2021-03-09] MEDS: MELATONIN 3 MG TAB PO PRN (21:10)
[2021-03-09] MEDS: QUEtiapine FUMARATE 200 MG TAB PO SCH (21:12)
[2021-03-10 07:16] LABS: INR 1.3 (0.9-1.1); Prothrombin Time 13.3 Seconds (9.0-12.0)
[2021-03-10 07:41] LABS: Alanine Aminotransferase 125 (12-78); Albumin Level 1.6 gm/dl (3.4-5.0); Aspartate Aminotransferase 200 U/L (15-37); Blood Urea Nitrogen 45 mg/dl (7-18); Calcium 7.1 mg/dl (8.5-10.1); Carbon Dioxide 21 mmol/L (21-32); Chloride 108 mmol/L (98-107); Glucose 108 mg/dl (70-99); Magnesium 2.1 mg/dl (1.8-2.4); Potassium 3.6 mmol/L (3.5-5.1); Sodium 139 mmol/L (136-145)
[2021-03-10 07:47] LABS: Alkaline Phosphatase 301 U/L (45-117); Phosphorus 4.6 mg/dl (2.5-4.9)
[2021-03-10] MEDS: INSULIN ASPART 100 UNITS/ML 3 ML PEN SC SCH ×2 (08:36→11:57)
[2021-03-10] MEDS: DICLOFENAC SOD 1% GEL 100 GM TUBE EXT SCH (08:36)
[2021-03-10] MEDS: hydrOXYzine HCl 10 MG TAB PO PRN (08:37)
[2021-03-10] MEDS: POT PHOSPHATE MONOBASIC W/ SOD TAB PO SCH ×2 (08:37→12:00)
[2021-03-10] MEDS: MAGNESIUM CHLORIDE 64MG DELAYED REL TAB PO SCH (08:37)
[2021-03-10] MEDS: FOLIC ACID 1 MG TAB PO SCH (08:37)
[2021-03-10] MEDS: PANTOprazole 40 MG TAB PO SCH (08:37)
[2021-03-10] MEDS: POTASSIUM CHLORIDE 10 MEQ TABCR PO SCH (08:37)
[2021-03-10] MEDS: THIAMINE HCL 100 MG TAB PO SCH (08:38)
[2021-03-10] MEDS: DOCUSATE SODIUM/SENNA 50/8.6MG TAB PO SCH (08:38)
[2021-03-10] MEDS: MULTIVITAMIN TAB PO SCH (08:38)
[2021-03-10] MEDS: PENTOXIFYLLINE 400MG EXT REL TAB PO SCH ×2 (08:38→13:51)
--- NOTE | 2021-03-10 12:43 | Hospitalist Progress Note ---
Date of Service March 10, 2021 Assessment & Plan (1) Coagulopathy: (2) Elevated LFTs: Plan: Painless Jaundice Elevated LFTs DD: Decompensated cirrhosis Vs alcoholic hepatitis H/O alcohol abuse, last drink 1 month ago DF score 42 -CT ABD:Marked hepatomegaly and severe hepatic steatosis. Splenomegaly. Hyperdense material within the gallbladder likely represents stones/sludge. There is no CT evidence of acute cholecystitis. Punctate nonobstructing left renal calculus. Advanced coronary artery calcification. Mildly enlarged upper abdominal lymph nodes are nonspecific and likely related to chronic liver disease. -Immunological/Serological work-up CMV, EBV, GREG, AMA, ASMA Negative -MRCP:Normal MRCP. Hepatomegaly and severe hepatic steatosis. Splenomegaly. Trace abdominal ascites and trace pleural effusions. -Acute hepatitis panel negative -Appreciate GI input -Trend LFTs, INR -Avoid Hepatotoxic agents -Ruled out Infection: Blood, urine culture negative -completed Acetylcysteine course -Continue pentoxifylline for total of 4 weeks as per GI -Persistent hyperbilirubinemia -Needs Follow up with GI upon discharge -S/P abdominal paracentesis -DF trended down from 42 to 30 LFTs slowly trending down Advised to avoid any hepatotoxic agents Advised follow up with Gastroenterology upon discharge Ileus Vs P.SBO Resolved Monitor Suspected UTI--Ruled out Blood culture Negative Urine Culture: Negative On empiric cefepime--DCed Pancytopenia Likely secondary to Alcoholism, Liver failure S/P PRBC, Platelets Monitor CBC H/O DM II as per records Update HbA1C:6.3 (? Falsely low due to liver disease ) Continue ISS Suspected GI bleeding +FOBT No plan for scope currently as per GI unless patient has active bleed Received PPI drip for 72 hours and then transition to p.o. twice daily Monitor H&H Appreciate GI Input (3) Hyponatremia: Plan: -Sodium 120>123>124 >134 > 136>137>139 -Likely chronic/due to underlying liver disease fluid restriction Monitor sodium levels Appreciate Nephrology input (4) Anemia: (5) Thrombocytopenia: Plan: -Likely due to underlying liver disease Transfuse as needed Monitor (6) Alcohol abuse: Plan: -longstanding history of alcohol abuse, last drink 1 month ago prior to admission -Continue thiamine, folic acid and (7) GERD (gastroesophageal reflux disease): Plan: -Continue PPI (8) Hypokalemia: Plan: Replace electrolytes as needed (9) Hypomagnesemia: Plan: -Replace, follow electrolytes (10) DVT prophylaxis: Plan: -SCDs Re: Anemia, thrombocytopenia Admission and Anticipated Discharge Date Admission Date: February 24, 2021 Subjective Patient is seen and examined at bedside Feels better today Denies dizziness Also denies any nausea, vomiting, abdominal pain, chest pain, dyspnea No new complaints Review of Systems Review of Systems: All systems reviewed & are unremarkable except as noted in Subjective Physical Exam Physical Exam: Physical Exam: Vitals signs as noted above General Appearance:Moderately built and nourished, no apparent distress Head: normocephalic, Atraumatic Eyes: normal inspection, EOMI,+Icteric Neck: supple, Trachea midline Respiratory/Chest: Normal breath sounds, CTA Cardiovascular: S1, S2, No murmur Abdomen/GI:Soft, Non tender, distended, Bowel sounds present Extremities/Musculoskeletal:normal inspection, no edema Neurologic/Psych:AAOX3, grossly no focal neurological deficits Skin: normal color, warm, +Jaundiced Results & Data Results & Data ([facility]) Vital Signs (Past 12 Hours) Vital Signs Temp Pulse Pulse Resp BP Pulse Ox 03/10/21 11:43 36.6 C 89 20 120/61 94 03/10/21 07:42 88 03/10/21 07:12 36.5 C 89 18 136/68 94 03/10/21 03:07 36.6 C 86 19 126/[address] [facility] 03/10/21 06:36 Sodium 139 Potassium 3.6 Chloride 108 H Carbon Dioxide 21 BUN 45 H Creatinine Glucose 108 H Calcium 7.1 L Liver Function 03/10/21 Range/Units 06:36 Total Bilirubin 23.0 H (0.2-1) mg/dl AST 200 H (15-37) U/L ALT 125 H (12-78) Alkaline Phosphatase 301 H (45-117) U/L Albumin 1.6 L (3.4-5.0) gm/dl (1) Anemia Anemia type: unspecified type Qualified Code(s): D64.9 - Anemia, unspecified
--- NOTE | 2021-03-10 13:09 | Discharge Summary ---
Date of Service March 10, 2021 Admission HPI Per Admitting Provider 60-year-old male with PMH bipolar disorder, alcohol abuse, history of colostomy s/p reversal and other problems to below who presents to the ED for evaluation of generalized weakness. Patient reports that he has not felt well for the past 1 month. He has had progressive generalized weakness and has had a few falls. He has been lightheaded and dizzy however no syncopal event. Patient reports not drinking alcohol for the past 1 month, previously was drinking a half a bottle of vodka per day. Patient reports a longstanding history of alcohol abuse. Patient denies chest pain and shortness of breath. He has had a very poor appetite and reports increased reflux symptoms. No vomiting. Denies abdominal pain or worsening abdominal distention. Patient is unsure of change in color stool. Reports urine has been brown. Denies dysuria. No fevers or chills. Patient is severely jaundiced however reports that he has not noticed. In the ED, labs show Hgb 7.0, platelets 33K, INR 1.6, sodium 120, K+ 2.8, t ransaminitis with total bilirubin 24.5, AST 298, ALT 140, alk phos 310. Alcohol level negative. Head CT negative for acute findings. Admission Exam Per Admitting Provider Physical Exam Constitutional: WD/WN, vitals as above + ill appearing; no acute distress Eyes: PERRL; no conjunctival abnormality Sclera icteric ENMT: external ear and nose normal, oropharynx normal Respiratory:L normal respiratory effort, lungs clear to auscultation Cardiovascular: Rate/Rhythm: regular rate and regular rhythm Vessels: normal peripheral pulses Extremities: no edema Gastrointestinal (Abdomen): Inspection/Auscultation: + abdomen distended Percussion/Palpation: abdomen soft; abdomen nontender and no hepatosplenomegaly Musculoskeletal: no cyanosis or clubbing, extremities motor strength 5/5 Skin: no rashes, warm and dry + jaundice (Severe) Scattered petechiae; abrasions noted to left elbow and right knee Neurologic: PERRL, EOMI, accommodation nl, no face palsy, no dysarthria Psychiatric: Orientation: alert and oriented x 3 Affect: + depressed affect Principal Diagnosis Alcoholic hepatitis Decompensated cirrhosis Pancytopenia Hyponatremia Discharge Data Allergies Allergy/AdvReac Type Severity Reaction Status Date / Time esomeprazole [From Nexium] AdvReac Unknown RINGING IN Verified 02/24/21 12:34 EARS losartan AdvReac Unknown CONFUSED Verified 02/24/21 12:34 ,CHEST PAIN metformin AdvReac Unknown TONGUE Verified 02/24/21 12:34 SWELLING-PER MEDICAL RECORD omeprazole AdvReac Unknown RINGING IN Verified 02/24/21 12:34 EARS pantoprazole AdvReac Unknown RINGING IN Verified 02/25/21 06:09 EARS ranitidine AdvReac Unknown RINGING IN Verified 02/24/21 12:34 EARS Consultations 02/24/21 13:00 ED Decision to Admit Stat 02/24/21 15:13 Consult Gastroenterology Routine Consult Nephrology Routine Ordered Studies 02/24/21 10:46 CT head/brain wo con Stat 02/24/21 13:00 CT abd pelvis wo con Stat 02/25/21 14:52 MR MRCP Urgent 02/28/21 09:19 US abdomen ltd ascites Routine 03/03/21 11:27 US abdomen ltd ascites Routine 03/04/21 08:02 US paracentesis abd w/image Routine Hospital Course (1) Coagulopathy: (2) Elevated LFTs: Painless Jaundice Elevated LFTs DD: Decompensated cirrhosis Vs alcoholic hepatitis H/O alcohol abuse, last drink 1 month ago DF score 42 -CT ABD:Marked hepatomegaly and severe hepatic steatosis. Splenomegaly. Hyperdense material within the gallbladder likely represents stones/sludge. There is no CT evidence of acute cholecystitis. Punctate nonobstructing left renal calculus. Advanced coronary artery calcification. Mildly enlarged upper abdominal lymph nodes are nonspecific and likely related to chronic liver disease. -Immunological/Serological work-up CMV, EBV, GREG, AMA, ASMA Negative -MRCP:Normal MRCP. Hepatomegaly and severe hepatic steatosis. Splenomegaly. Trace abdominal ascites and trace pleural effusions. -Acute hepatitis panel negative -Appreciate GI input -Trend LFTs, INR -Avoid Hepatotoxic agents -Ruled out Infection: Blood, urine culture negative -completed Acetylcysteine course -Continue pentoxifylline for total of 4 weeks as per GI -Persistent hyperbilirubinemia -Needs Follow up with GI upon discharge -S/P abdominal paracentesis -DF trended down from 42 to 30 LFTs slowly trending down Advised to avoid any hepatotoxic agents Advised follow up with Gastroenterology upon discharge Ileus Vs P.SBO Resolved Monitor Suspected UTI--Ruled out Blood culture Negative Urine Culture: Negative On empiric cefepime--DCed Pancytopenia Likely secondary to Alcoholism, Liver failure S/P PRBC, Platelets Monitor CBC H/O DM II as per records Update HbA1C:6.3 (? Falsely low due to liver disease ) Continue ISS Suspected GI bleeding +FOBT No plan for scope currently as per GI unless patient has active bleed Received PPI drip for 72 hours and then transition to p.o. twice daily Monitor H&H Appreciate GI Input (3) Hyponatremia: -Sodium 120>123>124 >134 > 136>137>139 -Likely chronic/due to underlying liver disease fluid restriction Monitor sodium levels Appreciate Nephrology input (4) Anemia: (5) Thrombocytopenia: -Likely due to underlying liver disease Transfuse as needed Monitor (6) Alcohol abuse: -longstanding history of alcohol abuse, last drink 1 month ago prior to admission -Continue thiamine, folic acid and (7) GERD (gastroesophageal reflux disease): -Continue PPI (8) Hypokalemia: Replace electrolytes as needed (9) Hypomagnesemia: -Replace, follow electrolytes (10) DVT prophylaxis: -SCDs Re: Anemia, thrombocytopenia Total Time Total Time Spent Total Time Spent (In Minutes): 43 minutes Discharge Plan Discharge Items Patient Disposition: Home - Home Health Services Reason For Visit: LIVER FAILURE, HYPONATREMIA Discharge Diagnosis: Alcoholic hepatitis Decompensated cirrhosis Pancytopenia Hyponatremia Activity: Per Instructions section Exercise/Sports: Wait until after follow-up appointment Non-emergency contact: Primary Care Provider and Sample Grinder Call non-emergency contact if: you have any medication questions, your symptoms worsen, your pain is concerning for you and you have a fever Follow-up/Referrals: Robbi Osorio MD [Primary Care Provider] - Elen Wood, [Physician] - Diet: Carb Consistent or DM2, Low Fiber and Low Sodium (2gm) Fluids: 1500ml (6 cups) Addtl Attending Provider Instructions: Follow-up with your primary care physician in 1 week Follow-up with 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 Seek immediate medical attention if your symptoms reoccur or worsen Please take all medications as instructed on discharge list below. Please call if you have any questions or problems. You can reach a [facility] hospitalist on duty at [facility] 24 hours a day by calling [phone] Pending Studies at Discharge: No Stand-Alone Forms: My [facility], Smoking Cessation Medications and DC Order Prescriptions: New pentoxifylline 400 mg Tablet Extended Release 400 mg PO TID 18 Days Qty: 54 RF: 0 hydroxyzine HCl 10 mg Tablet 10 mg PO Q8H PRN (Reason: itching) Qty: 30 RF: 0 magnesium chloride [Mag 64] 64 mg Tablet,Delayed Release (Dr/Ec) 64 mg PO BID Qty: 60 RF: 0 potassium chloride 10 mEq Tablet,Er Particles/Crystals 10 meq PO BID Qty: 30 RF: 0 Phospha 250 Neutral 250 mg Tablet 1 tab PO QID 10 Days Qty: 40 RF: 0 pantoprazole 40 mg Tablet,Delayed Release (Dr/Ec) 40 mg PO BID Qty: 60 RF: 0 sennosides-docusate sodium [Senokot-S] 8.6-50 mg Tablet 2 tab PO QAM Qty: 30 RF: 0 melatonin 3 mg Tablet 3 mg PO HS PRN (Reason: sleep) Qty: 30 RF: 0 folic acid 1 mg Tablet 1 mg PO QAM Qty: 30 RF: 0 multivitamin with folic acid [Daily-Ro (with folic acid)] 400 mcg Tablet 1 tab PO QAM Qty: 30 RF: 0 thiamine HCl (vitamin B1) [Vitamin B-1] 100 mg Tablet 100 mg PO QAM Qty: 30 RF: 0 Continued quetiapine [Seroquel] 400 mg Tablet 400 mg PO HS Qty: 30 RF: 0 Discharge Orders: Discharge Order (Routine); Ordered 03/10/21 Ordered By: Deshawn Munroe/Other Patient Handouts: High Blood Sugar (Hyperglycemia), Hypoglycemia (Low Blood Sugar), Managing Type 2 Diabetes Admission Data Admit Date/Time: 02/24/21 12:58 Attending Provider: Deshawn Blair Admit Provider: Baljeet Vasques Primary Care Provider: Robbi Osorio Other Providers: Baljeet Vasques ; Elen Wood ; Isaias Roach ; Deshawn Blair Other Interventions: Discharge Summary Assessment (RN) Last Done: 03/10/21 13:24
--- NOTE | 2021-03-11 12:17 | 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 Note ---
Date of Service: March 11, 2021 Updated Patient/family with Cr results. Pt in [place]. Advised to follow up with his physician.
== END 2021-03-10 15:00 | disposition home health service (06) | DRG 432 ==
LOC: ED 10:33 → SUATTDRO 12:58 → EDINP 12:58 → 2S 15:10